=== PATIENT | female | born 1960 | race African-American/Black ===

== ENCOUNTER 2018-04-19 10:59 | Emergency (ER) | payer OTHER ==
--- OUTSIDE RECORDS SUMMARY | 2018-04-19 11:16 | XMS REPORT ---
:1960 Author Organization eClinicalWorks Care Team Providers Name Role Phone Rogerio Rodriguez Provider Role Unavailable Allergies, Adverse Reactions, Alerts Substance Reaction Event Type N.K.D.A. Info Not Available Non Drug Allergy Problems Problem Type Condition Code Onset Dates Condition Status Assessment Body mass index (BMI) of 30.0 to 39.9 E66.9 Active Assessment Hyperlipidemia E78.5 Active Assessment Benign essential HTN I10 Active Problem Rheumatoid arthritis M06.9 Active Problem Benign essential HTN I10 Active Problem Hyperlipidemia E78.5 Active Assessment Diabetes type 2, controlled E11.9 Active Assessment Rheumatoid arthritis M06.9 Active Problem Diabetes type 2, controlled E11.9 Active Problem Body mass index (BMI) of 30.0 to 39.9 E66.9 Active Medications Medication Code Code Instructions Start End Status Dosage System Date Date Metformin HCl [facility] 09170745884 500 MG Orally Active 1 tablet Twice a day with meals Metformin HCl [facility] 32258994887 500 MG Active TAKE 1 TABLET EVERY MORNING Prednisone NDC 0 Oral Once Active 1 tab (5 every other day mg) Amlodipine [facility] 62394567844 10 MG Orally Active 1 tablet Besylate Once a day Cimzia [facility] 48092308830 2 X 200 MG Active not Subcutaneous defined Lipitor [facility] 38368707575 40 MG Active TAKE 1 TABLET BY MOUTH EVERY DAY Norvasc [facility] 64298509876 10 MG Active TAKE 1 TABLET EVERY DAY Lipitor [facility] 39716969022 40 MG Orally Active 1 tablet Once a day Spironolactone [facility] 42481372019 25 MG Orally Active 1 tablet Once a day with food Methotrexate [facility] [address]-32 2.5 MG/ML IM Active IM Folic Acid [facility] 56404273285 1 MG Active TAKE 1 TABLET BY MOUTH EVERY DAY Folic Acid [facility] 45847974250 1 MG Orally Active 1 tablet Once a day Vimovo [facility] 14115270435 375-20 MG Active 1 tablet Orally Twice a before day meals Results No Known Results Summary Purpose eClinicalWorks Submission
--- OUTSIDE RECORDS SUMMARY | 2018-04-19 11:17 | XMS REPORT ---
:1960 Author Organization e[employer]Works Care Team Providers Name Role Phone Rogerio Rodriguez Provider Role Unavailable Allergies No Known Allergies Problems Problem Type Condition Code Onset Dates Condition Status Problem Rheumatoid arthritis M06.9 Active Problem Benign essential HTN I10 Active Problem Hyperlipidemia E78.5 Active Problem Diabetes type 2, controlled E11.9 Active Problem Body mass index (BMI) of 30.0 to 39.9 E66.9 Active Medications No Known Medications Results No Known Results Summary Purpose eClinicalWorks Submission
--- OUTSIDE RECORDS SUMMARY | 2018-04-19 11:17 | XMS REPORT ---
:1960 Author Organization [employer]Works Care Team Providers Name Role Phone Rogerio Rodriguez Provider Role Unavailable Allergies, Adverse Reactions, Alerts Substance Reaction Event Type N.K.D.A. Info Not Available Non Drug Allergy Problems Problem Type Condition Code Onset Dates Condition Status Assessment Well adult on routine health check Z00.00 Active Assessment Screening mammogram, encounter for Z12.31 Active Problem Body mass index (BMI) of 30.0 to E66.9 Active 39.9 Problem Hyperlipidemia E78.5 Active Problem Anemia in chronic illness D63.8 Active Problem Diabetes type 2, controlled E11.9 Active Problem Rheumatoid arthritis M06.9 Active Problem Benign essential HTN I10 Active Medications Medication Code Code Instructions Start End Status Dosage System Date Date Amlodipine [facility] 75812413995 10 MG Orally Active 1 tablet Besylate Once a day Methotrexate [facility] [address]-96 2.5 MG/ML IM Active IM Amlodipine [facility] 32669772691 10 MG Orally Active 1 tablet Besylate Once a day Lipitor [facility] 48246604419 40 MG Orally Active 1 tablet Once a day Vimovo [facility] 33204089781 375-20 MG Active 1 tablet Orally Twice a before day meals Cimzia [facility] 96311065936 2 X 200 MG Active not Subcutaneous defined Promethazine HCl [facility] 35309735791 12.5 MG Orally Active 1 tablet every 6 hrs as needed PredniSONE [facility] 69754479500 5 MG Orally Active 1 tablet Once a day Spironolactone [facility] 49843861843 25 MG Orally Active 1 tablet Once a day with food Metformin HCl [facility] 41585194058 500 MG Orally Active 1 tablet Once a day with meals Folic Acid [facility] 36051352316 1 MG Orally Active 1 tablet Once a day Results No Known Results Summary Purpose eClinicalWorks Submission
--- OUTSIDE RECORDS SUMMARY | 2018-04-19 11:17 | XMS REPORT ---
:1960 Author Organization eClinicalWorks Care Team Providers Name Role Phone Rogerio Rodriguez Provider Role Unavailable Allergies, Adverse Reactions, Alerts Substance Reaction Event Type N.K.D.A. Info Not Available Non Drug Allergy Problems Problem Type Condition Code Onset Dates Condition Status Problem Rheumatoid arthritis M06.9 Active Problem Benign essential HTN I10 Active Problem Hyperlipidemia E78.5 Active Assessment Other noninfective acute otitis H60.592 Active externa of left ear Problem Diabetes type 2, controlled E11.9 Active Problem Body mass index (BMI) of 30.0 to E66.9 Active 39.9 Medications Medication Code Code Instructions Start End Status Dosage System Date Date Spironolactone [facility] 44454245042 25 MG Orally Active 1 tablet Once a day with food Amlodipine [facility] 55598889989 10 MG Orally Active 1 tablet Besylate Once a day Folic Acid [facility] 67353247296 1 MG Active TAKE 1 TABLET BY MOUTH EVERY DAY Neomycin-Polymyxi [facility] 42219241151 3.5-02264-4 July Active 4 drops n-HC Otic Twice a 2017 affected ear Cimzia [facility] 90651261098 2 X 200 MG Active not Subcutaneous defined Vimovo [facility] 90981570858 375-20 MG Active 1 tablet Orally Twice a before day meals Methotrexate [facility] [address]-36 2.5 MG/ML IM Active IM Norvasc [facility] 16207225714 10 MG Active TAKE 1 TABLET EVERY DAY Lipitor [place] 73805965438 40 MG Active TAKE 1 TABLET BY MOUTH EVERY DAY Metformin HCl [facility] 96476598792 500 MG Active TAKE 1 TABLET EVERY MORNING Metformin HCl [facility] 68561922449 500 MG Orally Active 1 tablet Twice a day with meals Prednisone NDC 0 Oral Once Active 1 tab (5 every other day mg) Results No Known Results Summary Purpose eClinicalWorks Submission
--- OUTSIDE RECORDS SUMMARY | 2018-04-19 11:17 | XMS REPORT ---
:1960 Author Organization eClinicalWorks Care Team Providers Name Role Phone Rogerio Rodriguez Provider Role Unavailable Allergies No Known Allergies Problems Problem Type Condition Code Onset Dates Condition Status Assessment Benign essential HTN I10 Active Assessment Rheumatoid arthritis M06.9 Active Assessment Hyperlipidemia E78.5 Active Assessment Body mass index (BMI) of 30.0 to 39.9 E66.9 Active Problem Rheumatoid arthritis M06.9 Active Problem Benign essential HTN I10 Active Problem Hyperlipidemia E78.5 Active Assessment Diabetes type 2, controlled E11.9 Active Problem Diabetes type 2, controlled E11.9 Active Problem Body mass index (BMI) of 30.0 to 39.9 E66.9 Active Medications Medication Code Code Instructions Start End Status Dosage System Date Date Cimzia [facility] 81445555927 2 X 200 MG Active not Subcutaneous defined Neomycin-Polymyxi [facility] 02672931538 3.5-64081-0 July Active 4 drops n-HC Otic Twice a 27, into 2017 affected ear Metformin HCl [facility] 32043486276 500 MG Orally Active 1 tablet Twice a day with meals Metformin HCl [facility] 02953993816 500 MG Active TAKE 1 TABLET EVERY MORNING Amlodipine [facility] 47018989610 10 MG Orally Active 1 tablet Besylate Once a day Lipitor [facility] 61563347076 40 MG Active TAKE 1 TABLET BY MOUTH EVERY DAY Norvasc [facility] 50656906393 10 MG Active TAKE 1 TABLET EVERY DAY Prednisone NDC 0 Oral Once Active 1 tab (5 every other day mg) Vimovo [facility] 98462531578 375-20 MG Active 1 tablet Orally Twice a before day meals Lipitor [facility] 26174599198 40 MG Orally Active 1 tablet Once a day Folic Acid [facility] 29829691379 1 MG Active TAKE 1 TABLET BY MOUTH EVERY DAY Spironolactone [facility] 43467209156 25 MG Orally Active 1 tablet Once a day with food Folic Acid [facility] 63561730190 1 MG Orally Active 1 tablet Once a day Methotrexate [facility] [address]-67 2.5 MG/ML IM Active IM Results No Known Results Summary Purpose eClinicalWorks Submission
--- OUTSIDE RECORDS SUMMARY | 2018-04-19 11:17 | XMS REPORT ---
:1960 Author Organization eClinicalWorks Care Team Providers Name Role Phone RodriguezRogerio Provider Role Unavailable Allergies, Adverse Reactions, Alerts Substance Reaction Event Type N.K.D.A. Info Not Available Non Drug Allergy Problems Problem Type Condition Code Onset Dates Condition Status Assessment Hyperlipidemia E78.5 Active Assessment Diabetes type 2, controlled E11.9 Active Assessment Rheumatoid arthritis M06.9 Active Assessment Body mass index (BMI) of 30.0 to 39.9 E66.9 Active Assessment Anemia in chronic illness D63.8 Active Assessment Benign essential HTN I10 Active Problem Body mass index (BMI) of 30.0 to 39.9 E66.9 Active Problem Hyperlipidemia E78.5 Active Problem Anemia in chronic illness D63.8 Active Problem Diabetes type 2, controlled E11.9 Active Problem Rheumatoid arthritis M06.9 Active Problem Benign essential HTN I10 Active Medications Medication Code Code Instructions Start End Status Dosage System Date Date Amlodipine [facility] 41955650083 10 MG Orally Active 1 tablet Besylate Once a day Spironolactone [facility] 78363514206 25 MG Orally Active 1 tablet Once a day with food Amlodipine [facility] 67015469768 10 MG Orally Active 1 tablet Besylate Once a day Promethazine HCl [facility] 47361688272 12.5 MG Orally Active 1 tablet every 6 hrs as needed Methotrexate [facility] [address]-06 2.5 MG/ML IM Active IM Vimovo [facility] 60130225352 375-20 MG Active 1 tablet Orally Twice a before day meals Metformin HCl ND 71440197527 500 MG Orally Active 1 tablet Once a day with meals Lipitor ND 91771727052 40 MG Orally Active 1 tablet Once a day PredniSONE ND 35165950574 5 MG Orally Active 1 tablet Once a day Folic Acid ND 52604421354 1 MG Orally Active 1 tablet Once a day Cimzia [facility] 00042456921 2 X 200 MG Active not Subcutaneous defined Results No Known Results Summary Purpose eClinicalWorks Submission
--- OUTSIDE RECORDS SUMMARY | 2018-04-19 11:17 | XMS REPORT ---
:1960 Author Organization eClinicalWorks Care Team Providers Name Role Phone Michael Rogerio Provider Role Unavailable Allergies No Known Allergies Problems Problem Type Condition Code Onset Dates Condition Status Assessment Need for influenza vaccination Z23 Active Problem Body mass index (BMI) of 30.0 to 39.9 E66.9 Active Problem Hyperlipidemia E78.5 Active Problem Anemia in chronic illness D63.8 Active Problem Diabetes type 2, controlled E11.9 Active Problem Rheumatoid arthritis M06.9 Active Problem Benign essential HTN I10 Active Medications Medication Code Code Instructions Start End Status Dosage System Date Date Folic Acid [facility] 89663470325 1 MG Orally Active 1 tablet Once a day Amlodipine [facility] 79427536552 10 MG Orally Active 1 tablet Besylate Once a day Lipitor [facility] 24465032119 40 MG Orally Active 1 tablet Once a day Amlodipine [facility] 89699616305 10 MG Orally Active 1 tablet Besylate Once a day Methotrexate [facility] [address]-01 2.5 MG/ML IM Active IM Vimovo [facility] 07684926503 375-20 MG Active 1 tablet Orally Twice a before day meals PredniSONE [facility] 19197549858 5 MG Orally Active 1 tablet Once a day Spironolactone [facility] 94297142707 25 MG Orally Active 1 tablet Once a day with food Promethazine HCl [facility] 02842988126 12.5 MG Orally Active 1 tablet every 6 hrs as needed Metformin HCl [facility] 61696340612 500 MG Orally Active 1 tablet Once a day with meals Cimzia [facility] 64318125533 2 X 200 MG Active not Subcutaneous defined Results No Known Results Immunizations Vaccine Administration Date Afluria Mar 22, 2018 Summary Purpose eClinicalWorks Submission
[2018-04-19] MEDS ORDERED: NA CHLORIDE 0.9% 500 ML ONE (12:46)
[2018-04-19] MEDS ORDERED: HYDROCODONE/APAP 10/325 TAB ONE (13:03)
--- NOTE | 2018-04-19 13:04 | EKG ---
Test Date: 2018-04-19 Test Time: 12:12:17 [employer] Worker: KORI MEASUREMENT RESULTS: Intervals: Rate: 61 IN: 146 QRSD: 70 QT: 390 QTc: 392 [place]: P: IN: 146 QRS: 74 T: 58 INTERPRETIVE STATEMENTS: Normal sinus rhythm Normal ECG Compared to ECG 11/01/2016 10:33:15 Sinus bradycardia no longer present ST (T wave) deviation no longer present Early repolarization no longer present Electronically Signed On 04-19-18 13:03:45 [employer]NAGER [employer]ING by Khadar Lopez
[2018-04-19 13:17] LABS: Absolute Lymphocytes (CBC) 1.7 K/uL (0.7-4.9); Absolute Monocytes 0.8 K/uL (0.1-1.3); Absolute Neutrophil 2.5 K/uL (1.8-8.0); Basophils % 1.1 % (0-1.3); Eosinophils % 3.2 % (0-4.4); Hematocrit 36.4 % (36.0-45.0); Lymphocytes % 33.3 % (15.3-44.8); MPV 10.5 fL (7.6-11.3); Monocytes % 15.1 % (3.3-12.3)
[2018-04-19 13:31] LABS: ALT/SGPT 29 U/L (12-78); AST/SGOT 16 U/L (15-37); Albumin 3.2 g/dL (3.4-5.0); Alkaline Phosphatase 78 U/L (45-117); BUN Blood Urea Nitrogen 12 mg/dL (7-18); Bicarbonate 28 mmol/L (21-32); Bilirubin Direct < 0.1 mg/dL (0-0.2); Bilirubin Total 0.2 mg/dL (0.2-1.0); Glucose Level 87 mg/dL (74-106); Magnesium 2.1 mg/dL (1.8-2.4); NT PRO-BNP 85 pg/mL (<125); Protein, Total 8.6 g/dL (6.4-8.2); Sodium Level 143 mmol/L (136-145); Troponin (Emerg Dept Use Only) < 0.02 ng/mL (0.0-0.045)
[2018-04-19 13:39] LABS: Blood Morphology Comment NOT SEEN (NOT SEEN); Platelet Estimate ADEQ
--- NOTE | 2018-04-19 13:40 | RAD REPORT ---
EXAM DESCRIPTION: RAD - Chest Single View - 04/19/2018 1:21 pm CLINICAL HISTORY: Left-sided chest pain COMPARISON: October 2016 TECHNIQUE: AP portable chest image was obtained 1302 hours . FINDINGS: Lungs are clear. Small granuloma upper left lung field, stable. Heart and vasculature are normal. No measurable pleural effusion and no pneumothorax. No acute bony abnormality seen. No acute aortic findings suspected. IMPRESSION: No acute cardiopulmonary process. No significant interval change.
--- NOTE | 2018-04-19 14:06 | EDPHYS ---
Physician Documentation [facility] Name: Shanda Marie Age: 57 yrs Sex: Female : 1960 Arrival Date: 04/19/2018 Time: 11:01 Bed 15 Private MD: Salome Rodriguezh ED Physician Juan Steinberg HPI: 04/19 11:42 This 57 yrs old Black Female presents to ER via Ambulatory with complaints of Hand kav Swelling, Leg Swelling, Hip Pain, Chest Pain. 12:04 The patient or guardian reports pain, swelling, erythema. The complaints affect the kav right hand diffusely. Context: The problem was sustained at home. Onset: The symptoms/episode began/occurred acutely, just prior to arrival. Modifying factors: The symptoms are alleviated by Methotrexate and Prednisone daily for DX: Rheumatoid Arthritis. Associated signs and symptoms: Pertinent positives: chest pain, of the left breast. Severity of symptoms: At their worst the symptoms were severe, just prior to arrival, a " 7" out of "10". The patient has experienced similar episodes in the past, a few times, but today's symptoms are worse, more painful. The patient has not recently seen a physician. Historical: - Allergies: 11:11 No Known Drug Allergies; hb - Home Meds: 11:11 amlodipine 10 mg tab 1 tab once daily [Active]; atorvastatin 40 mg Oral tab 1 tab once hb daily [Active]; prednisone 5 mg Oral tab once daily [Active]; folic acid 1 mg Oral tab 1 tab once daily [Active]; metformin 500 mg Oral Tb24 1 tab once daily [Active]; Vimovo 500-20 mg Oral TbID 1 tab [Active]; methotrexate sodium 2.5 mg Oral tab 6 tab Once weekly-Monday [Active]; spironolactone 25 mg Oral tab 1 tab once daily [Active]; - PMHx: 11:11 Diabetes - NIDDM; High Cholesterol; Hypertension; Rheumatoid Arthritis; hb - PSHx: 11:11 None; hb - Immunization history:: Adult Immunizations up to date. - Social history:: Smoking status: Patient/guardian denies using tobacco. - Ebola Screening: : No symptoms or risks identified at this time. - Family history:: not pertinent. - Hospitalizations: : No recent hospitalization is reported. ROS: 12:07 Constitutional: Negative for fever, chills, and weight loss, Eyes: Negative for injury, kav pain, redness, and discharge, ENT: Negative for injury, pain, and discharge, Neck: Negative for injury, pain, and swelling, Respiratory: Negative for shortness of breath, cough, wheezing, and pleuritic chest pain, Abdomen/GI: Negative for abdominal pain, nausea, vomiting, diarrhea, and constipation, Back: Negative for injury and pain, : Negative for injury, bleeding, discharge, and swelling, Skin: Negative for injury, rash, and discoloration, Neuro: Negative for headache, weakness, numbness, tingling, and seizure, Psych: Negative for depression, anxiety, suicide ideation, homicidal ideation, and hallucinations, Allergy/Immunology: Negative for hives, rash, and allergies, Endocrine: Negative for neck swelling, polydipsia, polyuria, polyphagia, and marked weight changes, Hematologic/Lymphatic: Negative for swollen nodes, abnormal bleeding, and unusual bruising. 12:07 Cardiovascular: Positive for chest pain, with movement, of the left breast, Negative for palpitations. 12:07 MS/extremity: Positive for erythema, pain, swelling, tenderness, of the left arm and left hand. 12:10 MS/extremity: Positive for erythema, pain, swelling, tenderness, of the left arm. kav Exam: 12:07 Constitutional: This is a well developed, well nourished patient who is awake, alert, kav and in no acute distress. Head/Face: Normocephalic, atraumatic. Eyes: Pupils equal round and reactive to light, extra-ocular motions intact. Lids and lashes normal. Conjunctiva and sclera are non-icteric and not injected. Cornea within normal limits. Periorbital areas with no swelling, redness, or edema. ENT: Nares patent. No nasal discharge, no septal abnormalities noted. Tympanic membranes are normal and external auditory canals are clear. Oropharynx with no redness, swelling, or masses, exudates, or evidence of obstruction, uvula midline. Mucous membranes moist. Neck: Trachea midline, no thyromegaly or masses palpated, and no cervical lymphadenopathy. Supple, full range of motion without nuchal rigidity, or vertebral point tenderness. No Meningismus. Chest/axilla: Normal chest wall appearance and motion. Nontender with no deformity. No lesions are appreciated. Respiratory: Lungs have equal breath sounds bilaterally, clear to auscultation and percussion. No rales, rhonchi or wheezes noted. No increased work of breathing, no retractions or nasal flaring. Abdomen/GI: Soft, non-tender, with normal bowel sounds. No distension or tympany. No guarding or rebound. No evidence of tenderness throughout. Back: No spinal tenderness. No costovertebral tenderness. Full range of motion. Skin: Warm, dry with normal turgor. Normal color with no rashes, no lesions, and no evidence of cellulitis. Neuro: Awake and alert, GCS 15, oriented to person, place, time, and situation. Cranial nerves II-XII grossly intact. Motor strength 5/5 in all extremities. Sensory grossly intact. Cerebellar exam normal. Normal gait. Psych: Awake, alert, with orientation to person, place and time. Behavior, mood, and affect are within normal limits. 12:10 Musculoskeletal/extremity: Extremities: noted in the left arm and left hand: erythema, kav pain, swelling, tenderness, ROM: limited active range of motion, in the left arm and left hand, Circulation is intact in all extremities. Pulses: are normal with no appreciated deficits, Perfusion: the patient is normally perfused throughout, pink, warm, noted to have brisk capillary refill, Perfusion: the extremity is normally perfused throughout, pink, warm, with brisk capillary refill, the left arm Sensation intact. Compartment Syndrome exam of affected extremity: is normal. no numbness, no tingling, no sensation deficit, no palor, no weak pulses, Joints: the left wrist displays limited range of motion, pain at rest, painful range of motion, swelling, tenderness, Tendon exam: specific tendon testing normal through active and passive range of motion Vital Signs: 11:08 BP 143 / 74; Pulse 88; Resp 16; Temp 98.2; Pulse Ox 100% on R/A; Pain 6/10; hb 13:14 BP 124 / 72; Pulse 62; Resp 2; Pulse Ox 100% on R/A; aj1 14:09 BP 119 / 70; Pulse 54; Resp 15; Pulse Ox 99% on R/A; aj1 MDM: 11:42 Medical screening is not applicable. kav 12:10 Differential diagnosis: Rheumatoid Arthritis Flare. Data reviewed: vital signs, nurses ka notes. 14:03 Counseling: I had a detailed discussion with the patient and/or guardian regarding: the [facility] historical points, exam findings, and any diagnostic results supporting the discharge/admit diagnosis, lab results, the need for outpatient follow up, a accounting generalist. 04/19 12:03 Order name: Basic Metabolic Panel [facility] 04/19 12:03 Order name: CBC with Diff [facility] 04/19 12:03 Order name: LFT's 04/19 12:03 Order name: Magnesium [facility] 04/19 12:03 Order name: NT PRO-BNP; Complete Time: 14:02 [facility] 04/19 14:02 Interpretation: Within normal limits. [facility] 04/19 12:03 Order name: Troponin (emerg Dept Use Only); Complete Time: 14:02 [facility] 04/19 14:02 Interpretation: Within normal limits. 04/19 12:03 Order name: XRAY Chest (1 view); Complete Time: 14:02 [facility] 04/19 14:02 Interpretation: No acute disease. [facility] 04/19 12:04 Order name: Basic Metabolic Panel; Complete Time: 14:01 EDHI 04/19 14:01 Interpretation: Normal except: CL 110; GFR 74. [facility] 04/19 12:04 Order name: CBC with Automated Diff; Complete Time: 14:01 EDHI 04/19 14:01 Interpretation: Normal except: HGB 11.8; MN% 15.1. 04/19 12:04 Order name: Liver (Hepatic) Function; Complete Time: 14:01 EDMS 04/19 14:02 Interpretation: Normal except: TP 8.6; ALB 3.2; GLOB 5.4; A/G 0.6. 04/19 12:04 Order name: Magnesium; Complete Time: 14:02 EDMS 04/19 14:02 Interpretation: Within normal limits. 04/19 13:39 Order name: Manual Differential; Complete Time: 14:01 EDHI 04/19 14:01 Interpretation: Normal except: MONO 13. 04/19 12:03 Order name: EKG; Complete Time: 12:04 04/19 12:03 Order name: Cardiac monitoring; Complete Time: 12:36 04/19 12:03 Order name: EKG - Nurse/Tech; Complete Time: 12:33 04/19 12:03 Order name: IV Saline Lock; Complete Time: 12:35 kav 04/19 12:03 Order name: Labs collected and sent; Complete Time: 12:35 kav 04/19 12:03 Order name: O2 Per Protocol; Complete Time: 12:49 kav 04/19 12:03 Order name: O2 Sat Monitoring; Complete Time: 12:49 kav 04/19 12:45 Order name: Labs - recollect needed; Complete Time: 12:49 bd Administered Medications: 13:00 CANCELLED (Patient Refused): NS 0.9% 500 ml IV at bolus once kav 13:04 Drug: HYDROcodone-acetaminophen 10 mg-325 mg 1 tabs Route: PO; aj1 14:24 Follow up: Response: No adverse reaction; Pain is decreased aj1 Disposition: 14:58 Co-signature as Attending Physician, Juan Steinberg MD I agree with the assessment and kdr plan of care. Disposition: 04/19/18 14:05 Discharged to Home. Impression: Acute Exacerbation of Rheumatoid Arthritis, Chest pain, unspecified. - Condition is Stable. - Discharge Instructions: Nonspecific Chest Pain, Rheumatoid Arthritis. - Prescriptions for Prednisone 20 mg Oral Tablet - take 2 tablet by ORAL route once daily for 5 days; 10 tablet. - Medication Reconciliation Form, Thank You Letter, Antibiotic Education, Prescription Opioid Use, Work release form form. - Follow up: Rogerio Rodriguez DO; When: 2 - 3 days; Reason: Recheck today's complaints, Continuance of care, Re-evaluation by your physician. - Problem is an acute exacerbation. - Symptoms have improved. Signatures: Dispatcher [employer] EDHI Daily Raman Angela, RN RN aj1 Juan Steinberg MD MD kdr Vern, Katherine, [employer] Frida Segovia, RN RN Corrections: (The following items were deleted from the chart) 13:00 12:04 NS 0.9% 500 ml IV at bolus once ordered. kav kav 14:34 14:05 04/19/2018 14:05 Discharged to Home. Impression: Acute Exacerbation of Rheumatoid aj1 Arthritis; Chest pain, unspecified. Condition is Stable. Forms are Medication Reconciliation Form, Thank You Letter, Antibiotic Education, Prescription Opioid Use. Follow up: Rogerio Rodriguez; When: 2 - 3 days; Reason: Recheck today's complaints, Continuance of care, Re-evaluation by your physician. Problem is an acute exacerbation. Symptoms have improved. octavio
--- NOTE | 2018-04-19 14:06 | ER ---
Nurse's Notes [facility] Name: Shanda Marie Age: 57 yrs Sex: Female : 1960 Arrival Date: 04/19/2018 Time: 11:01 Bed 15 Private MD: Rogerio Rodriguez Diagnosis: Acute Exacerbation of Rheumatoid Arthritis;Chest pain, unspecified Presentation: 04/19 11:06 Presenting complaint: Left upper chest pain, left hand and left knee pain, and left hip hb pain x 2 day. Hx of RA. Denies injury/cough/fever. Transition of care: patient was not received from another setting of care. Onset of symptoms was April 18, 2018. Risk Assessment: Do you want to hurt yourself or someone else? Patient reports no desire to harm self or others. Care prior to arrival: None. 11:06 Method Of Arrival: Ambulatory hb 11:06 Acuity: PALMA 3 hb 14:09 Initial Sepsis Screen: Does the patient meet any 2 criteria? No. Patient's initial aj1 sepsis screen is negative. Does the patient have a suspected source of infection? No. Patient's initial sepsis screen is negative. Historical: - Allergies: 11:11 No Known Drug Allergies; hb - Home Meds: 11:11 amlodipine 10 mg tab 1 tab once daily [Active]; atorvastatin 40 mg Oral tab 1 tab once hb daily [Active]; prednisone 5 mg Oral tab once daily [Active]; folic acid 1 mg Oral tab 1 tab once daily [Active]; metformin 500 mg Oral Tb24 1 tab once daily [Active]; Vimovo 500-20 mg Oral TbID 1 tab [Active]; methotrexate sodium 2.5 mg Oral tab 6 tab Once weekly-Monday [Active]; spironolactone 25 mg Oral tab 1 tab once daily [Active]; - PMHx: 11:11 Diabetes - NIDDM; High Cholesterol; Hypertension; Rheumatoid Arthritis; hb - PSHx: 11:11 None; hb - Immunization history:: Adult Immunizations up to date. - Social history:: Smoking status: Patient/guardian denies using tobacco. - Ebola Screening: : No symptoms or risks identified at this time. - Family history:: not pertinent. - Hospitalizations: : No recent hospitalization is reported. Screenin:55 Abuse screen: Denies threats or abuse. Denies injuries from another. Nutritional aj1 screening: No deficits noted. Tuberculosis screening: No symptoms or risk factors identified. 14:10 Fall Risk None identified. aj1 Assessment: 11:55 General: Appears in no apparent distress. uncomfortable, Behavior is calm, cooperative, aj1 appropriate for age. Pain: Complains of pain in anterior aspect of left upper chest, left hip, left hand, left arm and left leg Pain does not radiate. Pain currently is 6 out of 10 on a pain scale. Pain began 2-3 days ago. Neuro: Level of Consciousness is awake, alert, obeys commands, Oriented to person, place, time, situation, Moves all extremities. Full function Gait is Patient reports that she always walks with a limp due to her arthritis. Speech is normal, Facial symmetry appears normal. Cardiovascular: Reports chest pain, Patient's skin is warm and dry. Respiratory: Airway is patent Respiratory effort is even, unlabored, Respiratory pattern is regular, symmetrical. GI: No signs and/or symptoms were reported involving the gastrointestinal system. : No signs and/or symptoms were reported regarding the genitourinary system. EENT: No signs and/or symptoms were reported regarding the EENT system. Derm: No signs and/or symptoms reported regarding the dermatologic system. Skin is pink, warm \T\ dry. normal. Musculoskeletal: Circulation, motion, and sensation intact. Range of motion: intact in all extremities. 13:13 Reassessment: Patient appears in no apparent distress at this time. No changes from aj1 previously documented assessment. Patient and/or family updated on plan of care and expected duration. Pain level reassessed. Patient is alert, oriented x 3, equal unlabored respirations, skin warm/dry/pink. 14:09 Reassessment: Patient appears in no apparent distress at this time. No changes from aj1 previously documented assessment. Patient and/or family updated on plan of care and expected duration. Pain level reassessed. Patient is alert, oriented x 3, equal unlabored respirations, skin warm/dry/pink. Vital Signs: 11:08 BP 143 / 74; Pulse 88; Resp 16; Temp 98.2; Pulse Ox 100% on R/A; Pain 6/10; hb 13:14 BP 124 / 72; Pulse 62; Resp 2; Pulse Ox 100% on R/A; aj1 14:09 BP 119 / 70; Pulse 54; Resp 15; Pulse Ox 99% on R/A; aj1 ED Course: 11:01 Patient arrived in ED. rg4 11:02 Roegrio Rodriguez DO is Private Physician. rg4 11:08 Triage completed. hb 11:08 Arm band placed on. hb 11:42 Angeles Key FNP is PHCP. kav 11:42 Juan Steinberg MD is Attending Physician. kav 11:50 Lila Jones RN is Primary Nurse. aj1 11:55 Patient has correct armband on for positive identification. aj1 11:55 No provider procedures requiring assistance completed. Patient maintains SpO2 aj1 saturation greater than 95% on room air. 12:00 hall monitor on. Pulse ox on. NIBP on. aj1 12:34 EKG done, by environmental health technician. reviewed by Angeles PACHECO. dt2 12:34 Initial lab(s) drawn, by ut, sent to lab. Inserted saline lock: 20 gauge in left mh5 antecubital area, using aseptic technique. Blood collected. 12:35 Magnesium Sent. mh5 12:35 Liver (Hepatic) Function Sent. mh5 12:35 CBC with Automated Diff Sent. mh5 12:35 Basic Metabolic Panel Sent. mh5 13:22 XRAY Chest (1 view) In Process Unspecified. EDMS 14:03 Rogerio Rodriguez DO is Referral Physician. kav 14:20 IV discontinued, intact, bleeding controlled, No redness/swelling at site. Pressure aj1 dressing applied. Administered Medications: 13:00 CANCELLED (Patient Refused): NS 0.9% 500 ml IV at bolus once kav 13:04 Drug: HYDROcodone-acetaminophen 10 mg-325 mg 1 tabs Route: PO; aj1 14:24 Follow up: Response: No adverse reaction; Pain is decreased aj1 Outcome: 14:05 Discharge ordered by . kav 14:23 Discharged to home ambulatory. aj1 14:23 Condition: good 14:23 Discharge instructions given to patient, Instructed on discharge instructions, follow up and referral plans. medication usage, Demonstrated understanding of instructions, follow-up care, medications, Prescriptions given X 1. 14:34 Patient left the ED. aj1 Signatures: Dispatcher [employer] EDPA Lila Jones RN RN aj1 Vern, Katherine, FNP FNP Frida Segovia, RN RN hb Mitchel, Jaky rg4 Jeanie Mendes 5 Holli Ignacio 2
[2018-04-19 14:42] VITALS: TEMP 98.2
[2018-04-19 14:44] VITALS: BP 119/70; O2SAT 99
== END 2018-04-19 14:34 | disposition home or self-care (01) ==
LOC: ER 10:59
DX: M06.9 Rheumatoid arthritis, unspecified (principal); I10 Essential (primary) hypertension; E11.9 Type 2 diabetes mellitus without complications; E78.00 Pure hypercholesterolemia, unspecified
CPT/HCPCS: 36415; 71045; 80048; 80076; 83735; 83880; 84484; 85025; 93005; 99285

== ENCOUNTER 2018-09-04 00:42 | Emergency (ER) | payer OTHER ==
--- OUTSIDE RECORDS SUMMARY | 2018-09-04 00:46 | XMS REPORT ---
:1960 Author Organization [employer] Care Team Providers Name Role Phone Brody Claros Provider Role Unavailable Allergies, Adverse Reactions, Alerts Substance Reaction Event Type N.K.D.A. Info Not Available Non Drug Allergy Problems Problem Type Condition Code Onset Dates Condition Status Assessment Encounter for gynecological Z01.419 Active examination without abnormal finding Problem Benign essential HTN I10 Active Assessment Postmenopausal Z78.0 Active Problem Encounter for gynecological Z01.419 Active examination without abnormal finding Problem Anemia in chronic illness D63.8 Active Problem Postmenopausal Z78.0 Active Problem Hyperlipidemia E78.5 Active Problem Rheumatoid arthritis M06.9 Active Problem Body mass index (BMI) of 30.0 to E66.9 Active 39.9 Problem Diabetes type 2, controlled E11.9 Active Medications Medication Code Code Instructions Start End Status Dosage System Date Date PredniSONE [facility] 82995373261 5 MG Orally Active 1 tablet Once a day Promethazine HCl [facility] 56156648676 12.5 MG Orally Active 1 tablet every 6 hrs as needed Methotrexate [facility] [address]-31 2.5 MG/ML IM Active IM Folic Acid [facility] 96673304578 1 MG Orally Active 1 tablet Once a day Amlodipine [facility] 00945176699 10 MG Orally Active 1 tablet Besylate Once a day Lipitor [facility] 78979359310 40 MG Orally Active 1 tablet Once a day Vimovo [facility] 90557161601 375-20 MG Active 1 tablet Orally Twice a before day meals Spironolactone [facility] 50575286462 25 MG Orally Active 1 tablet Once a day with food Cimzia [facility] 72807661564 2 X 200 MG Active not Subcutaneous defined Metformin HCl [facility] 62455373598 500 MG Orally Active 1 tablet Once a day with meals Amlodipine [facility] 18260990862 10 MG Orally Active 1 tablet Besylate Once a day Results Name Result Date Reference Range Unit Abnormality Flag URINALYSIS AUTO W/O SCOPE (71328) ----NIT neg [id number] ----URO 0.2 [id number] ----PROTEIN TRACE [id number] ----pH 5.5 [id number] ----BLO TRACE [id number] ----GLUCOSE neg [id number] ----LASHAWN 1+ [id number] ----BILIRUBIN 1+ [id number] ----KETONES TRACE [id number] ----SPECIFIC GRAVITY 1.030 [id number] Summary Purpose eClinicalWorks Submission
--- OUTSIDE RECORDS SUMMARY | 2018-09-04 00:46 | XMS REPORT ---
:1960 Author Organization [employer] Care Team Providers Name Role Phone Rogerio Rodriguez Provider Role Unavailable Allergies, Adverse Reactions, Alerts Substance Reaction Event Type N.K.D.A. Info Not Available Non Drug Allergy Problems Problem Type Condition Code Onset Dates Condition Status Assessment Rheumatoid arthritis M06.9 Active Assessment Left upper extremity swelling M79.89 Active Problem Body mass index (BMI) of 30.0 to E66.9 Active 39.9 Problem Hyperlipidemia E78.5 Active Problem Anemia in chronic illness D63.8 Active Problem Diabetes type 2, controlled E11.9 Active Problem Rheumatoid arthritis M06.9 Active Problem Benign essential HTN I10 Active Medications Medication Code Code Instructions Start End Status Dosage System Date Date Methotrexate [facility] [address]-43 2.5 MG/ML IM Active IM Amlodipine [facility] 62672552823 10 MG Orally Active 1 tablet Besylate Once a day Cimzia [facility] 99747987456 2 X 200 MG Active not Subcutaneous defined PredniSONE [facility] 44194581392 5 MG Orally Active 1 tablet Once a day Lipitor [facility] 45129313074 40 MG Orally Active 1 tablet Once a day Amlodipine [facility] 15796222852 10 MG Orally Active 1 tablet Besylate Once a day Promethazine HCl [facility] 08033057186 12.5 MG Orally Active 1 tablet every 6 hrs as needed Folic Acid [facility] 97295325655 1 MG Orally Active 1 tablet Once a day Spironolactone [facility] 12195365148 25 MG Orally Active 1 tablet Once a day with food Vimovo [facility] 27145349655 375-20 MG Active 1 tablet Orally Twice a before day meals Metformin HCl [facility] 15944727395 500 MG Orally Active 1 tablet Once a day with meals Results No Known Results Summary Purpose eClinicalWorks Submission
--- OUTSIDE RECORDS SUMMARY | 2018-09-04 00:46 | XMS REPORT ---
[...] End Status Dosage System Date Date Amlodipine [facility] 64795271068 10 MG Orally Active 1 tablet Besylate Once a day Spironolactone [facility] 82868271722 25 MG Orally Active 1 tablet Once a day with food Amlodipine [facility] 80301904890 10 MG Orally Active 1 tablet Besylate Once a day Promethazine HCl [facility] 80072058644 12.5 MG Orally Active 1 tablet every 6 hrs as needed Methotrexate [facility] [address]-03 2.5 MG/ML IM Active IM Vimovo [facility] 67065655474 375-20 MG Active 1 tablet Orally Twice a before day meals Metformin HCl ND 50668326566 500 MG Orally Active 1 tablet Once a day with meals Lipitor ND 41316008255 40 MG Orally Active 1 tablet Once a day PredniSONE ND 00805688672 5 MG Orally Active 1 tablet Once a day Folic Acid ND 83222921824 1 MG Orally Active 1 tablet Once a day Cimzia [facility] 88219893464 2 X 200 MG Active not Subcutaneous defined Results No Known Results Summary Purpose eClinicalWorks Submission
--- OUTSIDE RECORDS SUMMARY | 2018-09-04 00:46 | XMS REPORT ---
:1960 Author Organization eClinicalWorks Care Team Providers Name Role Phone Rogerio Rodriguez Provider Role Unavailable Allergies, Adverse Reactions, Alerts Substance Reaction Event Type N.K.D.A. Info Not Available Non Drug Allergy Problems Problem Type Condition Code Onset Dates Condition Status Assessment Diabetes type 2, controlled E11.9 Active Problem Benign essential HTN I10 Active Problem Encounter for gynecological Z01.419 Active examination without abnormal finding Problem Anemia in chronic illness D63.8 Active Problem Postmenopausal Z78.0 Active Problem Hyperlipidemia E78.5 Active Problem Rheumatoid arthritis M06.9 Active Problem Body mass index (BMI) of 30.0 to E66.9 Active 39.9 Problem Diabetes type 2, controlled E11.9 Active Assessment Anemia in chronic illness D63.8 Active Assessment Benign essential HTN I10 Active Assessment Hyperlipidemia E78.5 Active Assessment Body mass index (BMI) of 30.0 to E66.9 Active 39.9 Assessment Rheumatoid arthritis M06.9 Active Medications Medication Code Code Instructions Start End Status Dosage System Date Date Vimovo [facility] 83900841915 375-20 MG Active 1 tablet Orally Twice a before day meals Cimzia [facility] 30106750393 2 X 200 MG Active not Subcutaneous defined Amlodipine [facility] 83344763609 10 MG Orally Active 1 tablet Besylate Once a day Metformin HCl [facility] 97976254808 1000 MG Orally Active 1 tablet BID with meals Folic Acid [facility] 37741083586 1 MG Orally Active 1 tablet Once a day Promethazine HCl [facility] 22192206327 12.5 MG Orally Active 1 tablet every 6 hrs as needed Methotrexate [facility] [address]-71 2.5 MG/ML IM Active IM Spironolactone [facility] 26262906166 25 MG Orally Active 1 tablet Once a day with food Lipitor [facility] 60653623048 40 MG Orally Active 1 tablet Once a day Spironolactone [facility] 49072152278 25 MG Orally Active 1 tablet Once a day with food Amlodipine [facility] 44863334676 10 MG Orally Active 1 tablet Besylate Once a day PredniSONE [facility] 06190334327 5 MG Orally Active 1 tablet Once a day Results No Known Results Summary Purpose eClinicalWorks Submission
--- OUTSIDE RECORDS SUMMARY | 2018-09-04 00:46 | XMS REPORT ---
[...] Status Dosage System Date Date Folic Acid [facility] 94683704637 1 MG Orally Active 1 tablet Once a day Amlodipine [facility] 21493283573 10 MG Orally Active 1 tablet Besylate Once a day Lipitor [facility] 54519954177 40 MG Orally Active 1 tablet Once a day Amlodipine [facility] 18448381889 10 MG Orally Active 1 tablet Besylate Once a day Methotrexate [facility] [address]-54 2.5 MG/ML IM Active IM Vimovo [facility] 83579994366 375-20 MG Active 1 tablet Orally Twice a before day meals PredniSONE [facility] 42838654354 5 MG Orally Active 1 tablet Once a day Spironolactone [facility] 66991494300 25 MG Orally Active 1 tablet Once a day with food Promethazine HCl [facility] 56064475584 12.5 MG Orally Active 1 tablet every 6 hrs as needed Metformin HCl [facility] 60258367782 500 MG Orally Active 1 tablet Once a day with meals Cimzia [facility] 51453275539 2 X 200 MG Active not Subcutaneous defined Results No Known Results Immunizations Vaccine Administration Date Afluria Mar 22, 2018 Summary Purpose eClinicalWorks Submission
--- OUTSIDE RECORDS SUMMARY | 2018-09-04 00:46 | XMS REPORT ---
:1960 Author Organization eClinicalWorks Care Team Providers Name Role Phone Brody Claros Provider Role Unavailable Allergies, Adverse Reactions, Alerts Substance Reaction Event Type N.K.D.A. Info Not Available Non Drug Allergy Problems Problem Type Condition Code Onset Dates Condition Status Problem Benign essential HTN I10 Active Problem Hyperlipidemia E78.5 Active Problem Rheumatoid arthritis M06.9 Active Assessment Postmenopausal bleeding N95.0 Active Assessment Episode of heavy vaginal bleeding N93.9 Active Problem Episode of heavy vaginal bleeding N93.9 Active Problem Postmenopausal Z78.0 Active Problem Postmenopausal bleeding N95.0 Active Problem Body mass index (BMI) of 30.0 to E66.9 Active 39.9 Problem Diabetes type 2, controlled E11.9 Active Problem Encounter for gynecological Z01.419 Active examination without abnormal finding Problem Anemia in chronic illness D63.8 Active Medications Medication Code Code Instructions Start End Status Dosage System Date Date Amlodipine [facility] 31483305828 10 MG Orally Active 1 tablet Besylate Once a day Amlodipine [facility] 66198104590 10 MG Orally Active 1 tablet Besylate Once a day Cimzia [facility] 50988134126 2 X 200 MG Active not Subcutaneous defined Folic Acid [facility] 38528410391 1 MG Orally Active 1 tablet Once a day Methotrexate [facility] [address]-88 2.5 MG/ML IM Active IM Promethazine HCl [facility] 09002378628 12.5 MG Orally Active 1 tablet every 6 hrs as needed PredniSONE ND 48757512543 5 MG Orally Active 1 tablet Once a day Lipitor ND 89002600651 40 MG Orally Active 1 tablet Once a day Atorvastatin [facility] 17766877676 40 MG Active TAKE 1 Calcium TABLET BY MOUTH EVERY DAY Metformin HCl [facility] 16651021951 1000 MG Orally Active 1 tablet BID with meals Vimovo [facility] 18221378590 375-20 MG Active 1 tablet Orally Twice a before day meals Spironolactone [facility] 67934650326 25 MG Orally Active 1 tablet Once a day with food Spironolactone [facility] 58509624764 25 MG Orally Active 1 tablet Once a day with food Results Name Result Date Reference Range Unit Abnormality Flag URINALYSIS AUTO W/O SCOPE (83883) ----NIT neg [id number] ----URO 1.0 [id number] ----PROTEIN trace [id number] ----pH 7.0 [id number] ----BLO neg [id number] ----GLUCOSE neg [id number] ----LASHAWN trace [id number] ----BILIRUBIN neg [id number] ----KETONES neg [id number] ----SPECIFIC GRAVITY 1.020 [id number] Summary Purpose eClinicalWorks Submission
--- OUTSIDE RECORDS SUMMARY | 2018-09-04 00:46 | XMS REPORT ---
[...] End Status Dosage System Date Date Cimzia [facility] 00394005178 2 X 200 MG Active not Subcutaneous defined Neomycin-Polymyxi [facility] 82502866013 3.5-58077-1 July Active 4 drops n-HC Otic Twice a 27, into 2017 affected ear Metformin HCl [facility] 32738214606 500 MG Orally Active 1 tablet Twice a day with meals Metformin HCl [facility] 27606859075 500 MG Active TAKE 1 TABLET EVERY MORNING Amlodipine [facility] 92198293803 10 MG Orally Active 1 tablet Besylate Once a day Lipitor [facility] 37795973781 40 MG Active TAKE 1 TABLET BY MOUTH EVERY DAY Norvasc [facility] 67907100938 10 MG Active TAKE 1 TABLET EVERY DAY Prednisone NDC 0 Oral Once Active 1 tab (5 every other day mg) Vimovo [facility] 45693466493 375-20 MG Active 1 tablet Orally Twice a before day meals Lipitor [facility] 17610461834 40 MG Orally Active 1 tablet Once a day Folic Acid [facility] 46493403297 1 MG Active TAKE 1 TABLET BY MOUTH EVERY DAY Spironolactone [facility] 01113754159 25 MG Orally Active 1 tablet Once a day with food Folic Acid [facility] 08780853785 1 MG Orally Active 1 tablet Once a day Methotrexate [facility] [address]-45 2.5 MG/ML IM Active IM Results No Known Results Summary Purpose eClinicalWorks Submission
--- OUTSIDE RECORDS SUMMARY | 2018-09-04 00:46 | XMS REPORT ---
[...] End Status Dosage System Date Date Amlodipine [facility] 69204745239 10 MG Orally Active 1 tablet Besylate Once a day Methotrexate [facility] [address]-17 2.5 MG/ML IM Active IM Amlodipine [facility] 20044647203 10 MG Orally Active 1 tablet Besylate Once a day Lipitor [facility] 58176752616 40 MG Orally Active 1 tablet Once a day Vimovo [facility] 09809231754 375-20 MG Active 1 tablet Orally Twice a before day meals Cimzia [facility] 61224659657 2 X 200 MG Active not Subcutaneous defined Promethazine HCl [facility] 10474031733 12.5 MG Orally Active 1 tablet every 6 hrs as needed PredniSONE [facility] 26835848322 5 MG Orally Active 1 tablet Once a day Spironolactone [facility] 88580100154 25 MG Orally Active 1 tablet Once a day with food Metformin HCl [facility] 07810780141 500 MG Orally Active 1 tablet Once a day with meals Folic Acid [facility] 59144608510 1 MG Orally Active 1 tablet Once a day Results No Known Results Summary Purpose eClinicalWorks Submission
--- OUTSIDE RECORDS SUMMARY | 2018-09-04 00:46 | XMS REPORT ---
:1960 Author Organization eClinicalWorks Care Team Providers Name Role Phone Ruben Andres Provider Role Unavailable Allergies, Adverse Reactions, Alerts Substance Reaction Event Type N.K.D.A. Info Not Available Non Drug Allergy Problems Problem Type Condition Code Onset Dates Condition Status Problem Benign essential HTN I10 Active Problem Hyperlipidemia E78.5 Active Problem Rheumatoid arthritis M06.9 Active Assessment De Quervain's disease M65.4 Active (tenosynovitis) Assessment Pain in joint of left wrist M25.532 Active Problem Episode of heavy vaginal bleeding [...] End Status Dosage System Date Date Amlodipine [facility] 77783534993 10 MG Orally Active 1 tablet Besylate Once a day Spironolactone [facility] 21465216402 25 MG Orally Active 1 tablet Once a day with food PredniSONE ND 11690316380 5 MG Orally Active 1 tablet Once a day Atorvastatin ND 45661830372 40 MG Active TAKE 1 Calcium TABLET BY MOUTH EVERY DAY Cimzia [facility] 05649093692 2 X 200 MG Active not Subcutaneous defined Promethazine HCl [facility] 42758801952 12.5 MG Orally Active 1 tablet every 6 hrs as needed Amlodipine ND 87243342994 10 MG Orally Active 1 tablet Besylate Once a day Spironolactone [facility] 84145221636 25 MG Orally Active 1 tablet Once a day with food Lipitor ND 82335128704 40 MG Orally Active 1 tablet Once a day Metformin HCl ND 47469345455 1000 MG Orally Active 1 tablet BID with meals Vimovo [facility] 71850791828 375-20 MG Active 1 tablet Orally Twice a before day meals Folic Acid ND 44768902897 1 MG Orally Active 1 tablet Once a day Methotrexate [facility] [address]-85 2.5 MG/ML IM Active IM Results No Known Results Summary Purpose eClinicalWorks Submission
--- OUTSIDE RECORDS SUMMARY | 2018-09-04 00:47 | XMS REPORT ---
:1960 Author Organization eClinicalWorks Care Team Providers Name Role Phone Rogerio Rodriguez Provider Role Unavailable Allergies, Adverse Reactions, Alerts Substance Reaction Event Type N.K.D.A. Info Not Available Non Drug Allergy Problems Problem Type Condition Code Onset Dates Condition Status Problem Rheumatoid arthritis M06.9 Active Problem Diabetes type 2, controlled E11.9 Active Problem Hyperlipidemia E78.5 Active Problem Postmenopausal bleeding N95.0 Active Problem Episode of heavy vaginal bleeding N93.9 Active Problem Abnormal uterine bleeding N93.9 Active Problem Anemia in chronic illness D63.8 Active Problem Body mass index (BMI) of 30.0 to E66.9 Active 39.9 Problem Postmenopausal Z78.0 Active Problem Encounter for gynecological Z01.419 Active examination without abnormal finding Assessment Body mass index (BMI) of 30.0 to E66.9 Active 39.9 Assessment Anemia in chronic illness D63.8 Active Assessment Rheumatoid arthritis M06.9 Active Assessment Diabetes type 2, controlled E11.9 Active Assessment Benign essential HTN I10 Active Assessment Hyperlipidemia E78.5 Active Problem Benign essential HTN I10 Active Medications Medication Code Code Instructions Start End Status Dosage System Date Date Spironolactone [facility] 58437095909 25 MG Orally Active 1 tablet Once a day with food Norvasc [facility] 39009079425 10 MG Active TAKE 1 TABLET EVERY DAY Spironolactone [facility] 00420113413 25 MG Orally Active 1 tablet Once a day with food Folic Acid [facility] 05358082148 1 MG Orally Active 1 tablet Once a day Metformin HCl [facility] 97758989654 1000 MG Orally Active 1 tablet BID with meals Lipitor [facility] 18084256726 40 MG Orally Active 1 tablet Once a day Atorvastatin [facility] 43937892095 40 MG Active TAKE 1 Calcium TABLET BY MOUTH EVERY DAY Vimovo [facility] 75402400111 375-20 MG Active 1 tablet Orally Twice a before day meals Methotrexate [facility] [address]-28 2.5 MG/ML IM Active IM Cimzia [facility] 55321375030 2 X 200 MG Active not Subcutaneous defined Amlodipine [facility] 99153179947 10 MG Orally Active 1 tablet Besylate Once a day Lipitor [facility] 27934897335 40 MG Orally Active 1 tablet Once a day PredniSONE [facility] 24299651805 5 MG Orally Active 1 tablet Once a day Tinidazole [facility] 73029685332 500 MG Orally Active 4 tablets Once a day with food Results No Known Results Summary Purpose eClinicalWorks Submission
[2018-09-04] MEDS ORDERED: KETOROLAC 30 MG/ML INJ ONE (01:49)
[2018-09-04] MEDS ORDERED: HYDROCODONE/APAP 5/325 MG TAB ONE (01:49)
[2018-09-04] MEDS ORDERED: ONDANSETRON 4 MG (ODT) TAB ONE (01:55)
--- NOTE | 2018-09-04 02:37 | ER ---
Nurse's Notes [facility] Name: Shanda Marie Age: 57 yrs Sex: Female : 1960 Arrival Date: 09/04/2018 Time: 00:48 Bed 7 Private MD: Rogerio Rodriguez Diagnosis: Contusion of right lower leg Presentation: 09/04 01:09 Presenting complaint: Patient states: Reports her right leg started hurting around 5 PM ea yesterday evening, reports it progressively got worse. Put theraworks cream on leg without relief. Transition of care: patient was not received from another setting of care. Onset of symptoms was September 04, 2018. Risk Assessment: Do you want to hurt yourself or someone else? Patient reports no desire to harm self or others. Initial Sepsis Screen: Does the patient meet any 2 criteria? No. Patient's initial sepsis screen is negative. Does the patient have a suspected source of infection? No. Patient's initial sepsis screen is negative. Care prior to arrival: None. 01:09 Method Of Arrival: Wheelchair ea 01:09 Acuity: PALMA 3 ea Triage Assessment: 01:12 General: Appears uncomfortable, Behavior is calm, cooperative, appropriate for age. ea Pain: Complains of pain in right leg Pain radiates to right lower back Pain began 1 day ago. Historical: - Allergies: : No Known Allergies; ea - Home Meds: : amlodipine 10 mg tab 1 tab once daily [Active]; folic acid 1 mg Oral tab 1 tab once ea daily [Active]; methotrexate sodium 2.5 mg Oral tab 6 tab Once weekly-Monday [Active]; atorvastatin 40 mg Oral tab 1 tab once daily [Active]; metformin 500 mg Oral Tb24 1 tab once daily [Active]; spironolactone 25 mg Oral tab 1 tab once daily [Active]; prednisone 5 mg Oral tab once daily [Active]; - PMHx: : Rheumatoid Arthritis; Hypertension; High Cholesterol; Diabetes - NIDDM; ea - PSHx: : None; ea - Immunization history:: Adult Immunizations up to date. - Social history:: Smoking status: Patient/guardian denies using tobacco. - Ebola Screening: : No symptoms or risks identified at this time. Screenin:11 Abuse screen: Denies threats or abuse. Nutritional screening: No deficits noted. ea Tuberculosis screening: No symptoms or risk factors identified. Fall Risk Gait- Impaired (20 pts.). Assessment: 01:13 General: Appears uncomfortable, Behavior is appropriate for age. Neuro: Level of ea Consciousness is awake, alert, obeys commands, Oriented to person, place, time, situation. Cardiovascular: Patient's skin is warm and dry. Respiratory: Airway is patent Respiratory effort is even, unlabored, Respiratory pattern is regular, symmetrical. Derm: Skin is dry, Skin is normal, Skin temperature is warm. Musculoskeletal: Reports pain in right leg. 02:19 Reassessment: Patient and/or family updated on plan of care and expected duration. Pain ea level reassessed. Pt resting with eyes closed, respirations even and unlabored. Chest expansions even and symmetrical. 02:48 Reassessment: Patient and/or family updated on plan of care and expected duration. Pain ea level reassessed. Patient is alert, oriented x 3, equal unlabored respirations, skin warm/dry/pink. Discharge instruction given to patient, verbalized the understanding of instruction. No s/s of pain or discomfort noted a this time. Pt left ED via wheelchair per son. Pt tolerating well. Patient states feeling better. Patient states symptoms have improved. Vital Signs: 01:11 BP 135 / 81; Pulse 79; Resp 18; Temp 98.6; Pulse Ox 98% on R/A; Weight 96.62 kg; Height ea 5 ft. 6 in. (167.64 cm); Pain 10/10; 02:20 BP 136 / 78; Pulse 61; Resp 18; Pulse Ox 99% on R/A; ea 01:11 Body Mass Index 34.38 (96.62 kg, 167.64 cm) ea ED Course: 00:48 Patient arrived in ED. es 00:48 Rogerio Rodriguez DO is Private Physician. es 01:08 Ericka Prieto, ABELINO is Primary Nurse. ea 01:10 Triage completed. ea 01:10 Patient has correct armband on for positive identification. Bed in low position. Call ea light in reach. Side rails up X2. 01:10 Arm band placed on right wrist. Patient placed in an exam room, on a stretcher, on ea pulse oximetry. 01:13 Hemant Leahy MD is Attending Physician. tw4 01:37 X-ray completed. Portable x-ray completed in exam room. Patient tolerated procedure kw well. 01:41 Knee Right 2 View XRAY In Process Unspecified. EDMS 02:36 Rogerio Rodriguez DO is Referral Physician. tw4 02:49 No provider procedures requiring assistance completed. Patient did not have IV access ea during this emergency room visit. Administered Medications: 01:45 Drug: TORadol 60 mg Route: IM; Site: left gluteus; ea 02:30 Follow up: Response: No adverse reaction; Pain is decreased ea 01:45 Drug: [place] 5 mg-325 mg 1 tabs Route: PO; ea 02:30 Follow up: Response: No adverse reaction; Pain is decreased ea Outcome: 02:37 Discharge ordered by . tw4 02:49 Discharged to home ambulatory, with family. ea 02:49 Condition: improved 02:49 Discharge instructions given to patient, Instructed on discharge instructions, follow up and referral plans. medication usage, Demonstrated understanding of instructions, follow-up care, medications, Prescriptions given X 1. 02:59 Patient left the ED. ea Signatures: Dispatcher [employer] EDMO Rebecca Rogers Kimberlee kw Antunez, Elena, RN RN Hemant Morse MD MD tw4
--- NOTE | 2018-09-04 02:38 | EDPHYS ---
Physician Documentation [facility] Name: Shanda Marie Age: 57 yrs Sex: Female : 1960 Arrival Date: 09/04/2018 Time: 00:48 Bed 7 Private MD: Salome Rodriguezh ED Physician Hemant Leahy HPI: 09/04 02:17 This 57 yrs old Black Female presents to ER via Wheelchair with complaints of Leg cramp.tw4 02:17 The patient presents with pain, that is acute. The complaints affect the right knee. tw4 Context: The problem was sustained at home. 02:17 Onset: The symptoms/episode began/occurred yesterday. Modifying factors: The symptoms tw4 are alleviated by nothing. the symptoms are aggravated by nothing. Associated signs and symptoms: The patient has no apparent associated signs or symptoms. Severity of symptoms: At their worst the symptoms were moderate, in the emergency department the symptoms are unchanged. The patient has not experienced similar symptoms in the past. Historical: - Allergies: 01:17 No Known Allergies; ea - Home Meds: 01:17 amlodipine 10 mg tab 1 tab once daily [Active]; folic acid 1 mg Oral tab 1 tab once ea daily [Active]; methotrexate sodium 2.5 mg Oral tab 6 tab Once weekly-Monday [Active]; atorvastatin 40 mg Oral tab 1 tab once daily [Active]; metformin 500 mg Oral Tb24 1 tab once daily [Active]; spironolactone 25 mg Oral tab 1 tab once daily [Active]; prednisone 5 mg Oral tab once daily [Active]; - PMHx: 01:17 Rheumatoid Arthritis; Hypertension; High Cholesterol; Diabetes - NIDDM; ea - PSHx: 01:17 None; ea - Immunization history:: Adult Immunizations up to date. - Social history:: Smoking status: Patient/guardian denies using tobacco. - Ebola Screening: : No symptoms or risks identified at this time. ROS: 02:17 Constitutional: Negative for fever, chills, and weight loss, Eyes: Negative for injury, tw4 pain, redness, and discharge, Cardiovascular: Negative for chest pain, palpitations, and edema, Respiratory: Negative for shortness of breath, cough, wheezing, and pleuritic chest pain, Abdomen/GI: Negative for abdominal pain, nausea, vomiting, diarrhea, and constipation, Skin: Negative for injury, rash, and discoloration, Neuro: Negative for headache, weakness, numbness, tingling, and seizure. 02:17 MS/extremity: Positive for pain. Exam: 02:17 Constitutional: This is a well developed, well nourished patient who is awake, alert, tw4 and in no acute distress. Head/Face: Normocephalic, atraumatic. Chest/axilla: Normal chest wall appearance and motion. Nontender with no deformity. No lesions are appreciated. Cardiovascular: Regular rate and rhythm with a normal S1 and S2. No gallops, murmurs, or rubs. Normal PMI, no JVD. No pulse deficits. Respiratory: Lungs have equal breath sounds bilaterally, clear to auscultation and percussion. No rales, rhonchi or wheezes noted. No increased work of breathing, no retractions or nasal flaring. Abdomen/GI: Soft, non-tender, with normal bowel sounds. No distension or tympany. No guarding or rebound. No evidence of tenderness throughout. 02:17 Musculoskeletal/extremity: Extremities: noted in the right knee: pain, swelling, tenderness, There is no evidence of abrasion, bite, contusion, decreased ROM, deformity, ecchymosis, puncture, rash. Vital Signs: 01:11 BP 135 / 81; Pulse 79; Resp 18; Temp 98.6; Pulse Ox 98% on R/A; Weight 96.62 kg; Height ea 5 ft. 6 in. (167.64 cm); Pain 10/10; 02:20 BP 136 / 78; Pulse 61; Resp 18; Pulse Ox 99% on R/A; ea 01:11 Body Mass Index 34.38 (96.62 kg, 167.64 cm) ea MDM: 01:13 Patient medically screened. tw4 02:17 Differential diagnosis: open fracture, closed fracture. Data reviewed: vital signs, tw4 nurses notes. Data interpreted: Pulse oximetry: Interpretation: normal. Counseling: I had a detailed discussion with the patient and/or guardian regarding: the historical points, exam findings, and any diagnostic results supporting the discharge/admit diagnosis, radiology results. Medication response: Toradol markedly relieved the patient's pain. Response to treatment: the patient's symptoms have markedly improved after treatment, and as a result, I will discharge patient. Special discussion: I discussed with the patient/guardian in detail that at this point there is no indication for admission to the hospital. It is understood, however, that if the symptoms persist or worsen the patient needs to return immediately for re-evaluation. 09/04 01:24 Order name: Knee Right 2 View XRAY tw4 Administered Medications: 01:45 Drug: TORadol 60 mg Route: IM; Site: left gluteus; ea 02:30 Follow up: Response: No adverse reaction; Pain is decreased ea 01:45 Drug: Stowe 5 mg-325 mg 1 tabs Route: PO; ea 02:30 Follow up: Response: No adverse reaction; Pain is decreased ea Disposition: 09/04/18 02:37 Discharged to Home. Impression: Contusion of right lower leg. - Condition is Stable. - Discharge Instructions: Arthritis, Knee Effusion. - Prescriptions for Tramadol 50 mg Oral Tablet - take 1 tablet by ORAL route every 8 hours as needed; 12 tablet. - Work release form, Medication Reconciliation Form, Thank You Letter, Antibiotic Education, Prescription Opioid Use form. - Follow up: Rogerio Rodriguez DO; When: Upon discharge from the Emergency Department; Reason: If symptoms return, Recheck today's complaints, Continuance of care. - Problem is new. - Symptoms have improved. Signatures: Dispatcher [employer] Ericka Barnett, RN RN Hemant Morse MD MD tw4 Corrections: (The following items were deleted from the chart) 02:59 02:37 09/04/2018 02:37 Discharged to Home. Impression: Contusion of right lower leg. ea Condition is Stable. Forms are Medication Reconciliation Form, Thank You Letter, Antibiotic Education, Prescription Opioid Use. Follow up: Rogerio Rodriguez; When: Upon discharge from the Emergency Department; Reason: If symptoms return, Recheck today's complaints, Continuance of care. Problem is new. Symptoms have improved. tw4
[2018-09-04 03:34] VITALS: TEMP 98.6
[2018-09-04 03:35] VITALS: BP 136/78; O2SAT 99
--- NOTE | 2018-09-04 08:14 | RAD REPORT ---
EXAM DESCRIPTION: RAD - Knee Right 2 View - 09/04/2018 1:40 am CLINICAL HISTORY: PAIN COMPARISON: No comparisons FINDINGS: A small suprapatellar joint effusion is present. Mild arthritic changes are noted. No frac ture seen.
== END 2018-09-04 02:59 | disposition home or self-care (01) ==
LOC: ER 00:42
DX: S80.11XA Contusion of right lower leg, initial encounter (principal); M06.9 Rheumatoid arthritis, unspecified; I10 Essential (primary) hypertension; E78.00 Pure hypercholesterolemia, unspecified; E11.9 Type 2 diabetes mellitus without complications; Z79.84 Long term (current) use of oral hypoglycemic drugs
CPT/HCPCS: 96372; 99284

== ENCOUNTER 2019-12-22 09:45 | Observation (INO) | payer BC, OTHER ==
--- OUTSIDE RECORDS SUMMARY | 2019-12-22 09:47 | XMS REPORT | Continuity of Care Document ---
:1960 Author Organization [facility] t Address [address] [place] [address] Care Team Providers Name Role Phone Unavailable Unavailable Unavailable Problems This patient has no known problems. Allergies, Adverse Reactions, Alerts This patient has no known allergies or adverse reactions. Medications Ordered Filled Start Stop Current Ordering Indication Dosage Frequency Signature Comments Components Source Medication Medication Date Date Medication? Clinician (SIG) Name Name PredniSONE PredniSONE Yes Rogerio [address] [facility] Folic Acid Folic Acid Yes Rogerio [address] [facility] Amlodipine Amlodipine Yes Rogerio [address] [facility] Besylate Besylate Rodriguez [facility] Metformin Metformin Yes Rogerio [address] [facility] HCl HCl Rodriguez with meals [facility] Spironolact Spironolact Yes Rogerio [address] [facility] one one Rodriguez with food [facility] Orencia Orencia Yes Rogerio [address] [facility] ClickJect ClickJect Rodriguez [facility] Vitamin D3 Vitamin D3 Yes Rogerio [address] [facility] Caltrate Caltrate Yes Rogerio not [facility] 600+D 600+D Rodriguez defined [facility] Vimovo Vimovo Yes Rogerio [facility] Atorvastati Atorvastati Yes Rogerio TAKE [address] [facility] n Calcium n Calcium Rodriguez TABLET BY [facility] EVERY DAY [facility] Methotrexat Methotrexat Yes Rogerio INJECT 0.[address] [facility] [facility] Sodium e Sodium Rodriguez MILLILITER [facility] - (PF) (PF) ONCE [facility] WEEKLY l [facility] Lipitor Lipitor Yes Rogerio [address] [facility] Methotrexat Methotrexat Yes Rogerio IM [facility] Amlodipine Amlodipine Yes Rogerio TAKE [address] [facility] Besylate Besylate Rodriguez TABLET BY L [facility] - M[facility]TH [facility] EVERY DAY [facility] Metformin Metformin Yes Rogerio TAKE [address] HCl HCl Rodriguez TABLET BY [facility] TWICE A l DAY WITH Outpat[facility]ALS ent Clinics Spironolact Spironolact Yes Rogerio TAKE [address] [facility] [address] one one Rodriguez TABLET BY [facility] EVERY DAY l [facility] Immunizations Ordered Filled Immunization Date Status Comments Sourc e Immunization Name Name Jackeline Viveros 2018-03-[address] [facility] Procedures This patient has no known procedures. Encounters Start End Encounter Admission Attending Care Care Encounter Source Date/Time Date/Time Type Type Clinicians Facility Department ID 2019-12-19 2019-12-19 Outpatient [facility] [id number] 2019-11-14 2019-11-14 Outpatient [facility] [id number] [facility] 2019-11-13 2019-11-13 Outpatient [facility] [id number] [facility] 2019-09-18 2019-09-18 Outpatient Zina Hunter [id number] [facility] 09:45:00 09:45:00 [employer] [facility] 2019-09-12 2019-09-12 Outpatient Zina Izaguirret [id number] [facility] 13:22:00 13:22:00 t [employer] [facility] Medicine l Medicine Outpati ent Clinics 2019-07-02 2019-07-02 [facility] [id number] 10:27:00 10:27:00 t [facility] l Medicine Outpati ent Clinics 2019-06-18 2019-06-18 [facility] [id number] 15:15:00 15:15:00 t [employer] [facility] Medicine l Medicine Outpati ent Clinics 2019-06-14 2019-06-14 [facility] [id number] 11:25:00 11:25:00 t [employer] [facility] Medicine l Medicine Outpati ent Clinics 2019-05-15 2019-05-15 [facility] [id number] [address] 08:15:00 08:15:00 t [employer] [facility] Medicine l Medicine Outpati ent Clinics 2019-05-11 2019-05-11 [facility] [id number] [address] 08:04:00 08:04:00 t [employer] [facility] Medicine l Medicine Outpati ent Clinics 2019-04-04 2019-04-04 [facility] [id number] 15:00:00 15:00:00 t [facility] l Medicine Outpati ent Clinics 2019-03-18 2019-03-18 [facility] [id number] 16:30:00 16:30:00 t [employer] [facility] Medicine l Medicine Outpati ent Clinics 2018-11-27 2018-11-27 [facility] [id number] [address] 16:45:00 16:45:00 t [employer] [facility] Medicine l Medicine Outpati ent Clinics 2018-10-24 2018-10-24 [facility] [id number] 15:09:00 15:09:00 [facility] Clinic l Outpati ent Clinics 2018-08-27 2018-08-27 [facility] [id number] 14:30:00 14:30:[address] [place] [address] [place] [address] [place] - Drive [facility] Medicine l Medicine Outpati ent Clinics 2018-08-10 2018-08-10 [facility] [id number] 10:45:00 10:45:00 [facility] l Outpati ent Clinics 2018-08-06 2018-08-06 [facility] [id number] 14:30:00 14:30:00 [facility] ent Clinics 2018-07-25 2018-07-25 [facility] [id number] 11:30:00 11:30:00 [facility] 2018-05-28 2018-05-28 [facility] [id number] 14:15:00 14:15:00 [place] [employer] [place] [employer] Luke s - Drive [facility] Medicine l Medicine Outpati ent Clinics 2018-05-24 2018-05-24 [facility] [id number] 13:30:00 13:30:00 [facility] - Care Clinic [facility] l Outpati ent Clinics 2018-04-20 2018-04-20 [facility] [id number] 11:30:00 11:30:00 [place] [employer] Luke s - Drive [facility] Medicine l Medicine Outpati ent Clinics 2018-03-28 2018-03-28 [facility] [id number] 14:45:00 14:45:[address] [place] [address] [place] - Drive [facility] Medicine l Medicine Outpati ent Clinics 2018-03-22 2018-03-22 [facility] [id number] 15:45:00 15:45:00 [place] [employer] [place] [email or web address] s - Drive [facility] Medicine l Medicine Outpati ent Clinics 2018-03-14 2018-03-14 [facility] [id number] 11:00:00 11:00:00 [place] [employer] Luke s - Drive [facility] Medicine Outpati ent Clinics 2017-11-10 2017-11-10 [facility] [id number] 11:56:00 11:56:00 t [employer] s - Drive [facility] Medicine Outpati ent Clinics 2017-09-11 2017-09-11 [facility] [id number] 09:00:00 09:00:00 t [employer] - Drive [facility] Medicine Outpati ent Clinics 2017-08-09 2017-08-09 [facility] [id number] 10:15:00 10:15:00 t [employer] - Drive [facility] Medicine Outpati ent Clinics 2017-06-12 2017-06-12 [facility] [id number] 11:00:00 11:00:00 t [employer] - Drive [facility] Medicine Outpati ent Clinics Results This patient has no known results.
--- OUTSIDE RECORDS SUMMARY | 2019-12-22 09:47 | XMS REPORT ---
:1960 Author Organization [facility] Address [address], [address] [place] [address] Care Team Providers Name Role Phone Rodriguez Unavailable [phone] PROBLEMS Type Condition ICD9-CM [id number] Onset Condition SNOMED Code Notes Code Code Dates Status Problem Benign essential I10 Active 84928034 HTN Problem Body mass index E66.9 Active 587301904 (BMI) of 30.0 to 39.9 Problem Diabetes type 2, E11.9 Active 938900752 controlled Problem Anemia in chronic D63.8 Active 724266512 illness Problem Postmenopausal Z78.0 Active 65675440 Problem Vitamin D E55.9 Active 82171608 deficiency Problem Hyperlipidemia E78.5 Active 47356070 Problem Influenza B J10.1 Active 44467847 Problem Rheumatoid M06.9 Active 04170966 arthritis Problem Encounter for Z01.419 Active 284617042 gynecological examination without abnormal finding Problem Episode of heavy N93.9 Active 029505571 vaginal bleeding Problem Postmenopausal N95.0 Active 24214621 bleeding Problem Abnormal uterine N93.9 Active 85728022851723 bleeding ALLERGIES No Known Allergies ENCOUNTERS from 1960 to 2019-11-14 Encounter Location Date Provider Diagnosis [facility] [address] Oct, 2019 [place] [address] IMMUNIZATIONS Vaccine Route Administration Date Status Betamethasone Sodium Phosphate Unknown August 06, 2018 A dministered Afluria IM Intramuscular Mar 22, 2018 Administered LIDOCAINE HCL 10MG/ML Unknown August 06, 2018 Administer ed Kenalog (Triamcinolone) IM Intramuscular Nov 14, 2019 Adminis tered SOCIAL HISTORY Tobacco Use: Social History Observation Description Date Details (start date - stop date) Never Smoker Sex Assigned At : Social History Observation Description Sex Assigned At Unknown Alcohol Screen Question Answer Notes Did you have a drink containing alcohol in the past year? No Points 0 Interpretation Negative Tobacco Use/Smoking Question Answer Notes Are you a never smoker REASON FOR REFERRAL No Information VITAL SIGNS No information MEDICATIONS Medication SIG (Take, Route, Start Date End Date Status Frequency, Duration) Vitamin D3 1.25 MG (62019 1 tablet Orally for 30 Not-Taking UT) day(s) Amlodipine Besylate 10 MG 1 tablet Orally Once a Active day for 30 Caltrate 600+D Not-Taking Methotrexate Sodium (PF) INJECT 0.8 MILLILITER Active 50 MG/2ML ONCE WEEKLY SUBCUTANEOUS Injection for 30 Duexis 800-26.6 MG 1 tablet Orally Twice a Active day Amlodipine Besylate 10 MG TAKE 1 TABLET BY MOUTH Active EVERY DAY for 90 Spironolactone 25 MG TAKE 1 TABLET BY MOUTH Active EVERY DAY WITH FOOD for 30 Vimovo 500-20 MG 1 tablet before meals Ac tive Orally Twice a day PRN pain for 90 days Orencia ClickJect 125 1 ml Subcutaneous A ctive MG/ML PredniSONE 5 MG 1 tablet Orally Once a Ac tive day for 30 day(s) Medrol 4 MG as directed Orally use Nov, Nov, Activ e as directed for 6 days Folic Acid 1 MG 1 tablet Orally Once a Ac tive day Metformin HCl 1000 MG 1 tablet with meals Active Orally BID for 30 days Metformin HCl 1000 MG TAKE 1 TABLET BY MOUTH Active TWICE A DAY WITH MEALS for 90 Lipitor 40 MG 1 tablet Orally Once a Acti ve day for 30 days Atorvastatin Calcium 40 MG TAKE 1 TABLET BY MOUTH Active EVERY DAY for 90 Methotrexate 2.5 MG/ML IM IM Activ e Spironolactone 25 MG 1 tablet with food A ctive Orally Once a day for 30 PROCEDURES No Information RESULTS No Results REASON FOR VISIT needs appt MEDICAL (GENERAL) HISTORY Type Description Date Medical History Diabetes type 2, controlled Medical History Rheumatoid arthritis Medical History Hyperlipidemia Medical History Benign essential HTN Medical History Body mass index (BMI) of 30.0 to 39.9 Medical History Anemia in chronic illness Surgical History Surgical History Thyroidectomy Surgical History Tubal Ligation Goals Section No Information Health Concerns No Information MEDICAL EQUIPMENT No Information MENTAL STATUS No Information FUNCTIONAL STATUS No Information ASSESSMENTS No Information PLAN OF TREATMENT Medication Medication Name Sig Start Date Stop Date Vimovo 500-20 MG 1 tablet before meals Orally Twice a day PRN pain for 90 days Orencia Click[employer]ect 125 MG/ML 1 ml Subcutaneous Methotrexate 2.5 MG/ML IM IM Folic Acid 1 MG 1 tablet Orally Once a day Amlodipine Besylate 10 MG 1 tablet Orally Once a day for 30 Lipitor 40 MG 1 tablet Orally Once a day for 30 days Medrol 4 MG as directed Orally use as Nov, Nov, directed for 6 days Spironolactone 25 MG 1 tablet with food Orally Once a day for 30 Metformin HCl 1000 MG 1 tablet with meals Orally BID for 30 days Next Appt Details Provider Name:Rogerio Rodriguez, 2019-12-19 0 9:40:00 AM, [address], [address], [place], [address], Insurance Providers Payer Name Payer Payer Insured Name Patient Coverage Covera End Address Phone Relationship to Start Date Dev e Insured [employer] [phone] Michelle Marie self 2019 and Blue [id number] [facility] [id number]
--- OUTSIDE RECORDS SUMMARY | 2019-12-22 09:47 | XMS REPORT ---
:1960 Author Organization [facility] Address [address] [place] [address] Care Team Providers Name Role Phone Rodriguez Unavailable [phone] PROBLEMS Type Condition ICD9-CM [id number] Onset Condition SNOMED Code Notes Code Code Dates Status Problem Benign essential I10 Active 45059092 HTN Problem Body mass index E66.9 Active 218996656 (BMI) of 30.0 to 39.9 Problem Diabetes type 2, E11.9 Active 629489540 controlled Problem Anemia in chronic D63.8 Active 775325031 illness Problem Postmenopausal Z78.0 Active 29025752 Problem Vitamin D E55.9 Active 31584061 deficiency Problem Hyperlipidemia E78.5 Active 46396146 Problem Influenza B J10.1 Active 33477887 Problem Rheumatoid M06.9 Active 39904301 arthritis Problem Encounter for Z01.419 Active 329277648 gynecological examination without abnormal finding Problem Episode of heavy N93.9 Active 738657098 vaginal bleeding Problem Postmenopausal N95.0 Active 16475178 bleeding Problem Abnormal uterine N93.9 Active [id number] bleeding ALLERGIES No Known Allergies ENCOUNTERS from 1960 to 2019-12-19 Encounter Location Date Provider Diagnosis [place] [address] Dec, Rogerio Rodriguez Diabetes type 2, [address] [place], controlled E11.9 ; [place] [address] foot pain M79. 672 ; Rheumatoid arth ritis M06.9 ; Plantar fasciitis of le ft foot M72.2 ; Hyperli pidemia E78.5 ; Benign essential HTN I 10 ; Anemia in chron ic illness D63.8 ; Body mass index (BMI ) of 30.0 to 39.9 E6 6.9 ; Vitamin D defic iency E55.9 ; Elevate d LFTs R79.89 and Elev ated total protein R 77.8 IMMUNIZATIONS Vaccine Route Administration Date Status Afluria single dose Unknown Nov 26, 2019 Administered Betamethasone Sodium Phosphate Unknown August 06, 2018 [...] REASON FOR REFERRAL No Information VITAL SIGNS Height 66 in Dec, Weight 203.0 lbs Dec, Temperature 97.1 degrees Fahrenheit Dec, BMI 32.76 kg/m2 Dec, Oximetry 100 % Dec, Respiratory Rate 17 /min Dec, Blood pressure systolic 124 mm Hg Dec, Blood pressure diastolic 62 mm Hg Dec, MEDICATIONS Medication SIG (Take, Route, Start Date End Date Status Frequency, Duration) Metformin HCl 1000 MG 1 tablet with meals Orally Active BID for 30 days Lipitor 40 MG 1 tablet Orally Once a day Active for 30 days Methotrexate Sodium 2.5 MG 4 tablets in the AM and 4 Active tablets in the PM Orally Once a week PredniSONE 5 MG 1 tablet Orally Once a day Not-Taking for 30 day(s) Amlodipine Besylate 10 MG TAKE 1 TABLET BY MOUTH Active EVERY DAY for 90 Vitamin D3 1.25 MG (20936 1 tablet Orally for 30 Not-Taking UT) day(s) Methotrexate 2.5 MG/ML IM IM Activ e Orencia ClickJect 125 MG/ML 1 ml Subcutaneous Active Folic Acid 1 MG 1 tablet Orally Once a day Active Caltrate 600+D Not-Taking Spironolactone 25 MG 1 tablet with food Orally Active Once a day for 30 Vimovo 500-20 MG 1 tablet before meals Ac tive Orally Twice a day PRN pain for 90 days Duexis 800-26.6 MG 1 tablet Orally Twice a Active day Spironolactone 25 MG TAKE 1 TABLET BY MOUTH Active EVERY DAY WITH FOOD for 30 Amlodipine Besylate 10 MG 1 tablet Orally Once a day Active for 30 Metformin HCl 1000 MG TAKE 1 TABLET BY MOUTH Not-Taking TWICE A DAY WITH MEALS for 90 Atorvastatin Calcium 40 MG TAKE 1 TABLET BY MOUTH Active EVERY DAY for 90 Methotrexate Sodium (PF) 50 INJECT 0.8 MILLILITER ONCE Not-Taking MG/2ML WEEKLY SUBCUTANEOUS Injection for 30 PROCEDURES No Information RESULTS No Results REASON FOR VISIT 3 [facility] lab f/u [facility] MEDICAL (GENERAL) HISTORY Type Description Date Medical [...] No Information FUNCTIONAL STATUS No Information ASSESSMENTS Encounter Date Diagnosis Notes Dec, Diabetes type 2, controlled (ICD-10 - E1 1.9) Dec, Elevated total protein (ICD-10 - R77.8) Dec, Rheumatoid arthritis (ICD-10 - M06.9) Dec, Left foot pain (ICD-10 - M79.672) Dec, Body mass index (BMI) of 30.0 to 39.9 (I CD-10 - E66.9) Dec, Elevated LFTs (ICD-10 - R79.89) Dec, Vitamin D deficiency (ICD-10 - E55.9) Dec, Hyperlipidemia (ICD-10 - E78.5) Dec, Plantar fasciitis of left foot (ICD-10 - M72.2) Dec, Anemia in chronic illness (ICD-10 - D63. 8) Dec, Benign essential HTN (ICD-10 - I10) PLAN OF TREATMENT Medication Medication Name Sig Start Date Stop Date Methotrexate 2.5 MG/ML IM IM Folic Acid 1 MG 1 tablet Orally Once a day Vimovo 500-20 MG 1 tablet before meals Orally Twice a day PRN pain for 90 days Orencia ClickJect 125 MG/ML 1 ml Subcutaneous Amlodipine Besylate 10 MG 1 tablet Orally Once a day for 30 Spironolactone 25 MG 1 tablet with food Orally Once a day for 30 Metformin HCl 1000 MG 1 tablet with meals Orally BID for 30 days Lipitor 40 MG 1 tablet Orally Once a day for 30 days Treatment Notes Assessment Notes Clinical Notes Diabetes type 2, controlled INCREASED to 1000 mg BID. Side effect discussed, Diabetes Education Diabetes is a disorder that disrupts the way your body uses glucose (sugar). It is a chronic medication condition that requires regular monitoring and treatment throughout your life. Treatment includes: lifestyle modification, self-care measures, and medication. Fortunately, these treatments can keep the blood sugar levels close to normal and minimize the risk of developing complications. The primary blood test to measure the progress of diabetes is the Hemoglobin A1c. Normal levels is less than 7.0 but less than 6.5 is considered excellent control. Fasting blood sugars should be in the range of 80-120 while random blood sugars should range below 200 especially after meals. Carbohydrate (sugar) intake for diabetics should be below 45 grams per meal and 15 grams per snack. Diabetic preventive care is vital to prevent complications, so it is important to have yearly diabetic eye and foot exams with specialists. If your diabetes is not controlled, then contact your doctor to further address.Medication may need to be adjusted and/or added. Left foot pain Discussed differential diagnosis with patient. Education given. No image indicated at this time. No injuries or trauma. Likely concern for plantar fasciitis. Improved overall Rheumatoid arthritis Managed by Rheum. Education given. Refill given. Side effect panel discussed for NSAIDs. Plantar fasciitis of left foot . Education material given. Discussed differential diagnosis. Discussed supportive measures for symptomatic relief. Avoid any exacerbating activity. Activity modification discussed. Hyperlipidemia Stable. Education given. , Hyperlipidemia Education: Hyperlipidemia refers to increased levels of lipids(fats) in the blood, including cholesterol and triglycerides. This can significantly increase your risk of developing coronary artery disease and peripheral artery disease. This can cause chest pain, heart attack, stroke, and fatigue. Treatment is recommended to decrease your risk. Treatment includes: lifestyle modification, low salt/low fat diet, exercise, tobacco cessation, low alcohol intake and sometimes medication. Blood tests (TC,TG, HDL, LDL) are utilized to determine treatment regimens. TC(Total cholesterol) should be below 200. TG(Total Triglycerides) should be below 150. HDL(Good cholesterol) should be above 40. LDL(Bad Cholesterol) should be below 130(if you have one risk factor) or less than 100( if you have more than one risk factor or have DM/CAD/PVD). Compliance with medication and treatment is vital. If you have questions, talk to your doctor. Benign essential HTN COntrolled. Education given. , DASH Diet discussed. Instructed to measure BP at home and bring in log to f/u appt. Instructions and logs given. Education given. Anemia in chronic illness Education given. Resume iron spplements with Vit C once a day. Side effect discuseed. Body mass index (BMI) of 30.0 to Counseling given. Spent mor e than 39.9 15 min with patient. Diet and exercise plan discussed. Vitamin D deficiency Discussed on causes of Vit D Def. Increase sunlight + Hydration + Exercise + Food High in Vit D and OTC supplements. Elevated LFTs Asymptomatic. Will monitor. Education given. Elevated total protein Discussed differential diagnosis with patient. Education given. Increase hydration. Concern for underlying etiology of rheumatoid. Will monitor closely. Treatment Notes Test Name Order Date Lipid Panel With LDL/HDL Ratio 2019-12-19 Microalbumin/Creat Ratio, Random Ur 2019-12-19 Hemoglobin A1c 2019-12-19 Comp. Metabolic Panel (14) (CMP) 2019-12-19 CBC With Differential/Platelet 2019-12-19 Next Appt Details 3 Months WELLNESS + Labs 1 week before Nasim cesar: Provider Name:Rogerio Rodriguez, 2020-03-23 0 9:30:00 AM, [address], [place], [address], Insurance Providers Payer Name Payer Payer Insured Name Patient Coverage Covera ge End Address Phone Relationship to Start Date Dev e Insured [employer] [phone] Michelle Marie self 2019 and Blue [id number] [facility] [id number]
--- OUTSIDE RECORDS SUMMARY | 2019-12-22 09:47 | XMS REPORT ---
:1960 Author Organization [facility] Address [address] [place] [address] Care Team Providers Name Role Phone Rodriguez Unavailable [phone] PROBLEMS Type Condition ICD9-CM [id number] Onset Condition SNOMED Code Notes Code Code Dates Status Problem Benign essential I10 Active 95460565 HTN Problem Body mass index E66.9 Active 343017868 (BMI) of 30.0 to 39.9 Problem Diabetes type 2, E11.9 Active 039636846 controlled Problem Anemia in chronic D63.8 Active 886052674 illness Problem Postmenopausal Z78.0 Active 20260609 Problem Vitamin D E55.9 Active 35481847 deficiency Problem Hyperlipidemia E78.5 Active 10766475 Problem Influenza B J10.1 Active 17469812 Problem Rheumatoid M06.9 Active 76701489 arthritis Problem Encounter for Z01.419 Active 505446131 gynecological examination without abnormal finding Problem Episode of heavy N93.9 Active 377124438 vaginal bleeding Problem Postmenopausal N95.0 Active 04794339 bleeding Problem Abnormal uterine N93.9 Active 00000227312256 bleeding ALLERGIES No Known Allergies ENCOUNTERS from 1960 to 2019-11-14 Encounter Location Date Provider Diagnosis [place] [address] Nov, Rogerio Rodriguez Left foot pain M79.[address] [place], ; Diabetes type 2, [place] [address] controlled E11 .9 ; Rheumatoid arth ritis M06.9 ; Plantar [...] 77.8 IMMUNIZATIONS Vaccine Route Administration Date Status Betamethasone [...] No Information VITAL SIGNS Height 66 in Nov, Weight 206.3 lbs Nov, Temperature 97.7 degrees Fahrenheit Nov, BMI 33.29 kg/m2 Nov, Oximetry 100 % Nov, Respiratory Rate 18 /min Nov, Blood pressure systolic 138 mm Hg Nov, Blood pressure diastolic 78 mm Hg Nov, MEDICATIONS Medication SIG (Take, Route, Start Date End Date Status Frequency, Duration) Vitamin D3 1.25 MG (00523 1 tablet Orally for 30 Not-Taking UT) [...] Information RESULTS No Results REASON FOR VISIT back and left foot. In office. MEDICAL (GENERAL) HISTORY Type Description Date Medical [...] No Information ASSESSMENTS Encounter Date Diagnosis Notes Nov, Left foot pain (ICD-10 - M79.672) Nov, Elevated total protein (ICD-10 - R77.8) Nov, Rheumatoid arthritis (ICD-10 - M06.9) Nov, Diabetes type 2, controlled (ICD-10 - E1 1.9) Nov, Body mass index (BMI) of 30.0 to 39.9 (I CD-10 - E66.9) Nov, Elevated LFTs (ICD-10 - R79.89) Nov, Vitamin D deficiency (ICD-10 - E55.9) Nov, Hyperlipidemia (ICD-10 - E78.5) Nov, Plantar fasciitis of left foot (ICD-10 - M72.2) Nov, Anemia in chronic illness (ICD-10 - D63. 8) Nov, Benign essential HTN (ICD-10 - I10) PLAN [...] with meals Orally BID for 30 days Treatment Notes Assessment Notes Clinical Notes Left foot pain Discussed differential diagnosis with patient. Education given. No image indicated at this time. No injuries or trauma. Likely concern for plantar fasciitis. Kenalog IM given in office for therapeutic reason. Start Medrol Dosepak tomorrow. Side effect panel discussed extensively. If unchanged or worsen will refer to podiatry. Patient vocalized understanding. Diabetes type 2, controlled INCREASED to 1000 [...] may need to be adjusted and/or added. Rheumatoid arthritis Managed by Rheum. Education given. [...] underlying etiology of rheumatoid. Will monitor closely. Next Appt Details as scheduled Reason: Provider Name:[facility] Michael, 2019-12-19 0 9:40:00 AM, [facility] [address], [place], [address], Insurance Providers Payer Name Payer Payer Insured Name Patient Coverage Covera ge End Address Phone Relationship to Start Date Dev e Insured [employer] [phone] Michelle Marie self 2019 and [id number] [facility] [phone]
[2019-12-22 10:28] LABS: Absolute Lymphocytes (CBC) 1.3 K/uL (0.7-4.9); Basophils % 0.9 % (0-1.3); Hematocrit 34.7 % (36.0-45.0); Lymphocytes % 24.6 % (15.3-44.8); MPV 9.9 fL (7.6-11.3); RBC Red Blood Cell Count 3.88 M/uL (3.86-4.86)
--- NOTE | 2019-12-22 10:35 | ER ---
Nurse's Notes [facility] Name: Shanda Marie Age: 59 yrs Sex: Female : 1960 Arrival Date: 12/22/2019 Time: 09:47 Bed 4 Private MD: Diagnosis: Chest pain, unspecified;Type 2 diabetes mellitus;Essential (primary) hypertension Presentation: 12/21 09:52 Chief complaint: Patient states: started having midsternal chest pain about 30 minutes iw ago, constant pressure, denies cardiac hx, +nausea X 2 days, no vomiting , no cough or fever. Coronavirus screen: At this time, the client does not indicate any symptoms associated with coronavirus-19. Ebola Screen: Patient negative for fever greater than or equal to 101.5 degrees Fahrenheit, and additional compatible Ebola Virus Disease symptoms Patient denies exposure to infectious person. Patient denies travel to an Ebola-affected area in the 21 days before illness onset. No symptoms or risks identified at this time. Initial Sepsis Screen: Does the patient meet any 2 criteria? No. Patient's initial sepsis screen is negative. Does the patient have a suspected source of infection? No. Patient's initial sepsis screen is negative. Risk Assessment: Do you want to hurt yourself or someone else? Patient reports no desire to harm self or others. Onset of symptoms was December 22, 2019. 09:52 Method Of Arrival: Ambulatory iw 09:52 Acuity: PALMA 3 iw Historical: - Allergies: 09:54 No Known Allergies; iw - Home Meds: 09:56 methotrexate sodium 2.5 mg Oral tab 6 tab Once weekly-Monday [Active]; metformin 1,000 iw mg oral tab 2 times per day [Active]; atorvastatin 40 mg Oral tab 1 tab once daily [Active]; folic acid 1 mg Oral tab 1 tab once daily [Active]; amlodipine 10 mg tab 1 tab once daily [Active]; spironolactone 25 mg Oral tab 1 tab once daily [Active]; - PMHx: 09:54 Diabetes - NIDDM; High Cholesterol; Hypertension; Rheumatoid Arthritis; iw - PSHx: 09:54 None; iw - Immunization history:: Adult Immunizations up to date. - Social history:: Smoking status: Patient denies any tobacco usage or history of. - Family history:: not pertinent. Screenin:06 Abuse screen: Denies threats or abuse. Nutritional screening: No deficits noted. em Tuberculosis screening: No symptoms or risk factors identified. Fall Risk None identified. Assessment: 10:12 General: Appears in no apparent distress. uncomfortable, Behavior is calm, anxious. em Pain: Complains of pain in chest Pain radiates to back Pain currently is 5 out of 10 on a pain scale. Pain began this morning after waking up Aggravated by repositioning. Neuro: Level of Consciousness is awake, alert, obeys commands, Oriented to person, place, time, situation, Appropriate for age. Cardiovascular: Reports chest pain, nausea, shortness of breath, Capillary refill < 3 seconds Patient's skin is warm and dry. Rhythm is sinus rhythm. Respiratory: Airway is patent Respiratory effort is even, unlabored, Respiratory pattern is regular, symmetrical, Denies cough. GI: Reports nausea, Patient currently denies vomiting. Derm: Skin is intact, is healthy with good turgor, Skin is pink, warm \T\ dry. Musculoskeletal: Capillary refill < 3 seconds, Range of motion: intact in all extremities. 11:11 Reassessment: wheeled to CT via stretcher. em 11:40 Reassessment: Patient appears in no apparent distress at this time. Patient and/or em family updated on plan of care and expected duration. Pain level reassessed. Patient is alert, oriented x 3, equal unlabored respirations, skin warm/dry/pink. 13:20 Reassessment: Patient appears in no apparent distress at this time. Patient and/or em family updated on plan of care and expected duration. Pain level reassessed. Patient is alert, oriented x 3, equal unlabored respirations, skin warm/dry/pink. 14:38 Reassessment: Patient appears in no apparent distress at this time. Patient and/or em family updated on plan of care and expected duration. Pain level reassessed. Patient is alert, oriented x 3, equal unlabored respirations, skin warm/dry/pink. Vital Signs: 09:52 BP 135 / 74; Pulse 65; Resp 16; Temp 97.4(TE); Pulse Ox 100% on R/A; Weight 92.99 kg; iw Height 5 ft. 6 in. (167.64 cm); Pain 5/10; 11:16 BP 123 / 71; Pulse 55; Resp 20; Pulse Ox 99% on R/A; em 11:55 BP 125 / 61; Pulse 55; Resp 18; Pulse Ox 100% on R/A; em 12:45 BP 123 / 71; Pulse 51; Resp 18; Pulse Ox 99% on R/A; em 09:52 Body Mass Index 33.09 (92.99 kg, 167.64 cm) iw ED Course: 09:47 Patient arrived in ED. ds1 09:52 Kervin Cortez MD is Attending Physician. jacky 09:54 Triage completed. iw 09:55 Arm band placed on. iw 10:06 Angel Soto, RN is Primary Nurse. em 10:06 Patient has correct armband on for positive identification. Placed in gown. Bed in low em position. Call light in reach. Side rails up X2. Adult w/ patient. mill washer on. Pulse ox on. NIBP on. 10:06 Patient maintains SpO2 saturation greater than 95% on room air. em 10:08 EKG done, by ED staff, reviewed by Kervin Cortez MD. dh3 10:20 Initial lab(s) drawn, by ca, sent to lab. Inserted saline lock: 22 gauge in right em antecubital area, using aseptic technique. Blood collected. 10:32 Irma Valdes MD is Hospitalizing Provider. jacky 10:37 XRAY Chest (1 view) In Process Unspecified. EDMS 11:23 CT Chest For PE Angio In Process Unspecified. EDMS 14:17 No provider procedures requiring assistance completed. Patient admitted, IV remains in em place. Administered Medications: 10:35 Drug: Aspirin Chewable Tablet 324 mg Route: PO; em 11:16 Follow up: Response: No adverse reaction em 10:40 Drug: Pepcid 20 mg Route: IVP; Site: right antecubital; em 13:27 Follow up: Response: No adverse reaction em 10:41 Drug: Lovenox 1 mg/kg {Note: administered 90 mg per MD.} Route: Sub-Q; Site: right em lower abdomen; 13:27 Follow up: Response: No adverse reaction em 11:38 Drug: Zofran (Ondansetron) 4 mg Route: IVP; Site: right antecubital; em 13:27 Follow up: Response: No adverse reaction em 11:43 Drug: morphine 2 mg Route: IVP; Site: right antecubital; em 13:27 Follow up: Response: No adverse reaction; Marked relief of symptoms em Outcome: 10:35 Decision to Hospitalize by Provider. jacky 14:17 Admitted to Tele accompanied by nurse, via wheelchair, room 207, with chart, Report em called to Hiral pittman RN 14:17 Condition: stable 14:17 Instructed on the need for admit, Demonstrated understanding of instructions. 15:01 Patient left the ED. em Addendum: 12/26/2019 12:29 Addendum: COVID-19 Result: Negative result given to RN to notify pt. Contacted by: Cely Colon. Notified pt of negative COVID 19 swab results. Pt advised that even with a negative test result they should remain in isolation until symptom free for 3 days without medication. Pt also advised to return to the ED for worsening symptoms. Signatures: Dispatcher [employer] Rosita Oswald RN RN kl Anderson, Corey, MD MD cha Munoz, Edgar, RN RN em Sanford, Demi ds1 Tati Garcia RN RN iw Herrera, Deanna 3 Corrections: (The following items were deleted from the chart) 12/21 10:12 09:52 BP 135 / 74; Pulse 65bpm; Resp 16bpm; Pulse Ox 100% RA; 92.99 kg; Height 5 ft. 6 iw in.; BMI: 33.0; Pain 5/10; iw
--- NOTE | 2019-12-22 10:35 | EDPHYS ---
Physician Documentation [facility] Name: Shanda Marie Age: 59 yrs Sex: Female : 1960 Arrival Date: 12/22/2019 Time: 09:47 Bed 4 Private MD: TIARA Physician Kervin Cortez HPI: 12/21 10:25 This 59 yrs old Black Female presents to ER via Ambulatory with complaints of Chest jacky Pain, Nausea. 10:25 The patient or guardian reports chest pain that is located primarily in the anterior jacky chest wall, bilaterally. Onset: 2 day(s) ago. The pain does not radiate. Associated signs and symptoms: The patient has no apparent associated signs or symptoms. The chest pain is described as a pressure. Duration: The patient or guardian reports a single episode, that is still ongoing. Modifying factors: The symptoms are alleviated by application of supplemental oxygen, remaining still, the symptoms are aggravated by movement, palpation of area. Severity of pain: At its worst the pain was moderate in the emergency department the pain has improved mildly. The patient has not experienced similar symptoms in the past. Historical: - Allergies: 09:54 No Known Allergies; iw - Home Meds: 09:56 methotrexate sodium 2.5 mg Oral tab 6 tab Once weekly-Monday [Active]; metformin 1,000 iw mg oral tab 2 times per day [Active]; atorvastatin 40 mg Oral tab 1 tab once daily [Active]; folic acid 1 mg Oral tab 1 tab once daily [Active]; amlodipine 10 mg tab 1 tab once daily [Active]; spironolactone 25 mg Oral tab 1 tab once daily [Active]; - PMHx: 09:54 Diabetes - NIDDM; High Cholesterol; Hypertension; Rheumatoid Arthritis; iw - PSHx: 09:54 None; iw - Immunization history:: Adult Immunizations up to date. - Social history:: Smoking status: Patient denies any tobacco usage or history of. - Family history:: not pertinent. ROS: 10:25 Constitutional: Negative for fever, chills, and weight loss, Eyes: Negative for injury, jacky pain, redness, and discharge, ENT: Negative for injury, pain, and discharge, Neck: Negative for injury, pain, and swelling, Respiratory: Negative for shortness of breath, cough, wheezing, and pleuritic chest pain, Abdomen/GI: Negative for abdominal pain, nausea, vomiting, diarrhea, and constipation, Back: Negative for injury and pain, : Negative for injury, bleeding, discharge, and swelling, MS/Extremity: Negative for injury and deformity, Skin: Negative for injury, rash, and discoloration, Neuro: Negative for headache, weakness, numbness, tingling, and seizure, Psych: Negative for depression, anxiety, suicide ideation, homicidal ideation, and hallucinations, Allergy/Immunology: Negative for hives, rash, and allergies, Endocrine: Negative for neck swelling, polydipsia, polyuria, polyphagia, and marked weight changes, Hematologic/Lymphatic: Negative for swollen nodes, abnormal bleeding, and unusual bruising. 10:25 Cardiovascular: Positive for chest pain, of the chest. Exam: 10:25 Constitutional: This is a well developed, well nourished patient who is awake, alert, jacky and in no acute distress. Head/Face: Normocephalic, atraumatic. Eyes: Pupils equal round and reactive to light, extra-ocular motions intact. Lids and lashes normal. Conjunctiva and sclera are non-icteric and not injected. Cornea within normal limits. Periorbital areas with no swelling, redness, or edema. ENT: Nares patent. No nasal discharge, no septal abnormalities noted. Tympanic membranes are normal and external auditory canals are clear. Oropharynx with no redness, swelling, or masses, exudates, or evidence of obstruction, uvula midline. Mucous membranes moist. Neck: Trachea midline, no thyromegaly or masses palpated, and no cervical lymphadenopathy. Supple, full range of motion without nuchal rigidity, or vertebral point tenderness. No Meningismus. Cardiovascular: Regular rate and rhythm with a normal S1 and S2. No gallops, murmurs, or rubs. Normal PMI, no JVD. No pulse deficits. Respiratory: Lungs have equal breath sounds bilaterally, clear to auscultation and percussion. No rales, rhonchi or wheezes noted. No increased work of breathing, no retractions or nasal flaring. Abdomen/GI: Soft, non-tender, with normal bowel sounds. No distension or tympany. No guarding or rebound. No evidence of tenderness throughout. Back: No spinal tenderness. No costovertebral tenderness. Full range of motion. Female : Normal external genitalia. Skin: Warm, dry with normal turgor. Normal color with no rashes, no lesions, and no evidence of cellulitis. MS/ Extremity: Pulses equal, no cyanosis. Neurovascular intact. Full, normal range of motion. Neuro: Awake and alert, GCS 15, oriented to person, place, time, and situation. Cranial nerves II-XII grossly intact. Motor strength 5/5 in all extremities. Sensory grossly intact. Cerebellar exam normal. Normal gait. Psych: Awake, alert, with orientation to person, place and time. Behavior, mood, and affect are within normal limits. 10:25 Musculoskeletal/extremity: DVT Exam: No signs of deep vein thrombosis. no pain, no swelling, no tenderness, negative Homans' sign noted on exam, no appreciated bluish discoloration, no erythema, no increased warmth. 10:50 ECG was reviewed by the Attending Physician. jacky Vital Signs: 09:52 BP 135 / 74; Pulse 65; Resp 16; Temp 97.4(TE); Pulse Ox 100% on R/A; Weight 92.99 kg; iw Height 5 ft. 6 in. (167.64 cm); Pain 5/10; 11:16 BP 123 / 71; Pulse 55; Resp 20; Pulse Ox 99% on R/A; em 11:55 BP 125 / 61; Pulse 55; Resp 18; Pulse Ox 100% on R/A; em 12:45 BP 123 / 71; Pulse 51; Resp 18; Pulse Ox 99% on R/A; em 09:52 Body Mass Index 33.09 (92.99 kg, 167.64 cm) iw MDM: 09:57 Patient medically screened. jacky 10:28 Differential diagnosis: abnormal EKG, acute myocardial infarction, acute pericarditis, jacky anxiety, chest wall pain, cholecystitis, Cholelithiasis esophagitis, pancreatitis, peptic ulcer disease, pulmonary embolus, stable angina, unstable angina. HEART Score: History: Slightly Suspicious (0), ECG: Normal (0), Age: > 45 and < 65 years (1), Risk Factors: > or = 3 Risk factors for atherosclerotic disease (2), [Hypercholesterolemia] [Hypertension] [DM] [+ Family HX] Troponin: < or = 1 x Normal Limit (0). The patient was given aspirin in the Emergency Department. The patient's deep vein thrombosis risk score was calculated as follows: Total Score: 0. This patient was found to be at low risk for a deep vein thrombosis by using the Well's assessment criteria. The patient's pulmonary embolism risk score was calculated as follows: Total Score: 0-2 points. This patient was found to be at low risk for a pulmonary embolism by using the Well's assessment criteria. GIGI Risk Score: 1 - Three or more CAD risk factors, TOTAL SCORE = 1. Data reviewed: vital signs, nurses notes, lab test result(s), EKG, radiologic studies, plain films. Data interpreted: deburrer machine: rate is 65 beats/min, rhythm is regular, Pulse oximetry: on room air. Test interpretation: by ED physician or midlevel provider: ECG, plain radiologic studies. Counseling: I had a detailed discussion with the patient and/or guardian regarding: the historical points, exam findings, and any diagnostic results supporting the discharge/admit diagnosis, lab results, radiology results, the need for further work-up and treatment in the hospital. 12/21 10:11 Order name: Basic Metabolic Panel 12/21 10:11 Order name: CBC with Diff 12/21 10:11 Order name: LFT's 12/21 10:11 Order name: Magnesium 12/21 10:11 Order name: NT PRO-BNP 12/21 10:11 Order name: PT-INR 12/21 10:11 Order name: Troponin (emerg Dept Use Only) 12/21 10:31 Order name: Lipase [facility] 12/21 10:31 Order name: D-Dimer [facility] 12/21 12:42 Order name: Basic Metabolic Panel [facility] 12/21 12:42 Order name: Basic Metabolic Panel [facility] 12/21 12:42 Order name: CBC with Automated Diff [facility] 12/21 12:42 Order name: CBC with Automated Diff [facility] 12/21 10:11 Order name: XRAY Chest (1 view) 12/21 10:11 Order name: EKG; Complete Time: 10:12 12/21 10:46 Order name: CT Chest For PE Angio [facility] 12/21 12:41 Order name: CONS Physician Consult [facility] 12/21 12:41 Order name: Echo with Doppler [facility] 12/21 12:41 Order name: Echo with Doppler [facility] 12/21 12:42 Order name: Lipid Profile [facility] 12/21 12:42 Order name: Lipid Profile [facility] 12/21 12:42 Order name: Troponin I [facility] 12/21 12:42 Order name: Troponin I [facility] 12/21 12:42 Order name: Troponin I [facility] 12/21 10:11 Order name: Cardiac monitoring; Complete Time: 10:11 12/21 10:11 Order name: EKG - Nurse/Tech; Complete Time: 10: 12/21 10:11 Order name: IV Saline Lock; Complete Time: : iw 12/21 10:11 Order name: Labs collected and sent; Complete Time: : iw 12/21 10:11 Order name: O2 Per Protocol; Complete Time: : 12/21 10:11 Order name: O2 Sat Monitoring; Complete Time: : 12/21 12:41 Order name: EKG Electrocardiogram [facility] 12/21 12:41 Order name: EKG Electrocardiogram [facility] EC:50 Rate is 59 beats/min. Rhythm is regular. QRS Surveyor is Normal. VA interval is normal. QRS jacky interval is normal. QT interval is normal. No Q waves. T waves are Normal. No ST changes noted. Clinical impression: NSR w/ Non-specific ST/T Changes and No evidence of ischemia. Interpreted by me. Reviewed by me. Administered Medications: 10:35 Drug: Aspirin Chewable Tablet 324 mg Route: PO; em 11:16 Follow up: Response: No adverse reaction em 10:40 Drug: Pepcid 20 mg Route: IVP; Site: right antecubital; em 13:27 Follow up: Response: No adverse reaction em 10:41 Drug: Lovenox 1 mg/kg {Note: administered 90 mg per MD.} Route: Sub-Q; Site: right em lower abdomen; 13:27 Follow up: Response: No adverse reaction em 11:38 Drug: Zofran (Ondansetron) 4 mg Route: IVP; Site: right antecubital; em 13:27 Follow up: Response: No adverse reaction em 11:43 Drug: morphine 2 mg Route: IVP; Site: right antecubital; em 13:27 Follow up: Response: No adverse reaction; Marked relief of symptoms em Disposition: 12/22/19 10:35 Hospitalization ordered by Irma Valdes for Observation. Preliminary diagnosis are Chest pain, unspecified, Type 2 diabetes mellitus, Essential (primary) hypertension. - Bed requested for Telemetry/MedSurg (observation). - Status is Observation. em - Condition is Stable. - Problem is new. - Symptoms have improved. Signatures: Dispatcher [employer] EDIN Adrienne Maier RN RN dw Anderson, Corey, MD MD cha Munoz, Edgar, RN ABELINO em Tati Garcia RN RN Corrections: (The following items were deleted from the chart) 10:32 10:26 D-DIMER+COAG.LAB.BRZ ordered. [facility] 13:09 10:35 Hospitalization Ordered by Irma Valdes MD for Observation. Preliminary dw diagnosis is Chest pain, unspecified; Type 2 diabetes mellitus; Essential (primary) hypertension. Bed requested for Telemetry/MedSurg (observation). Status is Observation. Condition is Stable. Problem is new. Symptoms have improved. [facility] 15:01 13:09 12/22/2019 10:35 Hospitalization Ordered by Irma Valdes MD for Observation. em Preliminary diagnosis is Chest pain, unspecified; Type 2 diabetes mellitus; Essential (primary) hypertension. Bed requested for Telemetry/MedSurg (observation). Status is Observation. Condition is Stable. Problem is new. Symptoms have improved. dw
[2019-12-22 10:44] LABS: Protime INR 1.03
[2019-12-22] MEDS ORDERED: ASPIRIN 81 MG CHEWABLE TABLET ONE (10:46)
[2019-12-22 11:03] LABS: ALT/SGPT 27 U/L (12-78); AST/SGOT 19 U/L (15-37); Albumin 3.1 g/dL (3.4-5.0); Alkaline Phosphatase 80 U/L (45-117); BUN Blood Urea Nitrogen 12 mg/dL (7-18); Bicarbonate 27 mmol/L (21-32); Bilirubin Direct < 0.1 mg/dL (0-0.2); Bilirubin Total 0.3 mg/dL (0.2-1.0); Glucose Level 90 mg/dL (74-106); NT PRO-BNP 109 pg/mL (<125); Protein, Total 10.8 g/dL (6.4-8.2); Troponin (Emerg Dept Use Only) < 0.02 ng/mL (0.0-0.045)
[2019-12-22 11:10] LABS: Potassium 4.1 mmol/L (3.5-5.1); Sodium Level 139 mmol/L (136-145)
[2019-12-22] MEDS ORDERED: MORPHINE 2 MG/ML SYR ONE (11:21)
[2019-12-22] MEDS ORDERED: ONDANSETRON 4 MG/2 ML VIAL ONE (11:21)
[2019-12-22] MEDS ORDERED: FAMOTIDINE 20 MG/2 ML VIAL IV ONE (11:22)
[2019-12-22] MEDS ORDERED: ENOXAPARIN 100 MG/ML SYR SQ ONE (11:22)
--- NOTE | 2019-12-22 11:32 | RAD REPORT ---
EXAM DESCRIPTION: CT - Chest For Pe Angio - 12/22/2019 11:22 am CLINICAL HISTORY: Chest pain. Chest pain;Dyspnea;PE COMPARISON: Chest For Pe Angio dated 04/05/2016 TECHNIQUE: CT angiogram of the pulmonary arteries was performed with MIP. All CT scans are performed using dose optimization technique as appropriate and may include automated exposure control or mA/KV adjustment according to patient size. FINDINGS: No evidence of pulmonary thromboembolism. No acute aortic finding demonstrated. The lungs are clear. No significant pericardial or pleural fluid. A few mildly prominent lymph nodes in the AP window appe ar stable. No concerning bony finding. IMPRESSION: No evidence of pulmonary thromboembolism. No acute lung findings.
--- NOTE | 2019-12-22 12:22 | RAD REPORT ---
EXAM DESCRIPTION: RAD - Chest Single View - 12/22/2019 10:37 am CLINICAL HISTORY: CHEST PAIN Chest pain. COMPARISON: Chest Single View dated 04/19/2018; Chest Single View dated 11/01/2016; Chest Single View d ated 04/05/2016; CHEST SINGLE VIEW dated 10/07/2014 FINDINGS: Portable technique limits examination quality. The lungs are grossly clear. The heart is normal in size. No displaced fractures. IMPRESSION: No acute intrathoracic process suspected.
[2019-12-22] MEDS ORDERED: MORPHINE 4 MG/ML SYR IV PRN (12:38)
[2019-12-22] MEDS ORDERED: ALPRAZOLAM 0.25 MG TABLET PO PRN (12:38)
[2019-12-22] MEDS ORDERED: ACETAMINOPHEN 500 MG TAB PO PRN (12:38)
[2019-12-22 15:27] VITALS: BMI 33.0
[2019-12-22] MEDS: METOPROLOL TAR 50 MG TAB PO SCH (20:31)
[2019-12-23 00:28] VITALS: O2SAT 100
--- NOTE | 2019-12-23 06:29 | P.HP ---
Certification for Inpatient Patient admitted to: Observation With expected LOS: <2 Midnights Patient will require the following post-hospital care: None Practitioner: I am a practitioner with admitting privileges, knowledge of patient current condition, hospital course, and medical plan of care. Services: Services provided to patient in accordance with Admission requirements found in Title 42 Section 412.3 of the Code of Federal Regulations Patient History Date of Service: 12/22/19 Reason for admission: Chest pain rule out acute coronary syndrome History of Present Illness: patient is a 59-year-old female who came to the hospital with chest discomfort. Pain was in the sternal region and when she had the chest pain she was sitting up in bed and she fell backwards. She got really weak and she felt the pain went through her chest to her back. He said the symptoms subsided shortly afterwards. She did not really feel short of breath. She felt a little diaphoretic. She had generalized weakness. There was no radiation of her pain. She denies any tobacco use but she has a history of rheumatoid arthritis as well as hypertension or diabetes. She also denies any family history. The chest pain was severe to where she did feel better and came into the emergency room for evaluation. In the ER her EKG and troponins have been negative. She will be admitted to the hospital for chest pain in to be ruled out for acute coronary syndrome. she does have numerous risk factors so will also get an echocardiogram and stress test in a.m.. Allergies No Known Drug Allergies Allergy (Verified 10/07/14 15:54) Unknown No Known Allergi Allergy (Uncoded 10/24/15 02:09) Unknown No Known Allergies Allergy (Uncoded 04/05/16 22:15) Unknown Home Medications: Amlodipine [Norvasc] 10 mg PO DAILY 12/28/15 Atorvastatin Calcium [Lipitor] 40 mg PO DAILY 12/28/15 Folic Acid 1 mg PO DAILY 12/22/19 Ibuprofen/Famotidine [Duexis 800-26.6 mg Tablet] 1 tab PO DAILY 12/22/19 Metformin HCl 1,000 mg PO BID 12/22/19 Methotrexate [Methotrexate*] 4 tab PO BID 12/22/19 Spironolactone [Aldactone*] 25 mg PO DAILY 12/22/19 - Past Medical/Surgical History Has patient received pneumonia vaccine in the past: No Diabetic: No -: DM -: HLD -: HPN -: Rheumotoid Arthitis Past Surgical History: Patient denies surgical history - Family History Mother Medical History: Hypertension Father Medical History: Hypertension, Diabetes, Kidney disease Notes: - Social History Smoking Status: Never smoker Alcohol use: No CD- Drugs: No Caffeine use: Yes Place of Residence: Home Review of Systems 10-point ROS is otherwise unremarkable Physical Examination - Vital Signs Temperature: 97.4 F Blood Pressure: 118/58 Pulse: 60 Respirations: 18 Pulse Ox (%): 100 - Physical Exam General: Alert, In no apparent distress, Oriented x3 HEENT: Atraumatic, PERRLA, Mucous membr. moist/pink, EOMI, Sclerae nonicteric Neck: Supple, 2+ carotid pulse no bruit, No LAD, Without JVD or thyroid abno rmality Respiratory: Clear to auscultation bilaterally, Normal air movement Cardiovascular: Regular rate/rhythm, Normal S1 S2, No murmurs Gastrointestinal: Normal bowel sounds, Soft and benign, Non-distended, No tenderness Musculoskeletal: No clubbing, No swelling, No tenderness Integumentary: No rashes Neurological: Normal gait, Normal speech, Normal strength at 5/5 x4 extr, Normal tone, Sensation intact, Cranial nerves 3-12 intact, Normal affect Lymphatics: No axilla or inguinal lymphadenopathy - Studies Laboratory Data (last 24 hrs) 12/22/19 10:20: Lipase 102 12/22/19 10:20: PT 12.2, INR 1.03 12/22/19 10:20: WBC 5.4, Hgb 11.4 L, Hct 34.7 L, Plt Count 220 12/22/19 10:20: Sodium 139, Potassium 4.1, BUN 12, Creatinine 1.06, Glucose 90, Magnesium 2.0, Total Bilirubin 0.3, AST 19, ALT 27, Alkaline Phosphatase 80 Assessment & Plan - Problems (Diagnosis) (1) Chest pain, rule out acute myocardial infarction Current Visit: Yes Status: Acute (2) History of rheumatoid arthritis Current Visit: Yes Status: Acute (3) HTN (hypertension) Current Visit: Yes Status: Acute Qualifiers: Hypertension type: essential hypertension Qualified Code(s): I10 - Essential (primary) hypertension (4) DM2 (diabetes mellitus, type 2) Current Visit: Yes Status: Acute - Plan 1. Serial troponins and EKG 2. Cardiology consultation 3. Echocardiogram and inpatient stress test as patient has numerous risk factors 4. Anti-platelet therapy, anti coagulation, beta-anthony, statin, and O2 as needed 5. IV morphine for pain 6. Nitro p.r.n. Discharge Plan: Home Plan to discharge in: 24 Hours - Advance Directives Does patient have a Living Will: No Does patient have a Durable POA for Healthcare: No - Code Status/Comfort Care Code Status Assessed: Yes Code Status: Full Code Critical Care: No Time Spent Managing PTS Care (In Minutes): 40
[2019-12-23 06:38] LABS: Absolute Lymphocytes (CBC) 1.3 K/uL (0.7-4.9); Basophils % 0.2 % (0-1.3); Hematocrit 31.1 % (36.0-45.0); Lymphocytes % 21.6 % (15.3-44.8); MPV 10.4 fL (7.6-11.3); RBC Red Blood Cell Count 3.46 M/uL (3.86-4.86)
[2019-12-23 06:51] LABS: Potassium 4.4 mmol/L (3.5-5.1)
[2019-12-23 06:55] LABS: HDL Cholesterol 43 mg/dL (40-60); LDL Cholesterol, Calculated 84 (<130); Troponin I < 0.02 ng/mL (0.0-0.045)
--- NOTE | 2019-12-23 07:25 | EKG ---
Test Date: 2019-12-22 Test Time: 10:07:30 Lasting Machine Operator Hand Method: DAMIR MEASUREMENT RESULTS: Intervals: Rate: 59 OH: 168 QRSD: 76 QT: 400 QTc: 396 [place]: P: 69 OH: 168 QRS: 27 T: 41 INTERPRETIVE STATEMENTS: Sinus bradycardia ST elevation, probably due to early repolarization Borderline ECG Compared to ECG 04/19/2018 12:12:17 ST (T wave) deviation now present Early repolarization now present Sinus rhythm no longer present Electronically Signed On 12-23-19 07:23:29 X RAY TECHNOLOGIST by Khadar Lopez
[2019-12-23] MEDS ORDERED: PNEUMOCOCCAL VACCINE 0.5 ML IMVAC ONE (08:00)
[2019-12-23] MEDS ORDERED: METFORMIN HCL 500 MG TAB PO SCH (08:00)
[2019-12-23] MEDS ORDERED: REGADENOSON 0.4 MG/5 ML SYR IV ONE (08:37)
[2019-12-23] MEDS ORDERED: ASPIRIN EC 81 MG TAB PO SCH (09:00)
[2019-12-23] MEDS ORDERED: AMLODIPINE 10 MG TAB PO SCH (09:00)
[2019-12-23] MEDS ORDERED: ENOXAPARIN 40 MG/0.4 ML SQ SCH (09:00)
[2019-12-23] MEDS ORDERED: FOLIC ACID 1 MG TABLET PO SCH (09:00)
[2019-12-23] MEDS: METOPROLOL TAR 50 MG TAB PO SCH (09:00)
[2019-12-23] MEDS ORDERED: ATORVASTATIN 40 MG TAB PO SCH (09:00)
[2019-12-23] MEDS ORDERED: SPIRONOLACTONE 25 MG TABLET PO SCH (09:00)
[2019-12-23] MEDS ORDERED: METHOTREXATE 2.5 MG TAB PO SCH ×2 (09:00→17:00)
--- NOTE | 2019-12-23 12:55 | P.DS ---
Admission Date: 12/22/19 Discharge Date: 12/23/19 Primary Care Provider: Dr. Rodriguez Disposition: ROUTINE DISCHARGE Discharge Condition: GOOD Reason for Admission: Chest pain rule out acute coronary syndrome Consultations: Cardiology-Dr. Patterson Procedures: CT Scan: FINDINGS: No evidence of pulmonary thromboembolism. No acute aortic finding demonstrated. The lungs are clear. No significant pericardial or pleural fluid. A few mildly prominent lymph nodes in the AP window appear stable. No concerning bony finding. IMPRESSION: No evidence of pulmonary thromboembolism. No acute lung findings. Cardiac Stress Test: No stress induced ischemia Medical problem list: Chest pain atypical Hypertension Diabetes mellitus type 2 History of rheumatoid arthritis Suspect underlying GERD Hyperlipidemia Obesity, BMI 33.1 Brief History of Present Illness: 59-year-old female presented to the emergency room with chest pain. She reports pain radiated to the back. Patient with history of rheumatoid arthritis, diabetes, hypertension and hyperlipidemia. She came to the ER for further evaluation. Hospital Course: Patient presented with chest pain. Patient with history of diabetes, hypertension, hyperlipidemia and rheumatoid arthritis. Patient was admitted for further evaluation. Cardiac enzymes unremarkable. Cardiac stress test performed, showed no stress induced ischemia. Chest pain likely atypical. At discharge patient may continue with aspirin 81 mg daily. Recommend follow up with cardiology as an outpatient if chest pain persists. Patient may have underlying GERD. At discharge she may continue with Protonix 40 mg daily. Patient would also benefit with GI evaluation as an outpatient. Patient with hypertension. At discharge she may continue with her current medication-Norvasc 10 mg daily and Aldactone 25 mg daily.. Recommend to maintain blood pressure less than 130/80. Further adjustment can be done by her PCP. Patient with diabetes mellitus type 2. This appears stable. At discharge she may continue with her current medication metformin 1000 mg 1 pill twice daily. Further adjustment in medication can be done by her PCP. Patient with history of rheumatoid arthritis. At discharge she may continue with her current medication folic acid daily and methotrexate as directed. Patient with hyperlipidemia. At discharge she may continue with her current medication Lipitor 40 mg daily. LDL within normal range. Vital Signs/Physical Exam: Temp Pulse Resp BP Pulse Ox 97.1 F 49 L 18 126/60 100 12/23/19 12:00 12/23/19 12:00 12/23/19 12:00 12/23/19 12:00 12/23/19 12:00 General: Alert, In no apparent distress, Oriented x3, Cooperative HEENT: Atraumatic Neck: Supple Respiratory: Clear to auscultation bilaterally, Normal air movement Cardiovascular: Normal pulses, Regular rate/rhythm Gastrointestinal: Normal bowel sounds, Soft and benign, Non-distended, No tenderness, No masses, No rebound, No guarding Musculoskeletal: No erythema, No tenderness, No warmth Integumentary: No tenderness/swelling, No erythema, No warmth, No cyanosis Neurological: Normal speech, Normal strength at 5/5 x4 extr, Normal tone, Normal affect Laboratory Data at Discharge: WBC 5.8 K/uL (4.3-10.9) 12/23/19 06:20 Hgb 10.2 g/dL (12.0-15.0) L 12/23/19 06:20 Hct 31.1 % (36.0-45.0) L 12/23/19 06:20 Plt Count 198 K/uL (152-406) 12/23/19 06:20 PT 12.2 SECONDS (9.5-12.5) 12/22/19 10:20 INR 1.03 12/22/19 10:20 Sodium 139 mmol/L (136-145) 12/23/19 06:20 Potassium 4.4 mmol/L (3.5-5.1) 12/23/19 06:20 BUN 17 mg/dL (7-18) 12/23/19 06:20 Creatinine 1.04 mg/dL (0.55-1.3) 12/23/19 06:20 Glucose 94 mg/dL (74-106) 12/23/19 06:20 Magnesium 2.0 mg/dL (1.8-2.4) 12/22/19 10:20 Total Bilirubin 0.3 mg/dL (0.2-1.0) 12/22/19 10:20 AST 19 U/L (15-37) 12/22/19 10:20 ALT 27 U/L (12-78) 12/22/19 10:20 Alkaline Phosphatase 80 U/L (45-117) 12/22/19 10:20 Troponin I < 0.02 ng/mL (0.0-0.045) 12/23/19 06:20 Triglycerides 59 mg/dL (<150) 12/23/19 06:20 Cholesterol 139 mg/dL (<200) 12/23/19 06:20 HDL Cholesterol 43 mg/dL (40-60) 12/23/19 06:20 Cholesterol/HDL Ratio 3.23 12/23/19 06:20 Lipase 102 U/L (73-393) 12/22/19 10:20 Home Medications: Amlodipine [Norvasc*] 10 mg PO DAILY 12/28/15 Atorvastatin Calcium [Lipitor] 40 mg PO DAILY 12/28/15 Folic Acid 1 mg PO DAILY 12/22/19 Ibuprofen/Famotidine [Duexis 800-26.6 mg Tablet] 1 tab PO DAILY 12/22/19 Metformin HCl 1,000 mg PO BID 12/22/19 Methotrexate [Methotrexate*] 4 tab PO EVERY 7TH DAY 12/22/19 Spironolactone [Aldactone*] 25 mg PO DAILY 12/22/19 Aspirin [Aspirin EC 81 MG] 81 mg PO DAILY #30 tablet. 12/23/19 Pantoprazole [Protonix Tab] 40 mg PO DAILY #30 tab 12/23/19 New Medications: Aspirin [Aspirin EC 81 MG] 81 mg PO DAILY #30 tablet. Pantoprazole [Protonix Tab] 40 mg PO DAILY #30 tab Patient Discharge Instructions: 1. Recommend follow up with PCP in 1 week to follow up this hospitalization. 2. Patient presented with chest pain. Patient with history of diabetes, hypertension, hyperlipidemia and rheumatoid arthritis. Patient was admitted for further evaluation. Cardiac enzymes unremarkable. Cardiac stress test performed, showed no stress induced ischemia. Chest pain likely atypical. At discharge patient may continue with aspirin 81 mg daily. Recommend follow up with cardiology as an outpatient if chest pain persists. Patient may have underlying GERD. At discharge she may continue with Protonix 40 mg daily. Patient would also benefit with GI evaluation as an outpatient. 3. Patient with hypertension. At discharge she may continue with her current medication-Norvasc 10 mg daily and Aldactone 25 mg daily.. Recommend to maintain blood pressure less than 130/80. Further adjustment can be done by her PCP. 4. Patient with diabetes mellitus type 2. This appears stable. At discharge she may continue with her current medication metformin 1000 mg 1 pill twice daily. Further adjustment in medication can be done by her PCP. 5. Patient with history of rheumatoid arthritis. At discharge she may continue with her current medication folic acid daily and methotrexate as directed. 6. Patient with hyperlipidemia. At discharge she may continue with her current medication Lipitor 40 mg daily. LDL within normal range. Diet: ADA Activity: Fall precautions Followup: Rogerio Rodriguez DO [Primary Care Provider] - Time spent managing pt's care (in minutes): 55
--- NOTE | 2019-12-23 14:21 | RAD REPORT ---
EXAM DESCRIPTION: NM - Rest Stress Cardiac Imaging - 12/23/2019 1:50 pm CLINICAL HISTORY: Chest pain COMPARISON: September 2014 TECHNIQUE: The patient was administered approximately 10 mCi of Tc 99m Sestamibi prior to resting SP ECT imaging of the heart. The patient was then administered approximately 30 mCi of Tc 99m Sestamibi following exercise or pharmacologic stress. Multiplanar SPECT images were reviewed. FINDINGS: The end diastolic volume is 90 ml, the end systolic volume is 27 ml, and the ejection frac tion is 70 %. These normal range values show slightly improved ejection fraction and reduced end-rivera tolic volume compared to 2015. No stress-induced ischemic changes confirmed on this study. Focal fixed mild to moderate intensity de fect mid in apex portion of the anterior wall does not change between rest and stress imaging and is not clearly changed from 2015. Diminished activity in the midportion of the inferior wall does not ch caryl between rest and stress imaging. This is slightly more pronounced than 2015. IMPRESSION: No stress-induced ischemic changes are present. Ventricular volume is normal and improve d from 2015. The ejection fraction has increased from 63% to the current 70% value. Anterior wall fixed defect unchanged from 2015. Inferior wall fixed defect slightly more pronounced t zapata 2014. These areas could be scarring, soft tissue attenuation artifacts or a combination.
--- NOTE | 2019-12-23 14:32 | ECHO ---
HEIGHT: 5 ft 6 in WEIGHT: 205 lb 0 oz DATE OF STUDY: 12/23/[address]: Irma Valdes MD 2-DIMENSIONAL: YES M.MODE: YES DOPPLER: YES COLOR FLOW: YES TDS: NO PORTABLE: NO DEFINITY: NO BUBBLE STUDY: NO DIAGNOSIS: CHEST PAIN RULE OUT ACS CARDIAC HISTORY: CATHERIZATION: NO SURGERY: NO PROSTHETIC VALVE: NO PACEMAKER: NO MEASUREMENTS (cm) DIASTOLIC (NORMALS) SYSTOLIC (NORMALS) IVSd 0.9 (0.6-1.2) LA Diam 2.8 (1.9-4.0) LVEF 77% LVIDd 3.5 (3.5-5.7) LVIDs 2.0 (2.0-3.5) %FS 44% LVPWd 1.0 (0.6-1.2) Ao Diam 2.3 (2.0-3.7) 2 DIMENSIONAL ASSESSMENT: RIGHT ATRIUM: NORMAL LEFT ATRIUM: NORMAL RIGHT VENTRICLE: NORMAL LEFT VENTRICLE: NORMAL TRICUSPID VALVE: NORMAL MITRAL VALVE: NORMAL PULMONIC VALVE: NORMAL AORTIC VALVE: NORMAL PERICARDIAL EFFUSION: NONE AORTIC ROOT: NORMAL LEFT VENTRICULAR WALL MOTION: NORMAL DOPPLER/COLOR FLOW: NORMAL COMMENTS: NORMAL LEFT VENTRICULAR EJECTION FRACTION 55-60%. NORMAL WALL MOTION. MILD DIASTOLIC DYSFUNCTION. TECHNOLOGIST: Yary WRIGHT
[2019-12-23 16:34] VITALS: BP 126/59; TEMP 97.6
--- NOTE | 2019-12-24 08:39 | TREADPHA ---
DX: CHEST PAIN Date of Study: 12/23/2019 Ht: 5' 6 " Wt: 205 lb 0 oz Consulting Physician: KEMI MEDICATIONS: ASPIRIN, LIPITOR, NORVASC, LOPRESSOR, TYLENOL, METFORMIN, FOLIC ACID HISTORY: NON-INSULIN DEPENDENT DIABETES MELLITUS, HIGH CHOLESTEROL, HYPERTENSION, RA PHYSICIAL EXAMINATION: RESTING B.P.: RESTING H.R.: RESTING EKG: WITHIN NORMAL LIMITS PROTOCOL: PHARMACOLOGIC EXERCISE TIME: 3:30 B.P. AT PEAK STRESS: IMPRESSION: NO ISCHEMIC CHANGES PER ELECTROCARDIOGRAM.
[2019-12-26 22:47] LABS: Albumin, (SPE) 3.2 g/dL (3.8-4.8); Alpha-1-Globulins 0.3 g/dL (0.2-0.3); Alpha-2-Globulins 0.8 g/dL (0.5-0.9); Gamma Globulins 0.5 g/dL (0.8-1.7); INTERPRETATION REPORT
== END 2019-12-23 16:54 | disposition home or self-care (01) ==
LOC: ER 09:45 → ERHOLD 13:09 → 2ND 14:28
PROVIDERS: ADMIT Hospitalist; ATTEND Family Medicine
DX: R07.89 Other chest pain (principal); I10 Essential (primary) hypertension; E11.9 Type 2 diabetes mellitus without complications; M06.9 Rheumatoid arthritis, unspecified; Z20.828 Contact with and (suspected) exposure to other viral communicable diseases; E78.5 Hyperlipidemia, unspecified; E66.9 Obesity, unspecified; Z68.33 Body mass index [BMI] 33.0-33.9, adult; Z79.84 Long term (current) use of oral hypoglycemic drugs
CPT/HCPCS: 36415; 71045; 71275; 78452; 80048; 80061; 80076; 82947; 83690; 83735; 83880; 84165; 84484; 85025; 85379; 85610; 90471; 90732; 93005; 93017; 93306; 96372; 96374; 96375; 99285; A9500; G0378; J1650; J2270; J2405; J2785; J8610; Q9967; U0002

== ENCOUNTER 2021-03-03 07:20 | Day surgery (SDC) | payer BC ==
[2021-03-03 08:53] LABS: Absolute Lymphocytes (CBC) 1.4 K/uL (0.7-4.9); Hematocrit 29.2 % (36.0-45.0); Lymphocytes % 24.5 % (15.3-44.8); MPV 9.2 fL (7.6-11.3); RBC Red Blood Cell Count 3.31 M/uL (3.86-4.86)
[2021-03-03] MEDS ORDERED: MIDAZOLAM HCL 2 MG/2 ML INJ ONE ×2 (09:23→10:21)
[2021-03-03] MEDS ORDERED: FENTANYL CITR 100 MCG/2 ML ONE (09:23)
[2021-03-03] MEDS ORDERED: NA CHLORIDE 0.9% 1,000 ML ONE (09:24)
[2021-03-03 09:41] LABS: Blood Morphology Comment NOTED (NOT SEEN); Platelet Estimate ADEQ
[2021-03-03 09:42] LABS: Rouleau NOTED
--- NOTE | 2021-03-03 10:51 | RAD REPORT ---
EXAM DESCRIPTION: CT - Bone Biopsy Deep - 03/03/2021 10:34 am CLINICAL HISTORY: MONOCLONAL GAMMAPATHY COMPARISON: No comparisons FINDINGS: Preoperative diagnosis: MGUS Post operative diagnosis: Same Conscious Sedation: 6 mg Versed, 200 mcg Fentanyl Patient was continuously monitored by nursing staff. All CT scans are performed using dose optimization technique as appropriate and may include automated exposure control or mA/KV adjustment according to patient size. Contrast used: NONE Estimated blood loss: less than 5 mL Specimens: 1 core sample, 10 cc aspirate The patient was placed prone on the table and the buttocks area was prepped and draped in the usual s terile fashion. 1% lidocaine was infiltrated into the subcutaneous tissues for local anesthesia. Unde r computed tomographic guidance, a 8 gauge introducer was advanced into the left iliac bone. 10 cc of marrow was aspirated. A core sample was obtained. The patient tolerated the procedure without immediate complication and transferred to the recovery ro om in stable condition. IMPRESSION: Technically successful CT-guided bone marrow aspiration and core biopsy involving the le ft iliac bone with conscious sedation.
[2021-03-03 12:27] LABS: Cytogenetics, Bone Marrow SENT
[2021-03-03 12:32] VITALS: BMI 32.3
[2021-03-03 12:34] VITALS: BP 117/47; TEMP 97.9; O2SAT 100
== END 2021-03-03 13:20 | disposition home or self-care (01) ==
LOC: DS 07:20
PROVIDERS: ATTEND Internal Medicine Medical Oncology
DX: D47.2 Monoclonal gammopathy (principal); D69.2 Other nonthrombocytopenic purpura; E11.9 Type 2 diabetes mellitus without complications
CPT/HCPCS: 36415; 88313; 88305; 88311; 20225; J2250 ×2; J3010; J7030

== ENCOUNTER 2021-04-26 10:56 | Emergency (ER) | payer BC ==
--- OUTSIDE RECORDS SUMMARY | 2021-04-26 10:59 | XMS REPORT | Clinical Summary ---
:1960 Author Organization [facility] MD [facility] Address [address] [place] [id number] Care Team Providers Name Role Phone NedyordySumaya Unavailable Clay Murphy MD Primary Care Provider Allergies Not on File Medications Not on file Active Problems Not on file Encounters Date Type Specialty Care Team Description 04/22/2021 NPR Patient Access Services 04/13/2021 Lab Requisition Moshe Harley MD Witson, Anne S., MD 04/12/2021 Ancillary Procedure Radiology Clay Murphy MD [facility] 04/12/2021 Ancillary Procedure Radiology Clay Murphy MD [facility] 04/12/2021 Ancillary Procedure Radiology Clay Murphy MD [facility] 04/12/2021 Ancillary Procedure Radiology Clay Murphy MD [facility] 04/12/2021 Ancillary Procedure Radiology Clay Murphy MD [facility] 04/12/2021 Ancillary Procedure Radiology Clay Murphy MD [facility] 04/12/2021 Ancillary Procedure Radiology Clay Murphy MD [facility] 04/12/2021 Ancillary Procedure Radiology Clay Murphy MD [facility] 04/12/2021 Ancillary Procedure Radiology Clay Murphy MD 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 Last Filed Vital Signs Not on file Plan of Treatment Date Type Specialty Care Team Description 04/27/2021 Office Visit Lymphoma and Myeloma Clay Murphy MD [address] [place], [place] [address] (Wo rk) Health Maintenance Due Date Last Done Comments COVID-19 Vaccination (3 - Booster for 10/10/2020 05/10/2020 , 04/12/2020 Moderna series) Procedures Procedure Name Priority Date/Time Associated Diagnosis Comme nts OSI BONE SURVEY Routine 02/22/2021 11:22 PM Cancer Resul ts for this WATER TREATMENT OPERATOR procedure are i n the results section. after 04/26/2020 Results OSI Bone Survey (02/22/2021 11:22 PM WATER TREATMENT OPERATOR) Specimen Narrative Systemgenerated, Documentation - 022 11:22 PM WATER TREATMENT OPERATOR Study acquired at another institution. For comparison only. No MD [place] originated interpretation requested or a vailable. after 04/26/2020 Insurance Payer Benefit Plan / Subscriber ID Effective Dates Phone Addre ss Type Group [employer] POS [id number] 2019-Present [id number] [place] [address] Care Teams Team Guide Relationship Specialty Start Date End Date Sumaya Cheng PCP - External Referring Hematology and 03/19/[address] Oncology [place], [place] [id number] Clay Murphy MD PCP - General Lymphoma and Myeloma 04/08/21 [address] [place] [address]
--- OUTSIDE RECORDS SUMMARY | 2021-04-26 11:00 | XMS REPORT | Continuity of Care Document ---
:1960 Author Organization [facility] t Address [address] [place] [address] Care Team Providers Name Role Phone [phone] Primary Care Physician Unavailable Malvin Rodriguez Attending Clinician Unavailable SYSTEM, NOT IN Attending Clinician Unavailable Rekha Harley MD Attending Clinician Antonieta ANDRADE SJayda Attending Clinician Renita MURPHY Attending Clinician Unavailable Renita Murphy MD Attending Clinician Payers Payer Name Policy Type Policy Number Effective Date Expiration Date S ource [place] P[place] POS [id number] 2019 00:00:00 Problems This patient has no known problems. Allergies, Adverse Reactions, Alerts This patient has no known allergies or adverse reactions. Social History Social Habit Start Date Stop Date Quantity Comments Source Exposure to Not sure MD Cortez SARS-CoV-2 (event) Sex Assigned At [birth year] MD Cortez 00:00:00 00:00:00 Medications Ordered Filled Start Stop Current Ordering Indication Dosage Frequency Signature Comments Components Source Medication Medication Date Date Medication? Clinician (SIG) Name Name PredniSONE PredniSONE Yes Rogerio [address] [facility] Folic Acid Folic Acid Yes Rogerio [address] [facility] Amlodipine Amlodipine Yes Rogerio [address] [facility] Besylate Besylate Rodriguez [facility] Metformin Metformin Yes Rogerio [address] [facility] HCl HCl Rodriguez with meals [facility] Spironolact Spironolact Yes Rogerio [address] [facility] one one Rodriguez with food [facility] Orencia Orencia Yes Rogerio [address] [facility] ClickJect ClickJect Rodriguez [facility] Vitamin D3 Vitamin D3 Yes Rogerio [address] [facility] Caltrate Caltrate Yes Rogerio not [facility] 600+D 600+D Rodriguez defined [facility] Vimovo Vimovo Yes Rogerio [facility] before [facility]ics Atorvastati Atorvastati Yes Rogerio TAKE [address] [facility] n Calcium n Calcium Rodriguez TABLET BY [facility] EVERY DAY l [facility]ics Methotrexat Methotrexat Yes Rogerio INJECT 0.[address] [facility] e Sodium e Sodium Rodriguez MILLILITER [facility] - (PF) (PF) ONCE Memoria WEEKLY l SUBCUTANEO [facility] ent Clinics Lipitor Lipitor Yes Rogerio [address] [facility] Methotrexat Methotrexat Yes Rogreio IM [facility] Amlodipine Amlodipine Yes Rogerio TAKE [address] [facility] Besylate Besylate Rodriguez TABLET BY L [facility] - MOUTH Memoria EVERY DAY l [facility] Metformin Metformin Yes Rogerio TAKE [address] HCl HCl Rodriguez TABLET BY [facility] TWICE A l DAY WITH [facility] Clinics Spironolact Spironolact Yes Rogerio TAKE [address] [facility] one one Rodriguez TABLET BY [facility] EVERY DAY l WITH FOOD [facility] ent Clinics Immunizations Ordered Filled Immunization Date Status Comments [facility] e Immunization Name Name Jackeline Viveros 2018-03-[address] [facility] Procedures Procedure Date / Time Performed Performing Clinician Juliana zambrano OSI BONE SURVEY 2021-02-23 05:22:00 Clay Murphy MD Plan of Care Planned Activity Planned Date Details Comments Source Future Scheduled Test 2020-10-10 00:00:00 COVID-19 Vaccination (3 MD Diego - Booster for Moderna series) [code = COVID-19 Vaccination (3 - Booster for Moderna series)] Encounters Start End Encounter Admission Attending Care Care Encounter Source Date/Time Date/Time Type Type Clinicians Facility Department ID 2021-04-06 Outpatient Rodriguez, [facility] 2021-03-22 Outpatient SYSTEM, KOFI KIRBY [id number] 09:19:07 PROVIDER Canelo irving 2021-03-10 Outpatient Rodriguez, [facility] 14[facility]19[facility] Rogerio [id number] [facility] 2021-03-10 Outpatient Rodriguez, [facility] 13:36:12 Rogerio [id number] [facility] 2021-03-10 Outpatient Rodriguez, [facility] 12:14:08 Rogerio [id number] [facility] 2021-03-10 Outpatient Rodriguez, [facility] 11:50:42 Rogerio [id number] [facility] 2021-03-10 Outpatient Rodriguez, [facility] 11:09:11 Rogerio [id number] [facility] 2021-03-10 Outpatient Rodriguez, [facility] 11:03:53 Rogerio [id number] [facility] 2021-04-22 2021-04-22 Outpatient EL KOFI KIRBY [id number] 11:44:37 11:46:47 Canelo irving 2021-04-13 2021-04-13 [facility] [id number] 2021-04-12 2021-04-12 Outpatient EL CLAY MURPHY MDA, MDA [id number] 23:04:07 23:04:07 Canelo irving 2021-04-12 2021-04-12 Outpatient CLAY DUNBAR MDA MDA [id number] MD 23:04:06 23:04:06 Canelo o n 2021-04-12 2021-04-12 Outpatient CLAY DUNBAR MDA MDA [id number] MD 23:04:05 23:04:05 Canelo o n 2021-04-12 2021-04-12 Outpatient CLAY DUNBAR MDA MDA [id number] MD 23:04:04 23:04:04 Canelo o n 2021-04-12 2021-04-12 Outpatient CLAY DUNBAR MDA MDA [id number] MD 23:04:03 23:04:03 Canelo o n 2021-04-12 2021-04-12 Outpatient CLAY DUNBAR MDA MDA [id number] MD 23:04:02 23:04:02 Canelo o n 2021-04-12 2021-04-12 Outpatient CLAY DUNBAR MDA MDA [id number] MD 23:04:01 23:04:01 Canelo o n 2021-04-12 2021-04-12 Outpatient CLAY DUNBAR MDA MDA [id number] MD 23:04:00 23:04:00 Canelo o n 2021-04-12 2021-04-12 Outpatient CLAY DUNBAR MDA MDA [id number] MD 23:04:00 23:04:00 Canelo o n 2021-04-09 2021-04-09 ambulatory [facility] [id number] 2021-01-18 2021-01-18 ambulatory [facility] [id number] [facility] 2021-01-13 2021-01-13 ambulatory [facility] [id number] [facility] 2020-09-22 2020-09-22 Outpatient [facility] [id number] [facility] 2020-06-22 2020-06-22 Outpatient [facility] [id number] [facility] 2020-03-23 2020-03-23 [facility] [id number] [facility] 2020-01-27 2020-01-27 [facility] [id number] [facility] 2019-12-30 2019-12-30 Outpatient [facility] [id number] [facility] 2019-12-19 2019-12-19 [facility] [id number] [facility] 2019-11-14 2019-11-14 Out[facility] [id number] [facility] 2019-11-13 2019-11-13 [facility] [id number] [facility] 2019-09-18 2019-09-18 [facility] [id number] 09:45:00 09:45:00 t [employer] [facility] Medicine l Medicine Outpati ent Clinics 2019-09-12 2019-09-12 [facility] [id number] 13:22:00 13:22:00 t [employer] [facility] Medicine l Medicine Outpati ent Clinics 2019-07-02 2019-07-02 [facility] [id number] 10:27:00 10:27:[address] [facility] [facility] Medicine l Medicine Outpati ent Clinics 2019-06-18 2019-06-18 [facility] [id number] 15:15:00 15:15:00 t [facility] [facility] Medicine l Medicine Outpati ent Clinics 2019-06-14 2019-06-14 [facility] [id number] 11:25:00 11:25:00 t [facility] Medicine Medicine Outpati ent Clinics 2019-05-15 2019-05-15 [facility] [id number] 08:15:00 08:15:00 t [employer] [facility] Medicine Outpati ent Clinics 2019-05-11 2019-05-11 [facility] [id number] [facility] 08:04:00 08:04:00 [facility] Medicine l Medicine Outpati ent Clinics 2019-04-04 2019-04-04 [facility] [id number] [facility] 15:00:00 15:00:00 [facility] [employer] [facility] Medicine Outpati ent Clinics 2019-03-18 2019-03-18 [facility] [id number] 16:30:00 16:30:00 t [employer] [facility] Medicine Outpati ent Clinics 2018-11-27 2018-11-27 [facility] [id number] 16:45:00 16:45:00 t [employer] [facility] Medicine Outpati ent Clinics 2018-10-24 2018-10-24 [facility] [id number] [facility] 15:09:00 15:09:00 [facility] Outpati ent Clinics 2018-08-27 2018-08-27 [facility] [id number] [facility] 14:30:00 14:30:00 t [employer] [facility] Medicine Medicine Outpati ent Clinics 2018-08-10 2018-08-10 [facility] [id number] 10:45:00 10:45:00 [facility] Outpati ent Clinics 2018-08-06 2018-08-06 [facility] [id number] 14:30:00 14:30:00 t [facility] Clinic of [facility] ent Clinics 2018-07-25 2018-07-25 [facility] [id number] 11:30:00 11:30:00 t [facility] Outpati ent Clinics 2018-05-28 2018-05-28 [facility] [id number] [facility] 14:15:00 14:15:00 t [place] [employer] [facility] Medicine Outpati ent Clinics 2018-05-24 2018-05-24 [facility] [id number] 13:30:00 13:30:00 t [facility] Clinics 2018-04-20 2018-04-20 [facility] [id number] 11:30:00 11:30:00 t [employer] [facility] Medicine Outpati ent Clinics 2018-03-28 2018-03-28 [facility] [id number] 14:45:00 14:45:00 t [place] [employer] [facility] Medicine Outpati ent Clinics 2018-03-22 2018-03-22 [facility] [id number] 15:45:00 15:45:00 t [employer] [facility] Medicine Outpati ent Clinics 2018-03-14 2018-03-14 [facility] [id number] 11:00:00 11:00:00 t [place] [employer] [facility] Medicine l Medicine Outpati ent Clinics 2017-11-10 2017-11-10 [facility] [id number] 11:56:00 11:56:00 t [place] [employer] [facility] Medicine Outpati ent Clinics 2017-09-11 2017-09-11 [facility] [id number] 09:00:00 09:00:00 t [employer] [facility] Medicine Outpati ent Clinics 2017-08-09 2017-08-09 [facility] [id number] 10:15:00 10:15:00 t [place] [employer] - Drive [facility] ent [facility] 2017-06-12 2017-06-12 Outpatient Zina Hunter [id number] 11:00:00 11:00:[address] [facility] Results This patient has no known results.
[2021-04-26] MEDS ORDERED: LORazepam 2 MG/ML VIAL ONE (12:34)
[2021-04-26] MEDS ORDERED: KETOROLAC 30 MG/ML INJ ONE (12:34)
[2021-04-26 12:36] LABS: Absolute Lymphocytes (CBC) 1.6 K/uL (0.7-4.9); Hematocrit 29.3 % (36.0-45.0); Lymphocytes % 29.6 % (15.3-44.8); MPV 9.2 fL (7.6-11.3); RBC Red Blood Cell Count 3.27 M/uL (3.86-4.86)
--- NOTE | 2021-04-26 12:45 | RAD REPORT ---
EXAM DESCRIPTION: RAD - Chest Single View - 04/26/2021 12:38 pm CLINICAL HISTORY: CHEST PAIN Chest pain. COMPARISON: Chest Single View dated 12/22/2019; Chest Single View dated 04/19/2018; Chest Single View d ated 11/01/2016; Chest Single View dated 04/05/2016 FINDINGS: Portable technique limits examination quality. Mild bilateral interstitial lung opacities could indicate viral infection or mild interstitial pulmon marcos edema. The heart is upper limit of normal in size. No displaced fractures.
[2021-04-26 13:00] LABS: ALT/SGPT 30 U/L (12-78); AST/SGOT 21 U/L (15-37); Albumin 2.8 g/dL (3.4-5.0); Alkaline Phosphatase 79 U/L (45-117); BUN Blood Urea Nitrogen 11 mg/dL (7-18); Bicarbonate 26 mmol/L (21-32); Bilirubin Total 0.2 mg/dL (0.2-1.0); Glucose Level 87 mg/dL (74-106); Magnesium 1.8 mg/dL (1.8-2.4); NT PRO-BNP 104 pg/mL (<125); Potassium 4.3 mmol/L (3.5-5.1); Protein, Total 11.6 g/dL (6.4-8.2); Sodium Level 137 mmol/L (136-145)
[2021-04-26 13:09] LABS: Bilirubin Direct < 0.1 mg/dL (0-0.2); Troponin High Sensitivity < 3.00 pg/mL (<58.9)
--- NOTE | 2021-04-26 13:55 | EDPHYS ---
Physician Documentation [facility] Name: Shanda Marie Age: 60 yrs Sex: Female : 1960 Arrival Date: 04/26/2021 Time: 11:00 Bed 20 Private MD: ED Physician Juan Steinberg HPI: 04/26 12:16 This 60 yrs old Black Female presents to ER via Ambulatory with complaints of Right pm1 breast pain. 12:16 The patient or guardian reports chest pain that is located primarily in the right pm1 breast. 12:16 Onset: 2 day(s) ago. The pain does not radiate. Associated signs and symptoms: pm1 Pertinent negatives: abdominal pain, cough, diaphoresis, dizziness, headache, nausea, shortness of breath, vomiting. The chest pain is described as sharp. Duration: The patient or guardian reports a single episode, that is still ongoing. Modifying factors: the symptoms are aggravated by emotionally stressful situations, Has appointment with MD Cortez tomorrow for further evaluation and treatment of possible cancer. Patient has been feeling stressed and with chest pain since referral to MD Cortez. Severity of pain: in the emergency department the pain is unchanged. The patient has not experienced similar symptoms in the past. The patient has not recently seen a physician, has an appointment scheduled, tomorrow. Historical: - Allergies: 11:50 No Known Allergies; ap3 - PMHx: 11:50 Diabetes - NIDDM; High Cholesterol; Hypertension; Rheumatoid Arthritis; ap3 - Immunization history:: Client reports receiving the 2nd dose of the Covid vaccine, and booster Pneumococcal vaccine is not up to date, Flu vaccine is up to date. - Social history:: Smoking status: Patient denies any tobacco usage or history of. ROS: 12:16 Constitutional: Negative for fever, chills, and weight loss. pm1 12:16 Respiratory: Negative for shortness of breath, cough, wheezing, and pleuritic chest pain, Abdomen/GI: Negative for abdominal pain, nausea, vomiting, diarrhea, and constipation, Back: Negative for injury and pain, MS/Extremity: Negative for injury and deformity, Skin: Negative for injury, rash, and discoloration, Neuro: Negative for headache, weakness, numbness, tingling, and seizure. 12:16 Cardiovascular: Positive for chest pain, of the right breast, Negative for edema, palpitations. 12:16 All other systems are negative. Exam: 12:16 Constitutional: This is a well developed, well nourished patient who is awake, alert, pm1 and in no acute distress. Head/Face: Normocephalic, atraumatic. 12:16 Back: No spinal tenderness. No costovertebral tenderness. Full range of motion. Skin: Warm, dry with normal turgor. Normal color with no rashes, no lesions, and no evidence of cellulitis. MS/ Extremity: Pulses equal, no cyanosis. Neurovascular intact. Full, normal range of motion. 12:16 Chest/axilla: Inspection: no acute changes, Palpation: tenderness, of the right breast, that totally reproduces the patient's complaints, Breasts: abscess, not appreciated, cellulitis, is not appreciated, mass(es), Absent, rash, is not appreciated, swelling, is not appreciated, tenderness, of the right breast, Cassie RN Caul Fat Puller. 12:16 Cardiovascular: Exam negative for acute changes, Rate: normal, Rhythm: regular, Pulses: no pulse deficits are appreciated, Heart sounds: normal, normal S1and S2, Edema: is not appreciated. 12:16 Respiratory: Exam negative for acute changes, respiratory distress, shortness of breath, Breath sounds: are clear throughout. 12:16 Abdomen/GI: Exam negative for acute changes, Inspection: abdomen appears normal, Palpation: abdomen is soft and non-tender, in all quadrants. 12:16 Neuro: Exam negative for acute changes, Orientation: is normal, Mentation: is normal, Motor: is normal, moves all fours. Vital Signs: 11:47 BP 125 / 71; Pulse 54; Resp 19; Temp 98.2; Pulse Ox 99% ; Weight 94.8 kg; Height 5 ft. ap3 6 in. (167.64 cm); Pain 6/10; 12:51 BP 121 / 63; Pulse 62; Resp 16; Pulse Ox 98% on R/A; ic1 13:55 BP 125 / 69; Pulse 60; Resp 18; Pulse Ox 99% on R/A; ic1 11:47 Body Mass Index 33.73 (94.80 kg, 167.64 cm) ap3 MDM: 12:05 Patient medically screened. pm1 13:54 Data reviewed: vital signs. Data interpreted: Pulse oximetry: on room air is 98 %. pm1 Interpretation: normal. Counseling: I had a detailed discussion with the patient and/or guardian regarding: the historical points, exam findings, and any diagnostic results supporting the discharge/admit diagnosis, lab results, radiology results, the need for outpatient follow up, to return to the emergency department if symptoms worsen or persist or if there are any questions or concerns that arise at home. 04/26 12:16 Order name: Basic Metabolic Panel; Complete Time: 13:10 pm04/26 12:16 Order name: CBC with Diff; Complete Time: 12:45 pm04/26 12:16 Order name: LFT's; Complete Time: 13:10 pm04/26 12:16 Order name: Magnesium; Complete Time: 13:10 pm04/26 12:16 Order name: NT PRO-BNP; Complete Time: 13:10 pm04/26 12:16 Order name: Troponin HS; Complete Time: 13:10 pm04/26 12:16 Order name: XRAY Chest (1 view); Complete Time: 12:45 pm1 04/26 12:16 Order name: EKG; Complete Time: 12:17 pm1 04/26 12:16 Order name: Cardiac monitoring; Complete Time: 12:26 pm04/26 12:16 Order name: EKG - Nurse/Tech; Complete Time: 13:14 pm04/26 12:16 Order name: IV Saline Lock; Complete Time: 12:26 pm04/26 12:16 Order name: Labs collected and sent; Complete Time: 12:26 pm04/26 12:16 Order name: O2 Per Protocol; Complete Time: 12:42 pm04/26 12:16 Order name: O2 Sat Monitoring; Complete Time: 12:42 pm1 Administered Medications: 12:38 Not Given (Physician Discretion): Ketorolac 30 mg IM once pm1 12:41 Drug: Ativan (LORazepam) 0.5 mg Route: IVP; Site: right antecubital; ic1 12:41 Drug: Ketorolac 30 mg Route: IVP; Site: right antecubital; ic1 Disposition: 14:55 Co-signature as Attending Physician, Juan Steinberg MD I agree with the assessment and kdr plan of care. Disposition Summary: 04/26/21 13:54 Discharge Ordered Location: Home pm1 Problem: new pm1 Symptoms: have improved pm1 Condition: Stable pm1 Diagnosis - Chest pain, unspecified pm1 - Acute stress reaction pm1 Followup: pm1 - With: Emergency Department - When: As needed - Reason: Worsening of condition Followup: pm1 - With: Private Physician - When: 2 - 3 days - Reason: Recheck today's complaints, Continuance of care, Re-evaluation by your physician Discharge Instructions: - Discharge Summary Sheet pm1 - Nonspecific Chest Pain, Adult pm1 - Stress, Adult pm1 Forms: - Medication Reconciliation Form pm1 - Thank You Letter pm1 - Antibiotic Education pm1 - Prescription Opioid Use pm1 Prescriptions: - Ativan 0.5 mg Oral Tablet - take 1 tablet by ORAL route every 12 hours As needed; 6 tablet; Refills: 0, pm1 Product Selection Permitted Signatures: Dispatcher [employer] EDMS Juan Steinberg MD MD kdr Marinas, Patrick, NP HONEY EXTRACTOR pm1 Renuka Moon RN RN ap3 Cassie Arevalo RN RN ic1
--- NOTE | 2021-04-26 13:55 | ER ---
Nurse's Notes [facility] Name: Shanda Marie Age: 60 yrs Sex: Female : 1960 Arrival Date: 04/26/2021 Time: 11:00 Bed 20 Private MD: Diagnosis: Chest pain, unspecified;Acute stress reaction Presentation: 04/26 11:47 Chief complaint: Patient states: she has been recently diagnosed with Lymphoma, and has ap3 her first appointment at [facility] tomorrow 04/27/2021. Patient reports she started experiencing right breast pain on Monday04/24/2021 and when she notified her provider this morning of the new onset breast pain, they informed her to come be evaluated. Coronavirus screen: At this time, the client does not indicate any symptoms associated with coronavirus-19. Ebola Screen: No symptoms or risks identified at this time. Initial Sepsis Screen: Does the patient meet any 2 criteria? No. Patient's initial sepsis screen is negative. Does the patient have a suspected source of infection? No. Patient's initial sepsis screen is negative. Risk Assessment: Do you want to hurt yourself or someone else? Patient reports no desire to harm self or others. Onset of symptoms was April 24, 2021. 11:47 Method Of Arrival: Ambulatory ap3 11:47 Acuity: PALMA 3 ap3 Triage Assessment: 11:51 General: Appears in no apparent distress. Behavior is calm. Pain: Complains of pain in ap3 right breast Pain currently is 6 out of 10 on a pain scale. at worst was 10 out of 10 on a pain scale. Quality of pain is described as aching, Pain began suddenly, 2-3 days ago. Neuro: Level of Consciousness is awake, alert, obeys commands, Oriented to person, place, time, situation, Appropriate for age Gait is steady, Speech is normal. Respiratory: Airway is patent Respiratory effort is even, unlabored, Respiratory pattern is regular, symmetrical. Historical: - Allergies: 11:50 No Known Allergies; ap3 - PMHx: 11:50 Diabetes - NIDDM; High Cholesterol; Hypertension; Rheumatoid Arthritis; ap3 - Immunization history:: Client reports receiving the 2nd dose of the Covid vaccine, and booster Pneumococcal vaccine is not up to date, Flu vaccine is up to date. - Social history:: Smoking status: Patient denies any tobacco usage or history of. Screenin:52 Abuse screen: Denies threats or abuse. Nutritional screening: No deficits noted. ap3 Tuberculosis screening: No symptoms or risk factors identified. Fall Risk None identified. No fall in past 12 months (0 pts). Assessment: 12:23 General: Appears uncomfortable, Behavior is cooperative, anxious. Pain: Complains of ic1 pain in right breast. Neuro: Level of Consciousness is awake, alert, obeys commands, Oriented to person, place, time, situation. Cardiovascular: Reports sternal pain that radiates to and from her R breast. Respiratory: Denies shortness of breath. GI: No deficits noted. : No deficits noted. EENT: No deficits noted. Derm: No deficits noted. Musculoskeletal: No deficits noted. 12:51 Reassessment: Patient appears in no apparent distress at this time. No changes from ic1 previously documented assessment. Patient and/or family updated on plan of care and expected duration. Pain level reassessed. Patient is alert, oriented x 3, equal unlabored respirations, skin warm/dry/pink. Vital Signs: 11:47 BP 125 / 71; Pulse 54; Resp 19; Temp 98.2; Pulse Ox 99% ; Weight 94.8 kg; Height 5 ft. ap3 6 in. (167.64 cm); Pain 6/10; 12:51 BP 121 / 63; Pulse 62; Resp 16; Pulse Ox 98% on R/A; ic1 13:55 BP 125 / 69; Pulse 60; Resp 18; Pulse Ox 99% on R/A; ic1 11:47 Body Mass Index 33.73 (94.80 kg, 167.64 cm) ap3 ED Course: 11:00 Patient arrived in ED. kz 11:50 Triage completed. ap3 11:52 Arm band placed on right wrist. ap3 11:54 Cassie Arevalo RN is Primary Nurse. ic1 11:55 Isaiah Angel NP is PHCP. pm1 11:55 Juan Steinberg MD is Attending Physician. pm1 12:23 Patient has correct armband on for positive identification. Bed in low position. Call ic1 light in reach. Side rails up X2. 12:23 No provider procedures requiring assistance completed. Inserted saline lock: 20 gauge ic1 in right antecubital area, using aseptic technique. Blood collected. 12:38 XRAY Chest (1 view) In Process Unspecified. EDMS 13:14 EKG done, by ED staff, reviewed by Isaiah Angel NP. mb7 14:11 IV discontinued, intact, bleeding controlled, No redness/swelling at site. Pressure ic1 dressing applied. Administered Medications: 12:38 Not Given (Physician Discretion): Ketorolac 30 mg IM once pm1 12:41 Drug: Ativan (LORazepam) 0.5 mg Route: IVP; Site: right antecubital; ic1 12:41 Drug: Ketorolac 30 mg Route: IVP; Site: right antecubital; ic1 Outcome: 13:54 Discharge ordered by MD. pm1 13:55 Discharged to home ambulatory. ic1 13:55 Condition: stable 13:55 Discharge instructions given to patient, Instructed on discharge instructions, follow up and referral plans. Demonstrated understanding of instructions, follow-up care. 14:11 Patient left the ED. ic1 Signatures: Dispatcher [employer] [facility] Isaiah Angel, [employer] pm1 Renuka Moon, RN RN [email or web address] Evelin Chauhan mb7 Cassie Arevalo RN RN ic1 Jennifer Wiley
[2021-04-26 14:17] VITALS: TEMP 98.2
[2021-04-26 14:19] VITALS: BP 125/69; O2SAT 99
--- NOTE | 2021-04-28 07:29 | EKG ---
Test Date: 2021-04-26 Test Time: 12:09:39 Casing Machine Operator: ANISA MEASUREMENT RESULTS: Intervals: Rate: 58 SD: 180 QRSD: 82 QT: 414 QTc: 406 Amity: P: 83 SD: 180 QRS: 46 T: 55 INTERPRETIVE STATEMENTS: Sinus bradycardia Otherwise normal ECG Compared to ECG 12/22/2019 10:07:30 ST (T wave) deviation no longer present Early repolarization no longer present Electronically Signed On 04-28-21 07:23:04 CDT by Khadar Lopez
== END 2021-04-26 14:11 | disposition home or self-care (01) ==
LOC: ER 10:56
DX: F43.0 Acute stress reaction (principal); I10 Essential (primary) hypertension; E11.9 Type 2 diabetes mellitus without complications
CPT/HCPCS: 36415; 71045; 80048; 80076; 83735; 83880; 84484; 85025; 93005; 96374; 96375; 99284

== ENCOUNTER → 2023-04-26 | Emergency (ER) | payer BC, OTHER ==
[~2023-04-26] MED LIST: MORPHINE 4 MG/ML SYR ONE; NA CHLORIDE 0.9% 1,000 ML ONE; ONDANSETRON 4 MG/2 ML VIAL ONE
--- OUTSIDE RECORDS SUMMARY | 2023-04-26 09:40 | XMS REPORT | Clinical Summary ---
Author Name Unknown Organization [facility] MD [facility] Address [address] [place] [address] Care Team Providers Care Clothes Ironer Name Role Phone Sumaya Cheng Unavailable [phone] Cecil Nowak MD Primary Care Provider [phone] Clay Murphy MD Primary Care Provider [phone] Yesenia Anna MD Unavailable Bruce Kim MD Unavailable [phone] Dimitrios Quiñonez MD Unavailable Allergies Active Allergy Reactions Criticality Noted Date Comments Senna Rash Low 11/06/2021 Medications Medication Sig Dispensed Refills Start Date End Date Status lenalidomide (REVLIMID) capsule 10 mg Take 1 capsule (10 mg) by mouth daily. 0 Active aspirin 81 mg EC tabletIndicatio ns:Multiple myeloma Take 1 tablet (81 mg) by mouth daily. 90 tablet 3 3 Active DULoxetine (Cymbalta) 60 mg capsuleIndicati ons:Paraneoplas tic neuropathy Take 1 capsule (60 mg) by mouth daily. 30 capsule 2 3 Active gabapentin (NEURONTIN) 100 mg capsule Take 1 capsule (100 mg) by mouth at bedtime. 0 Active valACYclovir (VALTREX) 500 mg tablet Take 1 tablet (500 mg) by mouth daily. 0 Active naloxone (Narcan) 4 mg/actuation nasal sprayIndication s:Pain due to neoplastic disease Use 1 dose into one nostril as needed for opioid overdose. Do not prime or test the inhaler prior to adminstration. Give another dose into the other nostril after 2 to 3 minutes if the patient does not respond or responds and then relapses into respiratory depression. 2 each 0 3 Active atorvastatin (LIPITOR) 40 mg tablet Take 1 tablet (40 mg) by mouth at bedtime. 0 Active tiZANidine (ZANAFLEX) 2 mg tablet Take 1 tablet (2 mg) by mouth every 6 (six) hours as needed. 0 3 Active HYDROmorphone (DILAUDID) 2 mg tablet Take 1 tablet (2 mg) by mouth every 6 (six) hours as needed for mild pain or moderate pain. 0 Active cholecalciferol , vitamin D3, 1,250 mcg (50,000 unit) capsuleIndicati ons:Vitamin D deficiency, not otherwise specified Take 1 capsule (50,000 Units) by mouth every 7 days. Plz have patient get subsequent refills w PCP 12 capsule 0 4 Active atorvastatin (LIPITOR) 40 mg tablet Take 1 tablet (40 mg) by mouth daily. 0 2 05/14/19 23 Discontinued(Reo rder) valACYclovir (Valtrex) 500 mg tabletIndicatio ns:Multiple myeloma Take 1 tablet (500 mg) by mouth daily. 90 tablet 3 2 05/14/19 23 Discontinued(Reo rder) sulfamethoxazol e-trimethoprim (BACTRIM DS) 800 mg-160 mg per tabletIndicatio ns:Multiple myeloma,Status post stem cell transplant,Hypo kalemia Take 1 tablet by mouth 3 (three) times a week Monday, Monday and Monday. 30 tablet 3 2 05/14/19 23 Discontinued(Latricia meza completed) cholecalciferol , vitamin D3, 1,250 mcg (50,000 unit) capsuleIndicati ons:Vitamin D deficiency, not otherwise specified Take 1 capsule (50,000 Units) by mouth once a week. 12 capsule 0 3 05/14/19 23 Discontinued(Reo rder) DULoxetine (Cymbalta) 60 mg capsuleIndicati ons:Paraneoplas tic neuropathy Take 1 capsule (60 mg) by mouth daily. 90 capsule 0 3 05/25/19 23 Discontinued(Reo rder) amitrip-2% Lido-5% in Vanicream (AMB-CMPD)Indic ations:Multiple myeloma,Periphe ral neuropathy Apply topically to affected area(s) 3 (three) times a day. 60 g 0 3 03/21/19 24 Discontinued traMADol (ULTRAM) 50 mg tabletIndicatio ns:Multiple myeloma TAKE 1 TABLET (50 MG) BY MOUTH EVERY 6 (SIX) HOURS NEEDED FOR MODERATE PAIN 30 tablet 0 3 05/25/19 23 Discontinued(Reo rder) cholecalciferol , vitamin D3, 1,250 mcg (50,000 unit) capsuleIndicati ons:Vitamin D deficiency, not otherwise specified Take 1 capsule (50,000 Units) by mouth once a week. 12 capsule 0 3 08/06/19 23 Discontinued atorvastatin (LIPITOR) 40 mg tabletIndicatio ns:Hemopoietic stem cell transplant,Mult iple myeloma Take 1 tablet (40 mg) by mouth daily for 90 days. 90 tablet 6 3 06/14/19 23 Discontinued(Reo rder) valACYclovir (Valtrex) 500 mg tabletIndicatio ns:Multiple myeloma Take 1 tablet (500 mg) by mouth daily. 90 tablet 3 3 08/09/19 23 Discontinued traMADol (ULTRAM) 50 mg tabletIndicatio ns:Multiple myeloma Take 1 tablet (50 mg) by mouth every 6 (six) hours as needed for moderate pain. 30 tablet 0 3 10/11/19 23 Discontinued(Sto p Taking at Discharge) DULoxetine (Cymbalta) 60 mg capsuleIndicati ons:Paraneoplas tic neuropathy Take 1 capsule (60 mg) by mouth daily. 90 capsule 0 3 07/20/19 23 Discontinued(Reo rder) zinc sulfate (Zinc-220) 220 mg capsuleIndicati ons:Taste problem Take 1 capsule (220 mg) by mouth twice daily. 28 capsule 0 3 02/15/19 24 Discontinued(Sto p Taking at Discharge) ondansetron (Zofran) 8 mg tabletIndicatio ns:Multiple myeloma Take 1 tablet (8 mg) by mouth every 8 (eight) hours as needed for nausea. 45 tablet 2 3 06/14/19 23 Discontinued(Oth er/Not Applicable) atorvastatin (LIPITOR) 40 mg tabletIndicatio ns:Multiple myeloma,Hemopoi etic stem cell transplant Take 1 tablet (40 mg) by mouth daily for 90 days. 30 tablet 2 3 09/12/19 23 ondansetron (Zofran) 8 mg tabletIndicatio ns:Multiple myeloma,Nausea and vomiting Take 1 tablet (8 mg) by mouth every 8 (eight) hours as needed for nausea. 45 tablet 0 3 03/21/19 24 Discontinued lysine 500 mg tab Take 2 tablets (1,000 mg) by mouth daily. 0 02/15/19 24 Discontinued(Sto p Taking at Discharge) cetirizine (ZyrTEC) 10 mg tabletIndicatio ns:atopic dermatitis Take 1 tablet (10 mg) by mouth at bedtime. 0 03/21/19 24 Discontinued famotidine (PEPCID) 40 mg tablet Take 1 tablet (40 mg) by mouth daily. 0 03/21/19 24 Discontinued ammonium lactate (LAC-HYDRIN) 12% lotionIndicatio ns:Acquired keratosis pilaris Apply topically to affected area(s) daily. 400 g 11 3 03/21/19 24 Discontinued gabapentin (NEURONTIN) 100 mg capsule TAKE 1 CAPSULE BY MOUTH 3 TIMES DAILY NEEDED. 0 3 08/09/19 23 Discontinued DULoxetine (Cymbalta) 30 mg capsuleIndicati ons:Paraneoplas tic neuropathy Take 1 capsule (30 mg) by mouth daily. 30 capsule 0 3 08/09/19 23 Discontinued cholecalciferol , vitamin D3, 1,250 mcg (50,000 unit) capsuleIndicati ons:Vitamin D deficiency, not otherwise specified TAKE 1 CAPSULE BY MOUTH ONCE A WEEK 12 capsule 0 3 11/09/19 23 Discontinued DULoxetine (Cymbalta) 60 mg capsuleIndicati ons:Paraneoplas tic neuropathy Take 1 capsule (60 mg) by mouth daily. 30 capsule 0 3 09/06/19 23 Discontinued(Reo rder) fidaxomicin (DIFICID) 200 mg tabletIndicatio ns:Clostridioid es difficile infection Take 1 tablet (200 mg) by mouth every 12 (twelve) hours for 6 days. Through 10/16/22. 12 tablet 0 3 10/11/19 23 Discontinued(Reo rder) HYDROmorphone (DILAUDID) 2 mg tabletIndicatio ns:Pain due to neoplastic disease Take 1 tablet (2 mg) by mouth every 4 (four) hours as needed for moderate pain or severe pain. 60 tablet 0 3 01/04/20 23 Discontinued(Reo rder) fidaxomicin (DIFICID) 200 mg tabletIndicatio ns:Clostridioid es difficile infection Take 1 tablet (200 mg) by mouth every 12 (twelve) hours for 7 days. Through 10/16/22. 13 tablet 0 3 10/19/19 23 cholecalciferol , vitamin D3, 1,250 mcg (50,000 unit) capsuleIndicati ons:Vitamin D deficiency, not otherwise specified TAKE 1 CAPSULE BY MOUTH ONE TIME PER WEEK 12 capsule 0 3 03/17/19 24 Discontinued methocarbamol (Robaxin-750) 750 mg tabletIndicatio ns:Hemopoietic stem cell transplant,Mult iple myeloma,Spasm of back muscles Take 1 tablet (750 mg) by mouth every 12 (twelve) hours as needed for muscle spasms for up to 14 days. 28 tablet 0 3 11/28/19 23 HYDROmorphone (DILAUDID) 2 mg tabletIndicatio ns:Pain due to neoplastic disease Take 1 tablet (2 mg) by mouth every 6 (six) hours as needed for moderate pain or severe pain. 60 tablet 0 3 02/15/19 24 Discontinued(Sto p Taking at Discharge) benzonatate (TESSALON) 100 mg capsule Take 1 capsule (100 mg) by mouth every 8 (eight) hours as needed for cough. 0 03/21/19 24 Discontinued polyethylene glycol-electrol ytes (NULYTELY) 420 g solutionIndicat ions:Colonoscop y planned Mix as directed and drink as directed. 4000 mL 0 3 02/15/19 24 Discontinued(Sto p Taking at Discharge) Active Problems Problem Noted Date Diagnosed Date Screening for malignant neoplasm of colon 2022 Overview: Added automatically from request for surgery [id number] Clostridioides difficile infection 10/07/2022 Anemia in neoplastic disease 10/05/2022 Pain due to neoplastic disease 10/04/2022 Peripheral neuropathy 10/04/2022 Hypokalemia 06/06/2022 Nausea with vomiting 12/06/2021 Severe protein-calorie malnutrition 11/18/2021 Encounter for antineoplastic chemotherapy 2021 Status post stem cell transplant 11/04/2021 Pain in left leg 09/24/2021 Electrolyte imbalance 09/24/2021 Hypertension 09/24/2021 Hyperlipidemia 09/24/2021 Rheumatoid arthritis 09/24/2021 Diabetes mellitus 09/24/2021 Type 2 diabetes mellitus 09/24/2021 Multiple myeloma 05/09/2021 Encounters Date Type Department Care Team Description 04/20/2023 9:00 AM EMBOSSER OPERATOR Telemedicine [facility] - [facility] [address] [place] [address] Ivory Todd APRN Multiple myeloma (Primary Dx) 04/20/2023 Orders Only [facility] [address] [place] [address], 6th [place] [address] Ivory Todd APRN Multiple myeloma (Primary Dx) 04/18/2023 8:57 AM EMBOSSER OPERATOR - 04/18/2023 11:59 PM EMBOSSER OPERATOR Hospital Encounter [facility] [address] [place] [address], [place] [address] Ivory Todd APRN Multiple myeloma Discharge Disposition: Home 03/21/2023 8:45 AM EMBOSSER OPERATOR Follow-Up [facility] [address] [place] [address], 6th [place] [address] Clay Murphy MD Multiple myeloma (Primary Dx) 03/21/2023 Travel 03/17/2023 3:30 PM EMBOSSER OPERATOR - 03/17/2023 11:59 PM EMBOSSER OPERATOR Hospital Encounter [facility] - Main Building [address] [place] [address], 2nd [place] [address] Ivory Todd APRN Tomakin, Christina A, RN Multiple myeloma (Primary Dx) Discharge Disposition: Home 03/17/2023 12:15 PM EMBOSSER OPERATOR Ancillary Procedure [facility] [address] [place] [address] Ivory Todd APRN Multiple myeloma 03/17/2023 10:27 AM EMBOSSER OPERATOR - 03/17/2023 3:29 PM EMBOSSER OPERATOR Hospital Encounter [facility] [address] [place] [address], [place] [address] Ivory Todd APRN Multiple myeloma Discharge Disposition: Home 03/17/2023 10:26 AM EMBOSSER OPERATOR Hospital Encounter [facility] [address] [place] [address], [place] [address] Ivory Todd APRN Multiple myeloma; Hemopoietic stem cell transplant Discharge Disposition: Home 03/17/2023 Travel 03/15/2023 Orders Only [facility] [address] [place] [address], 8th [place] [address] Merlyn Whitfield PA Hemopoietic stem cell transplant (Primary Dx) 03/14/2023 Refill [facility] [address] [place] [address], 8th [place] [address] Merlyn Whitfield PA Vitamin D deficiency, not otherwise specified 02/28/2023 8:30 AM EMBOSSER OPERATOR Telemedicine [facility] [address] [place] [address] east of the Aquarium entrance, [address] [place] [address] Yesenia Anna MD Tennison, Jegy, MD Peripheral neuropathy (Primary Dx); Chronic neck pain 02/16/2023 10:30 AM EMBOSSER OPERATOR Telemedicine [facility] [address] [place] [address], 6th [place] [address] Ivory Todd APRN Multiple myeloma (Primary Dx) 02/15/2023 9:15 AM EMBOSSER OPERATOR Anesthesia Event [facility] - [facility]oscopy 0 [facility], Floor 7 [place] [address] Chato Banks MD 02/15/2023 9:10 AM EMBOSSER OPERATOR - 02/15/2023 10:10 AM EMBOSSER OPERATOR Surgery [facility] - Endoscopy 0 [facility], Floor 7 [place] [address] Domingo Valdes MD DIAGNOSTIC FLEXIBLE COLONOSCOPY PROXIMAL TO SPLENIC FLEXURE 02/15/2023 7:45 AM EMBOSSER OPERATOR - 02/15/2023 11:00 AM EMBOSSER OPERATOR Hospital Encounter [facility] - Endoscopy 0 [facility], Floor 7 [place] [address] Domingo Valdes MD Discharge Disposition: Home 02/15/2023 Telephone [facility] [address] [place] [address], 6th [place] [address] Nuris Whitten, RN 02/15/2023 Telephone [facility] [address] [place] [address], 6th [place] [address] Kalee Morejon RN 02/15/2023 Travel 02/14/2023 11:59 PM EMBOSSER OPERATOR Anesthesia Event [facility] [address] [place] [address], 6th Floor [address] [place] [phone] Ladan Bellamy, ABELINO 02/14/2023 4:30 PM EMBOSSER OPERATOR POEM Appointments [facility] [address] [place] [address], 6th [place] [address] Clay Murphy MD 02/14/2023 9:23 AM EMBOSSER OPERATOR - 02/14/2023 11:59 PM EMBOSSER OPERATOR Hospital Encounter [facility] [address] [place] [address], [place] [address] Ivory Todd APRN Multiple myeloma Discharge Disposition: Home 02/02/2023 Refill [facility] [address] [facility], 8th [place] [address] Merlyn Whitfield PA Vitamin D deficiency, not otherwise specified 02/01/2023 Refill [facility]enterology, Hepatology & Nutrition [address] [facility] Main [facility], 7th [place] [address] Teri Lott MA Colonoscopy planned (Primary Dx) 01/13/2023 8:45 AM EMBOSSER OPERATOR Follow[facility]Up [facility] [address] [facility] Main [facility], 6th [place] [address] Clay Murphy MD Multiple myeloma (Primary Dx) 01/13/2023 Refill [facility] [address] [facility] Main dg, 6th [place] [address] Shiloh Oliveira 01/13/2023 Travel 01/12/2023 9:48 AM EMBOSSER OPERATOR - 01/12/2023 11:59 PM EMBOSSER OPERATOR Hospital Encounter [facility] [address] [facility] Main [facility], [place] [address] Ivory Todd APRN Multiple myeloma Discharge Disposition: Home 01/12/2023 9:46 AM EMBOSSER OPERATOR - 01/12/2023 9:47 AM EMBOSSER OPERATOR Hospital Encounter [facility] Main [facility], [place] [address] Ivory Todd APRN Multiple myeloma Discharge Disposition: Home 12/15/2022 9:30 AM CDT Telemedicine [facility] [address] [facility] Main [facility], 6th [place] [address] Ivory Todd APRN Multiple myeloma (Primary Dx) 12/14/2022 Telephone [facility] [address], 6th [place] [address] Stuart Hood, RN 12/14/2022 Refill [facility] [address] [place], [place] [id number] Elizabeth Ambrocio, FOOTBALL PAD REPAIRER 12/13/2022 10:45 AM CDT Infusion [facility] [address] [facility], Floor 6 [place] [address] Clay Murphy MD Gellang, Abigail P, RN Multiple myeloma (Primary Dx) 12/13/2022 Travel 11/30/2022 Refill [facility] [address] [place] [address] Elizabeth Ambrocio, FOOTBALL PAD REPAIRER 11/17/2022 8:30 AM CDT Telemedicine [facility] [address] [place] [address], 6th Floor [address] [place] [phone] Ivory Todd, FOOTBALL PAD REPAIRER Multiple myeloma (Primary Dx) 11/16/2022 Telephone [facility] [address] [place] [address], 6th [place] [address] Will Elena MA 11/11/2022 1:30 PM CDT Follow-Up [facility] [address] [place] [address], 8th Floor [address] [place] [phone] Cecil Nowak MD Spasm of back muscles (Primary Dx); Hemopoietic stem cell transplant; Multiple myeloma 11/11/2022 11:12 AM CDT - 11/11/2022 11:59 PM CDT Hospital Encounter [facility] [address] [place] [address], [place] [address] Merlyn Whitfield PA Hemopoietic stem cell transplant; Multiple myeloma Discharge Disposition: Home 11/11/2022 11:12 AM CDT - 11/11/2022 11:59 PM CDT Hospital Encounter [facility] [address] [place] [address], [facility] [place] [address] Merlyn Whitfield PA Hemopoietic stem cell transplant; Multiple myeloma Discharge Disposition: Home 11/11/2022 Travel 11/02/2022 Refill [facility] [address] [place] [address], 8th [place] [address] Merlyn Whitfield PA Vitamin D deficiency, not otherwise specified 10/28/2022 8:30 AM CDT Consult [facility] - [facility]enterology, Hepatology & Nutrition [address] [facility] Main [facility], 7th [place] [address] Dimitrios Quiñonez MD Multiple myeloma 10/28/2022 Prep for Surgery [facility] - Gastroenterology, Hepatology & Nutrition [facility], 7th [place] [address] Promise Pina, PA-C Screening for malignant neoplasm of colon (Primary Dx) 10/28/2022 Travel 10/21/2022 1:45 PM CDT Follow-Up [facility] [address] [place] [address], 6th [place] [address] Clay Murphy MD Multiple myeloma (Primary Dx) 10/21/2022 11:23 AM CDT - 10/21/2022 11:59 PM CDT Hospital Encounter [facility] [address] [place] [address], [place] [address] Ivory Todd APRN Multiple myeloma Discharge Disposition: Home 10/21/2022 11:22 AM CDT Hospital Encounter [facility] [address] [place] [address], [place] [address] Gaurang Perkins APRN Multiple myeloma Discharge Disposition: Home 10/21/2022 Travel 10/11/2022 Orders Only [facility] [address] [place] [address], 6th [place] [address] Ivory Todd APRN Multiple myeloma (Primary Dx) 10/10/2022 Orders Only [facility] [address] [place] [address], 6th [place] [address] Gaurang Perkins APRN Multiple myeloma (Primary Dx) 10/04/2022 Travel 10/03/2022 1:46 PM CDT - 10/10/2022 5:07 PM CDT Hospital Encounter MAIN [address] [place] [address] Leobardo Andres MD Becnel, Melody Renee, MD Zhou, Yan, MD Multiple myeloma (Primary Dx); Neck pain; Status post stem cell transplant; Peripheral neuropathy; Anemia in neoplastic disease; Clostridioides difficile infection; Pain due to neoplastic disease Discharge Disposition: Home 10/03/2022 Orders Only Neuroradiology [address] [place] [address] May Meeks MD 10/03/2022 Travel 10/03/2022 Telephone [facility] [address] [place] [address], 6th [place] [address] Yudelka Dennis RN 09/30/2022 Orders Only [facility] [address] [place] [address], 6th [place] [address] Ivory Todd APRN Multiple myeloma (Primary Dx) 09/30/2022 Telephone [facility] [address] [place] [address], 6th [place] [address] Stacy Mcclain RN 09/08/2022 9:30 AM CDT Telemedicine [facility] [address] [place] [address], 6th [place] [address] Ivory Todd APRN Multiple myeloma (Primary Dx) 09/08/2022 Refill [facility] [address] [place] [address] Elizabeth Ambrocio APRN Multiple myeloma; Hemopoietic stem cell transplant 09/06/2022 10:55 AM CDT - 09/06/2022 11:59 PM CDT Hospital Encounter [facility] - Main [address], 10th [place] [address] Ivory Todd APRN Crain, Lashonda, RN Multiple myeloma (Primary Dx) Discharge Disposition: Home 09/06/2022 10:19 AM CDT - 09/06/2022 10:54 AM CDT Hospital Encounter [facility] Main [facility], [place] [address] Ivory Todd APRN Multiple myeloma Discharge Disposition: Home 09/06/2022 Travel 08/29/2022 Telephone [facility] Main dg, 6th [place] [address] Silvia Ortiz RN 08/11/2022 1:30 PM CDT Telemedicine [facility] Main dg, 6th [place] [address] Ivory Todd APRN Multiple myeloma (Primary Dx) 08/10/2022 Telephone [facility] [address] [place] [address] Main [facility], 6th [place] [address] Nora Ocasio RN 08/09/2022 8:34 AM CDT - 08/09/2022 11:59 PM CDT Hospital Encounter [facility] [address] [place] [address] Main [facility], [place] [address] Ivory Todd APRN Multiple myeloma Discharge Disposition: Home 08/03/2022 Refill [facility] [address] [place] [address] Main dg, 8th [place] [address] Merlyn Whitfield PA Vitamin D deficiency, not otherwise specified 07/18/2022 8:30 AM CDT Telemedicine [facility] Medicine [facility] Rehabilitation [address] [place] [address] Main [facility] east of the [address] entrance, [address] [place] [address] Yesenia Anna MD Peripheral neuropathy (Primary Dx); Multiple myeloma; Status post stem cell transplant 07/15/2022 9:00 AM CDT Follow-Up [facility] Main dg, 6th [place] [address] Clay Murphy MD Cuellar, Elizabeth L, APRN Multiple myeloma (Primary Dx) 07/15/2022 Travel 07/13/2022 11:30 AM CDT Follow-Up [facility] [address] [place] [address], 8th [place] [address] Cecil Nowak MD Hemopoietic stem cell transplant; Multiple myeloma 07/13/2022 9:26 AM CDT - 07/13/2022 11:59 PM CDT Hospital Encounter [facility] [address] [place] [address], [place] [address] Merlyn Whitfield PA Hemopoietic stem cell transplant; Multiple myeloma Discharge Disposition: Home 07/13/2022 9:20 AM CDT - 07/13/2022 9:25 AM CDT Hospital Encounter [facility] [address] [place] [address] Merlyn Whitfield PA Hemopoietic stem cell transplant; Multiple myeloma Discharge Disposition: Home 07/13/2022 Travel 07/12/2022 9:30 AM CDT Consult [facility] - Dermatology [address] [place] [address], 9th [place] [address] Bruce Kim MD Acquired keratosis pilaris (Primary Dx); Multiple myeloma 07/12/2022 Travel 07/05/2022 7:43 AM CDT - 07/05/2022 11:59 PM CDT Hospital Encounter [facility] [address] [place] [address], [facility] [place] [address] Ivory Todd APRN Multiple myeloma Discharge Disposition: Home 07/05/2022 7:43 AM CDT - 07/05/2022 11:59 PM CDT Hospital Encounter [facility] [address] [place] [address], [place] [address] Ivory Todd APRN Multiple myeloma Discharge Disposition: Home 06/13/2022 10:00 AM CDT Office Visit [facility] [address] [place] [address] Kiley Greenwood PA Mullen, Ellen C, APRN Multiple myeloma (Primary Dx); Hemopoietic stem cell transplant; Nausea and vomiting; Anemia due to antineoplastic chemotherapy; Other nonspecific skin eruption 06/13/2022 7:45 AM CDT - 06/13/2022 11:59 PM CDT Hospital Encounter [facility] [address] [place] [address], [place] [address] Kiley Greenwood PA Multiple myeloma Discharge Disposition: Home 06/13/2022 Travel 06/07/2022 10:00 AM CDT - 06/07/2022 11:59 PM CDT Hospital Encounter [facility] - Main Building [address] [place] [address], 2nd [place] [address] Ivory Todd APRN Quinones, Maria, RN Multiple myeloma (Primary Dx); Hypokalemia Discharge Disposition: Home 06/07/2022 Travel 06/06/2022 3:00 PM CDT [facility] [address] [place] [address], 6th [place] [address] Tanika Pearson PA Zachariah, Annie, PA Multiple myeloma (Primary Dx); Hypokalemia 06/03/2022 5:14 PM CDT - 06/03/2022 11:59 PM CDT Hospital [facility] [address] [place] [address], [place] [address] Clay Murphy MD Multiple myeloma Discharge Disposition: Home 05/16/2022 10:30 AM CDT Telemedicine [facility] [address] [place] [address] east of the [facility] entrance, Room [address] [place] [address] Yesenia Anna MD Peripheral neuropathy (Primary Dx) 05/16/2022 Orders Only [facility] [address] [place] [address], 6th [place] [address] Ivory Todd APRN Multiple myeloma (Primary Dx) 05/13/2022 11:30 AM CDT Follow-Up [facility] [address] [place] [address], 8th [place] [address] Cecil Nowak MD Hemopoietic stem cell transplant; Multiple myeloma 05/13/2022 9:14 AM CDT - 05/13/2022 11:59 PM CDT [facility] [address] [place] [address], [place] [address] Merlyn Whitfield PA Hemopoietic stem cell transplant; Multiple myeloma Discharge Disposition: Home 05/13/2022 Refill [facility] [address] [place] [address], 8th [place] [address] Tanika Coleman, ABELINO Vitamin D deficiency, not otherwise specified 05/13/2022 Travel 05/12/2022 8:30 AM CDT Tele[facility]icine [facility] [address] [place] [address], 6th [place] [address] Ivory Todd APRN Multiple myeloma (Primary Dx) 05/10/2022 8:00 AM CDT - 05/10/2022 11:59 PM CDT [facility] [address] [place] [address], [place] [address] Ivory Todd, RUPERTO Multiple myeloma Discharge Disposition: Home after 04/26/2022 Immunizations Name Administration Dates Next Due DTaP / IPV 11/11/2022,07/13/2022,05/13/2022 Hepatitis A 11/11/2022,05/13/2022 Hepatitis B 11/11/2022,07/13/2022,05/13/2022 Hib (PRP-OMP) 11/11/2022,07/13/2022,05/13/2022 Influenza Quadrivalent High Dose 11/11/2022 Influenza, Quadrivalent 11/26/2019 Pneumococcal Conjugate 15-valent 11/11/2022,06/15,05/13/2022 Zoster Recombinant 07/13/2022,05/13/2022 Surgical History Surgery Date Site/Laterality Comments NE COLONOSCOPY FLX DX W/COLLJ SPEC WHEN PFRMD 02/15/2023 N/A Procedure: DIAGNOSTIC FLEXIBLE COLONOSCOPY PROXIMAL TO SPLENIC FLEXURE; Surgeon: Domingo Valdes MD; Location: [facility]; Service: GASTROENTEROLOGY Medical History Medical History Date Comments Hypertension 2017 Hyperlipidemia 2017 Irregular heart beat 1960 Menopause 1992 Rheumatoid arthritis 2017 Arthritis 2017 Diabetes mellitus 2017 Family History Medical History Relation Name Comments Prostate cancer Father Able josh Breast cancer Maternal Aunt 1 Harriet trinhxon Throat cancer Maternal Aunt 2 Nata Relation Name Status Comments Father Able mayelaford Maternal Aunt 1 Tiffaniet valladares Maternal Aunt 2 Nata Social History Tobacco Use Types Packs/Day Years Used Date Smoking Tobacco: Never Smokeless Tobacco: Never Alcohol Use Standard Drinks/Week Comments Never 0 (1 standard drink = 0.6 oz pur e alcohol) Sex and Gender Information Value Date Recorded Sex Assigned at Not on file Gender Identity Not on file Sexual Orientation Not on file Job Start Date Occupation Industry Not on file Not on file Not on file Obstetrics History Last Filed Vital Signs Vital Sign Reading Time Taken Comments Blood Pressure 135/66 03/21/2023 9:32 AM EMBOSSER OPERATOR Pulse 58 03/21/2023 9:32 AM EMBOSSER OPERATOR Temperature 36.7 C (98.1 F) 03/21/2023 9:32 AM CS T Respiratory Rate 18 03/21/2023 9:32 AM EMBOSSER OPERATOR Oxygen Saturation 99% 03/21/2023 9:32 AM EMBOSSER OPERATOR Inhaled Oxygen Concentration - - Weight 78.4 kg (172 lb 13.5 oz) 03/21/2023 9:31 AM EMBOSSER OPERATOR Height 165 cm (5' 4.96") 10/06/2022 8:43 PM CDT Body Mass Index 28.8 10/06/2022 8:43 PM CDT Plan of Treatment Upcoming Encounters Date Type Department Care Team Description 05/16/2023 11:00 AM CDT [facility]ointment [facility] [address] [place] [address] Bl, [place] [address] Ivory Todd APRN [address] [place], [place] [phone] 05/18/2023 9:00 AM CDT Telemedicine [facility] - [facility]oma Myeloma [address] [place], [place] [phone] Ivory Todd APRN [address] [place], [place] [phone] 06/09/2023 9:30 AM CDT Appointment [facility] [address] [place] [address], [facility] [place] [address] Ivory Todd Nadine, FOOTBALL PAD REPAIRER [address] [place] [address] 06/09/2023 9:45 AM CDT Appointment [facility] [address] [place] [address], [facility] [place] [address] Todd Ivory L, FOOTBALL PAD REPAIRER [address] [place] [address] 06/13/2023 8:15 AM CDT [facility] [address] [place] [address], 6th [place] [address] Clay Murphy MD [address] [place] [address] 08/23/2023 11:00 AM CDT [facility] [address] [place] [address], 8th [place] [address] Cecil Nowak MD [address] [place] [phone] Health Maintenance Due Date Last Done Comments COVID-19 Vaccine (3 - Moderna risk series) 06/07/2020 05/10/2020, 04/12/2020 Procedures Procedure Name Priority Date/Time Associated Diagnosis Comments FREE KAPPA/FREE LAMBDA RATIO Routine 04/18/2023 9:30 AM EMBOSSER OPERATOR Multiple myeloma .CBC Routine 04/18/2023 9:30 AM EMBOSSER OPERATOR Multiple myeloma LACTATE DEHYDROGENASE Routine 04/18/2023 9:30 AM EMBOSSER OPERATOR Multiple myeloma BETA 2 MICROGLOBULIN Routine 04/18/2023 9:30 AM EMBOSSER OPERATOR Multiple myeloma FREE LAMBDA LIGHT CHAIN Routine 04/18/19 9:30 AM EMBOSSER OPERATOR Multiple myeloma FREE KAPPA LIGHT CHAIN Routine 9:30 AM EMBOSSER OPERATOR Multiple myeloma IMMUNOGLOBULIN M Routine 04/18/2023 9:30 AM EMBOSSER OPERATOR Multiple myeloma IMMUNOGLOBULIN G Routine 04/18/2023 9:30 AM EMBOSSER OPERATOR Multiple myeloma IMMUNOGLOBULIN A Routine 04/18/2023 9:30 AM EMBOSSER OPERATOR Multiple myeloma URIC ACID Routine 04/18/2023 9:30 AM EMBOSSER OPERATOR Multiple myeloma PHOSPHORUS LEVEL Routine 04/18/2023 9:30 AM EMBOSSER OPERATOR Multiple myeloma MAGNESIUM LEVEL Routine 04/18/2023 9:30 AM EMBOSSER OPERATOR Multiple myeloma COMPREHENSIVE METABOLIC PANEL Routine 04/18/2023 9:30 AM EMBOSSER OPERATOR Multiple myeloma COMPLETE BLOOD COUNT W/ DIFFERENTIAL Routine 04/18/2023 9:30 AM EMBOSSER OPERATOR Multiple myeloma MRI WHOLE BODY - BONE MARROW Routine 03/17/2023 2:41 PM EMBOSSER OPERATOR Multiple myeloma URINE TOTAL PROTEIN 24 HOUR Routine 03/17/2023 10:43 AM EMBOSSER OPERATOR Multiple myeloma IMMUNOFIXATION ELECTROPHORESIS URINE Routine 03/17/2023 10:43 AM EMBOSSER OPERATOR Multiple myeloma PROTEIN ELECTROPHORESIS URINE Routine 03/17/2023 10:43 AM EMBOSSER OPERATOR Multiple myeloma PROTEIN ELECTROPHORESIS URINE WITH REJI Routine 03/17/2023 10:43 AM EMBOSSER OPERATOR Multiple myeloma FREE KAPPA/FREE LAMBDA RATIO Routine 03/17/2023 10:42 AM EMBOSSER OPERATOR Multiple myeloma IMMUNOFIXATION ELECTROPHORESIS Routine 03/17/2023 10:42 AM EMBOSSER OPERATOR Multiple myeloma PROTEIN ELECTROPHORESIS Routine 03/17/19 24 10:42 AM EMBOSSER OPERATOR Multiple myeloma .CBC Routine 03/17/2023 10:42 AM EMBOSSER OPERATOR Multiple myeloma VITAMIN D 25 HYDROXY LEVEL Routine 03/17/2023 10:42 AM EMBOSSER OPERATOR Hemopoietic stem cell transplant LACTATE DEHYDROGENASE Routine 03/17/2023 10:42 AM EMBOSSER OPERATOR Multiple myeloma BETA 2 MICROGLOBULIN Routine 03/17/2023 10:42 AM EMBOSSER OPERATOR Multiple myeloma SERUM PROTEIN ELECTROPHORESIS WITH REJI Routine 03/17/2023 10:42 AM EMBOSSER OPERATOR Multiple myeloma FREE LAMBDA LIGHT CHAIN Routine 03/17/19 10:42 AM EMBOSSER OPERATOR Multiple myeloma FREE KAPPA LIGHT CHAIN Routine 10:42 AM EMBOSSER OPERATOR Multiple myeloma IMMUNOGLOBULIN M Routine 03/17/2023 10:4 2 AM EMBOSSER OPERATOR Multiple myeloma IMMUNOGLOBULIN G Routine 03/17/2023 10:4 2 AM EMBOSSER OPERATOR Multiple myeloma IMMUNOGLOBULIN A Routine 03/17/2023 10:4 2 AM EMBOSSER OPERATOR Multiple myeloma URIC ACID Routine 03/17/2023 10:42 AM EMBOSSER OPERATOR Multiple myeloma PHOSPHORUS LEVEL Routine 03/17/2023 10:4 2 AM EMBOSSER OPERATOR Multiple myeloma MAGNESIUM LEVEL Routine 03/17/2023 10:42 AM EMBOSSER OPERATOR Multiple myeloma COMPREHENSIVE METABOLIC PANEL Routine 03/17/2023 10:42 AM EMBOSSER OPERATOR Multiple myeloma COMPLETE BLOOD COUNT W/ DIFFERENTIAL Routine 03/17/2023 10:42 AM EMBOSSER OPERATOR Multiple myeloma DIAGNOSTIC FLEXIBLE COLONOSCOPY PROXIMAL TO SPLENIC FLEXURE 02/15/2023 9:06 AM EMBOSSER OPERATOR Screening for malignant neoplasm of colon FREE KAPPA/FREE LAMBDA RATIO Routine 02/14/2023 9:43 AM EMBOSSER OPERATOR Multiple myeloma IMMUNOFIXATION ELECTROPHORESIS Routine 02/14/2023 9:43 AM EMBOSSER OPERATOR Multiple myeloma PROTEIN ELECTROPHORESIS Routine 02/14/19 9:43 AM EMBOSSER OPERATOR Multiple myeloma .CBC Routine 02/14/2023 9:43 AM EMBOSSER OPERATOR Multiple myeloma LACTATE DEHYDROGENASE Routine 02/14/2023 9:43 AM EMBOSSER OPERATOR Multiple myeloma BETA 2 MICROGLOBULIN Routine 02/14/2023 9:43 AM EMBOSSER OPERATOR Multiple myeloma SERUM PROTEIN ELECTROPHORESIS WITH REJI Routine 02/14/2023 9:43 AM EMBOSSER OPERATOR Multiple myeloma FREE LAMBDA LIGHT CHAIN Routine 02/14/19 24 9:43 AM EMBOSSER OPERATOR Multiple myeloma FREE KAPPA LIGHT CHAIN Routine 9:43 AM EMBOSSER OPERATOR Multiple myeloma IMMUNOGLOBULIN M Routine 02/14/2023 9:43 AM EMBOSSER OPERATOR Multiple myeloma IMMUNOGLOBULIN G Routine 02/14/2023 9:43 AM EMBOSSER OPERATOR Multiple myeloma IMMUNOGLOBULIN A Routine 02/14/2023 9:43 AM EMBOSSER OPERATOR Multiple myeloma URIC ACID Routine 02/14/2023 9:43 AM EMBOSSER OPERATOR Multiple myeloma PHOSPHORUS LEVEL Routine 02/14/2023 9:43 AM EMBOSSER OPERATOR Multiple myeloma MAGNESIUM LEVEL Routine 02/14/2023 9:43 AM EMBOSSER OPERATOR Multiple myeloma COMPREHENSIVE METABOLIC PANEL Routine 02/14/2023 9:43 AM EMBOSSER OPERATOR Multiple myeloma COMPLETE BLOOD COUNT W/ DIFFERENTIAL Routine 02/14/2023 9:43 AM EMBOSSER OPERATOR Multiple myeloma DIFFERENTIAL Routine 01/12/2023 10:05 AM EMBOSSER OPERATOR Multiple myeloma FREE KAPPA/FREE LAMBDA RATIO Routine 01/12/2023 10:05 AM EMBOSSER OPERATOR Multiple myeloma IMMUNOFIXATION ELECTROPHORESIS Routine 01/12/2023 10:05 AM EMBOSSER OPERATOR Multiple myeloma PROTEIN ELECTROPHORESIS Routine 01/13/20 10:05 AM EMBOSSER OPERATOR Multiple myeloma .CBC Routine 01/12/2023 10:05 AM EMBOSSER OPERATOR Multiple myeloma URINE TOTAL PROTEIN 24 HOUR Routine 01/12/2023 10:05 AM EMBOSSER OPERATOR Multiple myeloma LACTATE DEHYDROGENASE Routine 01/12/2023 10:05 AM EMBOSSER OPERATOR Multiple myeloma BETA 2 MICROGLOBULIN Routine 01/12/2023 10:05 AM EMBOSSER OPERATOR Multiple myeloma SERUM PROTEIN ELECTROPHORESIS WITH REJI Routine 01/12/2023 10:05 AM EMBOSSER OPERATOR Multiple myeloma FREE LAMBDA LIGHT CHAIN Routine 01/13/20 10:05 AM EMBOSSER OPERATOR Multiple myeloma FREE KAPPA LIGHT CHAIN Routine 10:05 AM EMBOSSER OPERATOR Multiple myeloma IMMUNOGLOBULIN M Routine 01/12/2023 10:0 5 AM EMBOSSER OPERATOR Multiple myeloma IMMUNOGLOBULIN G Routine 01/12/2023 10:0 5 AM EMBOSSER OPERATOR Multiple myeloma IMMUNOGLOBULIN A Routine 01/12/2023 10:0 5 AM EMBOSSER OPERATOR Multiple myeloma URIC ACID Routine 01/12/2023 10:05 AM EMBOSSER OPERATOR Multiple myeloma PHOSPHORUS LEVEL Routine 01/12/2023 10:0 5 AM EMBOSSER OPERATOR Multiple myeloma MAGNESIUM LEVEL Routine 01/12/2023 10:05 AM EMBOSSER OPERATOR Multiple myeloma COMPREHENSIVE METABOLIC PANEL Routine 01/12/2023 10:05 AM EMBOSSER OPERATOR Multiple myeloma COMPLETE BLOOD COUNT W/ DIFFERENTIAL Routine 01/12/2023 10:05 AM EMBOSSER OPERATOR Multiple myeloma FREE KAPPA/FREE LAMBDA RATIO Routine 12/13/2022 9:53 AM CDT Multiple myeloma IMMUNOFIXATION ELECTROPHORESIS Routine 12/13/2022 9:53 AM CDT Multiple myeloma PROTEIN ELECTROPHORESIS Routine 12/14/19 9:53 AM CDT Multiple myeloma .CBC Routine 12/13/2022 9:53 AM CDT Multiple myeloma VITAMIN D 25 HYDROXY LEVEL Routine 12/13/2022 9:53 AM CDT Multiple myeloma LACTATE DEHYDROGENASE Routine 12/13/2022 9:53 AM CDT Multiple myeloma BETA 2 MICROGLOBULIN Routine 12/13/2022 9:53 AM CDT Multiple myeloma SERUM PROTEIN ELECTROPHORESIS WITH REJI Routine 12/13/2022 9:53 AM CDT Multiple myeloma FREE LAMBDA LIGHT CHAIN Routine 12/14/19 9:53 AM CDT Multiple myeloma FREE KAPPA LIGHT CHAIN Routine 9:53 AM CDT Multiple myeloma IMMUNOGLOBULIN M Routine 12/13/2022 9:53 AM CDT Multiple myeloma IMMUNOGLOBULIN G Routine 12/13/2022 9:53 AM CDT Multiple myeloma IMMUNOGLOBULIN A Routine 12/13/2022 9:53 AM CDT Multiple myeloma URIC ACID Routine 12/13/2022 9:53 AM CDT Multiple myeloma PHOSPHORUS LEVEL Routine 12/13/2022 9:53 AM CDT Multiple myeloma MAGNESIUM LEVEL Routine 12/13/2022 9:53 AM CDT Multiple myeloma COMPREHENSIVE METABOLIC PANEL Routine 12/13/2022 9:53 AM CDT Multiple myeloma COMPLETE BLOOD COUNT W/ DIFFERENTIAL Routine 12/13/2022 9:53 AM CDT Multiple myeloma TMP INTERPRETATION ANTIBODY SCREEN NEGATIVE Routine 11/11/2022 11:32 AM CDT CLOT EXPIRATION DATE Routine 11/11/2022 11:[address] REYNA MENDOZA PATH REVIEW Routine 11/11/2022 11:[address] REYNA RODRIGUEZ PATH REVIEW Routine 11/11/2022 11:32 AM CDT FREE KAPPA/FREE LAMBDA RATIO Routine 11/11/2022 11:32 AM CDT ANTIBODY SCREEN Routine 11/11/2022 11:32 AM CDT Hemopoietic stem cell transplant Multiple myeloma ABORH Routine 11/11/2022 11:32 AM CDT Hemopoietic stem cell transplant Multiple myeloma FRACTIONATED BILIRUBIN Routine 11:32 AM CDT Hemopoietic stem cell transplant Multiple myeloma TOTAL PROTEIN Routine 11/11/2022 11:32 AM CDT Hemopoietic stem cell transplant Multiple myeloma ASPARTATE AMINOTRANSFERASE Routine 11/11/2022 11:32 AM CDT Hemopoietic stem cell transplant Multiple myeloma ALANINE AMINOTRANSFERASE Routine 023 11:32 AM CDT Hemopoietic stem cell transplant Multiple myeloma ALKALINE PHOSPHATASE Routine 11/11/2022 11:32 AM CDT Hemopoietic stem cell transplant Multiple myeloma ALBUMIN LEVEL Routine 11/11/2022 11:32 AM CDT Hemopoietic stem cell transplant Multiple myeloma CALCIUM LEVEL Routine 11/11/2022 11:32 AM CDT Hemopoietic stem cell transplant Multiple myeloma .GLOMERULAR FILTRATION RATE Routine 11/11/2022 11:32 AM CDT Hemopoietic stem cell transplant Multiple myeloma SERUM CREATININE Routine 11/11/2022 11:3 2 AM CDT Hemopoietic stem cell transplant Multiple myeloma ELECTROLYTE PANEL Routine 11/11/2022 11: 32 AM CDT Hemopoietic stem cell transplant Multiple myeloma BLOOD UREA NITROGEN Routine 11/11/2022 1 1:32 AM CDT Hemopoietic stem cell transplant Multiple myeloma GLUCOSE LEVEL Routine 11/11/2022 11:32 AM CDT Hemopoietic stem cell transplant Multiple myeloma DIFFERENTIAL Routine 11/11/2022 11:32 AM CDT Hemopoietic stem cell transplant Multiple myeloma .CBC Routine 11/11/2022 11:32 AM CDT Hemopoietic stem cell transplant Multiple myeloma SERUM PROTEIN ELECTROPHORESIS WITH REJI Routine 11/11/2022 11:32 AM CDT Hemopoietic stem cell transplant Multiple myeloma PROTEIN ELECTROPHORESIS Routine 11/12/19 11:32 AM CDT Hemopoietic stem cell transplant Multiple myeloma FREE LAMBDA LIGHT CHAIN Routine 11/12/19 11:32 AM CDT Hemopoietic stem cell transplant Multiple myeloma FREE KAPPA LIGHT CHAIN Routine 11:32 AM CDT Hemopoietic stem cell transplant Multiple myeloma IMMUNOGLOBULIN M Routine 11/11/2022 11:3 2 AM CDT Hemopoietic stem cell transplant Multiple myeloma IMMUNOGLOBULIN G Routine 11/11/2022 11:3 2 AM CDT Hemopoietic stem cell transplant Multiple myeloma IMMUNOGLOBULIN A Routine 11/11/2022 11:3 2 AM CDT Hemopoietic stem cell transplant Multiple myeloma BETA 2 MICROGLOBULIN Routine 11/11/2022 11:32 AM CDT Hemopoietic stem cell transplant Multiple myeloma MAGNESIUM LEVEL Routine 11/11/2022 11:32 AM CDT Hemopoietic stem cell transplant Multiple myeloma LACTATE DEHYDROGENASE Routine 11/11/2022 11:32 AM CDT Hemopoietic stem cell transplant Multiple myeloma URIC ACID Routine 11/11/2022 11:32 AM CDT Hemopoietic stem cell transplant Multiple myeloma PHOSPHORUS LEVEL Routine 11/11/2022 11:3 2 AM CDT Hemopoietic stem cell transplant Multiple myeloma COMPREHENSIVE METABOLIC PANEL Routine 11/11/2022 11:32 AM CDT Hemopoietic stem cell transplant Multiple myeloma TYPE AND SCREEN Routine 11/11/2022 11:32 AM CDT Hemopoietic stem cell transplant Multiple myeloma COMPLETE BLOOD COUNT W/ DIFFERENTIAL Routine 11/11/2022 11:32 AM CDT Hemopoietic stem cell transplant Multiple myeloma .DR. ROYAL UIFE PATH REVIEW Routine 11/11/2022 9:[address] ROYAL U PROT ELEC PATH REVIEW Routine 11/11/2022 9:00 AM CDT .TOTAL VOLUME Routine 11/11/2022 9:00 AM CDT URINE TOTAL PROTEIN 24 HOUR Routine 11/11/2022 9:00 AM CDT PROTEIN ELECTROPHORESIS URINE Routine 11/11/2022 9:00 AM CDT Hemopoietic stem cell transplant Multiple myeloma PROTEIN ELECTROPHORESIS URINE WITH REJI Routine 11/11/2022 9:00 AM CDT Hemopoietic stem cell transplant Multiple myeloma DR. BUSH REJI PATH REVIEW Routine 023 11:39 AM CDT PROT ELEC PATH REVIEW Routine 10/21/2022 11:39 AM CDT TMP INTERPRETATION ANTIBODY SCREEN NEGATIVE Routine 10/21/2022 11:39 AM CDT CLOT EXPIRATION DATE Routine 10/21/2022 11:39 AM CDT FREE KAPPA/FREE LAMBDA RATIO Routine 10/21/2022 11:39 AM CDT ANTIBODY SCREEN Routine 10/21/2022 11:39 AM CDT Multiple myeloma ABORH Routine 10/21/2022 11:39 AM CDT Multiple myeloma .GLOMERULAR FILTRATION RATE Routine 10/21/2022 11:39 AM CDT Multiple myeloma SERUM CREATININE Routine 10/21/2022 11:3 9 AM CDT Multiple myeloma DIFFERENTIAL Routine 10/21/2022 11:39 AM CDT Multiple myeloma .CBC Routine 10/21/2022 11:39 AM CDT Multiple myeloma BETA 2 MICROGLOBULIN Routine 10/21/2022 11:39 AM CDT Multiple myeloma SERUM PROTEIN ELECTROPHORESIS WITH REJI Routine 10/21/2022 11:39 AM CDT Multiple myeloma PROTEIN ELECTROPHORESIS Routine 10/22/19 11:39 AM CDT Multiple myeloma FREE LAMBDA LIGHT CHAIN Routine 10/22/19 11:39 AM CDT Multiple myeloma FREE KAPPA LIGHT CHAIN Routine 11:39 AM CDT Multiple myeloma IMMUNOGLOBULIN M Routine 10/21/2022 11:3 9 AM CDT Multiple myeloma IMMUNOGLOBULIN G Routine 10/21/2022 11:3 9 AM CDT Multiple myeloma IMMUNOGLOBULIN A Routine 10/21/2022 11:3 9 AM CDT Multiple myeloma TYPE AND SCREEN Routine 10/21/2022 11:39 AM CDT Multiple myeloma APTT Routine 10/21/2022 11:39 AM CDT Multiple myeloma PROTHROMBIN TIME Routine 10/21/2022 11:3 9 AM CDT Multiple myeloma ELECTROLYTE PANEL Routine 10/21/2022 11: 39 AM CDT Multiple myeloma ASPARTATE AMINOTRANSFERASE Routine 10/21/2022 11:39 AM CDT Multiple myeloma MAGNESIUM LEVEL Routine 10/21/2022 11:39 AM CDT Multiple myeloma ALANINE AMINOTRANSFERASE Routine 023 11:39 AM CDT Multiple myeloma LACTATE DEHYDROGENASE Routine 10/21/2022 11:39 AM CDT Multiple myeloma ALKALINE PHOSPHATASE Routine 10/21/2022 11:39 AM CDT Multiple myeloma FRACTIONATED BILIRUBIN Routine 11:39 AM CDT Multiple myeloma URIC ACID Routine 10/21/2022 11:39 AM CDT Multiple myeloma CREATININE Routine 10/21/2022 11:39 AM CDT Multiple myeloma BLOOD UREA NITROGEN Routine 10/21/2022 1 1:39 AM CDT Multiple myeloma GLUCOSE, RANDOM Routine 10/21/2022 11:39 AM CDT Multiple myeloma PHOSPHORUS LEVEL Routine 10/21/2022 11:3 9 AM CDT Multiple myeloma CALCIUM LEVEL Routine 10/21/2022 11:39 AM CDT Multiple myeloma ALBUMIN LEVEL Routine 10/21/2022 11:39 AM CDT Multiple myeloma TOTAL PROTEIN Routine 10/21/2022 11:39 AM CDT Multiple myeloma COMPLETE BLOOD COUNT W/ DIFFERENTIAL Routine 10/21/2022 11:39 AM CDT Multiple myeloma .DR. ROYAL UIFE PATH REVIEW Routine 10/21/2022 10:[address] ROYAL U PROT ELEC PATH REVIEW Routine 10/21/2022 10:00 AM CDT .TOTAL VOLUME Routine 10/21/2022 10:00 AM CDT URINE TOTAL PROTEIN 24 HOUR Routine 10/21/2022 10:00 AM CDT PROTEIN ELECTROPHORESIS URINE WITH REJI Routine 10/21/2022 10:00 AM CDT Multiple myeloma PROTEIN ELECTROPHORESIS URINE Routine 10/21/2022 10:00 AM CDT Multiple myeloma ANION GAP AM 10/10/2022 7:16 AM CDT .GLOMERULAR FILTRATION RATE AM 10/10/2022 7:16 AM CDT SERUM CREATININE AM 10/10/2022 7:16 AM CDT DIFFERENTIAL AM 10/10/2022 7:16 AM CDT .CBC AM 10/10/2022 7:16 AM CDT ALKALINE PHOSPHATASE AM 10/10/2022 7:16 AM CDT ASPARTATE AMINOTRANSFERASE AM 10/10/2022 7:16 AM CDT ALANINE AMINOTRANSFERASE AM 023 7:16 AM CDT MAGNESIUM LEVEL AM 10/10/2022 7:16 AM CDT CALCIUM LEVEL AM 10/10/2022 7:16 AM CDT ALBUMIN LEVEL AM 10/10/2022 7:16 AM CDT FRACTIONATED BILIRUBIN AM 7:16 AM CDT PHOSPHORUS LEVEL AM 10/10/2022 7:16 AM CDT URIC ACID AM 10/10/2022 7:16 AM CDT LACTATE DEHYDROGENASE AM 10/10/2022 7:16 AM CDT GLUCOSE, RANDOM AM 10/10/2022 7:16 AM CDT CREATININE AM 10/10/2022 7:16 AM CDT BLOOD UREA NITROGEN AM 10/10/2022 7 :16 AM CDT CARBON DIOXIDE LEVEL AM 10/10/2022 7:16 AM CDT CHLORIDE LEVEL AM 10/10/2022 7:16 AM CDT POTASSIUM LEVEL AM 10/10/2022 7:16 AM CDT SODIUM LEVEL AM 10/10/2022 7:16 AM CDT COMPLETE BLOOD COUNT W/ DIFFERENTIAL AM 10/10/2022 7:16 AM CDT ANION GAP AM 10/09/2022 7:56 AM CDT .GLOMERULAR FILTRATION RATE AM 10/09/2022 7:56 AM CDT SERUM CREATININE AM 10/09/2022 7:56 AM CDT DIFFERENTIAL AM 10/09/2022 7:56 AM CDT .CBC AM 10/09/2022 7:56 AM CDT ALKALINE PHOSPHATASE AM 10/09/2022 7:56 AM CDT ASPARTATE AMINOTRANSFERASE AM 10/09/2022 7:56 AM CDT ALANINE AMINOTRANSFERASE AM 023 7:56 AM CDT MAGNESIUM LEVEL AM 10/09/2022 7:56 AM CDT CALCIUM LEVEL AM 10/09/2022 7:56 AM CDT ALBUMIN LEVEL AM 10/09/2022 7:56 AM CDT FRACTIONATED BILIRUBIN AM 7:56 AM CDT PHOSPHORUS LEVEL AM 10/09/2022 7:56 AM CDT URIC ACID AM 10/09/2022 7:56 AM CDT LACTATE DEHYDROGENASE AM 10/09/2022 7:56 AM CDT GLUCOSE, RANDOM AM 10/09/2022 7:56 AM CDT CREATININE AM 10/09/2022 7:56 AM CDT BLOOD UREA NITROGEN AM 10/09/2022 7 :56 AM CDT CARBON DIOXIDE LEVEL AM 10/09/2022 7:56 AM CDT CHLORIDE LEVEL AM 10/09/2022 7:56 AM CDT POTASSIUM LEVEL AM 10/09/2022 7:56 AM CDT SODIUM LEVEL AM 10/09/2022 7:56 AM CDT COMPLETE BLOOD COUNT W/ DIFFERENTIAL AM 10/09/2022 7:56 AM CDT SPINE CERVICAL FLEX/EXT WITH AP AND LATERAL VIEW Routine 10/08/2022 11:01 AM CDT ANION GAP AM 10/08/2022 6:54 AM CDT .GLOMERULAR FILTRATION RATE AM 10/08/2022 6:54 AM CDT SERUM CREATININE AM 10/08/2022 6:54 AM CDT DIFFERENTIAL AM 10/08/2022 6:54 AM CDT .CBC AM 10/08/2022 6:54 AM CDT CYCLIC CITRULLINE ANTIBODY IGG Routine 10/08/2022 6:54 AM CDT RHEUMATOID FACTOR QUANTITATIVE Routine 10/08/2022 6:54 AM CDT ALKALINE PHOSPHATASE AM 10/08/2022 6:54 AM CDT ASPARTATE AMINOTRANSFERASE AM 10/08/2022 6:54 AM CDT ALANINE AMINOTRANSFERASE AM 023 6:54 AM CDT MAGNESIUM LEVEL AM 10/08/2022 6:54 AM CDT CALCIUM LEVEL AM 10/08/2022 6:54 AM CDT ALBUMIN LEVEL AM 10/08/2022 6:54 AM CDT FRACTIONATED BILIRUBIN AM 6:54 AM CDT PHOSPHORUS LEVEL AM 10/08/2022 6:54 AM CDT URIC ACID AM 10/08/2022 6:54 AM CDT LACTATE DEHYDROGENASE AM 10/08/2022 6:54 AM CDT GLUCOSE, RANDOM AM 10/08/2022 6:54 AM CDT CREATININE AM 10/08/2022 6:54 AM CDT BLOOD UREA NITROGEN AM 10/08/2022 6 :54 AM CDT CARBON DIOXIDE LEVEL AM 10/08/2022 6:54 AM CDT CHLORIDE LEVEL AM 10/08/2022 6:54 AM CDT POTASSIUM LEVEL AM 10/08/2022 6:54 AM CDT SODIUM LEVEL AM 10/08/2022 6:54 AM CDT COMPLETE BLOOD COUNT W/ DIFFERENTIAL AM 10/08/2022 6:54 AM CDT TMP INTERPRETATION ANTIBODY SCREEN NEGATIVE Routine 10/07/2022 2:30 PM CDT CLOT EXPIRATION DATE Routine 10/07/2022 2:30 PM CDT C REACTIVE PROTEIN Routine 10/07/2022 2: 30 PM CDT SEDIMENTATION RATE NON-AUTOMATED Routine 10/07/2022 2:30 PM CDT ANTIBODY SCREEN Routine 10/07/2022 2:30 PM CDT ABORH Routine 10/07/2022 2:30 PM CDT TYPE AND SCREEN Routine 10/07/2022 2:30 PM CDT ANION GAP AM 10/07/2022 5:20 AM CDT .GLOMERULAR FILTRATION RATE AM 10/07/2022 5:20 AM CDT SERUM CREATININE AM 10/07/2022 5:20 AM CDT DIFFERENTIAL AM 10/07/2022 5:20 AM CDT .CBC AM 10/07/2022 5:20 AM CDT ALKALINE PHOSPHATASE AM 10/07/2022 5:20 AM CDT ASPARTATE AMINOTRANSFERASE AM 10/07/2022 5:20 AM CDT ALANINE AMINOTRANSFERASE AM 023 5:20 AM CDT MAGNESIUM LEVEL AM 10/07/2022 5:20 AM CDT CALCIUM LEVEL AM 10/07/2022 5:20 AM CDT ALBUMIN LEVEL AM 10/07/2022 5:20 AM CDT FRACTIONATED BILIRUBIN AM 5:20 AM CDT PHOSPHORUS LEVEL AM 10/07/2022 5:20 AM CDT URIC ACID AM 10/07/2022 5:20 AM CDT LACTATE DEHYDROGENASE AM 10/07/2022 5:20 AM CDT GLUCOSE, RANDOM AM 10/07/2022 5:20 AM CDT CREATININE AM 10/07/2022 5:20 AM CDT BLOOD UREA NITROGEN AM 10/07/2022 5 :20 AM CDT CARBON DIOXIDE LEVEL AM 10/07/2022 5:20 AM CDT CHLORIDE LEVEL AM 10/07/2022 5:20 AM CDT POTASSIUM LEVEL AM 10/07/2022 5:20 AM CDT SODIUM LEVEL AM 10/07/2022 5:20 AM CDT COMPLETE BLOOD COUNT W/ DIFFERENTIAL AM 10/07/2022 5:20 AM CDT GASTROINTESTINAL MULTIPLEX PCR PANEL Routine 10/06/2022 3:13 PM CDT C. DIFFICILE DNA DETECTION Routine 10/06/2022 3:13 PM CDT VAP LUMBAR PUNCTURE DIAGNOSTIC Routine 10/06/2022 2:26 PM CDT CYTOLOGY NON-CLOTHING TRADES WORKERS INTERPRETATION Routine 10/06/2022 2:11 PM CDT Multiple myeloma HP FC MYELOMA FOLLOW UP INTERPRETATION AND REPORT Routine 10/06/2022 2:11 PM CDT HP FC FLOW CYTOMETRY BLOOD COLLECTION Routine 10/06/2022 2:11 PM CDT HP FC MYELOMA COLLECTION, NONBLOOD Routine 10/06/2022 2:11 PM CDT MENINGITIS-ENCEPHALITIS PANEL STAT 10/06/2022 2:11 PM CDT MENINGITIS-ENCEPHALITIS MULTIPLEX PCR PANEL STAT 10/06/2022 2:11 PM CDT ADENOVIRUS QUANT PCR, CSF Routine 10/06/2022 2:11 PM CDT CRYPTOCOCCAL ANTIGEN, CSF Routine 10/06/2022 2:11 PM CDT FUNGAL CULTURE W/ SMEAR Routine 10/07/19 2:11 PM CDT CSF CULTURE W/ GRAM STAIN Routine 10/06/2022 2:11 PM CDT GLUCOSE CEREBROSPINAL FLUID Routine 10/06/2022 2:11 PM CDT PROTEIN CEREBROSPINAL FLUID Routine 10/06/2022 2:11 PM CDT CELL COUNT W/ DIFF CEREBROSPINAL FLUID Routine 10/06/2022 2:11 PM CDT BLOOD CULTURE Routine 10/06/2022 12:10 PM CDT URINALYSIS WITH MICROSCOPIC IF INDICATED Routine 10/06/2022 11:48 AM CDT URINE CULTURE Routine 10/06/2022 11:48 AM CDT XR CHEST 1 VW STAT 10/06/2022 11:16 AM CDT ANION GAP AM 10/06/2022 3:42 AM CDT .GLOMERULAR FILTRATION RATE AM 10/06/2022 3:42 AM CDT SERUM CREATININE AM 10/06/2022 3:42 AM CDT DIFFERENTIAL AM 10/06/2022 3:42 AM CDT .CBC AM 10/06/2022 3:42 AM CDT ALKALINE PHOSPHATASE AM 10/06/2022 3:42 AM CDT ASPARTATE AMINOTRANSFERASE AM 10/06/2022 3:42 AM CDT ALANINE AMINOTRANSFERASE AM 023 3:42 AM CDT MAGNESIUM LEVEL AM 10/06/2022 3:42 AM CDT CALCIUM LEVEL AM 10/06/2022 3:42 AM CDT ALBUMIN LEVEL AM 10/06/2022 3:42 AM CDT FRACTIONATED BILIRUBIN AM 3:42 AM CDT PHOSPHORUS LEVEL AM 10/06/2022 3:42 AM CDT URIC ACID AM 10/06/2022 3:42 AM CDT LACTATE DEHYDROGENASE AM 10/06/2022 3:42 AM CDT GLUCOSE, RANDOM AM 10/06/2022 3:42 AM CDT CREATININE AM 10/06/2022 3:42 AM CDT BLOOD UREA NITROGEN AM 10/06/2022 3 :42 AM CDT CARBON DIOXIDE LEVEL AM 10/06/2022 3:42 AM CDT CHLORIDE LEVEL AM 10/06/2022 3:42 AM CDT POTASSIUM LEVEL AM 10/06/2022 3:42 AM CDT SODIUM LEVEL AM 10/06/2022 3:42 AM CDT COMPLETE BLOOD COUNT W/ DIFFERENTIAL AM 10/06/2022 3:42 AM CDT MRI BRAIN W WO CONTRAST STAT 10/07/19 12:34 AM CDT ANION GAP AM 10/05/2022 3:52 AM CDT .GLOMERULAR FILTRATION RATE AM 10/05/2022 3:52 AM CDT SERUM CREATININE AM 10/05/2022 3:52 AM CDT DIFFERENTIAL AM 10/05/2022 3:52 AM CDT .CBC AM 10/05/2022 3:52 AM CDT ALKALINE PHOSPHATASE AM 10/05/2022 3:52 AM CDT ASPARTATE AMINOTRANSFERASE AM 10/05/2022 3:52 AM CDT ALANINE AMINOTRANSFERASE AM 023 3:52 AM CDT MAGNESIUM LEVEL AM 10/05/2022 3:52 AM CDT CALCIUM LEVEL AM 10/05/2022 3:52 AM CDT ALBUMIN LEVEL AM 10/05/2022 3:52 AM CDT FRACTIONATED BILIRUBIN AM 3:52 AM CDT PHOSPHORUS LEVEL AM 10/05/2022 3:52 AM CDT URIC ACID AM 10/05/2022 3:52 AM CDT LACTATE DEHYDROGENASE AM 10/05/2022 3:52 AM CDT GLUCOSE, RANDOM AM 10/05/2022 3:52 AM CDT CREATININE AM 10/05/2022 3:52 AM CDT BLOOD UREA NITROGEN AM 10/05/2022 3 :52 AM CDT CARBON DIOXIDE LEVEL AM 10/05/2022 3:52 AM CDT CHLORIDE LEVEL AM 10/05/2022 3:52 AM CDT POTASSIUM LEVEL AM 10/05/2022 3:52 AM CDT SODIUM LEVEL AM 10/05/2022 3:52 AM CDT COMPLETE BLOOD COUNT W/ DIFFERENTIAL AM 10/05/2022 3:52 AM CDT TMP INTERPRETATION ANTIBODY SCREEN NEGATIVE Routine 10/04/2022 9:49 AM CDT CLOT EXPIRATION DATE Routine 10/04/2022 9:49 AM CDT ANION GAP Routine 10/04/2022 9:49 AM CDT ANTIBODY SCREEN Routine 10/04/2022 9:49 AM CDT ABORH Routine 10/04/2022 9:49 AM CDT .GLOMERULAR FILTRATION RATE Routine 10/04/2022 9:49 AM CDT SERUM CREATININE Routine 10/04/2022 9:49 AM CDT DIFFERENTIAL Routine 10/04/2022 9:49 AM CDT .CBC STAT 10/04/2022 9:49 AM CDT TYPE AND SCREEN Routine 10/04/2022 9:49 AM CDT ALKALINE PHOSPHATASE Routine 10/04/2022 9:49 AM CDT ASPARTATE AMINOTRANSFERASE Routine 10/04/2022 9:49 AM CDT ALANINE AMINOTRANSFERASE Routine 9:49 AM CDT MAGNESIUM LEVEL Routine 10/04/2022 9:49 AM CDT CALCIUM LEVEL Routine 10/04/2022 9:49 AM CDT ALBUMIN LEVEL Routine 10/04/2022 9:49 AM CDT FRACTIONATED BILIRUBIN Routine 9:49 AM CDT PHOSPHORUS LEVEL Routine 10/04/2022 9:49 AM CDT URIC ACID Routine 10/04/2022 9:49 AM CDT LACTATE DEHYDROGENASE Routine 10/04/2022 9:49 AM CDT GLUCOSE, RANDOM Routine 10/04/2022 9:49 AM CDT CREATININE Routine 10/04/2022 9:49 AM CDT BLOOD UREA NITROGEN Routine 10/04/2022 9 :49 AM CDT CARBON DIOXIDE LEVEL Routine 10/04/2022 9:49 AM CDT CHLORIDE LEVEL Routine 10/04/2022 9:49 AM CDT POTASSIUM LEVEL Routine 10/04/2022 9:49 AM CDT SODIUM LEVEL Routine 10/04/2022 9:49 AM CDT COMPLETE BLOOD COUNT W/ DIFFERENTIAL Routine 10/04/2022 9:49 AM CDT MRI CERVICAL THORACIC LUMBAR SPINE W WO CONTRAST STAT 10/03/2022 9:04 PM CDT FRACTIONATED BILIRUBIN Routine 2:08 PM CDT TOTAL PROTEIN Routine 10/03/2022 2:08 PM CDT ASPARTATE AMINOTRANSFERASE Routine 10/03/2022 2:08 PM CDT ALANINE AMINOTRANSFERASE Routine 023 2:08 PM CDT ALKALINE PHOSPHATASE Routine 10/03/2022 2:08 PM CDT ALBUMIN LEVEL Routine 10/03/2022 2:08 PM CDT CALCIUM LEVEL Routine 10/03/2022 2:08 PM CDT .GLOMERULAR FILTRATION RATE Routine 10/03/2022 2:08 PM CDT SERUM CREATININE Routine 10/03/2022 2:08 PM CDT ELECTROLYTE PANEL Routine 10/03/2022 2:0 8 PM CDT BLOOD UREA NITROGEN Routine 10/03/2022 2 :08 PM CDT GLUCOSE LEVEL Routine 10/03/2022 2:08 PM CDT DIFFERENTIAL STAT 10/03/2022 2:08 PM CDT .CBC STAT 10/03/2022 2:08 PM CDT APTT Routine 10/03/2022 2:08 PM CDT PROTHROMBIN TIME Routine 10/03/2022 2:08 PM CDT PHOSPHORUS LEVEL Routine 10/03/2022 2:08 PM CDT MAGNESIUM LEVEL Routine 10/03/2022 2:08 PM CDT COMPREHENSIVE METABOLIC PANEL Routine 10/03/2022 2:08 PM CDT COMPLETE BLOOD COUNT W/ DIFFERENTIAL Routine 10/03/2022 2:[address] ROYAL REJI PATH REVIEW Routine 09/06/2022 10:[address] ROYAL PROT ELEC PATH REVIEW Routine 09/06/2022 10:49 AM CDT FREE KAPPA/FREE LAMBDA RATIO Routine 09/06/2022 10:49 AM CDT FRACTIONATED BILIRUBIN Routine 10:49 AM CDT Multiple myeloma TOTAL PROTEIN Routine 09/06/2022 10:49 AM CDT Multiple myeloma ASPARTATE AMINOTRANSFERASE Routine 09/06/2022 10:49 AM CDT Multiple myeloma ALANINE AMINOTRANSFERASE Routine 023 10:49 AM CDT Multiple myeloma ALKALINE PHOSPHATASE Routine 09/06/2022 10:49 AM CDT Multiple myeloma ALBUMIN LEVEL Routine 09/06/2022 10:49 AM CDT Multiple myeloma CALCIUM LEVEL Routine 09/06/2022 10:49 AM CDT Multiple myeloma .GLOMERULAR FILTRATION RATE Routine 09/06/2022 10:49 AM CDT Multiple myeloma SERUM CREATININE Routine 09/06/2022 10:4 9 AM CDT Multiple myeloma ELECTROLYTE PANEL Routine 09/06/2022 10: 49 AM CDT Multiple myeloma BLOOD UREA NITROGEN Routine 09/06/2022 1 0:49 AM CDT Multiple myeloma GLUCOSE LEVEL Routine 09/06/2022 10:49 AM CDT Multiple myeloma DIFFERENTIAL Routine 09/06/2022 10:49 AM CDT Multiple myeloma .CBC Routine 09/06/2022 10:49 AM CDT Multiple myeloma LACTATE DEHYDROGENASE Routine 09/06/2022 10:49 AM CDT Multiple myeloma BETA 2 MICROGLOBULIN Routine 09/06/2022 10:49 AM CDT Multiple myeloma SERUM PROTEIN ELECTROPHORESIS WITH REJI Routine 09/06/2022 10:49 AM CDT Multiple myeloma PROTEIN ELECTROPHORESIS Routine 09/07/19 10:49 AM CDT Multiple myeloma FREE LAMBDA LIGHT CHAIN Routine 09/07/19 10:49 AM CDT Multiple myeloma FREE KAPPA LIGHT CHAIN Routine 10:49 AM CDT Multiple myeloma IMMUNOGLOBULIN M Routine 09/06/2022 10:4 9 AM CDT Multiple myeloma IMMUNOGLOBULIN G Routine 09/06/2022 10:4 9 AM CDT Multiple myeloma IMMUNOGLOBULIN A Routine 09/06/2022 10:4 9 AM CDT Multiple myeloma URIC ACID Routine 09/06/2022 10:49 AM CDT Multiple myeloma PHOSPHORUS LEVEL Routine 09/06/2022 10:4 9 AM CDT Multiple myeloma MAGNESIUM LEVEL Routine 09/06/2022 10:49 AM CDT Multiple myeloma COMPREHENSIVE METABOLIC PANEL Routine 09/06/2022 10:49 AM CDT Multiple myeloma COMPLETE BLOOD COUNT W/ DIFFERENTIAL Routine 09/06/2022 10:[address] BUSH REJI PATH REVIEW Routine 023 9:09 AM CDT PROT ELEC PATH REVIEW Routine 08/09/2022 9:09 AM CDT FREE KAPPA/FREE LAMBDA RATIO Routine 08/09/2022 9:09 AM CDT FRACTIONATED BILIRUBIN Routine 9:09 AM CDT Multiple myeloma TOTAL PROTEIN Routine 08/09/2022 9:09 AM CDT Multiple myeloma ASPARTATE AMINOTRANSFERASE Routine 08/09/2022 9:09 AM CDT Multiple myeloma ALANINE AMINOTRANSFERASE Routine 023 9:09 AM CDT Multiple myeloma ALKALINE PHOSPHATASE Routine 08/09/2022 9:09 AM CDT Multiple myeloma ALBUMIN LEVEL Routine 08/09/2022 9:09 AM CDT Multiple myeloma CALCIUM LEVEL Routine 08/09/2022 9:09 AM CDT Multiple myeloma .GLOMERULAR FILTRATION RATE Routine 08/09/2022 9:09 AM CDT Multiple myeloma SERUM CREATININE Routine 08/09/2022 9:09 AM CDT Multiple myeloma ELECTROLYTE PANEL Routine 08/09/2022 9:0 9 AM CDT Multiple myeloma BLOOD UREA NITROGEN Routine 08/09/2022 9 :09 AM CDT Multiple myeloma GLUCOSE LEVEL Routine 08/09/2022 9:09 AM CDT Multiple myeloma DIFFERENTIAL Routine 08/09/2022 9:09 AM CDT Multiple myeloma .CBC Routine 08/09/2022 9:09 AM CDT Multiple myeloma VITAMIN D 25 HYDROXY LEVEL Routine 08/09/2022 9:09 AM CDT Multiple myeloma LACTATE DEHYDROGENASE Routine 08/09/2022 9:09 AM CDT Multiple myeloma BETA 2 MICROGLOBULIN Routine 08/09/2022 9:09 AM CDT Multiple myeloma SERUM PROTEIN ELECTROPHORESIS WITH REJI Routine 08/09/2022 9:09 AM CDT Multiple myeloma PROTEIN ELECTROPHORESIS Routine 08/10/19 9:09 AM CDT Multiple myeloma FREE LAMBDA LIGHT CHAIN Routine 08/10/19 9:09 AM CDT Multiple myeloma FREE KAPPA LIGHT CHAIN Routine 9:09 AM CDT Multiple myeloma IMMUNOGLOBULIN M Routine 08/09/2022 9:09 AM CDT Multiple myeloma IMMUNOGLOBULIN G Routine 08/09/2022 9:09 AM CDT Multiple myeloma IMMUNOGLOBULIN A Routine 08/09/2022 9:09 AM CDT Multiple myeloma URIC ACID Routine 08/09/2022 9:09 AM CDT Multiple myeloma PHOSPHORUS LEVEL Routine 08/09/2022 9:09 AM CDT Multiple myeloma MAGNESIUM LEVEL Routine 08/09/2022 9:09 AM CDT Multiple myeloma COMPREHENSIVE METABOLIC PANEL Routine 08/09/2022 9:09 AM CDT Multiple myeloma COMPLETE BLOOD COUNT W/ DIFFERENTIAL Routine 08/09/2022 9:09 AM CDT Multiple myeloma CLOT EXPIRATION DATE Routine 07/13/2022 9:38 AM CDT TMP INTERPRETATION ANTIBODY SCREEN NEGATIVE Routine 07/13/2022 9:[address] PEDRO MENDOZA PATHE REVIEW Routine 07/14/19 9:[address] BENZ PROT ELECTROPHORESIS PATH REVIEW Routine 07/13/2022 9:38 AM CDT FREE KAPPA/FREE LAMBDA RATIO Routine 07/13/2022 9:38 AM CDT ANTIBODY SCREEN Routine 07/13/2022 9:38 AM CDT Hemopoietic stem cell transplant Multiple myeloma ABORH Routine 07/13/2022 9:38 AM CDT Hemopoietic stem cell transplant Multiple myeloma FRACTIONATED BILIRUBIN Routine 9:38 AM CDT Hemopoietic stem cell transplant Multiple myeloma TOTAL PROTEIN Routine 07/13/2022 9:38 AM CDT Hemopoietic stem cell transplant Multiple myeloma ASPARTATE AMINOTRANSFERASE Routine 07/13/2022 9:38 AM CDT Hemopoietic stem cell transplant Multiple myeloma ALANINE AMINOTRANSFERASE Routine 023 9:38 AM CDT Hemopoietic stem cell transplant Multiple myeloma ALKALINE PHOSPHATASE Routine 07/13/2022 9:38 AM CDT Hemopoietic stem cell transplant Multiple myeloma ALBUMIN LEVEL Routine 07/13/2022 9:38 AM CDT Hemopoietic stem cell transplant Multiple myeloma CALCIUM LEVEL Routine 07/13/2022 9:38 AM CDT Hemopoietic stem cell transplant Multiple myeloma .GLOMERULAR FILTRATION RATE Routine 07/13/2022 9:38 AM CDT Hemopoietic stem cell transplant Multiple myeloma SERUM CREATININE Routine 07/13/2022 9:38 AM CDT Hemopoietic stem cell transplant Multiple myeloma ELECTROLYTE PANEL Routine 07/13/2022 9:3 8 AM CDT Hemopoietic stem cell transplant Multiple myeloma BLOOD UREA NITROGEN Routine 07/13/2022 9 :38 AM CDT Hemopoietic stem cell transplant Multiple myeloma GLUCOSE LEVEL Routine 07/13/2022 9:38 AM CDT Hemopoietic stem cell transplant Multiple myeloma DIFFERENTIAL Routine 07/13/2022 9:38 AM CDT Hemopoietic stem cell transplant Multiple myeloma .CBC Routine 07/13/2022 9:38 AM CDT Hemopoietic stem cell transplant Multiple myeloma SERUM PROTEIN ELECTROPHORESIS WITH REJI Routine 07/13/2022 9:38 AM CDT Hemopoietic stem cell transplant Multiple myeloma PROTEIN ELECTROPHORESIS Routine 07/14/19 9:38 AM CDT Hemopoietic stem cell transplant Multiple myeloma FREE LAMBDA LIGHT CHAIN Routine 07/14/19 9:38 AM CDT Hemopoietic stem cell transplant Multiple myeloma FREE KAPPA LIGHT CHAIN Routine 9:38 AM CDT Hemopoietic stem cell transplant Multiple myeloma IMMUNOGLOBULIN M Routine 07/13/2022 9:38 AM CDT Hemopoietic stem cell transplant Multiple myeloma IMMUNOGLOBULIN G Routine 07/13/2022 9:38 AM CDT Hemopoietic stem cell transplant Multiple myeloma IMMUNOGLOBULIN A Routine 07/13/2022 9:38 AM CDT Hemopoietic stem cell transplant Multiple myeloma BETA 2 MICROGLOBULIN Routine 07/13/2022 9:38 AM CDT Hemopoietic stem cell transplant Multiple myeloma MAGNESIUM LEVEL Routine 07/13/2022 9:38 AM CDT Hemopoietic stem cell transplant Multiple myeloma LACTATE DEHYDROGENASE Routine 07/13/2022 9:38 AM CDT Hemopoietic stem cell transplant Multiple myeloma URIC ACID Routine 07/13/2022 9:38 AM CDT Hemopoietic stem cell transplant Multiple myeloma PHOSPHORUS LEVEL Routine 07/13/2022 9:38 AM CDT Hemopoietic stem cell transplant Multiple myeloma COMPREHENSIVE METABOLIC PANEL Routine 07/13/2022 9:38 AM CDT Hemopoietic stem cell transplant Multiple myeloma TYPE AND SCREEN Routine 07/13/2022 9:38 AM CDT Hemopoietic stem cell transplant Multiple myeloma COMPLETE BLOOD COUNT W/ DIFFERENTIAL Routine 07/13/2022 9:38 AM CDT Hemopoietic stem cell transplant Multiple myeloma .DR. ORELLANA UIFE PATH REVIEW Routine 07/13/2022 5:[address] ORELLANA U PROT ELEC PATH REVIEW Routine 07/13/2022 5:00 AM CDT .TOTAL VOLUME Routine 07/13/2022 5:00 AM CDT URINE TOTAL PROTEIN 24 HOUR Routine 07/13/2022 5:00 AM CDT PROTEIN ELECTROPHORESIS URINE Routine 07/13/2022 5:00 AM CDT Hemopoietic stem cell transplant Multiple myeloma PROTEIN ELECTROPHORESIS URINE WITH REJI Routine 07/13/2022 5:00 AM CDT Hemopoietic stem cell transplant Multiple myeloma .DR. REYNA MELLOE PATH REVIEW Routine 07/05/2022 8:[address] ORELLANA PROT ELEC PATH REVIEW Routine 07/05/2022 8:20 AM CDT FREE KAPPA/FREE LAMBDA RATIO Routine 07/05/2022 8:20 AM CDT FRACTIONATED BILIRUBIN Routine 8:20 AM CDT Multiple myeloma TOTAL PROTEIN Routine 07/05/2022 8:20 AM CDT Multiple myeloma ASPARTATE AMINOTRANSFERASE Routine 07/05/2022 8:20 AM CDT Multiple myeloma ALANINE AMINOTRANSFERASE Routine 023 8:20 AM CDT Multiple myeloma ALKALINE PHOSPHATASE Routine 07/05/2022 8:20 AM CDT Multiple myeloma ALBUMIN LEVEL Routine 07/05/2022 8:20 AM CDT Multiple myeloma CALCIUM LEVEL Routine 07/05/2022 8:20 AM CDT Multiple myeloma .GLOMERULAR FILTRATION RATE Routine 07/05/2022 8:20 AM CDT Multiple myeloma SERUM CREATININE Routine 07/05/2022 8:20 AM CDT Multiple myeloma ELECTROLYTE PANEL Routine 07/05/2022 8:2 0 AM CDT Multiple myeloma BLOOD UREA NITROGEN Routine 07/05/2022 8 :20 AM CDT Multiple myeloma GLUCOSE LEVEL Routine 07/05/2022 8:20 AM CDT Multiple myeloma DIFFERENTIAL Routine 07/05/2022 8:20 AM CDT Multiple myeloma .CBC Routine 07/05/2022 8:20 AM CDT Multiple myeloma LACTATE DEHYDROGENASE Routine 07/05/2022 8:20 AM CDT Multiple myeloma BETA 2 MICROGLOBULIN Routine 07/05/2022 8:20 AM CDT Multiple myeloma SERUM PROTEIN ELECTROPHORESIS WITH REJI Routine 07/05/2022 8:20 AM CDT Multiple myeloma PROTEIN ELECTROPHORESIS Routine 07/06/19 8:20 AM CDT Multiple myeloma FREE LAMBDA LIGHT CHAIN Routine 07/06/19 8:20 AM CDT Multiple myeloma FREE KAPPA LIGHT CHAIN Routine 8:20 AM CDT Multiple myeloma IMMUNOGLOBULIN M Routine 07/05/2022 8:20 AM CDT Multiple myeloma IMMUNOGLOBULIN G Routine 07/05/2022 8:20 AM CDT Multiple myeloma IMMUNOGLOBULIN A Routine 07/05/2022 8:20 AM CDT Multiple myeloma URIC ACID Routine 07/05/2022 8:20 AM CDT Multiple myeloma PHOSPHORUS LEVEL Routine 07/05/2022 8:20 AM CDT Multiple myeloma MAGNESIUM LEVEL Routine 07/05/2022 8:20 AM CDT Multiple myeloma COMPREHENSIVE METABOLIC PANEL Routine 07/05/2022 8:20 AM CDT Multiple myeloma COMPLETE BLOOD COUNT W/ DIFFERENTIAL Routine 07/05/2022 8:20 AM CDT Multiple myeloma .DR. ROYAL UIFE PATH REVIEW Routine 07/05/2022 7:[address] ROYAL U PROT ELEC PATH REVIEW Routine 07/05/2022 7:30 AM CDT .TOTAL VOLUME Routine 07/05/2022 7:30 AM CDT URINE TOTAL PROTEIN 24 HOUR Routine 07/05/2022 7:30 AM CDT PROTEIN ELECTROPHORESIS URINE WITH REJI Routine 07/05/2022 7:30 AM CDT Multiple myeloma PROTEIN ELECTROPHORESIS URINE Routine 07/05/2022 7:30 AM CDT Multiple myeloma FRACTIONATED BILIRUBIN Routine 8:34 AM CDT Multiple myeloma TOTAL PROTEIN Routine 06/13/2022 8:34 AM CDT Multiple myeloma ASPARTATE AMINOTRANSFERASE Routine 06/13/2022 8:34 AM CDT Multiple myeloma ALANINE AMINOTRANSFERASE Routine 023 8:34 AM CDT Multiple myeloma ALKALINE PHOSPHATASE Routine 06/13/2022 8:34 AM CDT Multiple myeloma ALBUMIN LEVEL Routine 06/13/2022 8:34 AM CDT Multiple myeloma CALCIUM LEVEL Routine 06/13/2022 8:34 AM CDT Multiple myeloma .GLOMERULAR FILTRATION RATE Routine 06/13/2022 8:34 AM CDT Multiple myeloma SERUM CREATININE Routine 06/13/2022 8:34 AM CDT Multiple myeloma ELECTROLYTE PANEL Routine 06/13/2022 8:3 4 AM CDT Multiple myeloma BLOOD UREA NITROGEN Routine 06/13/2022 8 :34 AM CDT Multiple myeloma GLUCOSE LEVEL Routine 06/13/2022 8:34 AM CDT Multiple myeloma DIFFERENTIAL Routine 06/13/2022 8:34 AM CDT Multiple myeloma .CBC Routine 06/13/2022 8:34 AM CDT Multiple myeloma COMPREHENSIVE METABOLIC PANEL Routine 06/13/2022 8:34 AM CDT Multiple myeloma COMPLETE BLOOD COUNT W/ DIFFERENTIAL Routine 06/13/2022 8:34 AM CDT [address]. BENZ REJI PATHE REVIEW Routine 06/04/19 5:[address] BENZ PROT ELECTROPHORESIS PATH REVIEW Routine 06/03/2022 5:30 PM CDT FREE KAPPA/FREE LAMBDA RATIO Routine 06/03/2022 5:30 PM CDT FRACTIONATED BILIRUBIN Routine 5:30 PM CDT Multiple myeloma TOTAL PROTEIN Routine 06/03/2022 5:30 PM CDT Multiple myeloma ASPARTATE AMINOTRANSFERASE Routine 06/03/2022 5:30 PM CDT Multiple myeloma ALANINE AMINOTRANSFERASE Routine 023 5:30 PM CDT Multiple myeloma ALKALINE PHOSPHATASE Routine 06/03/2022 5:30 PM CDT Multiple myeloma ALBUMIN LEVEL Routine 06/03/2022 5:30 PM CDT Multiple myeloma CALCIUM LEVEL Routine 06/03/2022 5:30 PM CDT Multiple myeloma .GLOMERULAR FILTRATION RATE Routine 06/03/2022 5:30 PM CDT Multiple myeloma SERUM CREATININE Routine 06/03/2022 5:30 PM CDT Multiple myeloma ELECTROLYTE PANEL Routine 06/03/2022 5:3 0 PM CDT Multiple myeloma BLOOD UREA NITROGEN Routine 06/03/2022 5 :30 PM CDT Multiple myeloma GLUCOSE LEVEL Routine 06/03/2022 5:30 PM CDT Multiple myeloma DIFFERENTIAL Routine 06/03/2022 5:30 PM CDT Multiple myeloma .CBC Routine 06/03/2022 5:30 PM CDT Multiple myeloma LACTATE DEHYDROGENASE Routine 06/03/2022 5:30 PM CDT Multiple myeloma BETA 2 MICROGLOBULIN Routine 06/03/2022 5:30 PM CDT Multiple myeloma SERUM PROTEIN ELECTROPHORESIS WITH REJI Routine 06/03/2022 5:30 PM CDT Multiple myeloma PROTEIN ELECTROPHORESIS Routine 06/04/19 5:30 PM CDT Multiple myeloma FREE LAMBDA LIGHT CHAIN Routine 06/04/19 5:30 PM CDT Multiple myeloma FREE KAPPA LIGHT CHAIN Routine 5:30 PM CDT Multiple myeloma IMMUNOGLOBULIN M Routine 06/03/2022 5:30 PM CDT Multiple myeloma IMMUNOGLOBULIN G Routine 06/03/2022 5:30 PM CDT Multiple myeloma IMMUNOGLOBULIN A Routine 06/03/2022 5:30 PM CDT Multiple myeloma URIC ACID Routine 06/03/2022 5:30 PM CDT Multiple myeloma PHOSPHORUS LEVEL Routine 06/03/2022 5:30 PM CDT Multiple myeloma MAGNESIUM LEVEL Routine 06/03/2022 5:30 PM CDT Multiple myeloma COMPREHENSIVE METABOLIC PANEL Routine 06/03/2022 5:30 PM CDT Multiple myeloma COMPLETE BLOOD COUNT W/ DIFFERENTIAL Routine 06/03/2022 5:30 PM CDT Multiple myeloma CLOT EXPIRATION DATE Routine 05/13/2022 9:26 AM CDT ABORH MANUAL Routine 05/13/2022 9:26 AM CDT TMP INTERPRETATION ANTIBODY SCREEN NEGATIVE Routine 05/13/2022 9:26 AM CDT FRACTIONATED BILIRUBIN Routine 9:26 AM CDT Hemopoietic stem cell transplant Multiple myeloma TOTAL PROTEIN Routine 05/13/2022 9:26 AM CDT Hemopoietic stem cell transplant Multiple myeloma ASPARTATE AMINOTRANSFERASE Routine 05/13/2022 9:26 AM CDT Hemopoietic stem cell transplant Multiple myeloma ALANINE AMINOTRANSFERASE Routine 023 9:26 AM CDT Hemopoietic stem cell transplant Multiple myeloma ALKALINE PHOSPHATASE Routine 05/13/2022 9:26 AM CDT Hemopoietic stem cell transplant Multiple myeloma ALBUMIN LEVEL Routine 05/13/2022 9:26 AM CDT Hemopoietic stem cell transplant Multiple myeloma CALCIUM LEVEL Routine 05/13/2022 9:26 AM CDT Hemopoietic stem cell transplant Multiple myeloma .GLOMERULAR FILTRATION RATE Routine 05/13/2022 9:26 AM CDT Hemopoietic stem cell transplant Multiple myeloma SERUM CREATININE Routine 05/13/2022 9:26 AM CDT Hemopoietic stem cell transplant Multiple myeloma ELECTROLYTE PANEL Routine 05/13/2022 9:2 6 AM CDT Hemopoietic stem cell transplant Multiple myeloma BLOOD UREA NITROGEN Routine 05/13/2022 9 :26 AM CDT Hemopoietic stem cell transplant Multiple myeloma GLUCOSE LEVEL Routine 05/13/2022 9:26 AM CDT Hemopoietic stem cell transplant Multiple myeloma DIFFERENTIAL Routine 05/13/2022 9:26 AM CDT Hemopoietic stem cell transplant Multiple myeloma .CBC Routine 05/13/2022 9:26 AM CDT Hemopoietic stem cell transplant Multiple myeloma ANTIBODY SCREEN Routine 05/13/2022 9:26 AM CDT Hemopoietic stem cell transplant Multiple myeloma MAGNESIUM LEVEL Routine 05/13/2022 9:26 AM CDT Hemopoietic stem cell transplant Multiple myeloma LACTATE DEHYDROGENASE Routine 05/13/2022 9:26 AM CDT Hemopoietic stem cell transplant Multiple myeloma URIC ACID Routine 05/13/2022 9:26 AM CDT Hemopoietic stem cell transplant Multiple myeloma PHOSPHORUS LEVEL Routine 05/13/2022 9:26 AM CDT Hemopoietic stem cell transplant Multiple myeloma COMPREHENSIVE METABOLIC PANEL Routine 05/13/2022 9:26 AM CDT Hemopoietic stem cell transplant Multiple myeloma TYPE AND SCREEN Routine 05/13/2022 9:26 AM CDT Hemopoietic stem cell transplant Multiple myeloma COMPLETE BLOOD COUNT W/ DIFFERENTIAL Routine 05/13/2022 9:26 AM CDT Hemopoietic stem cell transplant Multiple myeloma .DR. REYNA MENDOZA PATH REVIEW Routine 05/10/2022 8:[address] REYNA RODRIGUEZ PATH REVIEW Routine 05/10/2022 8:43 AM CDT FREE KAPPA/FREE LAMBDA RATIO Routine 05/10/2022 8:43 AM CDT FRACTIONATED BILIRUBIN Routine 8:43 AM CDT Multiple myeloma TOTAL PROTEIN Routine 05/10/2022 8:43 AM CDT Multiple myeloma ASPARTATE AMINOTRANSFERASE Routine 05/10/2022 8:43 AM CDT Multiple myeloma ALANINE AMINOTRANSFERASE Routine 023 8:43 AM CDT Multiple myeloma ALKALINE PHOSPHATASE Routine 05/10/2022 8:43 AM CDT Multiple myeloma ALBUMIN LEVEL Routine 05/10/2022 8:43 AM CDT Multiple myeloma CALCIUM LEVEL Routine 05/10/2022 8:43 AM CDT Multiple myeloma .GLOMERULAR FILTRATION RATE Routine 05/10/2022 8:43 AM CDT Multiple myeloma SERUM CREATININE Routine 05/10/2022 8:43 AM CDT Multiple myeloma ELECTROLYTE PANEL Routine 05/10/2022 8:4 3 AM CDT Multiple myeloma BLOOD UREA NITROGEN Routine 05/10/2022 8 :43 AM CDT Multiple myeloma GLUCOSE LEVEL Routine 05/10/2022 8:43 AM CDT Multiple myeloma DIFFERENTIAL Routine 05/10/2022 8:43 AM CDT Multiple myeloma .CBC Routine 05/10/2022 8:43 AM CDT Multiple myeloma LACTATE DEHYDROGENASE Routine 05/10/2022 8:43 AM CDT Multiple myeloma BETA 2 MICROGLOBULIN Routine 05/10/2022 8:43 AM CDT Multiple myeloma SERUM PROTEIN ELECTROPHORESIS WITH REJI Routine 05/10/2022 8:43 AM CDT Multiple myeloma PROTEIN ELECTROPHORESIS Routine 05/11/19 8:43 AM CDT Multiple myeloma FREE LAMBDA LIGHT CHAIN Routine 05/11/19 8:43 AM CDT Multiple myeloma FREE KAPPA LIGHT CHAIN Routine 8:43 AM CDT Multiple myeloma IMMUNOGLOBULIN M Routine 05/10/2022 8:43 AM CDT Multiple myeloma IMMUNOGLOBULIN G Routine 05/10/2022 8:43 AM CDT Multiple myeloma IMMUNOGLOBULIN A Routine 05/10/2022 8:43 AM CDT Multiple myeloma URIC ACID Routine 05/10/2022 8:43 AM CDT Multiple myeloma PHOSPHORUS LEVEL Routine 05/10/2022 8:43 AM CDT Multiple myeloma MAGNESIUM LEVEL Routine 05/10/2022 8:43 AM CDT Multiple myeloma COMPREHENSIVE METABOLIC PANEL Routine 05/10/2022 8:43 AM CDT Multiple myeloma COMPLETE BLOOD COUNT W/ DIFFERENTIAL Routine 05/10/2022 8:43 AM CDT Multiple myeloma after 04/26/2022 Results * (ABNORMAL) .CBC (04/18/2023 9:30 AM [facility]) Only the most recent of23 resultswithin the time period is included. Pathologist [facility] White Blood Cell 3.7(L) 4.1 - 10.5 K/uL 04/18/2023 9:46 AM [facility] Red Blood Cell 4.21 3.99 - 5.46 M/uL 04/18/2023 9:46 AM [facility] Hemoglobin 12.6 12.2 - 15.3 g/dL 04/18/2023 9:46 AM [facility] Hematocrit 39.5 36.4 - 46.8 % 04/18/2023 9:46 AM [facility] Mean Cell Volume 94 82 - 99 fL 04/18/2023 9:46 AM [facility] Mean Cell Hemoglobin 29.9 26.6 - 33.2 pg 04/18/2023 9:46 AM [facility] Mean Cell Hemoglobin Concentration 31.9 31.1 - 35.2 g/dL 04/18/2023 9:46 AM [facility] RDW-SD 51.8(H) 37.5 - 49.7 fL 04/18/2023 9:46 AM [facility] Red Cell Diameter Width 15.0 11.6 - 15.5 % 04/18/2023 9:46 AM [facility] Platelet 191 160 - 397 K/uL 04/18/2023 9:46 AM [facility] Mean Platelet Volume 11.4 9.1 - 12.6 fL 04/18/2023 9:46 AM [facility] INRBC 0.0 0.0 - 0.1 /100 WBC 04/18/2023 9:46 AM [facility] Comment: The INRBC (instrument NRBC) value reflects the enumeration of nucleated red blood cells contained in a 200uL sample of whole blood analyzed by the instrument. This value may differ from the NRBC value reported in a manual differential, which is based on a 100 cell differential. Neutrophil % 25.7(L) 43.2 - 72.7 % 04/18/2023 9:46 AM [facility] Lymphocyte % 55.3(H) 16.8 - 46.2 % 04/18/2023 9:46 AM [facility] Monocyte % 14.1(H) 5.1 - 12.5 % 04/18/2023 9:46 AM [facility] Eosinophil % 3.3 0.4 - 6.3 % 04/18/2023 9:46 AM [facility] Basophil % 1.6(H) 0.2 - 1.4 % 04/18/2023 9:46 AM [facility] IGRE % 0.0(L) 0.1 - 1.5 % 04/18/2023 9:46 AM [facility] Comment:The IGRE% includes M etamyelocytes, Myelocytes and Promyelocytes. Neutrophil Abs 0.95(L) 1.95 - 7.25 K/uL 04/18/2023 9:46 AM [facility] Lymphocyte Abs 2.04 1.01 - 3.24 K/uL 04/18/2023 9:46 AM [facility] Monocyte Abs 0.52 0.24 - 0.85 K/uL 04/18/2023 9:46 AM [facility] Eosinophil Abs 0.12 0.02 - 0.50 K/uL 04/18/2023 9:46 AM [facility] Basophil Abs 0.06 0.02 - 0.09 K/uL 04/18/2023 9:46 AM [facility] IG Abs 0.00(L) 0.01 - 0.12 K/uL 04/18/2023 9:46 AM [facility] Blood Peripheral blood specimen / Unknown Venipuncture / Unknown 04/18/2023 9:30 AM [facility] 04/18/2023 9:37 AM [facility] Ivory Todd APRN LAB BLOOD ORDER LAURA [facility] Unless otherwise noted, all lab tests performed by: Division of Pathology and Laboratory Medicine [address] [place] [id number] * Free [place]/Free Lambda Ratio (04/18/2023 9:30 AM EMBOSSER OPERATOR) Only the most recent of13 resultswithin the time period is included. [facility] Free [place]/ Free Lambda Ratio 1.45 0.26 - 1.65 04/18/2023 2:56 PM EMBOSSER OPERATOR [facility] Blood Peripheral blood specimen / Unknown Venipuncture / Unknown 04/18/2023 9:30 AM EMBOSSER OPERATOR 04/18/2023 9:37 AM EMBOSSER OPERATOR Ivory Todd APRN LAB BLOOD ORDER LAURA [facility] Unless otherwise noted, all lab tests performed by: Division of Pathology and Laboratory Medicine [address] [place] [address] [id number] * (ABNORMAL) Comprehensive Metabolic Panel (04/18/2023 9:30 AM EMBOSSER OPERATOR) Only the most recent of5 resultswithin the time period is included. [facility] Bilirubin Total 0.6 0.0 - 1.2 mg/dL 04/18/2023 10:32 AM [facility] Comment:Indocyanine Green (I CG) may cause falsely elevated bilirubin results. Total and direct bilirubin must not be measured from samples containing indocyanine green. False elevation of total bilirubin can be seen in patients with IgG concentrations above 28 g/L. Bilirubin Direct 0.2 0.0 - 0.3 mg/dL 04/18/2023 10:32 AM [facility] Comment:Indocyanine Green (I CG) may cause falsely elevated bilirubin results. Total and direct bilirubin must not be measured from samples containing indocyanine green. Bilirubin Indirect 0.4 0.0 - 0.9 mg/dL 04/18/2023 10:32 AM [facility] eGFR 67 >=60 mL/min/1. 73 sq. m 04/18/2023 10:32 AM [facility] Comment: The eGFRcr is calculated with the 2020 CKD-EPI creatinine equation using creatinine, patient's age, and sex for adults 18 years of age and older. Other factors, especially muscle mass, may affect accuracy and need to be considered. According to the Kidney Disease: Improving Global Outcomes (KDIGO) CKD Work Group 2012 Clinical Practice Guideline, chronic kidney disease (CKD) is defined as the abnormalities of kidney structure or function, present for more than 3 months, with implications for health. CKD should be classified by cause, GFR category, and albuminuria category. KDIGO guidelines provide the following GFR categories. Stage / Description / GFR mL/min/1.73 m2: G1* / Normal or high / >= 90 G2* / Mildly decreased / 60-89 G3a / Mildly to moderately decreased / 45-59 G3b / Moderately to severely decreased / 30-44 G4 / Severely decreased / 15-29 G5 / Kidney failure / <15 *In the absence of evidence of kidney damage, neither G1 nor G2 fulfill criteria for CKD. Tot Protein 7.9 6.4 - 8.3 gm/dL 04/18/2023 10:32 AM [facility] Calcium Level Total 10.1 8.2 - 10.2 mg/dL 04/18/2023 10:32 AM [facility] Alkaline Phosphatase 86 35 - 104 U/L 04/18/2023 10:32 AM [facility] Albumin Level 4.2 3.5 - 5.2 gm/dL 04/18/2023 10:32 AM [facility] AST 25 <=32 U/L 04/18/2023 10:32 AM [facility] ALT 26 <=33 U/L 04/18/2023 10:32 AM [facility] Sodium Level 142 136 - 145 mmol/L 04/18/2023 10:32 AM [facility] Potassium Level 3.8 3.4 - 4.5 mmol/L 04/18/2023 10:32 AM [facility] Chloride 107 98 - 107 mmol/L 04/18/2023 10:32 AM [facility] CO2 28 22 - 29 mmol/L 04/18/2023 10:32 AM [facility] Anion Gap 7 4 - 14 mmol/L 04/18/2023 10:32 AM [facility] Creatinine 0.95 0.51 - 0.95 mg/dL 04/18/2023 10:32 AM EMBOSSER OPERATOR [facility] BUN 5(L) 6 - 23 mg/dL 04/18/2023 10:32 AM [facility] Glucose Level 86 70 - 99 mg/dL 04/18/2023 10:32 AM [facility] Comment: Effective 09/09/15, the glucose reference intervals have been updated based on [place] [employer] guidelines (Standards of Medical Care in Diabetes 2016. Diabetes Care 2016; 39: S13-S22). Fasting blood glucose: Normal: 70-99 mg/dL Impaired fasting glucose (increased risk for diabetes or pre-diabetes): 100-125 mg/dL Diabetes mellitus: >/=126 mg/dL Random blood glucose: Normal: 70-199 mg/dL Note: Random glucose >100 mg/dL is associated with increased risk for diabetes. Blood Peripheral blood specimen / Unknown Venipuncture / Unknown 04/18/2023 9:30 AM EMBOSSER OPERATOR 04/18/2023 9:37 AM EMBOSSER OPERATOR Ivory Todd APRN LAB BLOOD ORDER LAURA [facility] Unless otherwise noted, all lab tests performed by: Division of Pathology and Laboratory Medicine [address] [place] [address] [id number] * Free Lambda Light Chain (04/18/2023 9:30 AM EMBOSSER OPERATOR) Only the most recent of13 resultswithin the time period is included. Free Lambda Light chain 25.59 5.71 - 26.30 mg/L 04/18/2023 2:56 PM EMBOSSER OPERATOR [facility] Blood Peripheral blood specimen / Unknown Venipuncture / Unknown 04/18/2023 9:30 AM EMBOSSER OPERATOR 04/18/2023 9:37 AM EMBOSSER OPERATOR Ivory Todd APRN LAB BLOOD ORDER LAURA [facility] Unless otherwise noted, all lab tests performed by: Division of Pathology and Laboratory Medicine [address] [place] [address] [id number] * (ABNORMAL) Free [place] Light Chain (04/18/2023 9:30 AM EMBOSSER OPERATOR) Only the most recent of13 resultswithin the time period is included. Free [place] Light 37.02(H) 3.30 - 19.40 mg/L 04/18/2023 2:56 PM EMBOSSER OPERATOR [facility] Blood Peripheral blood specimen / Unknown Venipuncture / Unknown 04/18/2023 9:30 AM EMBOSSER OPERATOR 04/18/2023 9:37 AM EMBOSSER OPERATOR Ivory Todd APRN LAB BLOOD ORDER LAURA Performing Organization Address City/[facility] Co de Phone Number [facility] Unless otherwise noted, all lab tests performed by: Division of Pathology and Laboratory Medicine [address] [place] [address] * Uric Acid (04/18/2023 9:30 AM EMBOSSER OPERATOR) Only the most recent of21 resultswithin the time period is included. Uric Acid 4.1 2.4 - 5.7 mg/dL 04/18/2023 10:32 AM EMBOSSER OPERATOR [facility] Blood Peripheral blood specimen / Unknown Venipuncture / Unknown 04/18/2023 9:30 AM EMBOSSER OPERATOR 04/18/2023 9:37 AM EMBOSSER OPERATOR Ivory Todd APRN LAB BLOOD ORDER LAURA Performing Organization Address City/[facility]/ZIP Co de Phone Number [facility] Unless otherwise noted, all lab tests performed by: Division of Pathology and Laboratory Medicine [address] [place] [address] [id number] * Phosphorus Level (04/18/2023 9:30 AM EMBOSSER OPERATOR) Only the most recent of22 resultswithin the time period is included. Phosphorus Level 3.3 2.5 - 4.5 mg/dL 04/18/2023 10:32 AM EMBOSSER OPERATOR [facility] Blood Peripheral blood specimen / Unknown Venipuncture / Unknown 04/18/2023 9:30 AM EMBOSSER OPERATOR 04/18/2023 9:37 AM EMBOSSER OPERATOR Ivory Todd APRN LAB BLOOD ORDER LAURA [facility] Unless otherwise noted, all lab tests performed by: Division of Pathology and Laboratory Medicine [address] [place] [address] [id number] * Magnesium Level (04/18/2023 9:30 AM EMBOSSER OPERATOR) Only the most recent of22 resultswithin the time period is included. Magnesium Level 1.8 1.6 - 2.6 mg/dL 04/18/2023 10:32 AM EMBOSSER OPERATOR [facility] Blood Peripheral blood specimen / Unknown Venipuncture / Unknown 04/18/2023 9:30 AM EMBOSSER OPERATOR 04/18/2023 9:37 AM EMBOSSER OPERATOR Ivory Todd APRN LAB BLOOD ORDER LAURA Performing Organization Address [facility] Co de Phone Number [facility] Unless otherwise noted, all lab tests performed by: Division of Pathology and Laboratory Medicine [address] [place] [address] [id number] * LDH (04/18/2023 9:30 AM EMBOSSER OPERATOR) Only the most recent of21 resultswithin the time period is included. LDH 190 135 - 214 U/L 04/18/2023 10:32 AM EMBOSSER OPERATOR [facility] Blood Peripheral blood specimen / Unknown Venipuncture / Unknown 04/18/2023 9:30 AM EMBOSSER OPERATOR 04/18/2023 9:37 AM EMBOSSER OPERATOR Narrative [facility] - 04/18/2023 10:32 AM EMBOSSER OPERATOR Results greater than 1651 U/L may not be reliable due to matrix effect with extended dilution as it exceeds the voice intercept technician's recommended limit. Caution should be exercised when interpreting such values and done in conjunction with clinical context. Ivory Todd APRN LAB BLOOD ORDER LAURA Performing Organization Address City/[facility] Co de Phone Number [facility] Unless otherwise noted, all lab tests performed by: Division of Pathology and Laboratory Medicine [address] [place] [address] [id number] * IgA (04/18/2023 9:30 AM EMBOSSER OPERATOR) Only the most recent of13 resultswithin the time period is included. IgA 266.0 85.0 - 499.0 mg/dL 04/18/2023 2:56 PM EMBOSSER OPERATOR [facility] Blood Peripheral blood specimen / Unknown Venipuncture / Unknown 04/18/2023 9:30 AM EMBOSSER OPERATOR 04/18/2023 9:37 AM EMBOSSER OPERATOR Ivory Todd APRN LAB BLOOD ORDER LAURA [facility] Unless otherwise noted, all lab tests performed by: Division of Pathology and Laboratory Medicine [address] [place] [address] [id number] * IgM (04/18/2023 9:30 AM EMBOSSER OPERATOR) Only the most recent of13 resultswithin the time period is included. Pathologist [facility] IgM 110.0 35.0 - 242.0 mg/dL 04/18/2023 2:56 PM EMBOSSER OPERATOR [facility] Blood Peripheral blood specimen / Unknown Venipuncture / Unknown 04/18/2023 9:30 AM EMBOSSER OPERATOR 04/18/2023 9:37 AM EMBOSSER OPERATOR Ivory Todd APRN LAB BLOOD ORDER LAURA Performing Organization Address City/[facility]/ZIP Co de Phone Number [facility] Unless otherwise noted, all lab tests performed by: Division of Pathology and Laboratory Medicine [address] [place] [address] [phone] * IgG (04/18/2023 9:30 AM EMBOSSER OPERATOR) Only the most recent of13 resultswithin the time period is included. Pathologist [facility] IgG 1,318.0 610.0 - 1,616.0 mg/dL 04/18/2023 2:56 PM EMBOSSER OPERATOR [facility] Blood Peripheral blood specimen / Unknown Venipuncture / Unknown 04/18/2023 9:30 AM EMBOSSER OPERATOR 04/18/2023 9:37 AM EMBOSSER OPERATOR Ivory Todd APRN LAB BLOOD ORDER LAURA Performing Organization Address [facility] Co de Phone Number [facility] Unless otherwise noted, all lab tests performed by: Division of Pathology and Laboratory Medicine [address] [place] [address] [id number] * (ABNORMAL) Beta 2 Microglobulin (04/18/2023 9:30 AM EMBOSSER OPERATOR) Only the most recent of13 resultswithin the time period is included. Beta 2 Microglobulin 2.50(H) 0.80 - 2.30 mg/L 04/18/2023 2:56 PM EMBOSSER OPERATOR [facility] Blood Peripheral blood specimen / Unknown Venipuncture / Unknown 04/18/2023 9:30 AM EMBOSSER OPERATOR 04/18/2023 9:37 AM EMBOSSER OPERATOR Narrative [facility] - 04/18/2023 2:56 PM EMBOSSER OPERATOR This test is measured by turbidimetric methodology on The [employer] Optilite analyzer. Results obtained in different methods are not interchangeable. Ivory Todd APRN LAB BLOOD ORDER LAURA Performing Organization Address [facility] Co de Phone Number [facility] Unless otherwise noted, all lab tests performed by: Division of Pathology and Laboratory Medicine [address] [place] [address] [id number] * MRI WB Bone Marrow (03/17/2023 2:41 PM EMBOSSER OPERATOR) Anatomical Region Laterality Modality Whole Body Magnetic Resonan ce 03/20/2023 8:52 AM EMBOSSER OPERATOR Impressions 03/20/2023 9:24 AM EMBOSSER OPERATOR No evidence of active myeloma. ACTIONABLE ITEMS/RECOMMENDATIONS*: None. Narrative 03/20/2023 9:24 AM EMBOSSER OPERATOR FULL RESULT: Examination: MRI WHOLE BODY - BONE MARROW, 03/17/2023 2:41 PM. Clinical History: Multiple myeloma Indication: Assessment of disease status. Comparison: MRI of the spine dated 10/03/2022 Technique: Whole-body magnetic resonance imaging was performed from skull vertex to the knees without intravenous contrast. Findings: Pattern of bone disease: Focal lesion(s) Number of active focal lesions: 0. Treated lesions are once again noted at T9, T11 and within the posterior left iliac bone. Examples of active focal bone lesions: None. Soft tissue masses associated with bone lesions: Absent Vertebral fractures: No acute fracture Other fractures: No acute fracture Extramedullary disease: Absent Other pertinent positive and negative findings: Procedure Note Rigoberto Borrero MD - 03/20/2023 FULL RESULT: Examination: MRI WHOLE BODY - BONE MARROW, 03/17/2023 2:41 PM. Clinical History: Multiple myeloma Indication: Assessment of disease status. Comparison: MRI of the spine dated 10/03/2022 Technique: Whole-body magnetic resonance imaging was performed from skullvertex to the knees without intravenous contrast. Findings: Pattern of bone disease: Focal lesion(s) Number of active focal lesions: 0. Treated lesions are once again noted atT9, T11 and within the posterior left iliac bone. Examples of active focal bone lesions: None. Soft tissue masses associated with bone lesions: Absent Vertebral fractures: No acute fracture Other fractures: No acute fracture Extramedullary disease: Absent Other pertinent positive and negative findings: IMPRESSION: No evidence of active myeloma. ACTIONABLE ITEMS/RECOMMENDATIONS*: None. Ivory Todd APRN [facility] ORDERAB LES * REJI Urine (03/17/2023 10:43 AM EMBOSSER OPERATOR) Urine Immunofixation No BJP Seen 03/28/2023 8:10 PM [facility] UIFE Path Interp The follow-up urine protein immunofixation electrophoretic patterns obtained with the use of antisera against IgG, IgA, IgM, bound kappa and bound lambda light chains, free kappa and free lambda light chains do not show definitive evidence of a Bence-Lee proteinuria. 03/28/2023 8:10 PM [facility] Pathologist Signature . 03/28/2023 8:10 PM [facility] Urine 24 Hr Voided urine specimen / Unknown Non-blood Collection / Unknown 03/17/2023 10:43 AM EMBOSSER OPERATOR 03/17/2023 1:18 PM EMBOSSER OPERATOR Ivory Todd APRN URINE ORDERABLE S [facility] Unless otherwise noted, all lab tests performed by: Division of Pathology and Laboratory Medicine [address] [place] [address] [id number] * Protein Electrophoresis Urine (03/17/2023 10:43 AM EMBOSSER OPERATOR) Urine Albumin % 27.7 % 03/28/2023 8:10 PM EMBOSSER OPERATOR [facility] U Globulin % 72.3 % 03/28/2023 8:10 PM EMBOSSER OPERATOR [facility] U ProE Path Interp The follow-up urine protein electrophoretic pattern does not show definitive evidence of a Bence-Lee protein peak. 03/28/2023 8:10 PM EMBOSSER OPERATOR [facility] Pathologist Signature . 03/28/2023 8:10 PM EMBOSSER OPERATOR [facility] Urine 24 Hr Voided urine specimen / Unknown Non-blood Collection / Unknown 03/17/2023 10:43 AM EMBOSSER OPERATOR 03/17/2023 1:18 PM EMBOSSER OPERATOR Ivory Todd APRN URINE ORDERABLE S Performing Organization Address [facility] Co de Phone Number [facility] Unless otherwise noted, all lab tests performed by: Division of Pathology and Laboratory Medicine [address] [place] [address] [id number] * 24hr Urine Total Protein (03/17/2023 10:43 AM EMBOSSER OPERATOR) Only the most recent of6 resultswithin the time period is included. Urine Total Protein <4 mg/dL 03/17/2023 2:51 PM EMBOSSER OPERATOR [facility] Comment:Caution is advised w hen interpreting values greater than 555 mg/dL. Results requiring extended dilution beyond the voice intercept technician's recommended limit may not dilute linearly due to potential matrix effect. Correlation with clinical context is recommended. Urine Total Pro per Total volume 03/17/2023 2:51 PM [facility] Comment:Unable to perform 24 hr calculation due to one or more parameters outside of reportable ranges. Total Volume 2,200 mL/24hr 03/17/2023 2:51 PM [facility] Hours Collected 24 hr 2:51 PM [facility] Start Date 03/16/2023 03/17/2023 2:51 PM [facility] Start Time 8:00 AM 03/17/2023 2:51 PM [facility] End Date 03/17/2023 03/17/2023 2:51 PM [facility] End Time 8:00 AM 03/17/2023 2:51 PM [facility] How many jugs collected? 1 03/17/2023 2:51 PM [facility] Urine 24 Hr Voided urine specimen / Unknown Non-blood Collection / Unknown 03/17/2023 10:43 AM [facility] 03/17/2023 1:18 PM [facility] Ivory Sandovalkristal HICKEY URINE ORDERABLE S [facility] Unless otherwise noted, all lab tests performed by: Division of Pathology and Laboratory Medicine [address] [place] [address] [id number] * REJI (03/17/2023 10:42 AM [facility]) Only the most recent of4 resultswithin the time period is included. Serum Immunofixation See Comment 03/28/2023 7:43 PM [facility] REJI Path Interp The follow-up serum protein immunofixation electrophoretic patterns obtained with the use of antisera against IgG, IgA, IgM, bound kappa and bound lambda light chains can not completely rule out the presence of a residual IgG kappa M-protein. Correlation with the clinical findings, consequently, is recommended. 03/28/2023 7:43 PM [facility] Pathologist Signature . 03/28/2023 7:43 PM [facility] Blood Peripheral blood specimen / Unknown Venipuncture / Unknown 03/17/2023 10:42 AM EMBOSSER OPERATOR 03/17/2023 10:46 AM EMBOSSER OPERATOR Ivory Todd APRN LAB BLOOD ORDER LAURA [facility] Unless otherwise noted, all lab tests performed by: Division of Pathology and Laboratory Medicine [address] [place] [address] [id number] * Serum Protein Electrophoresis (03/17/2023 10:42 AM EMBOSSER OPERATOR) Only the most recent of4 resultswithin the time period is included. Albumin 4.5 3.6 - 5.4 gm/dL 03/28/2023 7:43 PM EMBOSSER OPERATOR [facility] Alpha 1 Globulin 0.4 0.2 - 0.4 gm/dL 03/28/2023 7:43 PM EMBOSSER OPERATOR [facility] Alpha 2 Globulin 0.9 0.5 - 1.0 gm/dL 03/28/2023 7:43 PM EMBOSSER OPERATOR [facility] Beta Globulin 1.0 0.5 - 1.1 gm/dL 03/28/2023 7:43 PM EMBOSSER OPERATOR [facility] Gamma Globulin 1.5 0.7 - 1.6 gm/dL 03/28/2023 7:43 PM EMBOSSER OPERATOR [facility] SPE Path Interp The follow-up serum protein electrophoretic pattern does not show definitive evidence of an M-protein peak. 03/28/2023 7:43 PM EMBOSSER OPERATOR [facility] Pathologist Signature . 03/28/2023 7:43 PM EMBOSSER OPERATOR [facility] Total Protein 8.3 6.4 - 8.3 gm/dL 03/28/2023 7:43 PM [facility] Blood Peripheral blood specimen / Unknown Venipuncture / Unknown 03/17/2023 10:42 AM EMBOSSER OPERATOR 03/17/2023 10:46 AM EMBOSSER OPERATOR Ivory Todd APRN LAB BLOOD ORDER LAURA [facility] Unless otherwise noted, all lab tests performed by: Division of Pathology and Laboratory Medicine [address] [place] [address] [id number] * Vitamin D 25OH (03/17/2023 10:42 AM [facility]) Only the most recent of3 resultswithin the time period is included. [facility] Vitamin D 25 OH 53 30 - 100 ng/mL 03/17/2023 11:49 AM [facility] Blood Peripheral blood specimen / Unknown Venipuncture / Unknown 03/17/2023 10:42 AM EMBOSSER OPERATOR 03/17/2023 10:45 AM EMBOSSER OPERATOR Narrative [facility] [facility] - 03/17/2023 11:49 AM [facility] Reference Range: Deficiency: <=20 ng/mL Insufficiency: 21-29 ng/mL Sufficiency: 30-100 ng/mL Potential toxicity: >100 ng/mL JED Warner LAB BLOOD ORDERABLES Performing Organization Address [facility] de Phone Number [facility] Unless otherwise noted, all lab tests performed by: Division of Pathology and Laboratory Medicine [address] [place] [phone] * (ABNORMAL) Differential (01/12/2023 10:05 AM EMBOSSER OPERATOR) Only the most recent of19 resultswithin the time period is included. [facility] Total Cells 115 01/12/2023 11:23 AM [facility] Manual Neutrophil % 29.0(L) 43.2 - 72.7 % 01/12/2023 11:23 AM [facility] Comment:The Neutrophil count includes Bands. Manual Lymphocyte % 59.0(H) 16.8 - 46.2 % 01/12/2023 11:23 AM [facility] Manual Monocyte % 10.0 5.1 - 12.5 % 01/12/2023 11:23 AM [facility] Manual Eosinophil % 2.0 0.4 - 6.3 % 01/12/2023 11:23 AM [facility] Metamyelocyte % 11:23 AM [facility] Comment:The Metamyelocyte co unt includes Myelocytes. Manual Neutrophil Abs 1.13(L) 1.95 - 7.25 K/uL 01/12/2023 11:23 AM EMBOSSER OPERATOR [facility] Manual Lymphocyte Abs 2.30 1.01 - 3.24 K/uL 01/12/2023 11:23 AM EMBOSSER OPERATOR [facility] Manual Monocyte Abs 0.39 0.24 - 0.85 K/uL 01/12/2023 11:23 AM [facility] Manual Eosinophil Abs 0.08 0.02 - 0.50 K/uL 01/12/2023 11:23 AM EMBOSSER OPERATOR [facility] RBC Morphology PRESENT 01/12/2023 11:23 AM EMBOSSER OPERATOR [facility] Anisocytosis Present(A) (none) 01/12/2023 11:23 AM [facility] Poikilocytosis Present(A) (none) 01/12/2023 11:23 AM [facility] Polychromasia Present(A) (none) 01/12/2023 11:23 AM [facility] Macrocyte Present(A) (none) 01/12/2023 11:23 AM [facility] Slide Comment SEE NOTE 01/12/2023 11:23 AM [facility] Comment:PLT: Platelet morpho logy normal Blood Venipuncture / Unknown 01/12/2023 10:05 AM EMBOSSER OPERATOR 01/12/2023 10:07 AM EMBOSSER OPERATOR Ivory Todd APRN LAB BLOOD ORDER LAURA [facility] Unless otherwise noted, all lab tests performed by: Division of Pathology and Laboratory Medicine [address] [place] [address] [id number] * .Serum Creatinine (11/11/2022 11:32 AM CDT) Only the most recent of18 resultswithin the time period is included. Creatinine 0.82 0.51 - 0.95 mg/dL [facility] Blood 11/11/2022 11:3 2 AM CDT 11/11/2022 11:40 AM CDT JED Warner LAB BLOOD ORDERABLES Performing Organization Address [facility] de Phone Number [facility] Unless otherwise noted, all lab tests performed by: Division of Pathology and Laboratory Medicine [address] [place] [address] [id number] * Protein Electrophoresis Path Review (11/11/2022 11:32 AM CDT) Only the most recent of3 resultswithin the time period is included. [facility] Path Interp The follow-up serum protein electrophoretic pattern does not show definitive evidence of an M-protein peak. [facility] Comment: MD Homer OLIVEIRA [id number] Dictated by: MD Homer [id number] Dictated Date/Time: 11.22.2022 17:43 PM CDT Transcribed Date/Time: 11.22.2022 17:43 PM CDT Electronically Signed By: MD Homer [email or web address] on 11.22.2022 17:43 PM Blood 11/11/2022 11:3 2 AM CDT 11/11/2022 2:34 PM CDT JED Warner LAB BLOOD ORDERABLES Performing Organization Address [facility] de Phone Number [facility] Unless otherwise noted, all lab tests performed by: Division of Pathology and Laboratory Medicine [address] [place] [address] [phone] * REJI Path Review (11/11/2022 11:32 AM CDT) Only the most recent of3 resultswithin the time period is included. [facility] REJI Path Int The follow-up serum protein immunofixation electrophoretic patterns obtained with the use of antisera against IgG, IgA, IgM, bound kappa and bound lambda light chains can not completely rule out the presence of a residual IgG kappa M-protein. Correlation with the clinical findings, consequently, is recommended. [facility] Comment: MD Homer OLIVEIRA [id number] Dictated by: MD Homer [id number] Dictated Date/Time: 11.22.2022 17:43 PM CDT Transcribed Date/Time: 11.22.2022 17:43 PM CDT Electronically Signed By: MD Homer OLIVEIRA on 11.22.2022 17:43 PM Blood 11/11/2022 11:3 2 AM CDT 11/11/2022 2:34 PM CDT JED Warner LAB BLOOD ORDERABLES Performing Organization Address City/[facility] Co de Phone Number [facility] Unless otherwise noted, all lab tests performed by: Division of Pathology and Laboratory Medicine [address] [place] [address] * Clot Expiration Date (11/11/2022 11:32 AM CDT) Only the most recent of6 resultswithin the time period is included. T & S Expiration 11/14/2022 [facility] Blood 11/11/2022 11:3 2 AM CDT 11/11/2022 1:41 PM CDT JED Warner BLOOD BANK TEST ORDE RABLES Performing Organization Address City/[facility]/ZIP Co de Phone Number [facility] Unless otherwise noted, all lab tests performed by: Division of Pathology and Laboratory Medicine [address] [place] [id number] * Glomerular Filtration Rate (11/11/2022 11:32 AM CDT) Only the most recent of18 resultswithin the time period is included. eGFR 80 >=60 mL/min/1.7 3 sq. m [facility] Comment: The eGFRcr is calculated with the 2020 CKD-EPI creatinine equation using creatinine, patient's age, and sex for adults 18 years of age and older. Other factors, especially muscle mass, may affect accuracy and need to be considered. According to the Kidney Disease: Improving Global Outcomes (KDIGO) CKD Work Group 2012 Clinical Practice Guideline, chronic kidney disease (CKD) is defined as the abnormalities of kidney structure or function, present for more than 3 months, with implications for health. CKD should be classified by cause, GFR category, and albuminuria category. KDIGO guidelines provide the following GFR categories Stage Description GFR mL/min/1.73 m2 G1* Normal or high >= 90 G2* Mildly decreased 60-89 G3a Mildly to moderately decreased 45-59 G3b Moderately to severely decreased 30-44 G4 Severely decreased 15-29 G5 Kidney failure <15 *In the absence of evidence of kidney damage, neither G1 nor G2 fulfill criteria for CKD. Blood 11/11/2022 11:3 2 AM CDT 11/11/2022 11:40 AM CDT JED Warner LAB BLOOD ORDERABLES [facility] Unless otherwise noted, all lab tests performed by: Division of Pathology and Laboratory Medicine [address] [place] [id number] * Fractionated Bilirubin (11/11/2022 11:32 AM CDT) Only the most recent of18 resultswithin the time period is included. Bili Total 0.3 <=1.2 mg/dL [facility] Comment: Indocyanine Green (ICG) may cause falsely elevated bilirubin results. Total and direct bilirubin must not be measured from samples containing indocyanine green. False elevation of total bilirubin can be seen in patients with IgG concentrations above 28 g/L. Bili Direct <0.2 <=0.3 mg/dL [facility] Comment:Indocyanine Green (I CG) may cause falsely elevated bilirubin results. Total and direct bilirubin must not be measured from samples containing indocyanine green. Bili Indirect See Note 0.0 - 0.9 mg/dL [facility] Comment:Unable to calculate Indirect Bilirubin result due to some parameters are outside reportable range Blood 11/11/2022 11:3 2 AM CDT 11/11/2022 11:40 AM CDT JED Warner LAB BLOOD ORDERABLES Performing Organization Address [facility] Co de Phone Number [facility] Unless otherwise noted, all lab tests performed by: Division of Pathology and Laboratory Medicine [address] [place] [id number] * TMP Interpretation Antibody Screen Negative (11/11/2022 11:32 AM CDT) Only the most recent of6 resultswithin the time period is included. Pathologist [facility] TMP Auto Neg ABSC Interp At the present time, patient plasma shows no evidence of RBC alloantibodi es. [facility] Comment: MD Homer SHERIDAN [id number] Dictated by: MD Homer SHERIDAN Dictated Date/Time: 11.11.2022 17:07 PM CDT Transcribed Date/Time: 11.11.2022 17:07 PM CDT Electronically Signed By: MD Homer SHERIDAN on 11.11.2022 17:07 PM Blood 11/11/2022 11:3 2 AM CDT 11/11/2022 1:41 PM CDT JED Warner BLOOD BANK TEST ORDE PRAFUL Performing Organization Address City/[facility] Co de Phone Number [facility] Unless otherwise noted, all lab tests performed by: Division of Pathology and Laboratory Medicine [address] [place] [address] [id number] * ABORh (11/11/2022 11:32 AM CDT) Only the most recent of5 resultswithin the time period is included. ABOR. B POS [facility] Blood 11/11/2022 11:3 2 AM CDT 11/11/2022 1:41 PM CDT JED Warner BLOOD BANK TEST RAY TOROMANE Performing Organization Address City/[facility] Co de Phone Number [facility] Unless otherwise noted, all lab tests performed by: Division of Pathology and Laboratory Medicine [address] [place] [id number] * Antibody Screen (11/11/2022 11:32 AM CDT) Only the most recent of6 resultswithin the time period is included. Pathologist [facility] ABSC. Negative ABSC [facility] Blood 11/11/2022 11:3 2 AM CDT 11/11/2022 1:41 PM CDT JED [facility] BLOOD BANK TEST RAY BASILIO Performing Organization Address [facility] Co de Phone Number [facility] Unless otherwise noted, all lab tests performed by: Division of Pathology and Laboratory Medicine [address] [place] [address] [phone] * Immunofixation electrophoresis (11/11/2022 11:32 AM CDT) Only the most recent of8 resultswithin the time period is included. [facility] REJI See Comment [facility] Blood 11/11/2022 11:3 2 AM CDT 11/11/2022 12:09 PM CDT JED Warner LAB BLOOD ORDERABLES Performing Organization Address City/[facility] Co de Phone Number [facility] Unless otherwise noted, all lab tests performed by: Division of Pathology and Laboratory Medicine [address] [place] [address] [id number] * BUN (11/11/2022 11:32 AM CDT) Only the most recent of18 resultswithin the time period is included. [facility] BUN 14 6 - 23 mg/dL [facility] Blood 11/11/2022 11:3 2 AM CDT 11/11/2022 11:40 AM CDT JED Warner LAB BLOOD ORDERABLES Performing Organization Address City/[facility] Co de Phone Number [facility] Unless otherwise noted, all lab tests performed by: Division of Pathology and Laboratory Medicine [address] [place] [address] [id number] * (ABNORMAL) ALT (11/11/2022 11:32 AM CDT) Only the most recent of18 resultswithin the time period is included. ALT 55(H) <=33 U/L [place] [facility] Blood 11/11/2022 11:3 2 AM CDT 11/11/2022 11:40 AM CDT JED Warner LAB BLOOD ORDERABLES Performing Organization Address [facility] de Phone Number [facility] Unless otherwise noted, all lab tests performed by: Division of Pathology and Laboratory Medicine [address] [place] [address] [id number] * (ABNORMAL) Aspartate Aminotransferase (11/11/2022 11:32 AM CDT) Only the most recent of18 resultswithin the time period is included. AST 33(H) <=32 U/L [place] [facility] Blood 11/11/2022 11:3 2 AM CDT 11/11/2022 11:40 AM CDT JED Warner LAB BLOOD ORDERABLES Performing Organization Address [facility] Co de Phone Number [facility] Unless otherwise noted, all lab tests performed by: Division of Pathology and Laboratory Medicine [address] [place] [address] [id number] * Protein Electrophoresis (SPEP) (11/11/2022 11:32 AM CDT) Only the most recent of8 resultswithin the time period is included. TOT PROTEIN 7.7 6.4 - 8.3 gm/dL [facility] Albumin 4.2 3.6 - 5.4 gm/dL [facility] Alpha 1 Globulin 0.3 0.2 - 0.4 gm/dL [facility] Alpha 2 Globulin 0.8 0.5 - 1.0 gm/dL [facility] Beta Globulin 0.8 0.5 - 1.1 gm/dL [facility] Gamma Globulin 1.6 0.7 - 1.6 gm/dL [facility] Paraprotein1 0.0 0.0 - 0.0 gm/dL [facility] Blood 11/11/2022 11:3 2 AM CDT 11/11/2022 12:09 PM CDT JED Warner LAB BLOOD ORDERABLES Performing Organization Address City/[facility] de Phone Number [facility] Unless otherwise noted, all lab tests performed by: Division of Pathology and Laboratory Medicine [address] [place] [address] [id number] * Total Protein (11/11/2022 11:32 AM CDT) Only the most recent of11 resultswithin the time period is included. Pathologist [facility] Total Protein 7.7 6.4 - 8.3 g/dL [facility] Blood 11/11/2022 11:3 2 AM CDT 11/11/2022 11:40 AM CDT JED Warner LAB BLOOD ORDERABLES Performing Organization Address City/[facility] Co de Phone Number [facility] Unless otherwise noted, all lab tests performed by: Division of Pathology and Laboratory Medicine [address] [place] [address] [id number] * Alkaline Phosphatase (11/11/2022 11:32 AM CDT) Only the most recent of18 resultswithin the time period is included. Alk Phos 86 35 - 104 U/L [facility] Blood 11/11/2022 11:3 2 AM CDT 11/11/2022 11:40 AM CDT JED Warner LAB BLOOD ORDERABLES Performing Organization Address City/State/[facility] Co de Phone Number [facility] Unless otherwise noted, all lab tests performed by: Division of Pathology and Laboratory Medicine [address] [place] [address] [phone] * Glucose Level (11/11/2022 11:32 AM CDT) Only the most recent of10 resultswithin the time period is included. Glucose Level 73 70 - 99 mg/dL [facility] Comment: Effective 09/09/15, the glucose reference intervals have been updated based on [place] [employer] guidelines (Standards of Medical Care in Diabetes 2016. Diabetes Care 2016; 39: S13-S22). Fasting blood glucose: Normal: 70-99 mg/dL Impaired fasting glucose (increased risk for diabetes or pre-diabetes): 100- 125 mg/dL Diabetes mellitus: >/=126 mg/dL Random blood glucose: Normal: 70-199 mg/dL Note: Random glucose >100 mg/dL is associated with increased risk for diabetes Blood 11/11/2022 11:3 2 AM CDT 11/11/2022 11:40 AM CDT JED Warner LAB BLOOD ORDERABLES Performing Organization Address [facility] Co de Phone Number [facility] Unless otherwise noted, all lab tests performed by: Division of Pathology and Laboratory Medicine [address] [place] [address] [id number] * Calcium Level (11/11/2022 11:32 AM CDT) Only the most recent of18 resultswithin the time period is included. Calcium Lvl 9.6 8.4 - 10.2 mg/dL [facility] Blood 11/11/2022 11:3 2 AM CDT 11/11/2022 11:40 AM CDT JED Warner LAB BLOOD ORDERABLES [facility] Unless otherwise noted, all lab tests performed by: Division of Pathology and Laboratory Medicine [address] [place] [address] [id number] * Albumin Level (11/11/2022 11:32 AM CDT) Only the most recent of18 resultswithin the time period is included. Pathologist [facility] Albumin Lvl 4.3 3.5 - 5.2 gm/dL [facility] Blood 11/11/2022 11:3 2 AM CDT 11/11/2022 11:40 AM CDT JED Warner LAB BLOOD ORDERABLES Performing Organization Address City/[facility] de Phone Number [facility] Unless otherwise noted, all lab tests performed by: Division of Pathology and Laboratory Medicine [address] [place] [address] * Electrolyte Panel (11/11/2022 11:32 AM CDT) Only the most recent of11 resultswithin the time period is included. [facility] Sodium Lvl 142 136 - 145 mEq/L [facility] Potassium Lvl 3.9 3.5 - 5.1 mEq/L [facility] Chloride 106 98 - 107 mEq/L [facility] CO2 29 22 - 29 mEq/L [facility] Anion Gap 7 4 - 14 mEq/L [facility] Blood 11/11/2022 11:3 2 AM CDT 11/11/2022 11:40 AM CDT JED Warner LAB BLOOD ORDERABLES Performing Organization Address City/[facility] Co de Phone Number [facility] Unless otherwise noted, all lab tests performed by: Division of Pathology and Laboratory Medicine [address] [place] [address] [id number] * Urine REJI Path Review (11/11/2022 9:00 AM CDT) Only the most recent of3 resultswithin the time period is included. Pathologist [facility] UIFE Path Int The follow-up urine protein immunofixation electrophoretic patterns obtained with the use of antisera against IgG, IgA, IgM, bound kappa and bound lambda light chains, free kappa and free lambda light chains do not show definitive evidence of a Bence-Lee proteinuria. [facility] Comment: MD Homer JEFFERSON [id number] Dictated by: MD Homer JEFFERSON Dictated Date/Time: 11.14.2022 19:26 PM CDT Transcribed Date/Time: 11.14.2022 19:26 PM CDT Electronically Signed By: MD Homer JEFFERSON on 11.14.2022 19:26 PM Urine 24 Hr 11/11/2022 9:00 AM CDT 11/14/2022 10:47 AM CDT JED Warner URINE ORDERABLES [facility] Unless otherwise noted, all lab tests performed by: Division of Pathology and Laboratory Medicine [address] [place] [address] * Urine Prot Electrophoresis Path Review (11/11/2022 9:00 AM CDT) Only the most recent of3 resultswithin the time period is included. U ProE Path Int The follow-up urine protein electrophoretic pattern shows faint indistinct linear densities in the gamma region. If a Bence-Lee proteinuria is suspected clinically, serum free light chain and urine REJI studies are recommended. [facility] Comment: MD Homer JEFFERSON Dictated by: MD Homer JEFFERSON Dictated Date/Time: 11.14.2022 19:26 PM CDT Transcribed Date/Time: 11.14.2022 19:26 PM CDT Electronically Signed By: MD Homer JEFFERSON on 11.14.2022 19:26 PM Urine 24 Hr 11/11/2022 9:00 AM CDT 11/14/2022 10:47 AM CDT JED Warner URINE ORDERABLES Performing Organization Address City/[facility] de Phone Number [facility] Unless otherwise noted, all lab tests performed by: Division of Pathology and Laboratory Medicine [address] [place] [address] [id number] * Total Volume (11/11/2022 9:00 AM CDT) Only the most recent of4 resultswithin the time period is included. Total Volume 1,425 1,200 - 1,500 mL/24 h [facility] Hrs Collected 24 [facility] Start Date 11/10/2022 [facility] End Date 11/11/2022 [facility] U24 Comment [id number] [facility] Urine 24 Hr 11/11/2022 9:00 AM CDT 11/11/2022 1:59 PM CDT JED Warner URINE ORDERABLES Performing Organization Address [facility] Phone Number [facility] Unless otherwise noted, all lab tests performed by: Division of Pathology and Laboratory Medicine [address] [place] [address] [id number] * Protein Electrophoresis Urine (11/11/2022 9:00 AM CDT) Only the most recent of4 resultswithin the time period is included. U Albumin % 20.2 % [facility] U Globulin% 79.8 % [facility] Urine 24 Hr 11/11/2022 9:00 AM CDT 11/11/2022 2:21 PM CDT JED Warner URINE ORDERABLES Performing Organization Address City/[facility] de Phone Number [facility] Unless otherwise noted, all lab tests performed by: Division of Pathology and Laboratory Medicine [address] [place] [address] [id number] * REJI Urine (11/11/2022 9:00 AM CDT) Only the most recent of4 resultswithin the time period is included. Pathologist [facility] UIFE No [employer] Seen [place] [facility] Urine 24 Hr 11/11/2022 9:00 AM CDT 11/11/2022 2:21 PM CDT JED Warner URINE ORDERABLES [facility] Unless otherwise noted, all lab tests performed by: Division of Pathology and Laboratory Medicine [address] [place] [address] [id number] * Immunoelectrophoresis Path Review (10/21/2022 11:39 AM CDT) Only the most recent of2 resultswithin the time period is included. [facility] REJI Path Int The follow up serum protein immunofixation electrophoretic patterns obtained with the use of antisera against IgG, IgA, IgM, bound kappa and bound lambda light chain proteins are suggestive of an oligoclonal gammopathy. The presence of oligoclonal bands significantly limits the ability to definitively identify any underlying or residual M-protein using a gel-based immunofixation method. Therefore, clinical correlation and close follow-up studies are recommended. [facility] Comment: MD Homer MARTINO [id number] Dictated by: MD Homer MARTINO [id number] Dictated Date/Time: 10.24.2022 16:05 PM CDT Transcribed Date/Time: 10.24.2022 16:05 PM CDT Electronically Signed By: MD Homer MARTINO [id number] on 10.24.2022 16:05 PM Blood 10/21/2022 11:3 9 AM CDT 10/23/2022 3:29 PM CDT Ivory Todd APRN LAB BLOOD ORDER LAURA Performing Organization Address City/[facility] Co de Phone Number [facility] Unless otherwise noted, all lab tests performed by: Division of Pathology and Laboratory Medicine [address] [place] [address] [id number] * Protein Electrophoresis Path Review (10/21/2022 11:39 AM CDT) Only the most recent of2 resultswithin the time period is included. Pathologist [facility] SPE Path Interp The follow-up serum protein electrophoretic pattern does not show definite evidence of an M-protein peak. [facility] Comment: MD Homer MARTINO [id number] Dictated by: MD Homer MARTINO [id number] Dictated Date/Time: 10.24.2022 16:05 PM CDT Transcribed Date/Time: 10.24.2022 16:05 PM CDT Electronically Signed By: MD Homer MARTINO [id number] on 10.24.2022 16:05 PM Blood 10/21/2022 11:3 9 AM CDT 10/23/2022 3:29 PM CDT Ivory Todd APRN LAB BLOOD ORDER LAURA Performing Organization Address [facility] Co de Phone Number [facility] Unless otherwise noted, all lab tests performed by: Division of Pathology and Laboratory Medicine [address] [place] [address] [phone] * Glucose, Random (10/21/2022 11:39 AM CDT) Only the most recent of8 resultswithin the time period is included. [facility] Glucose Random 109 70 - 199 mg/dL [facility] Comment: Effective 09/09/15, the glucose reference intervals have been updated based on [place] [employer] guidelines (Standards of Medical Care in Diabetes 2016. Diabetes Care 2016; 39: S13-S22). Fasting blood glucose: Normal: 70-99 mg/dL Impaired fasting glucose (increased risk for diabetes or pre-diabetes): 100- 125 mg/dL Diabetes mellitus: >/=126 mg/dL Random blood glucose: Normal: 70-199 mg/dL Note: Random glucose >100 mg/dL is associated with increased risk for diabetes Blood 10/21/2022 11:3 9 AM CDT 10/21/2022 11:50 AM CDT Gaurang Perkins APRN LAB BLOOD ORDERABLE S Performing Organization Address City/[facility] Co de Phone Number [facility] Unless otherwise noted, all lab tests performed by: Division of Pathology and Laboratory Medicine [address] [place] [phone] * aPTT (10/21/2022 11:39 AM CDT) Only the most recent of2 resultswithin the time period is included. aPTT 28.5 24.1 - 35.5 second(s) [facility] Blood 10/21/2022 11:3 9 AM CDT 10/21/2022 11:46 AM CDT Narrative [facility] - 10/21/2022 12:14 PM CDT This lab cannot be scheduled at the following locations due to collection/proccessing restrictions: [facility] and [facility]. Gaurang Perkins APRN LAB BLOOD ORDERABLE S Performing Organization Address City/[facility] Co de Phone Number [facility] Unless otherwise noted, all lab tests performed by: Division of Pathology and Laboratory Medicine [address] [place] [address] [id number] * Prothrombin Time (10/21/2022 11:39 AM CDT) Only the most recent of2 resultswithin the time period is included. PT 12.8 11.9 - 14.5 second(s) [facility] INR 0.97 0.87 - 1.12 [facility] Blood 10/21/2022 11:3 9 AM CDT 10/21/2022 11:46 AM CDT Narrative [facility] - 10/21/2022 12:14 PM CDT This lab cannot be scheduled at the following locations due to collection/proccessing restrictions: [facility] and [facility]. Gaurang B Gregorio RITCHIEN LAB BLOOD ORDERABLE S [facility] Unless otherwise noted, all lab tests performed by: Division of Pathology and Laboratory Medicine [address] [place] [address] [id number] * Anion Gap (10/10/2022 7:16 AM CDT) Only the most recent of7 resultswithin the time period is included. Anion Gap 8 4 - 14 mEq/L [facility] Blood 10/10/2022 7:16 AM CDT 10/10/2022 7:52 AM CDT Caitlyn Rodríguez APRN LAB BLOOD ORDERABLE S Performing Organization Address [facility] Co de Phone Number [facility] Unless otherwise noted, all lab tests performed by: Division of Pathology and Laboratory Medicine [address] [place] [address] [id number] * Sodium Level (10/10/2022 7:16 AM CDT) Only the most recent of7 resultswithin the time period is included. Sodium Lvl 143 136 - 145 mEq/L [facility] Blood 10/10/2022 7:16 AM CDT 10/10/2022 7:52 AM CDT Caitlyn Rodríguez APRN LAB BLOOD ORDERABLE S Performing Organization Address [facility] Co de Phone Number [facility] Unless otherwise noted, all lab tests performed by: Division of Pathology and Laboratory Medicine [address] [place] [phone] * Potassium (10/10/2022 7:16 AM CDT) Only the most recent of7 resultswithin the time period is included. Potassium Lvl 4.5 3.5 - 5.1 mEq/L [facility] Blood 10/10/2022 7:16 AM CDT 10/10/2022 7:52 AM CDT Caitlyn Rodríguez APRN LAB BLOOD ORDERABLE S Performing Organization Address City/[facility]/ZIP Co de Phone Number [facility] Unless otherwise noted, all lab tests performed by: Division of Pathology and Laboratory Medicine [address] [place] [address] [phone] * (ABNORMAL) Chloride Level (10/10/2022 7:16 AM CDT) Only the most recent of7 resultswithin the time period is included. Chloride 110(H) 98 - 107 mEq/L [facility] Blood 10/10/2022 7:16 AM CDT 10/10/2022 7:52 AM CDT Caitlyn Rodríguez APRN LAB BLOOD ORDERABLE S Performing Organization Address [facility] Co de Phone Number [facility] Unless otherwise noted, all lab tests performed by: Division of Pathology and Laboratory Medicine [address] [place] [address] [phone] * Carbon Dioxide Level (10/10/2022 7:16 AM CDT) Only the most recent of7 resultswithin the time period is included. CO2 25 22 - 29 mEq/L [facility] Blood 10/10/2022 7:16 AM CDT 10/10/2022 7:52 AM CDT Caitlyn Rodríguez APRN LAB BLOOD ORDERABLE S Performing Organization Address City/[facility] Co de Phone Number [facility] Unless otherwise noted, all lab tests performed by: Division of Pathology and Laboratory Medicine [address] [place] [address] [phone] * XR Spine Cervical Flex/Ext with AP and Lateral view (10/08/2022 11:01 AM CDT) Anatomical Region Laterality Modality C-spine Digital Radiogra phy 10/08/2022 11:1 9 AM CDT Impressions 10/08/2022 11:22 AM CDT Diskogenic degenerative change. Narrative 10/08/2022 11:22 AM CDT FULL RESULT: Examination: SPINE CERVICAL FLEX/EXT WITH AP AND LATERAL VIEW, October 08, 2022 Clinical History: Multiple myeloma Indication: Patient with history of rheumatoid arthritis and neck pain Comparison: None available Technique: AP and lateral views of the cervical spine including flexion and extension views on 5 images Findings: In the neutral position there is straightening of the usual cervical lordosis. This may be positional or may indicate spasm. At every cervical level from C3-C4 to C7-T1, there is diskogenic degenerative change with loss of disk height and spurring. No fracture, subluxation, or soft tissue swelling is noted. No focal lytic or sclerotic lesions. Frontal view reveals facet arthropathy primarily on the right at C5-C6 and C6-C7. With flexion and extension there is a limited range of motion, but no gaping or subluxation is identified, and the atlantoaxial interval remains normal. Procedure Note Irina Otto MD - 10/08/2022 FULL RESULT: Examination: SPINE CERVICAL FLEX/EXT WITH AP AND LATERAL VIEW, September Clinical History: Multiple myeloma Indication: Patient with history of rheumatoid arthritis and neck pain Comparison: None available Technique: AP and lateral views of the cervical spine including flexionand extension views on 5 images Findings: In the neutral position there is straightening of the usualcervical lordosis. This may be positional or may indicate spasm. At everycervical level from C3-C4 to C7-T1, there is diskogenic degenerativechange with loss of disk height and spurring. No fracture, subluxation, orsoft tissue swelling is noted. No focal lytic or sclerotic lesions.Frontal view reveals facet arthropathy primarily on the right at C5-C6 andC6-C7. With flexion and extension there is a limited range of motion, but nogaping or subluxation is identified, and the atlantoaxial interval remainsnormal. IMPRESSION: Diskogenic degenerative change. Emanuel Holloway MD IMG DIAGNOSTIC IMAGI NG ORDERABLES * Cyclic Citrullinated Peptide Ab (10/08/2022 6:54 AM CDT) [facility] CCP Ab-Peters <15.6 <20.0 (Negative) Units [facility] Comment: Test Performed by: [facility] [address] [place] [address] Cpr Instructor: Casper Lynch M.D. Ph.D.; CLIA# [id number] Blood 10/08/2022 6:54 AM CDT 10/08/2022 9:01 AM CDT Emanuel Holloway MD LAB BLOOD ORDERABLES [facility] Unless otherwise noted, all lab tests performed by: Division of Pathology and Laboratory Medicine [address] [place] [address] [id number] * (ABNORMAL) Rheumatoid Factor Quant (10/08/2022 6:54 AM CDT) [facility] Rheumatoid Factor 15(H) <=14 IU/mL [facility] Blood 10/08/2022 6:54 AM CDT 10/08/2022 7:44 AM CDT Emanuel Holloway MD LAB BLOOD ORDERABLES Performing Organization Address [facility]/ZIP Co de Phone Number [facility] Unless otherwise noted, all lab tests performed by: Division of Pathology and Laboratory Medicine [address] [place] [address] [phone] * (ABNORMAL) Sed Rate (10/07/2022 2:30 PM CDT) [facility] Sed Rate 72(H) 0 - 30 mm/hr [facility] Blood 10/07/2022 2:30 PM CDT 10/07/2022 4:23 PM CDT Caitlyn Rodríguez APRN LAB BLOOD ORDERABLE S [facility] Unless otherwise noted, all lab tests performed by: Division of Pathology and Laboratory Medicine [address] [place] [address] [phone] * CRP (10/07/2022 2:30 PM CDT) [facility] CRP 184.12 mg/L [facility] Comment: Reference ranges for HS CRP assay are as follows: Reference ranges when used to assess cardiac risk: <1.00 mg/L Low cardiovascular risk 1.00-3.00 mg/L Average cardiovascular risk >3.00 mg/L High cardiovascular risk. Reference ranges when used to assess inflammatory responses: Less than or equal to 10.00 mg/L. Blood 10/07/2022 2:30 PM CDT 10/07/2022 2:57 PM CDT Caitlyn Rodríguez APRN LAB BLOOD ORDERABLE S [facility] Unless otherwise noted, all lab tests performed by: Division of Pathology and Laboratory Medicine [address] [place] [address] [phone] * Gastrointestinal Multiplex PCR Panel (10/06/2022 3:13 PM CDT) [facility] Campylobacter Not Detected Not Detected [facility] C difficile DNA (GI Multi Panel) Refer to separate C. difficile DNA Assay for results [facility] Plesiomonas shigelloides Not Detected Not Detected [facility] Salmonella Not Detected Not Detected [facility] Vibrio Not Detected Not Detected [facility] Vibrio cholerae Not Detected Not Detected [facility] Yersinia enterocolitica Not Detected Not Detected [facility] Enteroaggregative E. coli (EAEC) Not Detected Not Detected [facility] Enteropathogenic E. coli (EPEC) Not Detected Not Detected [facility] Enterotoxigenic E. coli (ETEC) Not Detected Not Detected [facility] Shiga-like toxin-producing E. col (STEC) Not Detected Not Detected [facility] E. coli O157 Not Applicable Not Detected [facility] Shigella/Enteroinvas jolie E. coli (EIEC) Not Detected Not Detected [facility] Cryptosporidium Not Detected Not Detected [facility] Cyclospora cayetanensis Not Detected Not Detected [facility] Entamoeba histolytica Not Detected Not Detected [facility] Giardia lamblia Not Detected Not Detected [facility] Adenovirus F 40/41 Not Detected Not Detected [facility] Astrovirus Not Detected Not Detected [facility] Norovirus GI/GII Not Detected Not Detected [facility] Rotavirus A Not Detected Not Detected [facility] Sapovirus (I, II, IV and V) Not Detected Not Detected [facility] Stool 10/06/2022 3:13 PM CDT 10/06/2022 4:50 PM CDT Nay Menschig FOOTBALL PAD REPAIRER MICROBIOLOGY - GENER AL ORDERABLES Performing Organization Address [facility] Co de Phone Number [facility] Unless otherwise noted, all lab tests performed by: Division of Pathology and Laboratory Medicine [address] [place] [address] [phone] * (ABNORMAL) C. difficile DNA Detection (10/06/2022 3:13 PM CDT) C difficile DNA Positive(A) Negative [facility] C difficle Toxin EIA Negative Negative [facility] C difficile Interpretation C. difficile EIA is performed only on stools positive for C. difficile DNA and detects the presence of C. difficile toxin proteins via a rapid immunoassay. Patients positive for C. difficile DNA with a negative EIA are less likely to have a C. difficile infection and may represent asymptomatic carriage. Recommend clinical assessment. If significant diarrhea present, C. difficile infection remains a possibility. [facility] Stool 10/06/2022 3:13 PM CDT 10/06/2022 4:50 PM CDT Nay Menschig FOOTBALL PAD REPAIRER MICROBIOLOGY - GENER AL ORDERABLES Performing Organization Address [facility] Co de Phone Number [facility] Unless otherwise noted, all lab tests performed by: Division of Pathology and Laboratory Medicine [address] [place] [address] [phone] * Lumbar Puncture without Chemotherapy Injection (10/06/2022 2:26 PM CDT) Anatomical Region Laterality Modality Spine Ultrasound Narrative 10/06/2022 2:31 PM CDT Images from the original result were not included. Title of Procedure: Lumbar Puncture Date of Procedure: 10/06/22 Proceduralist: JED Bruno Ordered By: Nay Quiros APRN Procedure Location: Inpatient Pre Procedure Diagnosis: multiple myeloma and neck pain Post Procedure Diagnosis: Unchanged Indication: Diagnostic Title of Procedure: Lumbar Puncture Consent: The procedure, risks, indications and alternatives were explained. All questions were answered and informed consent was obtained. I have reviewed the history and physical dictated by the mid-level practitioner / fellow. Sedation/Anxiolysis: Local anesthesia only (see MAR) Local Anesthesia: Lidocaine 1% without Epinephrine preservative free Procedure in Detail: A time out was performed prior to the start of the procedure and the correct patient, procedure, presence of consent, site, and side were confirmed with all members of the team. Preparation: patient was prepped and draped in usual sterile fashion Lumbar space: L3-L4 interspace Patient position:left lateral decubitus Needle gauge: 20GA Needle type:Quincke needle Needle length: 3.5 in Number of attempts: 2 Opening pressure: Closing pressure: Fluid appearance: clear Tubes of fluid: 4 Total volume: 29 ml Estimated Blood Loss: Minimal Post-procedure: adhesive bandage applied and site cleaned Complications: No Patient instructed to lie flat for 30min Sample Disposition: flow cytometry, cytology, chemistry, and microbiology molecular Patient Disposition: remain in inpatient bed Additional Comments: Procedure performed with BARBARA [employer] job # [id number] Nay Quiros APRN IMG VAP ORDERABLES * FC Myeloma Panel Collection, Nonblood (10/06/2022 2:11 PM CDT) Flow Cytometry (Received) Yes [facility] CSF 10/06/2022 2:11 PM CDT 10/06/2022 5:19 PM CDT Nay Quiros APRN MDA HP FC NONBLOOD C OLLECTIONS [facility] Unless otherwise noted, all lab tests performed by: Division of Pathology and Laboratory Medicine [address] [place] [address] [id number] * Cytology Non-Composite Boat Builder Interpretation (10/06/2022 2:11 PM CDT) Gross Description 1 Diff Quik; 1 Pap Stain Slides 9 ml. clear colorless fluid Specimen concentrated by cytocentrifugation technique 3 10:31 AM CDT [facility] Major Classification [facility]/benign 3 10:31 AM CDT [facility] Diagnosis Cerebrospinal fluid, lumbar puncture: No malignant cells identified (see comment) 3 10:31 AM CDT [facility] Comment Corresponding flow cytometry ([id number]) shows no plasma cells detected. 3 10:31 AM CDT [facility] Retained/Biomark er Testing SR: 2 S 3 10:31 AM CDT [facility] Informational Points Some tests reported here may have been developed and performance characteristics determined by [facility] Pathology and Laboratory Medicine. These tests have not been specifically cleared or approved by the U.S. Food and Drug Administration. 3 10:31 AM CDT [facility] Fluid sample (specimen) Lumbar spinal cerebrospinal fluid pathway / Unknown 10/06/2022 2:11 PM CDT 10/07/2022 8:23 AM CDT Nay Menschig FOOTBALL PAD REPAIRER LAB CYTOLOGY ORDERAB LES [facility] [id number] [place] [address], [place] * Meningitis-Encephalitis Panel (10/06/2022 2:11 PM CDT) Menin/Enceph Panel Source CSF Lumbar [facility] Comment:Assay is FDA-cleared for spinal fluid obtained via lumbar puncture. Escherichia coli K1 Not Detected Not Detected [facility] Haemophilus influenzae Not Detected Not Detected [facility] Listeria monocytogenes Not Detected Not Detected [facility] Neisseria meningitidis Not Detected Not Detected [facility] Streptococcus agalactiae Not Detected Not Detected [facility] Streptococcus pneumoniae Not Detected Not Detected [facility] Cytomegalovirus Not Detected Not Detected [facility] Enterovirus Not Detected Not Detected [facility] Herpes simplex Virus 1 Not Detected Not Detected [facility] Herpes simplex Virus 2 Not Detected Not Detected [facility] Human Herpesvirus 6 Not Detected Not Detected [facility] Human Parechovirus Not Detected Not Detected [facility] Varicella zoster Virus Not Detected Not Detected [facility] Cryptococcus neoformans/robert Refer to separate Cryptococcal Antigen Assay. [facility] CSF 10/06/2022 2:11 PM CDT 10/06/2022 4:55 PM CDT Nay Menschig FOOTBALL PAD REPAIRER MICROBIOLOGY - GENER AL ORDERABLES Performing Organization Address City/[facility]/ZIP Co de Phone Number [facility] Unless otherwise noted, all lab tests performed by: Division of Pathology and Laboratory Medicine [address] [place] [address] [phone] * FC Myeloma Follow Up Interpretation and Report (10/06/2022 2:11 PM CDT) 10/06/2022 2:11 PM CDT 10/06/2022 5:19 PM CDT Nay Menschig FOOTBALL PAD REPAIRER MDA HP FLOW CYTOMETR Y (HP FC) Performing Organization Address [facility] Co de Phone Number [facility] Unless otherwise noted, all lab tests performed by: Division of Pathology and Laboratory Medicine [address] [place] [address] [phone] * Adenovirus Quant PCR, CSF (10/06/2022 2:11 PM CDT) ADV CSF-Viracor Not Detected Not Detected copies/mL [facility] Comment: TESTING PERFORMED AT LOW VOLUME ON CSF SPECIMEN FOR ADENOVIRUS, MAY AFFECT RESULTS. Assay Range: 109 copies/mL to 1.00E+10 copies/mL The limit of quantitation (LOQ) is 109 copies/mL. Adenovirus DNA detected below the LOQ will be reported as Detected:<109 copies/mL. This test was developed and its performance characteristics determined by [facility]. It has not been cleared or approved by the U.S. Food and Drug Administration. Results should be used in conjunction with clinical findings, and should not form the sole basis for a diagnosis or treatment decision. Performed At: [facility] [address] [place] [address], [address] [place] [address] Cpr Instructor: Eddi Xie, PhD NICOLE (ABB) CLIA # [id number] FLAG Interpretation: A = Abnormal, H = High, L = Low CSF 10/06/2022 2:11 PM CDT 10/07/2022 10:18 AM CDT Nay Menschig FOOTBALL PAD REPAIRER MICROBIOLOGY - GENER AL ORDERABLES Performing Organization Address City/[facility]/ZIP Co de Phone Number [facility] Unless otherwise noted, all lab tests performed by: Division of Pathology and Laboratory Medicine [address] [place] [address] [id number] * Cryptococcal Antigen, CSF (10/06/2022 2:11 PM CDT) Cryptococcal Ag Screen Interp Negative [facility] CSF 10/06/2022 2:11 PM CDT 10/06/2022 4:55 PM CDT Nay Menschig FOOTBALL PAD REPAIRER MICROBIOLOGY - GENER AL ORDERABLES Performing Organization Address [facility]/ZIP Co de Phone Number [facility] Unless otherwise noted, all lab tests performed by: Division of Pathology and Laboratory Medicine [address] [place] [address] [phone] * Fungal Culture w/ Smear (10/06/2022 2:11 PM CDT) Final Report No fungus isolated at 4 weeks. [facility] Calcofluor Stain No Fungi seen in direct smear Test performed by fluorescent stain methodology. [facility] CSF 10/06/2022 2:11 PM CDT 10/06/2022 5:00 PM CDT Narrative [facility] - 11/03/2022 5:11 PM CDT Cultures are held for 4 weeks before finalization. Nay Menschig FOOTBALL PAD REPAIRER MICROBIOLOGY - GENER AL ORDERABLES Performing Organization Address City/[facility] Co de Phone Number [facility] Unless otherwise noted, all lab tests performed by: Division of Pathology and Laboratory Medicine [address] [place] [address] [phone] * Flow Cytometry Specimen Collection -CSF (10/06/2022 2:11 PM CDT) Flow Cytometry (Received) Yes [facility] Comment: Test performed by: [facility] Flow Cytometry Laboratory [address] [place] [id number] Julia Obrien Link [id number] [facility] CSF 10/06/2022 2:11 PM CDT 10/06/2022 5:19 PM CDT Nay Menschig FOOTBALL PAD REPAIRER MDA HP FC NONBLOOD C OLLECTIONS Performing Organization Address [facility] de Phone Number [facility] Unless otherwise noted, all lab tests performed by: Division of Pathology and Laboratory Medicine [address] [place] [address] [phone] * CSF Culture w/ Gram Stain (10/06/2022 2:11 PM CDT) Final Report No growth [facility] Gram Stain Report No WBC's seen. No organisms seen. [facility] CSF 10/06/2022 2:11 PM CDT 10/06/2022 5:00 PM CDT Nay Menschig FOOTBALL PAD REPAIRER MICROBIOLOGY - GENER AL ORDERABLES Performing Organization Address [facility] de Phone Number [facility] Unless otherwise noted, all lab tests performed by: Division of Pathology and Laboratory Medicine [address] [place] [address] * (ABNORMAL) Cell Count w/ Diff CSF (10/06/2022 2:11 PM CDT) Type CSF Tap [facility] Comment:When reviewing the c ell count and differential results, clinicians should consider the length of time between spinal fluid collection and testing and the clinical condition of the patient. Appear CSF CLEAR CLEAR [facility] Comment:When reviewing the c ell count and differential results, clinicians should consider the length of time between spinal fluid collection and testing and the clinical condition of the patient. Color CSF Colorless Colorless [facility] Comment:When reviewing the c ell count and differential results, clinicians should consider the length of time between spinal fluid collection and testing and the clinical condition of the patient. WBC CSF 1 0 - 5 /mcL [facility] Comment:When reviewing the c ell count and differential results, clinicians should consider the length of time between spinal fluid collection and testing and the clinical condition of the patient. RBC CSF 0 0 - 0 /mcL [facility] Comment:When reviewing the c ell count and differential results, clinicians should consider the length of time between spinal fluid collection and testing and the clinical condition of the patient. Tot Cells CSF 78 [facility] Comment:When reviewing the c ell count and differential results, clinicians should consider the length of time between spinal fluid collection and testing and the clinical condition of the patient. Neut CSF 0 0 - 5 % [facility] Comment:When reviewing the c ell count and differential results, clinicians should consider the length of time between spinal fluid collection and testing and the clinical condition of the patient. Lymph CSF 95 28 - 96 % [facility] Comment:When reviewing the c ell count and differential results, clinicians should consider the length of time between spinal fluid collection and testing and the clinical condition of the patient. Histiocyte CSF 5(L) 16 - 56 % [facility] Comment:When reviewing the c ell count and differential results, clinicians should consider the length of time between spinal fluid collection and testing and the clinical condition of the patient. Microorganisms CSF None Seen None Seen [facility] Comment:When reviewing the c ell count and differential results, clinicians should consider the length of time between spinal fluid collection and testing and the clinical condition of the patient. CSF 10/06/2022 2:11 PM CDT 10/06/2022 4:01 PM CDT Nay Menschig [employer] REPAIRER BODY FLUIDS AND STOO LS ORDERABLES Performing Organization Address [facility] Co de Phone Number [facility] Unless otherwise noted, all lab tests performed by: Division of Pathology and Laboratory Medicine [address] [place] [id number] * Protein CSF (10/06/2022 2:11 PM CDT) Protein CSF <28 15 - 45 mg/dL [facility] Type CSF Tap [facility] Comment:When reviewing the c ell count and differential results, clinicians should consider the length of time between spinal fluid collection and testing and the clinical condition of the patient. CSF 10/06/2022 2:11 PM CDT 10/06/2022 4:01 PM CDT Nay Menschig [employer] P[employer] REPAIRER BODY FLUIDS AND STOO LS ORDERABLES Performing Organization Address [facility] Co de Phone Number [facility] Unless otherwise noted, all lab tests performed by: Division of Pathology and Laboratory Medicine [address] [place] [id number] * Glucose CSF (10/06/2022 2:11 PM CDT) Glucose CSF 64 40 - 70 mg/dL [facility] Type CSF Tap [facility] Comment:When reviewing the c ell count and differential results, clinicians should consider the length of time between spinal fluid collection and testing and the clinical condition of the patient. CSF 10/06/2022 2:11 PM CDT 10/06/2022 4:01 PM CDT Nay Menschig [employer] REPAIRER BODY FLUIDS AND STOO LS ORDERABLES Performing Organization Address [facility] Co de Phone Number [facility] Unless otherwise noted, all lab tests performed by: Division of Pathology and Laboratory Medicine [address] [place] [id number] * Blood Culture (10/06/2022 12:10 PM CDT) Pathologist [facility] Final Report No growth [facility] Blood (Venipuncture-Le ft) 10/06/2022 12:10 PM CDT 10/06/2022 1:39 PM CDT Comment:arm Nay Menschig [employer] REPAIRER MICROBIOLOGY - GENER AL ORDERABLES Performing Organization Address City/[facility]/ZIP Co de Phone Number [facility] Unless otherwise noted, all lab tests performed by: Division of Pathology and Laboratory Medicine [address] [place] [address] [id number] * Urinalysis w/Microscopic if Indicated (10/06/2022 11:48 AM CDT) Pathologist [facility] UA Color Straw Straw-Yel low [facility] UA Appear Clear Clear [facility] UA Glucose NEG NEG mg/dL [facility] UA Bili NEG NEG [facility] UA Ketones NEG NEG mg/dL [facility] UA Spec Grav 1.010 1.003 - 1.035 [facility] UA Blood NEG NEG [facility] UA pH 6.5 5.0 - 9.0 [facility] UA Protein NEG NEG mg/dL [facility] UA Urobilinogen NEG NEG [facility] UA Nitrite NEG NEG [facility] UA Leuk Est NEG NEG [facility] UA Comment See Comment [facility] Comment:No microscopic exam performed, physiochemical findings are negative Urine 10/06/2022 11:4 8 AM CDT 10/06/2022 11:55 AM CDT Nay Menschig [employer] REPAIRER URINE ORDERABLES Performing Organization Address City/[facility] Co de Phone Number [facility] Unless otherwise noted, all lab tests performed by: Division of Pathology and Laboratory Medicine [address] [place] [address] [phone] * (ABNORMAL) Urine Culture (10/06/2022 11:48 AM CDT) Pathologist [facility] Final Report 10 - 50,000 cfu/ml Enterococcus faecalis ... <10,000 cfu/ml Normal site claudette present. (A) [facility] Organism Enterococcus faecalis(A) [facility] Urine, Clean Catch 10/06/2022 11:48 AM CDT 10/06/2022 2:07 PM CDT Narrative Organism Antibiotic Method Susceptibility Enterococcus faecalis *IRENE expressed in mcg/mL MINIMUM INHIBITORY CONCENTRATION IRENE: MINT Enterococcus faecalis Ampicillin MINIMUM IN HIBITORY CONCENTRATION <=2: Susceptible Enterococcus faecalis Vancomycin MINIMUM IN HIBITORY CONCENTRATION 1: Susceptible Enterococcus faecalis Nitrofurantoin MINIMUM IN HIBITORY CONCENTRATION <=16: Susceptible Nay Menschig [employer] REPAIRER MICROBIOLOGY - GENER AL ORDERABLES [facility] Unless otherwise noted, all lab tests performed by: Division of Pathology and Laboratory Medicine [address] [place] [address] [id number] * X-ray Chest 1 View (10/06/2022 11:16 AM CDT) Anatomical Region Laterality Modality Chest Digital Radiogra phy 10/06/2022 11:2 1 AM CDT Impressions 10/06/2022 11:22 AM CDT No evident pneumonia. ACTIONABLE ITEMS/RECOMMENDATIONS: None. Narrative 10/06/2022 11:22 AM CDT FULL RESULT: Examination: XR CHEST 1 VW on 10/06/2022 11:16 AM. Clinical History: Multiple myeloma Indication: Sepsis, COVID-19 Not Suspected Comparison: 11/15/2021 Technique: Frontal radiograph of the chest Findings: Support Apparatus: None. Lungs/Pleura/Mediastinum: No evident pneumothorax. No evidence of focal lung opacities. Heart size is normal. Other: Focal sclerosis in the right anterior 5th rib. Procedure Note Zev Ojeda MD - 10/06/2022 FULL RESULT: Examination: XR CHEST 1 VW on 10/06/2022 11:16 AM. Clinical History: Multiple myeloma Indication: Sepsis, COVID-19 Not Suspected Comparison: 11/15/2021 Technique: Frontal radiograph of the chest Findings: Support Apparatus: None. Lungs/Pleura/Mediastinum: No evident pneumothorax. No evidence of focallung opacities. Heart size is normal. Other: Focal sclerosis in the right anterior 5th rib. IMPRESSION: No evident pneumonia. ACTIONABLE ITEMS/RECOMMENDATIONS: None. Nay Menschig [employer] P[employer] REPAIRER IMG DIAGNOSTIC IMAGI NG ORDERABLES * MRI Brain with and without Contrast (10/06/2022 12:34 AM CDT) Anatomical Region Laterality Modality Head Magnetic Resonan ce 10/06/2022 1:09 AM CDT Impressions 10/06/2022 6:05 AM CDT No acute intracranial abnormality. No cerebral or leptomeningeal metastatic disease I personally reviewed these image(s) along with the resident's/fellow's interpretations, certify that if a procedure was performed I was physically present, and agree with the final report. Narrative 10/06/2022 6:05 AM CDT FULL RESULT: Examination: MRI BRAIN W WO CONTRAST on 10/06/2022 12:34 AM. CLINICAL HISTORY: Multiple myeloma INDICATION: Headache, chronic with new features COMPARISON: None. TECHNIQUE: MRI of the brain without and with IV contrast was performed. FINDINGS: Motion degradation is present No suspicious enhancing lesions in the supra or infratentorial brain. No abnormal leptomeningeal enhancement No areas of diffusion restriction. No acute ischemic changes or large vessel infarct. The major flow voids are preserved. The ventricles and extra-axial spaces are within normal limits. No mass effect or midline shift. No evidence of brain herniation. The orbits are within normal limits. Procedure Note Jeanie Lopez MD - 10/06/2022 FULL RESULT: Examination: MRI BRAIN W WO CONTRAST on 10/06/2022 12:34 AM. CLINICAL HISTORY: Multiple myeloma INDICATION: Headache, chronic with new features COMPARISON: None. TECHNIQUE: MRI of the brain without and with IV contrast was performed. FINDINGS: Motion degradation is present No suspicious enhancing lesions in the supra or infratentorial brain. Noabnormal leptomeningeal enhancement No areas of diffusion restriction. No acute ischemic changes or large vessel infarct. The major flow voidsare preserved. The ventricles and extra-axial spaces are within normal limits. No mass effect or midline shift. No evidence of brain herniation. The orbits are within normal limits. IMPRESSION: No acute intracranial abnormality. No cerebral or leptomeningeal metastatic disease I personally reviewed these image(s) along with the resident's/fellow'sinterpretations, certify that if a procedure was performed I wasphysically present, and agree with the final report. Caitlyn Rodríguez FOOTBALL P[employer] REPAIRER IMG MRI ORDERABLES * MRI Cervical, Thoracic and Lumbar Spine w and wo Contrast (10/03/2022 9:04 PM CDT) Anatomical Region Laterality Modality Spine, C-spine, T-spine, L-spine Magnetic Resonance 10/03/2022 9:10 PM CDT Impressions 10/03/2022 9:59 PM CDT 1. 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 Correlation with CSF cytology recommended. 2. Stable myelomatous lesion involving the left posterior ilium, unchanged dating back to PET/CT from 05/06/2021. 3. Lesions involving T7, T9, T11 and L4 vertebrae represent vertebral hemangioma rather than myelomatous lesions. 4. No acute fracture or malalignment. ACTIONABLE ITEMS/RECOMMENDATIONS: None. Narrative 10/03/2022 9:59 PM CDT FULL RESULT: Examination: MRI CERVICAL THORACIC LUMBAR SPINE W WO CONTRAST on 10/03/2022 9:04 PM. CLINICAL HISTORY: Multiple myeloma INDICATION: myeloma to vertebrae, comes in with neck pain/stiffness COMPARISON: MRI entire spine from 09/24/2021. TECHNIQUE: MRI of the cervical, thoracic and lumbosacral spine without and with IV contrast was performed. FINDINGS: SPINE COUNT: No transitional anatomy. POSTTREATMENT FINDINGS: None. NEOPLASTIC FINDINGS: Intradural neoplastic findings: Questionable areas of curvilinear enhancement are noted along the dorsal surface of the upper thoracic cord at T1 and T2 levels (series 18, image 9) and lower thoracic cord/conus medullaris at T11 and L1 levels (series 15, image 9). The upper thoracic findings could not be corroborated due to lack of axial postcontrast images. Extradural neoplastic findings: * Left posterior ilium: 1.9 cm minimally enhancing lesion is seen within visualized left posterior ilium (series 14, image 96). It corresponds to the lytic lesion seen on CT from 09/25/2021, favored to represent a myelomatous lesion. It is stable dating back to PET/CT from 05/06/2021. * Scattered osseous hemangiomas are again seen involving T7, T9, T11 and L4 vertebrae. These lesions have classic corduroy appearance on the prior CT. * No pathological vertebral compression fracture. No epidural disease. NON-NEOPLASTIC FINDINGS: Alignment: Maintained. Instability: No imaging evidence of instability. Degenerative: * Stable prominent disc osteophyte complexes are again seen at C3-C4 and C4-C5 levels resulting in moderate spinal canal stenosis. Shallow disc osteophyte complexes are also seen extending from C5 through T5 levels resulting in minimal to mild spinal canal narrowing with indentation of the thecal sac. * Minimal degenerative changes are seen within the lumbar spine without significant spinal canal stenosis. Other fractures: No acute non-pathological fracture. Visualized spinal cord: Unremarkable. Location of conus medullaris: L1. OTHER PERTINENT POSITIVE AND NEGATIVE FINDINGS: Note is made of few tiny right renal simple cyst.. Procedure Note Roshan Barger MD - 10/03/2022 FULL RESULT: Examination: MRI CERVICAL THORACIC LUMBAR SPINE W WO CONTRAST on 39:04 PM. CLINICAL HISTORY: Multiple myeloma INDICATION: myeloma to vertebrae, comes in with neck pain/stiffness COMPARISON: MRI entire spine from 09/24/2021. TECHNIQUE: MRI of the cervical, thoracic and lumbosacral spine without andwith IV contrast was performed. FINDINGS: SPINE COUNT: No transitional anatomy. POSTTREATMENT FINDINGS: None. NEOPLASTIC FINDINGS: Intradural neoplastic findings: Questionable areas of curvilinearenhancement are noted along the dorsal surface of the upper thoracic cordat T1 and T2 levels (series 18, image 9) and lower thoracic cord/conusmedullaris at T11 and L1 levels (series 15, image 9). The upper thoracicfindings could not be corroborated due to lack of axial postcontrastimages. Extradural neoplastic findings: * Left posterior ilium: 1.9 cm minimally enhancing lesion is seen withinvisualized left posterior ilium (series 14, image 96). It corresponds tothe lytic lesion seen on CT from 09/25/2021, favored to represent amyelomatous lesion. It is stable dating back to PET/CT from 05/06/2021. * Scattered osseous hemangiomas are again seen involving T7, T9, T11 andL4 vertebrae. These lesions have classic corduroy appearance on the priorCT. * No pathological vertebral compression fracture. No epidural disease. NON-NEOPLASTIC FINDINGS: Alignment: Maintained. Instability: No imaging evidence of instability. Degenerative: * Stable prominent disc osteophyte complexes are again seen at C3-C4 andC4-C5 levels resulting in moderate spinal canal stenosis. Shallow discosteophyte complexes are also seen extending from C5 through T5 levelsresulting in minimal to mild spinal canal narrowing with indentation ofthe thecal sac. * Minimal degenerative changes are seen within the lumbar spine withoutsignificant spinal canal stenosis. Other fractures: No acute non-pathological fracture. Visualized spinal cord: Unremarkable. Location of conus medullaris: L1. OTHER PERTINENT POSITIVE AND NEGATIVE FINDINGS: Note is made of few tinyright renal simple cyst.. IMPRESSION: 1. 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 Correlation with CSF cytology recommended. 2. Stable myelomatous lesion involving the left posterior ilium,unchanged dating back to PET/CT from 05/06/2021. 3. Lesions involving T7, T9, T11 and L4 vertebrae represent vertebralhemangioma rather than myelomatous lesions. 4. No acute fracture or malalignment. ACTIONABLE ITEMS/RECOMMENDATIONS: None. Leobardo Andres MD IM MRI ORDERABLES * Protein Electrophoresis Path Review (09/06/2022 10:49 AM CDT) SPE Path Interp The follow-up serum protein electrophoretic pattern does not show definite evidence of an M-protein peak. If a paraproteinemia is suspected clinically, however, serum free light chain studies, serum protein REJI studies, serum immunoglobulin quantitation and urine Bence-Lee protein studies are recommended. [facility] Comment: ALDO REEVES MD - [id number] Dictated by: MD Homer JEFFERSON [id number] Dictated Date/Time: 09.11.2022 23:13 PM CDT Transcribed Date/Time: 09.11.2022 23:13 PM CDT Electronically Signed By: MD Homer [id number] on 09.11.2022 23:13 PM Blood 09/06/2022 10:4 9 AM CDT 09/07/2022 11:21 AM CDT Ivory oTdd APRN LAB BLOOD ORDER [facility] Unless otherwise noted, all lab tests performed by: Division of Pathology and Laboratory Medicine [address] [place] [id number] * REJI Path Review (09/06/2022 10:49 AM CDT) REJI Path Int The serum protein immunofixation electrophoretic patterns obtained with the use of antisera against IgG, IgA, IgM, bound kappa and bound lambda light chain proteins do not show definite evidence of a monoclonal gammopathy, although the possibility of an oligoclonal gammopathy cannot be excluded. [facility] Comment: MD Homer JEFFERSON [id number] Dictated by: MD Homer [id number] Dictated Date/Time: 09.11.2022 23:13 PM CDT Transcribed Date/Time: 09.11.2022 23:13 PM CDT Electronically Signed By: MD Homer [id number] on 09.11.2022 23:13 PM Blood 09/06/2022 10:4 9 AM CDT 09/07/2022 11:21 AM CDT Ivory Todd APRN LAB BLOOD ORDER [facility] Unless otherwise noted, all lab tests performed by: Division of Pathology and Laboratory Medicine [address] [place] [id number] * Dr. Benz Prot Electrophoresis Path Review (07/13/2022 9:38 AM CDT) Only the most recent of2 resultswithin the time period is included. Pathologist [facility] SPE Path Interp The follow-up serum protein electrophoretic pattern shows no definitive evidence of an M-protein peak. If a paraproteinemia is suspected clinically, serum light chain studies, serum protein immunofixation, serum immunoglobulin quantification, and urine Bence-Lee protein studies are recommended. [facility] Comment: MD Homer MCARTHUR [id number] Dictated by: MD Homer MCARTHUR Dictated Date/Time: 07.14.2022 20:09 PM CDT Transcribed Date/Time: 07.14.2022 20:09 PM CDT Electronically Signed By: MD Homer MCARTHUR on 07.14.2022 20:09 PM Blood 07/13/2022 9:38 AM CDT 07/13/2022 1:02 PM CDT JED Warner LAB BLOOD ORDERABLES Performing Organization Address [facility] Co de Phone Number [facility] Unless otherwise noted, all lab tests performed by: Division of Pathology and Laboratory Medicine [address] [place] [phone] * Dr. Benz RJEI Path Review (07/13/2022 9:38 AM CDT) Only the most recent of2 resultswithin the time period is included. [facility] REJI Path Int The follow-up serum protein immunofixation electrophoretic patterns obtained with the use of antisera against IgG, IgA, IgM, bound kappa and bound lambda light chains can not completely rule out a residual IgG kappa M-protein. Correlation with the clinical findings is recommended. [facility] Comment: MD Homer MCARTHUR [id number] Dictated by: MD Homer MCARTHUR Dictated Date/Time: 07.14.2022 20:09 PM CDT Transcribed Date/Time: 07.14.2022 20:09 PM CDT Electronically Signed By: MD Homer MCARTHUR on 07.14.2022 20:09 PM Blood 07/13/2022 9:38 AM CDT 07/13/2022 1:02 PM CDT JED Warner LAB BLOOD ORDERABLES [facility] Unless otherwise noted, all lab tests performed by: Division of Pathology and Laboratory Medicine [address] [place] [address] [id number] * Urine REJI Path Review (07/13/2022 5:00 AM CDT) UIFE Path Int The follow-up urine protein immunofixation electrophoretic patterns obtained with the use of antisera against IgG, IgA, IgM, bound kappa and bound lambda light chains, free kappa and free lambda light chains do not show definitive evidence of a Bence-Lee proteinuria. [facility] Comment: MD Homer [id number] Dictated by: MD Homer OLIVEIRA Dictated Date/Time: 07.22.2022 10:17 AM CDT Transcribed Date/Time: 07.22.2022 10:17 AM CDT Electronically Signed By: MD Homer OLIVEIRA on 07.22.2022 10:17 AM Urine 24 Hr 07/13/2022 5:00 AM CDT 07/14/2022 11:46 AM CDT JED Warner URINE ORDERABLES Performing Organization Address [facility] Co de Phone Number [facility] Unless otherwise noted, all lab tests performed by: Division of Pathology and Laboratory Medicine [address] [place] [address] [id number] * Urine Prot Electrophoresis Path Review (07/13/2022 5:00 AM CDT) Pathologist Mariam U ProE Path Int The follow-up urine protein electrophoretic pattern does not show definitive evidence of a Bence-Lee protein peak. [facility] Comment: MD Homer OLIVEIRA [id number] Dictated by: MD Homer OLIVEIRA [id number] Dictated Date/Time: 07.22.2022 10:17 AM CDT Transcribed Date/Time: 07.22.2022 10:17 AM CDT Electronically Signed By: MD Homer OLIVEIRA [id number] on 07.22.2022 10:17 AM Urine 24 Hr 07/13/2022 5:00 AM CDT 07/14/2022 11:46 AM CDT JED Warner URINE ORDERABLES Performing Organization Address [facility] de Phone Number [facility] Unless otherwise noted, all lab tests performed by: Division of Pathology and Laboratory Medicine [address] [place] [phone] * ABORh Manual (05/13/2022 9:26 AM CDT) Pathologist [facility] ABORh Manual B POS [place] MD Bentley [facility] Blood 05/13/2022 9:26 AM CDT 05/13/2022 10:09 AM CDT JED Warner BLOOD BANK TEST ORDE RABLES Performing Organization Address City/State/[facility] Co de Phone Number [facility] [place] Unless otherwise noted, all lab tests performed by: Division of Pathology and Laboratory Medicine [address] [place] [address] [phone] after 04/26/2022 Advance Directives Latest Code Status on File Code Status Date Activated Date Inactivated Comments Full Code 10/03/2022 10:30 PM 10/10/2022 7:12 PM Code Status History Code Status Date Activated Date Inactivated Comments Full Code 11/06/2021 2:50 PM 12/06/2021 5:58 PM Full Code 10/13/2021 4:13 PM 2021 7:46 PM Full Code 09/24/2021 5:31 AM 09/27/2021 7:19 PM Care Teams Clothes Ironer Relationship Specialty Start Date End Date Sumaya Cheng PCP - External Referring Hematology and Oncology 03/19/21 Cecil Nowak MD [address] [place] [address] [id number] PCP - General Stem Cell Transplant 11/08/21 10/04/22 Clay Murphy MD [address] [place] [address] [id number] PCP - General Lymphoma and Myeloma 10/05/22 Yesenia Anna MD [address] [place] [address] [id number] Consulting Physician Physical Medicine and Rehabilitation 03/28/22 Bruce Kim MD [address] [place] [address] [phone] Consulting Physician Dermatology 07/12/22 Dimitrios Quiñonez MD [address] [place] [address] [phone] Consulting Physician Gastroenterology, Hepatology and Nutrition 10/28/22
[2023-04-26 10:13] LABS: Absolute Eosinophils 0.1 K/uL (0-0.5); Absolute Lymphocytes (CBC) 0.9 K/uL (0.7-4.9); Absolute Monocytes 0.4 K/uL (0.1-1.3); Absolute Neutrophil 3.5 K/uL (1.8-8.0); Basophils % 0.3 % (0-1.3); Eosinophils % 2.9 % (0-4.4); Hematocrit 39.1 % (36.0-45.0); Hemoglobin 12.9 g/dL (12.0-15.0); Lymphocytes % 18.9 % (15.3-44.8); MCH 31.1 pg (27.0-35.0); MCHC 32.9 g/dL (32.0-36.0); MCV 94.4 fL (80-100); MPV 9.3 fL (7.6-11.3); Monocytes % 8.3 % (3.3-12.3); Neutrophils % 69.6 % (41.7-73.7); Nucleated Red Blood Cells % 0.2 % (0-0); Platelets 169 thou/uL (152-406); RBC Red Blood Cell Count 4.14 M/uL (3.86-4.86); Red Cell Distribution Width 15.5 % (12.1-15.2)
[2023-04-26 10:34] LABS: Albumin 3.4 g/dL (3.4-5.0); Albumin/Globulin Ratio 0.8 (1.1-1.8); Anion Gap 8.5 mEq/L (5.0-15.0); Bilirubin Total 0.5 mg/dL (0.2-1.0); Globulin 4.1 g/dL (2.3-3.5); Potassium 3.5 mEq/L (3.5-5.1); Protein, Total 7.5 g/dL (6.4-8.2)
--- NOTE | 2023-04-26 11:07 | RAD REPORT ---
EXAM DESCRIPTION: CTAbdomen Pelvis W Contrast - 04/26/2023 10:46 am CLINICAL HISTORY: Abdominal pain. ABD PAIN COMPARISON: Abdomen Pelvis W Contrast dated 11/01/2016 TECHNIQUE: Biphasic CT imaging of the abdomen and pelvis was performed with 100 ml non-ionic IV cont rast. All CT scans are performed using dose optimization technique as appropriate and may include automated exposure control or mA/KV adjustment according to patient size. FINDINGS: The lung bases are clear. The liver, spleen, pancreas, adrenal glands and kidneys are within normal limits. No bowel obstruction, free air, free fluid or abscess. Moderately thickened small bowel loops are see n in the left abdomen and left lower quadrant of the abdomen suggesting nonspecific ileitis. There is prominent stool retention throughout the colon. The appendix is normal. No evidence of significant lymphadenopathy. No suspicious bony findings. IMPRESSION: Moderate small bowel thickening, predominately distal small bowel noted. The findings li eliza indicate a nonspecific ileitis. This could be infectious or related to underlying inflammatory b owel disease. Moderate stool retention throughout the colon.
--- NOTE | 2023-04-26 11:17 | EDPHYS ---
Physician Documentation [facility] Name: Rebecca Marie Age: 62 yrs Sex: Female : 1960 Arrival Date: 04/26/2023 Time: 09:33 Bed 16 Private MD: [facility] ED Physician Camron Welch HPI: 04/25 09:44 This 62 yrs old Black Female presents to ER via Ambulatory with complaints of Abdominal ec2 Cramping, Nausea. 09:44 Patient with history of hypertension, hyperlipidemia, diabetes, multiple myeloma, ec2 arrives today for for evaluation of upper abdominal pain. Patient reports decreased p.o. intake with associated nausea and vomiting. Denies urinary complaints, denies cough or cold symptoms, denies previous abdominal surgeries.. Historical: - Allergies: 09:40 senna; iw - PMHx: 09:40 Hypertension; High Cholesterol; Diabetes - NIDDM; Rheumatoid Arthritis; iw 09:41 multiple myeloma; iw - PSHx: 09:43 tubal; iw - Immunization history:: Adult Immunizations up to date. - Social history:: Smoking status: Patient denies any tobacco usage or history of. ROS: 09:44 Constitutional: as per hpi ec2 Exam: 09:44 Constitutional: GEN: NAD Head: atraumatic Eyes: EOMI Ears: External ears are ec2 normal. CV: regular rate LUNGS: no respiratory distress ABD: non-distended, slight abdominal TTP in the epigastrium, no guarding, not rigid SKIN: no evidence of rashes MSK: no evidence of trauma NEURO: moves all extremities equally Vital Signs: 09:39 BP 133 / 83; Pulse 78; Resp 16; Temp 98.1; Pulse Ox 100% on R/A; Weight 78.47 kg; iw Height 5 ft. 6 in. ; Pain 4/10; 11:01 BP 137 / 69; Pulse 72; Resp 14; Pulse Ox 98% on R/A; ko1 11:19 BP 134 / 66; Pulse 78; Resp 15; Pulse Ox 99% ; ko1 11:38 BP 126 / 86; Pulse 83; Resp 16; Temp 98.1; Pulse Ox 100% on R/A; iw 09:39 Body Mass Index 27.92 (78.47 kg, 167.64 cm) iw 09:39 Pain Scale: Adult iw MDM: 09:39 Patient medically screened. ec2 09:44 Data reviewed: vital signs. ED course: Patient arrives today for upper abdominal pain. ec2 Examination remarkable for well-appearing nontoxic dividual is otherwise in no acute distress. Obtain lab work, CT imaging, treat the patient symptoms and reassess. Currently bowel prep such as pancreatitis, infectious process, urinary process.. 10:53 ED course: Metabolic profile reassuring, lipase within normal ranges. . ec2 11:11 ED course: CT scan w/ Nonspecific bowel thickening noted, constipation also noted. Will ec2 discharge home. Return precautions given.. 04/25 09:44 Order name: CBC with Diff; Complete Time: 10:18 ec2 04/25 09:44 Order name: CMP; Complete Time: 10:52 ec2 04/25 09:44 Order name: Lipase; Complete Time: 10:52 ec2 04/25 09:44 Order name: CT Abd/Pelvis - IV Contrast Only; Complete Time: 11:11 ec2 04/25 09:44 Order name: IV Saline Lock; Complete Time: 10:10 ec2 04/25 09:44 Order name: Labs collected and sent; Complete Time: 10:10 ec2 Administered Medications: 10:10 Drug: NS 0.9% IV 1000 ml IV at 1 bolus Per protocol; 1000 mL bolus Route: IV; Rate: 1 ko1 bolus; Site: left antecubital; 11:23 Follow up: Response: No adverse reaction; IV Status: Completed infusion; IV Intake: ko1 1000ml 10:10 Drug: Ondansetron IVP 4 mg IVP once; over 2 minutes Route: IVP; Site: left antecubital; ko1 11:23 Follow up: Response: No adverse reaction; Nausea is decreased ko1 10:10 Drug: morphine IVP or IV 4 mg IVP once over 4 mins Route: IVP; Infused Over: 4 mins; ko1 Site: left antecubital; 11:24 Follow up: Response: No adverse reaction; Pain is decreased ko1 Disposition Summary: 04/26/23 11:16 Discharge Ordered Notes: Location: Home ec2 Condition: Stable ec2 Diagnosis - Constipation ec2 - Abdominal pain, unspecified ec2 Followup: ec2 - With: Private Physician - When: - Reason: Re-evaluation by your physician Discharge Instructions: - Discharge Summary Sheet ec2 - Constipation, Adult, [id number] ec2 Forms: - Medication Reconciliation Form ec2 - Thank You Letter ec2 - Antibiotic Education ec2 - Prescription Opioid Use ec2 - Patient Portal Instructions ec2 - Leadership Thank You Letter ec2 Signatures: Dispatcher [employer] Tati Washington RN RN iw Oliver, Kathy, RN RN ko1 Camron Welch MD MD ec2
--- NOTE | 2023-04-26 11:17 | ER ---
Nurse's Notes [facility] Name: Rebecca Marie Age: 62 yrs Sex: Female : 1960 Arrival Date: 04/26/2023 Time: 09:33 Bed 16 Private MD: Rogerio Rodriguez Diagnosis: Constipation;Abdominal pain, unspecified Presentation: 04/25 09:39 Chief complaint: Patient states: stomach cramps and nausea X 1 week, intermittent. iw Coronavirus screen: At this time, the client does not indicate any symptoms associated with coronavirus-19. Ebola Screen: Patient negative for fever greater than or equal to 101.5 degrees Fahrenheit, and additional compatible Ebola Virus Disease symptoms Patient denies exposure to infectious person. Patient denies travel to an Ebola-affected area in the 21 days before illness onset. No symptoms or risks identified at this time. Initial Sepsis Screen: Does the patient meet any 2 criteria? No. Patient's initial sepsis screen is negative. Does the patient have a suspected source of infection? No. Patient's initial sepsis screen is negative. Risk Assessment: Do you want to hurt yourself or someone else? Patient reports no desire to harm self or others. Onset of symptoms was April 19, 2023. 09:39 Method Of Arrival: Ambulatory iw 09:39 Acuity: PALMA 3 iw Triage Assessment: 09:43 General: Appears in no apparent distress. Behavior is calm. Pain: Complains of pain in iw abdomen. GI: Reports nausea. Historical: - Allergies: 09:40 senna; iw - PMHx: 09:40 Hypertension; High Cholesterol; Diabetes - NIDDM; Rheumatoid Arthritis; iw 09:41 multiple myeloma; iw - PSHx: 09:43 tubal; iw - Immunization history:: Adult Immunizations up to date. - Social history:: Smoking status: Patient denies any tobacco usage or history of. Screenin:00 [facility] ED Fall Risk Assessment (Adult) History of falling in the last 3 months, ko1 including since admission No falls in past 3 months (0 pts) Confusion or Disorientation No (0 pts) Intoxicated or Sedated No (0 pts) Impaired Gait No (0 pts) Mobility Assist Device Used No (0 pt) Altered Elimination No (0 pt) Score/Fall Risk Level 0 - 2 = Low Risk Oriented to surroundings, Maintained a safe environment, Educated pt \T\ family on fall prevention, incl call for assistance when getting out of bed, Assessed \T\ reinforced patient's understanding of fall precautions, Provided non-skid footwear, Hourly rounding (assess needs \T\ fall precautionary measures) done, Used ambulatory aids as needed (educated on \T\ assisted with), Used gait belt as appropriate. Abuse screen: Denies threats or abuse. Denies injuries from another. Nutritional screening: No deficits noted. Tuberculosis screening: No symptoms or risk factors identified. Assessment: 10:00 General: Appears distressed, uncomfortable, Behavior is cooperative, appropriate for ko1 age. Pain: Complains of pain in abdomen. Neuro: No deficits noted. Cardiovascular: No deficits noted. Respiratory: No deficits noted. GI: Bowel sounds present X 4 quads. Abd is soft X 4 quads Reports lower abdominal pain, upper abdominal pain, bloating, cramping, nausea. : No deficits noted. EENT: No deficits noted. Derm: No deficits noted. Musculoskeletal: No deficits noted. Vital Signs: 09:39 BP 133 / 83; Pulse 78; Resp 16; Temp 98.1; Pulse Ox 100% on R/A; Weight 78.47 kg; iw Height 5 ft. 6 in. ; Pain 4/10; 11:01 BP 137 / 69; Pulse 72; Resp 14; Pulse Ox 98% on R/A; ko1 11:19 BP 134 / 66; Pulse 78; Resp 15; Pulse Ox 99% ; ko1 11:38 BP 126 / 86; Pulse 83; Resp 16; Temp 98.1; Pulse Ox 100% on R/A; iw 09:39 Body Mass Index 27.92 (78.47 kg, 167.64 cm) iw 09:39 Pain Scale: Adult iw ED Course: 09:33 Patient arrived in ED. rg4 09:36 Roegrio Rodriguez DO is Private Physician. rg4 09:37 Camron Welch MD is Attending Physician. ec2 09:40 Triage completed. iw 09:41 Arm band placed on. iw 09:45 Magdalene Dixon, ABELINO is Primary Nurse. ko1 10:00 Patient has correct armband on for positive identification. Allergy band placed. Placed ko1 in gown. Bed in low position. Call light in reach. Side rails up X 1. Provided Education on: na. Pulse ox on. NIBP on. Door closed. Noise minimized. Lights dimmed. Warm blanket given. 10:00 No provider procedures requiring assistance completed. ko1 10:07 Initial lab(s) drawn, by me, sent to lab. Inserted saline lock: 22 gauge in left iw antecubital area, using aseptic technique. Blood collected. 10:10 CBC with Diff Sent. ko1 10:10 CMP Sent. ko1 10:10 Lipase Sent. ko1 10:30 Repositioned patient. ko1 10:45 Warm blanket given. Pillow given. Repositioned patient. ko1 10:48 CT Abd/Pelvis - IV Contrast Only In Process Unspecified. EDMS 11:02 Assisted to bathroom. ko1 11:19 IV discontinued, intact, bleeding controlled, No redness/swelling at site. Pressure ko1 dressing applied. Administered Medications: 10:10 Drug: NS 0.9% IV 1000 ml IV at 1 bolus Per protocol; 1000 mL bolus Route: IV; Rate: 1 ko1 bolus; Site: left antecubital; 11:23 Follow up: Response: No adverse reaction; IV Status: Completed infusion; IV Intake: ko1 1000ml 10:10 Drug: Ondansetron IVP 4 mg IVP once; over 2 minutes Route: IVP; Site: left antecubital; ko1 11:23 Follow up: Response: No adverse reaction; Nausea is decreased ko1 10:10 Drug: morphine IVP or IV 4 mg IVP once over 4 mins Route: IVP; Infused Over: 4 mins; ko1 Site: left antecubital; 11:24 Follow up: Response: No adverse reaction; Pain is decreased ko1 Medication: 10:00 VIS not applicable for this client. ko1 Intake: 11:23 IV: 1000ml; Total: 1000ml. ko1 Outcome: 11:16 Discharge ordered by . ec2 11:38 Discharged to home ambulatory, iw 11:38 Condition: good 11:38 Discharge instructions given to patient, Instructed on discharge instructions, follow up and referral plans. Demonstrated understanding of instructions, follow-up care, 11:38 Patient left the ED. iw Signatures: Dispatcher [employer] Tati Washington RN RN iw Jaky Grullon 4 Magdalene Dixon RN RN ko1 Welch, Camron, MD MD ec2
[2023-04-26 11:50] VITALS: BP 126/86; TEMP 98.1; O2SAT 100
== END ==
LOC: ER 09:33
DX: K59.00 Constipation, unspecified (principal); Z88.8 Allergy status to other drugs, medicaments and biological substances
CPT/HCPCS: 85025; 36415; 83690; 80053; 74177; Q9967; J2405; J7030

== ENCOUNTER 2023-10-17 17:27 | Emergency (ER) | payer BC, OTHER ==
--- OUTSIDE RECORDS SUMMARY | 2023-10-17 17:32 | XMS REPORT | Clinical Summary ---
Author Name Unknown Organization [facility] Address [address] [place] [address] Care Team Providers Care Hat Sprayer Name Role Phone Sumaya Cheng Unavailable [phone] Clay Murphy MD Primary Care Provider [phone] Yesenia Anna MD Unavailable Bruce Kim MD Unavailable [phone] Dimitrios Quiñonez MD Unavailable [email or web address] Allergies Active Allergy Reactions Criticality Noted Date Comments Senna Rash Low 11/06/2021 Medications Medication Sig Dispensed Refills Start Date End Date Status lenalidomide (REVLIMID) capsule 10 mg Take 1 capsule (10 mg) by mouth daily. Active aspirin 81 mg EC tabletIndicatio ns:Multiple myeloma Take 1 tablet (81 mg) by mouth daily. 90 tablet 3 3 Active DULoxetine (Cymbalta) 60 mg capsuleIndicati ons:Paraneoplas tic neuropathy Take 1 capsule (60 mg) by mouth daily. 30 capsule 2 3 Active gabapentin (NEURONTIN) 100 mg capsule Take 1 capsule (100 mg) by mouth at bedtime. Active valACYclovir (VALTREX) 500 mg tablet Take 1 tablet (500 mg) by mouth daily. Active naloxone (Narcan) 4 mg/actuation nasal sprayIndication s:Pain due to neoplastic disease Use 1 dose into one nostril as needed for opioid overdose. Do not prime or test the inhaler prior to adminstration. Give another dose into the other nostril after 2 to 3 minutes if the patient does not respond or responds and then relapses into respiratory depression. 2 each 3 Active atorvastatin (LIPITOR) 40 mg tablet Take 2 tablets (80 mg) by mouth daily. Active tiZANidine (ZANAFLEX) 2 mg tablet Take 1 tablet (2 mg) by mouth every 6 (six) hours as needed. 3 Active HYDROmorphone (DILAUDID) 2 mg tablet Take 1 tablet (2 mg) by mouth every 6 (six) hours as needed for mild pain or moderate pain. Active cholecalciferol , vitamin D3, 1,250 mcg (50,000 unit) capsuleIndicati ons:Vitamin D deficiency, not otherwise specified Take 1 capsule (50,000 Units) by mouth every 7 days. Plz have patient get subsequent refills w PCP 12 capsule 4 Active amitrip-2% Lido-5% in Vanicream (AMB-CMPD)Indic ations:Multiple myeloma,Periphe ral neuropathy Apply topically to affected area(s) 3 (three) times a day. 60 g 3 03/21/19 24 Discontinued zinc sulfate (Zinc-220) 220 mg capsuleIndicati ons:Taste problem Take 1 capsule (220 mg) by mouth twice daily. 28 capsule 3 02/15/19 24 Discontinued(Sto p Taking at Discharge) ondansetron (Zofran) 8 mg tabletIndicatio ns:Multiple myeloma,Nausea and vomiting Take 1 tablet (8 mg) by mouth every 8 (eight) hours as needed for nausea. 45 tablet 3 03/21/19 24 Discontinued lysine 500 mg tab Take 2 tablets (1,000 mg) by mouth daily. 02/15/19 24 Discontinued(Sto p Taking at Discharge) cetirizine (ZyrTEC) 10 mg tabletIndicatio ns:atopic dermatitis Take 1 tablet (10 mg) by mouth at bedtime. 03/21/19 24 Discontinued famotidine (PEPCID) 40 mg tablet Take 1 tablet (40 mg) by mouth daily. 03/21/19 24 Discontinued ammonium lactate (LAC-HYDRIN) 12% lotionIndicatio ns:Acquired keratosis pilaris Apply topically to affected area(s) daily. 400 g 11 3 03/21/19 24 Discontinued cholecalciferol , vitamin D3, 1,250 mcg (50,000 unit) capsuleIndicati ons:Vitamin D deficiency, not otherwise specified TAKE 1 CAPSULE BY MOUTH ONCE A WEEK 12 capsule 3 11/09/19 23 Discontinued HYDROmorphone (DILAUDID) 2 mg tabletIndicatio ns:Pain due to neoplastic disease Take 1 tablet (2 mg) by mouth every 4 (four) hours as needed for moderate pain or severe pain. 60 tablet 3 01/04/20 23 Discontinued(Reo rder) fidaxomicin (DIFICID) 200 mg tabletIndicatio ns:Clostridioid es difficile infection Take 1 tablet (200 mg) by mouth every 12 (twelve) hours for 7 days. Through 10/16/22. 13 tablet 3 10/19/19 23 cholecalciferol , vitamin D3, 1,250 mcg (50,000 unit) capsuleIndicati ons:Vitamin D deficiency, not otherwise specified TAKE 1 CAPSULE BY MOUTH ONE TIME PER WEEK 12 capsule 3 03/17/19 24 Discontinued methocarbamol (Robaxin-750) 750 mg tabletIndicatio ns:Hemopoietic stem cell transplant,Mult iple myeloma,Spasm of back muscles Take 1 tablet (750 mg) by mouth every 12 (twelve) hours as needed for muscle spasms for up to 14 days. 28 tablet 3 11/28/19 23 HYDROmorphone (DILAUDID) 2 mg tabletIndicatio ns:Pain due to neoplastic disease Take 1 tablet (2 mg) by mouth every 6 (six) hours as needed for moderate pain or severe pain. 60 tablet 3 02/15/19 24 Discontinued(Sto p Taking at Discharge) benzonatate (TESSALON) 100 mg capsule Take 1 capsule (100 mg) by mouth every 8 (eight) hours as needed for cough. 03/21/19 24 Discontinued polyethylene glycol-electrol ytes (NULYTELY) 420 g solutionIndicat ions:Colonoscop y planned Mix as directed and drink as directed. 4000 mL 3 02/15/19 24 Discontinued(Sto p Taking at Discharge) Active Problems Problem Noted Date Diagnosed Date Screening for malignant neoplasm of colon 2022 Overview: Added automatically from request for surgery [id number] Clostridioides difficile infection 10/07/2022 Anemia in neoplastic [...] Encounters Date Type Department Care Team Description 10/13/2023 Orders Only [facility] [address] [place] [address], [address]th [place] [address] Ivory Todd APRN 10/12/2023 1:00 PM CDT Telemedicine [facility] [address] [place] [address], 6th [place] [address] Ivory Todd APRN Multiple myeloma (Primary Dx) 10/11/2023 Telephone [facility] [address] [place] [address], 6th [place] [address] Jovita Cheng MA PreScreen 10/10/2023 9:02 AM CDT - 10/10/2023 11:59 PM CDT Hospital Encounter [facility] [address] [place] [address], [place] [address] Ivory Todd APRN Multiple myeloma Discharge Disposition: Home 09/14/2023 1:30 PM CDT Telemedicine [facility] [address] [place] [address] Main Bldg, 6th [place] [address] Ivory Todd APRN Multiple myeloma (Primary Dx) 09/12/2023 8:54 AM CDT - 09/12/2023 11:59 PM CDT Hospital Encounter [facility] Main [facility], [place] [address] Ivory Todd, RUPERTO Multiple myeloma Discharge Disposition: Home 08/23/2023 11:00 AM CDT Follow-Up [facility] Main Bldg, 8th [place] [address] Cecil Nowak MD Hemopoietic stem cell transplant (Primary Dx) 08/23/2023 Travel 08/15/2023 2:00 PM CDT Telemedicine [facility] Main Bldg, 6th [place] [address] Clay Murphy MD Cuellar, Elizabeth L, APRN Multiple myeloma (Primary Dx) 08/14/2023 9:23 AM CDT - 08/14/2023 11:59 PM CDT Hospital Encounter [facility] Main [facility], [place] [address] Ivory Todd, RUPERTO Multiple myeloma Discharge Disposition: Home 07/20/2023 10:00 AM CDT Telephone [facility] Main Bldg, 6th [place] [address] Ivory Todd APRN 07/19/2023 Telephone [facility] Main Bldg, 6th [place] [address] Oscar Jones 07/18/2023 8:47 AM CDT - 07/18/2023 11:59 PM CDT Hospital Encounter [facility] [address] [place] [address] Main [facility], [place] [address] Ivory Todd APRN Multiple myeloma Discharge Disposition: Home 07/17/2023 Orders Only [facility] [address] Main Bldg, 6th [place] [address] Ivory Todd APRN Multiple myeloma (Primary Dx) 06/13/2023 8:15 AM CDT Follow-Up [facility] Main Bldg, 6th [place] [address] Clay Murphy MD Multiple myeloma (Primary Dx) 06/13/2023 Travel 06/09/2023 9:15 AM CDT - 06/09/2023 11:59 PM CDT Hospital Encounter [facility] [address] [place] [address] Main [facility], [place] [address] Ivory Todd APRN Multiple myeloma Discharge Disposition: Home 06/09/2023 9:15 AM CDT - 06/09/2023 11:59 PM CDT Hospital Encounter [facility] [address] [place] [address] Main [facility], [place] [address] Ivory Todd APRN Multiple myeloma Discharge Disposition: Home 05/18/2023 9:00 AM CDT Telemedicine MD [facility] [address] [place] [address] Ivory Todd APRN Multiple myeloma (Primary Dx) 05/18/2023 Orders Only [facility] [address] [facility] Main Bldg, 6th [place] [address] Ivory Todd APRN Multiple myeloma (Primary Dx) 05/17/2023 Refill [facility] [address] [facility] Main Bldg, 8th [place] [address] Merlyn Whtifield PA Vitamin D deficiency, not otherwise specified 05/16/2023 10:35 AM CDT - 05/16/2023 11:59 PM CDT Hospital Encounter [facility] [address] [place] [address] Main [facility], [place] [address] Ivory Todd APRN Multiple myeloma Discharge Disposition: Home 05/15/2023 Orders Only [facility] [address] [facility] Main Bldg, 6th [place] [address] Cheri Sanford APRN 04/20/2023 9:00 AM MARINE UNDERWRITER Telemedicine MD [facility] - [facility] [address]rd [place] [address] Ivory Todd APRN Multiple myeloma (Primary Dx) 04/20/2023 Orders Only [facility] Main Bldg, 6th [place] [address] Ivory Todd APRN Multiple myeloma (Primary Dx) 04/18/2023 8:57 AM MARINE UNDERWRITER - 04/18/2023 11:59 PM MARINE UNDERWRITER Hospital Encounter [facility] [address] [place] [address] Main [facility], [place] [address] Ivory Todd APRN Multiple myeloma Discharge Disposition: Home 03/21/2023 8:45 AM MARINE UNDERWRITER Follow-Up [facility] [address] [place] [address] Main Bldg, 6th [place] [address] Clay Murphy MD Multiple myeloma (Primary Dx) 03/21/2023 Travel 03/17/2023 3:30 PM MARINE UNDERWRITER - 03/17/2023 11:59 PM MARINE UNDERWRITER Hospital Encounter [facility] Treatment [facility] - Main Building [address] [place] [address] Main [facility], 2nd Floor, [place] [address] Ivory Todd APRN Tomakin, Christina A, RN Multiple myeloma (Primary Dx) Discharge Disposition: Home 03/17/2023 12:15 PM MARINE UNDERWRITER Ancillary Procedure Radiology Outpatient Center [facility] [place] [address] Ivory Todd APRN Multiple myeloma 03/17/2023 10:27 AM MARINE UNDERWRITER - 03/17/2023 3:29 PM MARINE UNDERWRITER Hospital Encounter [facility] [address] [place] [address] Main [facility], [place] [address] Ivory Todd APRN Multiple myeloma Discharge Disposition: Home 03/17/2023 10:26 AM MARINE UNDERWRITER Hospital Encounter [facility] [address] [facility] Main [facility], [place] [address] Ivory Todd APRN Multiple myeloma; Hemopoietic stem cell transplant Discharge Disposition: Home 03/17/2023 Travel 03/15/2023 Orders Only [facility] Main dg, 8th [place] [address] Merlyn Whitfield PA Hemopoietic stem cell transplant (Primary Dx) 03/14/2023 Refill [facility] Main dg, 8th [place] [address] Merlyn Whitfield PA Vitamin D deficiency, not otherwise specified 02/28/2023 8:30 AM MARINE UNDERWRITER Telemedicine [facility] [address] [place] [address] east of the [facility] entrance, [address] [place] [address] Yesenia Anna MD Tennison, Jegy, MD Peripheral neuropathy (Primary Dx); Chronic neck pain 02/16/2023 10:30 AM MARINE UNDERWRITER Telemedicine [facility], 6th [place] [address] Ivory Todd APRN Multiple myeloma (Primary Dx) 02/15/2023 9:15 AM MARINE UNDERWRITER Anesthesia Event [facility] [address] [facility], Floor 7 [place] [address] Chato Banks MD 02/15/2023 9:10 AM MARINE UNDERWRITER - 02/15/2023 10:10 AM MARINE UNDERWRITER Surgery [facility] [address] [facility], Floor 7 [place] [address] Domingo Valdes MD DIAGNOSTIC FLEXIBLE COLONOSCOPY PROXIMAL TO SPLENIC FLEXURE 02/15/2023 7:45 AM MARINE UNDERWRITER - 02/15/2023 11:00 AM MARINE UNDERWRITER Hospital Encounter [facility] [address] [facility], Floor 7 [place] [address] Domingo Valdes MD Discharge Disposition: Home 02/15/2023 Telephone [facility] [address] [place] [address], 6th [place] [address] Nuris Whitten RN 02/15/2023 Telephone [facility] [address] [place] [address] Main [facility], 6th [place] [address] Kalee Morejon RN 02/15/2023 Travel 02/14/2023 11:59 PM MARINE UNDERWRITER Anesthesia Event [facility] [address] [place] [address], 6th [place] [address] Ladan Bellamy RN 02/14/2023 4:30 PM MARINE UNDERWRITER POEM Appointments [facility] [address] [place] [address], 6th [place] [address] Clay Murphy MD 02/14/2023 9:23 AM MARINE UNDERWRITER - 02/14/2023 11:59 PM MARINE UNDERWRITER Hospital Encounter [facility] [address] [place] [address], [place] [address] Ivory Todd APRN Multiple myeloma Discharge Disposition: Home 02/02/2023 Refill [facility] [address] [place] [address], 8th [place] [address] Merlyn Whitfield PA Vitamin D deficiency, not otherwise specified 02/01/2023 Refill [facility]enterology[facility] Hepatology & Nutrition [address] [place] [address], 7th [place] [address] Teri Lott MA Colonoscopy planned (Primary Dx) 01/13/2023 8:45 AM MARINE UNDERWRITER Follow-Up [facility] [address] [place] [address] Main [facility], 6th [place] [address] Clay Murphy MD Multiple myeloma (Primary Dx) 01/13/2023 Refill [facility] [address] [place] [address], 6th [place] [address] Juan Oliveirakenton Mccoy 01/13/2023 Travel 01/12/2023 9:48 AM MARINE UNDERWRITER - 01/12/2023 11:59 PM MARINE UNDERWRITER Hospital Encounter [facility] [address] [place] [address], [place] [address] Ivory Todd, ONLINE BANKING SPECIALIST Multiple myeloma Discharge Disposition: Home 01/12/2023 9:46 AM MARINE UNDERWRITER - 01/12/2023 9:47 AM MARINE UNDERWRITER Hospital Encounter [facility] [address] [place] [address], [facility] [place] [address] Ivory Todd, ONLINE BANKING SPECIALIST Multiple myeloma Discharge Disposition: Home 12/15/2022 9:30 AM CDT Telemedicine [facility] [address] [place] [address], [facility] [place] [address] Ivory Todd APRN Multiple myeloma (Primary Dx) 12/14/2022 Telephone [facility] [address] [place] [address], [facility] [place] [address] Stuart Hood, RN 12/14/2022 Refill [facility] [address] [place] [address] Elizabeth Ambrocio, RUPERTO 12/13/2022 10:45 AM CDT Infusion [facility] [address] [place] [address] [facility], Floor 6 [place] [address] Clay Murphy MD Gellang, Abigail P, RN Multiple myeloma (Primary Dx) 12/13/2022 Travel 11/30/2022 Refill [facility] [address] [place] [address] Elizabeth Ambrocio, RUPERTO 11/17/2022 8:30 AM CDT Telemedicine [facility] [address] [place] [address], 6th [place] [address] Ivory Todd APRN Multiple myeloma (Primary Dx) 11/16/2022 Telephone [facility] [address] [place] [address] Main [facility], 6th [place] [address] Will Elena MA 11/11/2022 1:30 PM CDT Follow-Up [facility] [address] [place] [address] Main [facility], 8th [place] [address] Cecil Nowak MD Spasm of back muscles (Primary Dx); Hemopoietic stem cell transplant; Multiple myeloma 11/11/2022 11:12 AM CDT - 11/11/2022 11:59 PM CDT Hospital Encounter [facility] [address] [place] [address], [place] [address] Merlyn Whitfield PA Hemopoietic stem cell transplant; Multiple myeloma Discharge Disposition: Home 11/11/2022 11:12 AM CDT - 11/11/2022 11:59 PM CDT Hospital Encounter [facility] [address] [place] [address], [place] [address] Merlyn Whitfield PA Hemopoietic stem cell transplant; Multiple myeloma Discharge Disposition: Home 11/11/2022 Travel 11/02/2022 Refill [facility] [address] [place] [address], 8th [place] [address] Merlyn Whitfield PA Vitamin D deficiency, not otherwise specified 10/28/2022 8:30 AM CDT Consult [facility] - [facility]astroenterology, Hepatology & Nutrition [address] [place] [address], 7th [place] [address] Dimitrios Quiñonez MD Multiple myeloma 10/28/2022 Prep for Surgery [facility]enterology[facility] Hepatology & Nutrition [address] [place] [address], 7th [place] [address] Promise Pina, PA-C Screening for malignant neoplasm of colon (Primary Dx) 10/28/2022 Travel 10/21/2022 1:45 PM CDT Follow-Up [facility] [address] [place] [address], 6th Floor [address] [place] [id number] Clay Murphy MD Multiple myeloma (Primary Dx) 10/21/2022 11:23 AM CDT - 10/21/2022 11:59 PM CDT Hospital Encounter [facility] [address] [place] [address] [place] [address] Ivory Todd, RUPERTO Multiple myeloma Discharge Disposition: Home 10/21/2022 11:22 AM CDT Hospital Encounter [facility] [address] [place] [address] [place] [address] Gaurang Perkins, RUPERTO Multiple myeloma Discharge Disposition: Home 10/21/2022 Travel after 10/17/2022 Immunizations Name Administration Dates Next Due DTaP / IPV 11/11/2022,07/13/2022,05/13/2022 Hepatitis A 11/11/2022,05/13/2022 Hepatitis B 11/11/2022,07/13/2022,05/13/2022 Hib (PRP-OMP) 11/11/2022,07/13/2022,05/13/2022 Influenza Quadrivalent High Dose 11/11/2022 Influenza, injectable, quadr ivalent, preservative free 11/26/2019 Pneumococcal Conjugate 15-valent 11/11/2022,06/15,05/13/2022 Pneumococcal Conjugate 20-valent 08/23/2023 Zoster Recombinant 07/13/2022,05/13/2022 Surgical History Surgery Date Site/Laterality Comments WA COLONOSCOPY FLX DX W/COLLJ SPEC WHEN PFRMD 02/15/2023 N/A Procedure: DIAGNOSTIC FLEXIBLE COLONOSCOPY PROXIMAL TO SPLENIC FLEXURE; Surgeon: Domingo Valdes MD; Location: [facility]; Service: GASTROENTEROLOGY Medical History Medical History Date Comments Hypertension 2017 Hyperlipidemia 2017 Irregular heart beat 1960 Menopause 1992 Rheumatoid arthritis 2017 Arthritis 2017 Diabetes mellitus 2017 Family History Medical History Relation Name Comments Prostate cancer Father Able mayelaford Breast cancer Maternal Aunt 1 Margrett valladares Throat cancer Maternal Aunt 2 Nata Relation Name Status Comments Father Able [place] Maternal Aunt 1 Margrett valladares Maternal Aunt 2 Nata Social History [...] Sign Reading Time Taken Comments Blood Pressure 136/76 08/23/2023 11:44 AM CDT Pulse 61 08/23/2023 11:44 AM CDT Temperature 36.8 C (98.2 F) 08/23/2023 11:44 AM C DT Respiratory Rate 16 08/23/2023 11:44 AM CDT Oxygen Saturation 99% 08/23/2023 11:44 AM CDT Inhaled Oxygen Concentration - - Weight 78.7 kg (173 lb 8 oz) 08/23/2023 11:44 AM CDT Height - - Body Mass Index 28.91 10/06/2022 8:43 PM CDT Plan of Treatment Upcoming Encounters Date Type Department Care Team (Late st Contact Info) Description 11/07/2023 9:00 AM CDT Appointment [facility] [address] [place] [address], [place] [address] Ivoyr Todd, RUPERTO [address] [place] [email or web address] 11/10/2023 10:00 AM CDT Telemedicine [facility] [address] [place] [address], 6th [place] [address] Clay Murphy MD [facility] [place] [address] [email or web address] Health Maintenance Due Date Last Done Comments COVID-19 Vaccine (3 - Modern a risk series) 06/07/2020 05/10/2020, 04/12/2020 Retired Influenza Vaccine 10/15/20232022, 11/26/2019, 03/22/2018 Pneumococcal Vaccine: Pediat rics (0 to 5 Years) and At-Risk Patients (6 to 64 Years) Completed 08/23/2023, 11/11/2022, 07/13/2022, Additional history exists Procedures Procedure Name Priority Date/Time Associated Diagnosis Comments FREE KAPPA/FREE LAMBDA RATIO Routine 10/10/2023 9:23 AM CDT Multiple myeloma IMMUNOFIXATION ELECTROPHORESIS Routine 10/10/2023 9:23 AM CDT Multiple myeloma PROTEIN ELECTROPHORESIS Routine 10/10/19 9:23 AM CDT Multiple myeloma .CBC Routine 10/10/2023 9:23 AM CDT Multiple myeloma LACTATE DEHYDROGENASE Routine 10/10/2023 9:23 AM CDT Multiple myeloma BETA 2 MICROGLOBULIN Routine 10/10/2023 9:23 AM CDT Multiple myeloma SERUM PROTEIN ELECTROPHORESIS WITH REJI Routine 10/10/2023 9:23 AM CDT Multiple myeloma FREE LAMBDA LIGHT CHAIN Routine 10/10/19 9:23 AM CDT Multiple myeloma FREE KAPPA LIGHT CHAIN Routine 9:23 AM CDT Multiple myeloma IMMUNOGLOBULIN M Routine 10/10/2023 9:23 AM CDT Multiple myeloma IMMUNOGLOBULIN G Routine 10/10/2023 9:23 AM CDT Multiple myeloma IMMUNOGLOBULIN A Routine 10/10/2023 9:23 AM CDT Multiple myeloma FRACTIONATED BILIRUBIN Routine 9:23 AM CDT Multiple myeloma URIC ACID Routine 10/10/2023 9:23 AM CDT Multiple myeloma PHOSPHORUS LEVEL Routine 10/10/2023 9:23 AM CDT Multiple myeloma MAGNESIUM LEVEL Routine 10/10/2023 9:23 AM CDT Multiple myeloma COMPREHENSIVE METABOLIC PANEL Routine 10/10/2023 9:23 AM CDT Multiple myeloma COMPLETE BLOOD COUNT W/ DIFFERENTIAL Routine 10/10/2023 9:23 AM CDT Multiple myeloma DIFFERENTIAL Routine 09/12/2023 9:10 AM CDT Multiple myeloma FREE KAPPA/FREE LAMBDA RATIO Routine 09/12/2023 9:10 AM CDT Multiple myeloma IMMUNOFIXATION ELECTROPHORESIS Routine 09/12/2023 9:10 AM CDT Multiple myeloma PROTEIN ELECTROPHORESIS Routine 09/12/19 9:10 AM CDT Multiple myeloma .CBC Routine 09/12/2023 9:10 AM CDT Multiple myeloma LACTATE DEHYDROGENASE Routine 09/12/2023 9:10 AM CDT Multiple myeloma BETA 2 MICROGLOBULIN Routine 09/12/2023 9:10 AM CDT Multiple myeloma SERUM PROTEIN ELECTROPHORESIS WITH REJI Routine 09/12/2023 9:10 AM CDT Multiple myeloma FREE LAMBDA LIGHT CHAIN Routine 09/12/19 9:10 AM CDT Multiple myeloma FREE KAPPA LIGHT CHAIN Routine 9:10 AM CDT Multiple myeloma IMMUNOGLOBULIN M Routine 09/12/2023 9:10 AM CDT Multiple myeloma IMMUNOGLOBULIN G Routine 09/12/2023 9:10 AM CDT Multiple myeloma IMMUNOGLOBULIN A Routine 09/12/2023 9:10 AM CDT Multiple myeloma FRACTIONATED BILIRUBIN Routine 9:10 AM CDT Multiple myeloma URIC ACID Routine 09/12/2023 9:10 AM CDT Multiple myeloma PHOSPHORUS LEVEL Routine 09/12/2023 9:10 AM CDT Multiple myeloma MAGNESIUM LEVEL Routine 09/12/2023 9:10 AM CDT Multiple myeloma COMPREHENSIVE METABOLIC PANEL Routine 09/12/2023 9:10 AM CDT Multiple myeloma COMPLETE BLOOD COUNT W/ DIFFERENTIAL Routine 09/12/2023 9:10 AM CDT Multiple myeloma FREE KAPPA/FREE LAMBDA RATIO Routine 08/14/2023 10:04 AM CDT Multiple myeloma IMMUNOFIXATION ELECTROPHORESIS Routine 08/14/2023 10:04 AM CDT Multiple myeloma PROTEIN ELECTROPHORESIS Routine 08/14/19 10:04 AM CDT Multiple myeloma .CBC Routine 08/14/2023 10:04 AM CDT Multiple myeloma LACTATE DEHYDROGENASE Routine 08/14/2023 10:04 AM CDT Multiple myeloma BETA 2 MICROGLOBULIN Routine 08/14/2023 10:04 AM CDT Multiple myeloma SERUM PROTEIN ELECTROPHORESIS WITH REJI Routine 08/14/2023 10:04 AM CDT Multiple myeloma FREE LAMBDA LIGHT CHAIN Routine 08/14/19 10:04 AM CDT Multiple myeloma FREE KAPPA LIGHT CHAIN Routine 10:04 AM CDT Multiple myeloma IMMUNOGLOBULIN M Routine 08/14/2023 10:0 4 AM CDT Multiple myeloma IMMUNOGLOBULIN G Routine 08/14/2023 10:0 4 AM CDT Multiple myeloma IMMUNOGLOBULIN A Routine 08/14/2023 10:0 4 AM CDT Multiple myeloma FRACTIONATED BILIRUBIN Routine 10:04 AM CDT Multiple myeloma URIC ACID Routine 08/14/2023 10:04 AM CDT Multiple myeloma PHOSPHORUS LEVEL Routine 08/14/2023 10:0 4 AM CDT Multiple myeloma MAGNESIUM LEVEL Routine 08/14/2023 10:04 AM CDT Multiple myeloma COMPREHENSIVE METABOLIC PANEL Routine 08/14/2023 10:04 AM CDT Multiple myeloma COMPLETE BLOOD COUNT W/ DIFFERENTIAL Routine 08/14/2023 10:04 AM CDT Multiple myeloma FREE KAPPA/FREE LAMBDA RATIO Routine 07/18/2023 9:11 AM CDT Multiple myeloma IMMUNOFIXATION ELECTROPHORESIS Routine 07/18/2023 9:11 AM CDT Multiple myeloma PROTEIN ELECTROPHORESIS Routine 07/18/19 9:11 AM CDT Multiple myeloma .CBC Routine 07/18/2023 9:11 AM CDT Multiple myeloma THYROID STIMULATING HORMONE Routine 07/18/2023 9:11 AM CDT Multiple myeloma HEMOGLOBIN A1C Routine 07/18/2023 9:11 AM CDT Multiple myeloma VITAMIN B12 LEVEL Routine 07/18/2023 9:1 1 AM CDT Multiple myeloma LACTATE DEHYDROGENASE Routine 07/18/2023 9:11 AM CDT Multiple myeloma BETA 2 MICROGLOBULIN Routine 07/18/2023 9:11 AM CDT Multiple myeloma SERUM PROTEIN ELECTROPHORESIS WITH REJI Routine 07/18/2023 9:11 AM CDT Multiple myeloma FREE LAMBDA LIGHT CHAIN Routine 07/18/19 9:11 AM CDT Multiple myeloma FREE KAPPA LIGHT CHAIN Routine 9:11 AM CDT Multiple myeloma IMMUNOGLOBULIN M Routine 07/18/2023 9:11 AM CDT Multiple myeloma IMMUNOGLOBULIN G Routine 07/18/2023 9:11 AM CDT Multiple myeloma IMMUNOGLOBULIN A Routine 07/18/2023 9:11 AM CDT Multiple myeloma FRACTIONATED BILIRUBIN Routine 9:11 AM CDT Multiple myeloma URIC ACID Routine 07/18/2023 9:11 AM CDT Multiple myeloma PHOSPHORUS LEVEL Routine 07/18/2023 9:11 AM CDT Multiple myeloma MAGNESIUM LEVEL Routine 07/18/2023 9:11 AM CDT Multiple myeloma COMPREHENSIVE METABOLIC PANEL Routine 07/18/2023 9:11 AM CDT Multiple myeloma COMPLETE BLOOD COUNT W/ DIFFERENTIAL Routine 07/18/2023 9:11 AM CDT Multiple myeloma FREE KAPPA/FREE LAMBDA RATIO Routine 06/09/2023 9:27 AM CDT Multiple myeloma IMMUNOFIXATION ELECTROPHORESIS Routine 06/09/2023 9:27 AM CDT Multiple myeloma PROTEIN ELECTROPHORESIS Routine 06/09/19 9:27 AM CDT Multiple myeloma .CBC Routine 06/09/2023 9:27 AM CDT Multiple myeloma LACTATE DEHYDROGENASE Routine 06/09/2023 9:27 AM CDT Multiple myeloma BETA 2 MICROGLOBULIN Routine 06/09/2023 9:27 AM CDT Multiple myeloma SERUM PROTEIN ELECTROPHORESIS WITH REJI Routine 06/09/2023 9:27 AM CDT Multiple myeloma FREE LAMBDA LIGHT CHAIN Routine 06/09/19 9:27 AM CDT Multiple myeloma FREE KAPPA LIGHT CHAIN Routine 9:27 AM CDT Multiple myeloma IMMUNOGLOBULIN M Routine 06/09/2023 9:27 AM CDT Multiple myeloma IMMUNOGLOBULIN G Routine 06/09/2023 9:27 AM CDT Multiple myeloma IMMUNOGLOBULIN A Routine 06/09/2023 9:27 AM CDT Multiple myeloma FRACTIONATED BILIRUBIN Routine 9:27 AM CDT Multiple myeloma URIC ACID Routine 06/09/2023 9:27 AM CDT Multiple myeloma PHOSPHORUS LEVEL Routine 06/09/2023 9:27 AM CDT Multiple myeloma MAGNESIUM LEVEL Routine 06/09/2023 9:27 AM CDT Multiple myeloma COMPREHENSIVE METABOLIC PANEL Routine 06/09/2023 9:27 AM CDT Multiple myeloma COMPLETE BLOOD COUNT W/ DIFFERENTIAL Routine 06/09/2023 9:27 AM CDT Multiple myeloma URINE TOTAL PROTEIN 24 HOUR Routine 06/09/2023 9:24 AM CDT Multiple myeloma IMMUNOFIXATION ELECTROPHORESIS URINE Routine 06/09/2023 9:24 AM CDT Multiple myeloma PROTEIN ELECTROPHORESIS URINE Routine 06/09/2023 9:24 AM CDT Multiple myeloma PROTEIN ELECTROPHORESIS URINE WITH REJI Routine 06/09/2023 9:24 AM CDT Multiple myeloma FREE KAPPA/FREE LAMBDA RATIO Routine 05/16/2023 11:01 AM CDT Multiple myeloma IMMUNOFIXATION ELECTROPHORESIS Routine 05/16/2023 11:01 AM CDT Multiple myeloma PROTEIN ELECTROPHORESIS Routine 05/16/19 24 11:01 AM CDT Multiple myeloma .CBC Routine 05/16/2023 11:01 AM CDT Multiple myeloma LACTATE DEHYDROGENASE Routine 05/16/2023 11:01 AM CDT Multiple myeloma BETA 2 MICROGLOBULIN Routine 05/16/2023 11:01 AM CDT Multiple myeloma SERUM PROTEIN ELECTROPHORESIS WITH REJI Routine 05/16/2023 11:01 AM CDT Multiple myeloma FREE LAMBDA LIGHT CHAIN Routine 05/16/19 11:01 AM CDT Multiple myeloma FREE KAPPA LIGHT CHAIN Routine 11:01 AM CDT Multiple myeloma IMMUNOGLOBULIN M Routine 05/16/2023 11:0 1 AM CDT Multiple myeloma IMMUNOGLOBULIN G Routine 05/16/2023 11:0 1 AM CDT Multiple myeloma IMMUNOGLOBULIN A Routine 05/16/2023 11:0 1 AM CDT Multiple myeloma FRACTIONATED BILIRUBIN Routine 11:01 AM CDT Multiple myeloma URIC ACID Routine 05/16/2023 11:01 AM CDT Multiple myeloma PHOSPHORUS LEVEL Routine 05/16/2023 11:0 1 AM CDT Multiple myeloma MAGNESIUM LEVEL Routine 05/16/2023 11:01 AM CDT Multiple myeloma COMPREHENSIVE METABOLIC PANEL Routine 05/16/2023 11:01 AM CDT Multiple myeloma COMPLETE BLOOD COUNT W/ DIFFERENTIAL Routine 05/16/2023 11:01 AM CDT Multiple myeloma FREE KAPPA/FREE LAMBDA RATIO Routine 04/18/2023 9:30 AM MARINE UNDERWRITER Multiple myeloma IMMUNOFIXATION ELECTROPHORESIS Routine 04/18/2023 9:30 AM MARINE UNDERWRITER Multiple myeloma PROTEIN ELECTROPHORESIS Routine 04/18/19 9:30 AM MARINE UNDERWRITER Multiple myeloma .CBC Routine 04/18/2023 9:30 AM MARINE UNDERWRITER Multiple myeloma LACTATE DEHYDROGENASE Routine 04/18/2023 9:30 AM MARINE UNDERWRITER Multiple myeloma BETA 2 MICROGLOBULIN Routine 04/18/2023 9:30 AM MARINE UNDERWRITER Multiple myeloma SERUM PROTEIN ELECTROPHORESIS WITH REJI Routine 04/18/2023 9:30 AM MARINE UNDERWRITER Multiple myeloma FREE LAMBDA LIGHT CHAIN Routine 04/18/19 9:30 AM MARINE UNDERWRITER Multiple myeloma FREE KAPPA LIGHT CHAIN Routine 9:30 AM MARINE UNDERWRITER Multiple myeloma IMMUNOGLOBULIN M Routine 04/18/2023 9:30 AM MARINE UNDERWRITER Multiple myeloma IMMUNOGLOBULIN G Routine 04/18/2023 9:30 AM MARINE UNDERWRITER Multiple myeloma IMMUNOGLOBULIN A Routine 04/18/2023 9:30 AM MARINE UNDERWRITER Multiple myeloma URIC ACID Routine 04/18/2023 9:30 AM MARINE UNDERWRITER Multiple myeloma PHOSPHORUS LEVEL Routine 04/18/2023 9:30 AM MARINE UNDERWRITER Multiple myeloma MAGNESIUM LEVEL Routine 04/18/2023 9:30 AM MARINE UNDERWRITER Multiple myeloma COMPREHENSIVE METABOLIC PANEL Routine 04/18/2023 9:30 AM MARINE UNDERWRITER Multiple myeloma COMPLETE BLOOD COUNT W/ DIFFERENTIAL Routine 04/18/2023 9:30 AM MARINE UNDERWRITER Multiple myeloma MRI WHOLE BODY - BONE MARROW Routine 03/17/2023 2:41 PM MARINE UNDERWRITER Multiple myeloma URINE TOTAL PROTEIN 24 HOUR Routine 03/17/2023 10:43 AM MARINE UNDERWRITER Multiple myeloma IMMUNOFIXATION ELECTROPHORESIS URINE Routine 03/17/2023 10:43 AM MARINE UNDERWRITER Multiple myeloma PROTEIN ELECTROPHORESIS URINE Routine 03/17/2023 10:43 AM MARINE UNDERWRITER Multiple myeloma PROTEIN ELECTROPHORESIS URINE WITH REJI Routine 03/17/2023 10:43 AM MARINE UNDERWRITER Multiple myeloma FREE KAPPA/FREE LAMBDA RATIO Routine 03/17/2023 10:42 AM MARINE UNDERWRITER Multiple myeloma IMMUNOFIXATION ELECTROPHORESIS Routine 03/17/2023 10:42 AM MARINE UNDERWRITER Multiple myeloma PROTEIN ELECTROPHORESIS Routine 03/17/19 24 10:42 AM MARINE UNDERWRITER Multiple myeloma .CBC Routine 03/17/2023 10:42 AM MARINE UNDERWRITER Multiple myeloma VITAMIN D 25 HYDROXY LEVEL Routine 03/17/2023 10:42 AM MARINE UNDERWRITER Hemopoietic stem cell transplant LACTATE DEHYDROGENASE Routine 03/17/2023 10:42 AM MARINE UNDERWRITER Multiple myeloma BETA 2 MICROGLOBULIN Routine 03/17/2023 10:42 AM MARINE UNDERWRITER Multiple myeloma SERUM PROTEIN ELECTROPHORESIS WITH REJI Routine 03/17/2023 10:42 AM MARINE UNDERWRITER Multiple myeloma FREE LAMBDA LIGHT CHAIN Routine 03/17/19 24 10:42 AM MARINE UNDERWRITER Multiple myeloma FREE KAPPA LIGHT CHAIN Routine 10:42 AM MARINE UNDERWRITER Multiple myeloma IMMUNOGLOBULIN M Routine 03/17/2023 10:4 2 AM MARINE UNDERWRITER Multiple myeloma IMMUNOGLOBULIN G Routine 03/17/2023 10:4 2 AM MARINE UNDERWRITER Multiple myeloma IMMUNOGLOBULIN A Routine 03/17/2023 10:4 2 AM MARINE UNDERWRITER Multiple myeloma URIC ACID Routine 03/17/2023 10:42 AM MARINE UNDERWRITER Multiple myeloma PHOSPHORUS LEVEL Routine 03/17/2023 10:4 2 AM MARINE UNDERWRITER Multiple myeloma MAGNESIUM LEVEL Routine 03/17/2023 10:42 AM MARINE UNDERWRITER Multiple myeloma COMPREHENSIVE METABOLIC PANEL Routine 03/17/2023 10:42 AM MARINE UNDERWRITER Multiple myeloma COMPLETE BLOOD COUNT W/ DIFFERENTIAL Routine 03/17/2023 10:42 AM MARINE UNDERWRITER Multiple myeloma WA COLONOSCOPY FLX DX W/COLLJ SPEC WHEN PFRMD 02/15/2023 9:06 AM MARINE UNDERWRITER Screening for malignant neoplasm of colon FREE KAPPA/FREE LAMBDA RATIO Routine 02/14/2023 9:43 AM MARINE UNDERWRITER Multiple myeloma IMMUNOFIXATION ELECTROPHORESIS Routine 02/14/2023 9:43 AM MARINE UNDERWRITER Multiple myeloma PROTEIN ELECTROPHORESIS Routine 02/14/19 9:43 AM MARINE UNDERWRITER Multiple myeloma .CBC Routine 02/14/2023 9:43 AM MARINE UNDERWRITER Multiple myeloma LACTATE DEHYDROGENASE Routine 02/14/2023 9:43 AM MARINE UNDERWRITER Multiple myeloma BETA 2 MICROGLOBULIN Routine 02/14/2023 9:43 AM MARINE UNDERWRITER Multiple myeloma SERUM PROTEIN ELECTROPHORESIS WITH REJI Routine 02/14/2023 9:43 AM MARINE UNDERWRITER Multiple myeloma FREE LAMBDA LIGHT CHAIN Routine 01/02/20 24 9:43 AM MARINE UNDERWRITER Multiple myeloma FREE KAPPA LIGHT CHAIN Routine 9:43 AM MARINE UNDERWRITER Multiple myeloma IMMUNOGLOBULIN M Routine 02/14/2023 9:43 AM MARINE UNDERWRITER Multiple myeloma IMMUNOGLOBULIN G Routine 02/14/2023 9:43 AM MARINE UNDERWRITER Multiple myeloma IMMUNOGLOBULIN A Routine 02/14/2023 9:43 AM MARINE UNDERWRITER Multiple myeloma URIC ACID Routine 02/14/2023 9:43 AM MARINE UNDERWRITER Multiple myeloma PHOSPHORUS LEVEL Routine 02/14/2023 9:43 AM MARINE UNDERWRITER Multiple myeloma MAGNESIUM LEVEL Routine 02/14/2023 9:43 AM MARINE UNDERWRITER Multiple myeloma COMPREHENSIVE METABOLIC PANEL Routine 02/14/2023 9:43 AM MARINE UNDERWRITER Multiple myeloma COMPLETE BLOOD COUNT W/ DIFFERENTIAL Routine 02/14/2023 9:43 AM MARINE UNDERWRITER Multiple myeloma DIFFERENTIAL Routine 01/12/2023 10:05 AM MARINE UNDERWRITER Multiple myeloma FREE KAPPA/FREE LAMBDA RATIO Routine 01/12/2023 10:05 AM MARINE UNDERWRITER Multiple myeloma IMMUNOFIXATION ELECTROPHORESIS Routine 01/12/2023 10:05 AM MARINE UNDERWRITER Multiple myeloma PROTEIN ELECTROPHORESIS Routine 01/13/20 10:05 AM MARINE UNDERWRITER Multiple myeloma .CBC Routine 01/12/2023 10:05 AM MARINE UNDERWRITER Multiple myeloma URINE TOTAL PROTEIN 24 HOUR Routine 01/12/2023 10:05 AM MARINE UNDERWRITER Multiple myeloma IMMUNOFIXATION ELECTROPHORESIS URINE Routine 01/12/2023 10:05 AM MARINE UNDERWRITER Multiple myeloma PROTEIN ELECTROPHORESIS URINE Routine 01/12/2023 10:05 AM MARINE UNDERWRITER Multiple myeloma LACTATE DEHYDROGENASE Routine 01/12/2023 10:05 AM MARINE UNDERWRITER Multiple myeloma BETA 2 MICROGLOBULIN Routine 01/12/2023 10:05 AM MARINE UNDERWRITER Multiple myeloma SERUM PROTEIN ELECTROPHORESIS WITH REJI Routine 01/12/2023 10:05 AM MARINE UNDERWRITER Multiple myeloma FREE LAMBDA LIGHT CHAIN Routine 01/13/20 10:05 AM MARINE UNDERWRITER Multiple myeloma FREE KAPPA LIGHT CHAIN Routine 10:05 AM MARINE UNDERWRITER Multiple myeloma IMMUNOGLOBULIN M Routine 01/12/2023 10:0 5 AM MARINE UNDERWRITER Multiple myeloma IMMUNOGLOBULIN G Routine 01/12/2023 10:0 5 AM MARINE UNDERWRITER Multiple myeloma IMMUNOGLOBULIN A Routine 01/12/2023 10:0 5 AM MARINE UNDERWRITER Multiple myeloma URIC ACID Routine 01/12/2023 10:05 AM MARINE UNDERWRITER Multiple myeloma PHOSPHORUS LEVEL Routine 01/12/2023 10:0 5 AM MARINE UNDERWRITER Multiple myeloma MAGNESIUM LEVEL Routine 01/12/2023 10:05 AM MARINE UNDERWRITER Multiple myeloma COMPREHENSIVE METABOLIC PANEL Routine 01/12/2023 10:05 AM MARINE UNDERWRITER Multiple myeloma COMPLETE BLOOD COUNT W/ DIFFERENTIAL Routine 01/12/2023 10:05 AM MARINE UNDERWRITER Multiple myeloma PROTEIN ELECTROPHORESIS URINE WITH REJI Routine 01/12/2023 10:05 AM MARINE UNDERWRITER Multiple myeloma FREE KAPPA/FREE LAMBDA RATIO Routine [...] cell transplant Multiple myeloma ALANINE AMINOTRANSFERASE Routine 11:32 AM CDT Hemopoietic stem cell [...] myeloma DR. BUSH REJI PATH REVIEW Routine 11:39 AM CDT PROT ELEC PATH REVIEW [...] 11:39 AM CDT Multiple myeloma .[facility] RO[facility]AL [facility] PATH REVIEW Routine 10/21/2022 10:[address] ROYAL U PROT ELEC PATH REVIEW Routine 10/21/2022 10:00 AM CDT .TOTAL VOLUME Routine 10/21/2022 10:00 AM CDT URINE TOTAL PROTEIN 24 HOUR Routine 10/21/2022 10:00 AM CDT PROTEIN ELECTROPHORESIS URINE WITH REJI Routine 10/21/2022 10:00 AM CDT Multiple myeloma PROTEIN ELECTROPHORESIS URINE Routine 10/21/2022 10:00 AM CDT Multiple myeloma after 10/17/2022 Results * REJI (10/10/2023 9:23 AM CDT) Only the most recent of11 resultswithin the time period is included. Pathologist [facility] Interpretation Results Below 10/12/2023 7:32 PM CDT [facility]) Comment: Normal pattern. No monoclonal proteins detected. [facility] [address] [address],[address] [place] [address] Romelia Mayers MD, PhD Blood Peripheral blood specimen / Unknown Venipuncture / Unknown 10/10/2023 9:23 AM CDT 10/10/2023 9:29 AM CDT Narrative [facility] - 10/12/2023 7:32 PM CDT Performing Organization Information: [facility] [address] [address], [address] [place] [phone] Romelia Mayers MD,PhD Ivory Todd ONLINE BANKING SPECIALIST LAB BLOOD ORDER [facility] * (ABNORMAL) Serum Protein Electrophoresis (10/10/2023 9:23 AM CDT) Only the most recent of11 resultswithin the time period is included. Pathologist [facility] Protein 7.1 6.1 - 8.1 g/dL 10/12/2023 7:42 PM CDT [facility]) Albumin 3.7(L) 3.8 - 4.8 g/dL 10/12/2023 7:42 PM CDT [facility]) Alpha 1 globulin 0.3 0.2 - 0.3 g/dL 10/12/2023 7:42 PM CDT [facility]) Alpha 2 globulin 0.8 0.5 - 0.9 g/dL 10/12/2023 7:42 PM CDT [facility]) Beta 1 globulin 0.4 0.4 - 0.6 g/dL 10/12/2023 7:42 PM CDT [facility]) Beta 2 globulin 0.5 0.2 - 0.5 g/dL 10/12/2023 7:42 PM CDT [facility]) Gamma globulin 1.4 0.8 - 1.7 g/dL 10/12/2023 7:42 PM CDT [facility]) Protein.monoclonal band 1 DNR None Detected g/dL 10/12/2023 7:42 PM CDT [facility]) Protein.monoclonal band 2 DNR None Detected g/dL 10/12/2023 7:42 PM CDT [facility]) Protein.monoclonal band 3 DNR None Detected g/dL 10/12/2023 7:42 PM CDT [facility]) Protein pattern Results Below 10/12/2023 7:42 PM CDT [facility]) Comment: Abnormal appearing beta 2 globulin peak, possibly monoclonal. If clinically indicated, recommend immunotyping by capillary electrophoresis (Test Code: [id number]) for [facility] med fusion [address] [place] [address],[address] [place] [id number] Romelia Mayers MD, PhD Blood Peripheral blood specimen / Unknown Venipuncture / Unknown 10/10/2023 9:23 AM CDT 10/10/2023 9:29 AM CDT Narrative [facility] - 10/12/2023 7:42 PM CDT Performing Organization Information: [facility] [address] [place] [address], [address] [place] [phone] Romelia Mayers MD,PhD Ivory Todd ONLINE BANKING SPECIALIST LAB BLOOD ORDER [facility]UR[facility]) * (ABNORMAL) .CBC (10/10/2023 9:23 AM CDT) Only the most recent of13 resultswithin the time period is included. White Blood Cell 6.3 4.1 - 10.5 K/uL 10/10/2023 9:[address] [facility] Red Blood Cell 3.74(L) 3.99 - 5.46 M/uL 10/10/2023 9:[address] [facility] Hemoglobin 11.7(L) 12.2 - 15.3 g/dL 10/10/2023 9:[address] [facility] Hematocrit 35.5(L) 36.4 - 46.8 % 10/10/2023 9:[address] [facility] Mean Cell Volume 95 82 - 99 fL 10/10/2023 9:[address] [facility] Mean Cell Hemoglobin 31.3 26.6 - 33.2 pg 10/10/2023 9:[address] [facility] Mean Cell Hemoglobin Concentration 33.0 31.1 - 35.2 g/dL 10/10/2023 9:[address] [facility] RDW-SD 49.3 37.5 - 49.7 fL 10/10/2023 9:[address] [facility] Red Cell Diameter Width 14.1 11.6 - 15.5 % 10/10/2023 9:[address] [facility] Platelet 160 160 - 397 K/uL 10/10/2023 9:[address] [facility] Mean Platelet Volume 11.6 9.1 - 12.6 fL 10/10/2023 9:[address] [facility] INRBC 0.0 0.0 - 0.1 /100 WBC 10/10/2023 9:[address] [facility] Comment: The INRBC (instrument NRBC) value reflects the enumeration of nucleated red blood cells contained in a 200uL sample of whole blood analyzed by the instrument. This value may differ from the NRBC value reported in a manual differential, which is based on a 100 cell differential. Neutrophil % 59.1 43.2 - 72.7 % 10/10/2023 9:[address] [facility] Lymphocyte % 25.7 16.8 - 46.2 % 10/10/2023 9:[address] [facility] Monocyte % 10.2 5.1 - 12.5 % 10/10/2023 9:[address] [facility] Eosinophil % 4.1 0.4 - 6.3 % 10/10/2023 9:[address] [facility] Basophil % 0.6 0.2 - 1.4 % 10/10/2023 9:[address] [facility] IGRE % 0.3 0.1 - 1.5 % 10/10/2023 9:[address] [facility] Comment:The IGRE% includes M etamyelocytes, Myelocytes and Promyelocytes. Neutrophil Abs 3.72 1.95 - 7.25 K/uL 10/10/2023 9:[address] [facility] Lymphocyte Abs 1.62 1.01 - 3.24 K/uL 10/10/2023 9:[address] [facility] Monocyte Abs 0.64 0.24 - 0.85 K/uL 10/10/2023 9:[address] [facility] Eosinophil Abs 0.26 0.02 - 0.50 K/uL 10/10/2023 9:[address] [facility] Basophil Abs 0.04 0.02 - 0.09 K/uL 10/10/2023 9:[address] [facility] IG Abs 0.02 0.01 - 0.12 K/uL 10/10/2023 9:[address] [facility] Blood Peripheral blood specimen / Unknown Venipuncture / Unknown 10/10/2023 9:23 AM CDT 10/10/2023 9:29 AM CDT Ivory Todd APRN LAB BLOOD ORDER [facility]URA [facility] Unless otherwise noted, all lab tests performed by: Division of Pathology and Laboratory Medicine [address] [place] [id number] * Free Pierson/Free Lambda Ratio (10/10/2023 9:23 AM CDT) Only the most recent of13 resultswithin the time period is included. [facility] Free Pierson/ Free Lambda Ratio 1.34 0.26 - 1.65 10/10/2023 3:20 PM CDT [facility] Blood Peripheral blood specimen / Unknown Venipuncture / Unknown 10/10/2023 9:23 AM CDT 10/10/2023 9:29 AM CDT Ivory Todd APRN LAB BLOOD ORDER [facility]UR[facility] Unless otherwise noted, all lab tests performed by: Division of Pathology and Laboratory Medicine [address] [place] [id number] * Fractionated Bilirubin (10/10/2023 9:23 AM CDT) Only the most recent of8 resultswithin the time period is included. [facility] Bilirubin Direct <0.2 0.0 - 0.3 mg/dL 10/10/2023 10:[address] [facility] Comment:Indocyanine Green (I CG) may cause falsely elevated bilirubin results. Total and direct bilirubin must not be measured from samples containing indocyanine green. Bilirubin Indirect 2023 10:[address] [facility] Comment:Unable to calculate Indirect Bilirubin result due to some parameters are outside reportable range Bilirubin Total 0.3 0.0 - 1.2 mg/dL 10/10/2023 10:[address] [facility] Comment: Indocyanine Green (ICG) may cause falsely elevated bilirubin results. Total and direct bilirubin must not be measured from samples containing indocyanine green. False elevation of total bilirubin can be seen in patients with IgG concentrations above 28 g/L. Indocyanine Green (ICG) may cause falsely elevated bilirubin results. Total and direct bilirubin must not be measured from samples containing indocyanine green. False elevation of total bilirubin can be seen in patients with IgG concentrations above 28 g/L. Blood Peripheral blood specimen / Unknown Venipuncture / Unknown 10/10/2023 9:23 AM CDT 10/10/2023 9:29 AM CDT Ivory Todd RUPERTO LAB BLOOD ORDER [facility]UR[facility] Unless otherwise noted, all lab tests performed by: Division of Pathology and Laboratory Medicine [address] [place] [id number] * Comprehensive Metabolic Panel (10/10/2023 9:23 AM CDT) Only the most recent of11 resultswithin the time period is included. Bilirubin Total 0.3 0.0 - 1.2 mg/dL 10/10/2023 10:[address] [facility] Comment:Indocyanine Green (I CG) may cause falsely elevated bilirubin results. Total and direct bilirubin must not be measured from samples containing indocyanine green. False elevation of total bilirubin can be seen in patients with IgG concentrations above 28 g/L. eGFR 67 >=60 mL/min/1. 73 sq. m 10/10/2023 10:[address] [facility] Comment: The eGFRcr is calculated with the [...] G2 fulfill criteria for CKD. Tot Protein 7.6 6.4 - 8.3 gm/dL 10/10/2023 10:19 AM [facility] Calcium Level Total 9.3 8.2 - 10.2 mg/dL 10/10/2023 10:19 AM [facility] Alkaline Phosphatase 91 35 - 104 U/L 10/10/2023 10:19 AM [facility] Albumin Level 4.0 3.5 - 5.2 gm/dL 10/10/2023 10:19 AM [facility] AST 24 <=32 U/L 10/10/2023 10:19 AM [facility] ALT 24 <=33 U/L 10/10/2023 10:19 AM [facility] Sodium Level 142 136 - 145 mmol/L 10/10/2023 10:19 AM [facility] Potassium Level 4.1 3.4 - 4.5 mmol/L 10/10/2023 10:19 AM [facility] Chloride 106 98 - 107 mmol/L 10/10/2023 10:19 AM [facility] CO2 29 22 - 29 mmol/L 10/10/2023 10:19 AM [facility] Anion Gap 7 4 - 14 mmol/L 10/10/2023 10:19 AM [facility] Creatinine 0.95 0.51 - 0.95 mg/dL 10/10/2023 10:19 AM [facility] BUN 10 6 - 23 mg/dL 10/10/2023 10:19 AM [facility] Glucose Level 94 70 - 99 mg/dL 10/10/2023 10:19 AM [facility] Comment: Effective 09/09/15, the glucose reference intervals have been updated based on [employer] guidelines (Standards of Medical Care in Diabetes 2016. Diabetes Care 2016; 39: S13-S22). Fasting blood glucose: Normal: 70-99 mg/dL Impaired fasting glucose (increased risk for diabetes or pre-diabetes): 100-125 mg/dL Diabetes mellitus: >/=126 mg/dL Random blood glucose: Normal: 70-199 mg/dL Note: Random glucose >100 mg/dL is associated with increased risk for diabetes. Blood Peripheral blood specimen / Unknown Venipuncture / Unknown 10/10/2023 9:23 AM CDT 10/10/2023 9:29 AM CDT Ivory Todd APRN LAB BLOOD ORDER [facility] Unless otherwise noted, all lab tests performed by: Division of Pathology and Laboratory Medicine [address] [place] [phone] * (ABNORMAL) Free Lambda Light Chain (10/10/2023 9:23 AM CDT) Only the most recent of13 resultswithin the time period is included. Free Lambda Light chain 35.10(H) 5.71 - 26.30 mg/L 10/10/2023 3:20 PM CDT [facility] Blood Peripheral blood specimen / Unknown Venipuncture / Unknown 10/10/2023 9:23 AM CDT 10/10/2023 9:29 AM CDT Ivory Todd APRN LAB BLOOD ORDER [facility] Performing Organization Address City/[facility] Co de Phone Number [facility] Unless otherwise noted, all lab tests performed by: Division of Pathology and Laboratory Medicine [address] [place] [phone] * (ABNORMAL) Free [place] Light Chain (10/10/2023 9:23 AM CDT) Only the most recent of13 resultswithin the time period is included. Free [place] 46.86(H) 3.30 - 19.40 mg/L 10/10/2023 3:20 PM CDT [facility] Blood Peripheral blood specimen / Unknown Venipuncture / Unknown 10/10/2023 9:23 AM CDT 10/10/2023 9:29 AM CDT Ivory Todd APRN LAB BLOOD ORDER LAURA [facility] Unless otherwise noted, all lab tests performed by: Division of Pathology and Laboratory Medicine [address] [place] [address] [phone] * Uric Acid (10/10/2023 9:23 AM CDT) Only the most recent of13 resultswithin the time period is included. Uric Acid 3.8 2.4 - 5.7 mg/dL 10/10/2023 10:[address] [facility] Blood Peripheral blood specimen / Unknown Venipuncture / Unknown 10/10/2023 9:23 AM CDT 10/10/2023 9:29 AM CDT Ivory Todd APRN LAB BLOOD ORDER LAURA Performing Organization Address City/[facility] Co de Phone Number [facility] Unless otherwise noted, all lab tests performed by: Division of Pathology and Laboratory Medicine [address] [place] [address] [phone] * Phosphorus Level (10/10/2023 9:23 AM CDT) Only the most recent of13 resultswithin the time period is included. Phosphorus Level 3.1 2.5 - 4.5 mg/dL 10/10/2023 10:[address] [facility] Blood Peripheral blood specimen / Unknown Venipuncture / Unknown 10/10/2023 9:23 AM CDT 10/10/2023 9:29 AM CDT Ivory Todd APRN LAB BLOOD ORDER LAURA Performing Organization Address City/[facility]/ZIP Co de Phone Number [facility] Unless otherwise noted, all lab tests performed by: Division of Pathology and Laboratory Medicine [address] [place] [address] [id number] * Magnesium Level (10/10/2023 9:23 AM CDT) Only the most recent of13 resultswithin the time period is included. Magnesium Level 1.8 1.6 - 2.6 mg/dL 10/10/2023 10:[address] [facility] Blood Peripheral blood specimen / Unknown Venipuncture / Unknown 10/10/2023 9:23 AM CDT 10/10/2023 9:29 AM CDT Ivory Todd APRN LAB BLOOD ORDER LAURA Performing Organization Address City/[facility] Co de Phone Number [facility] Unless otherwise noted, all lab tests performed by: Division of Pathology and Laboratory Medicine [address] [place] [address] [phone] * LDH (10/10/2023 9:23 AM CDT) Only the most recent of13 resultswithin the time period is included. LDH 198 135 - 214 U/L 10/10/2023 10:[address] [facility] Blood Peripheral blood specimen / Unknown Venipuncture / Unknown 10/10/2023 9:23 AM CDT 10/10/2023 9:[address] [facility] - 10/10/2023 10:19 AM CDT Results greater than 1651 U/L may not be reliable due to matrix effect with extended dilution as it exceeds the roller inspector's recommended limit. Caution should be exercised when interpreting such values and done in conjunction with clinical context. Authorizing Provider Result Edil Todd APRN LAB BLOOD ORDER LAURA Performing Organization Address [facility] de Phone Number [facility] Unless otherwise noted, all lab tests performed by: Division of Pathology and Laboratory Medicine [address] [place] [address] [phone] * IgA (10/10/2023 9:23 AM CDT) Only the most recent of13 resultswithin the time period is included. IgA 279 85 - 499 mg/dL 10/10/2023 3:20 PM CDT [facility] Blood Peripheral blood specimen / Unknown Venipuncture / Unknown 10/10/2023 9:23 AM CDT 10/10/2023 9:29 AM CDT Ivory Todd APRN LAB BLOOD ORDER LAURA [facility] Unless otherwise noted, all lab tests performed by: Division of Pathology and Laboratory Medicine [address] [place] [address] 08457 * IgM (10/10/2023 9:23 AM CDT) Only the most recent of13 resultswithin the time period is included. Pathologist [facility] IgM 128 35 - 242 mg/dL 10/10/2023 3:20 PM CDT [facility] Blood Peripheral blood specimen / Unknown Venipuncture / Unknown 10/10/2023 9:23 AM CDT 10/10/2023 9:29 AM CDT Ivory Todd APRN LAB BLOOD ORDER LAURA Performing Organization Address [facility] Co de Phone Number [facility] Unless otherwise noted, all lab tests performed by: Division of Pathology and Laboratory Medicine [address] [place] [address] [phone] * IgG (10/10/2023 9:23 AM CDT) Only the most recent of13 resultswithin the time period is included. [facility] IgG 1,452 610 - 1,616 mg/dL 10/10/2023 3:20 PM CDT [facility] Blood Peripheral blood specimen / Unknown Venipuncture / Unknown 10/10/2023 9:23 AM CDT 10/10/2023 9:29 AM CDT Ivory Todd APRN LAB BLOOD ORDER LAURA [facility] Unless otherwise noted, all lab tests performed by: Division of Pathology and Laboratory Medicine [address] [place] [address] [phone] * (ABNORMAL) Beta 2 Microglobulin (10/10/2023 9:23 AM CDT) Only the most recent of13 resultswithin the time period is included. [facility] Beta 2 Microglobulin 2.40(H) 0.80 - 2.30 mg/L 10/10/2023 3:20 PM CDT [facility] Blood Peripheral blood specimen / Unknown Venipuncture / Unknown 10/10/2023 9:23 AM CDT 10/10/2023 9:29 AM CDT Narrative [facility] - 10/10/2023 3:20 PM CDT This test is measured by turbidimetric methodology on The Binding Site Optilite analyzer. Results obtained in different methods are not interchangeable. Ivory Todd APRN LAB BLOOD ORDER LAURA [facility] Unless otherwise noted, all lab tests performed by: Division of Pathology and Laboratory Medicine [facility] [place] [address] * (ABNORMAL) Differential (09/12/2023 9:10 AM CDT) Only the most recent of4 resultswithin the time period is included. Total Cells 100 09/12/2023 12:[address] [facility] Manual Neutrophil % 35.0(L) 43.2 - 72.7 % 09/12/2023 12:[address] [facility] Comment:The Neutrophil count includes Bands. Manual Lymphocyte % 57.0(H) 16.8 - 46.2 % 09/12/2023 12:[address] [facility] Manual Monocyte % 5.0(L) 5.1 - 12.5 % 09/12/2023 12:[address] [facility] Manual Eosinophil % 3.0 0.4 - 6.3 % 09/12/2023 12:[address] [facility] Metamyelocyte % 12:[address] [facility] Comment:The Metamyelocyte co unt includes Myelocytes. Manual Neutrophil Abs 1.16(L) 1.95 - 7.25 K/uL 09/12/2023 12:[address] [facility] Manual Lymphocyte Abs 1.88 1.01 - 3.24 K/uL 09/12/2023 12:[address] [facility] Manual Monocyte Abs 0.17(L) 0.24 - 0.85 K/uL 09/12/2023 12:[address] [facility] Manual Eosinophil Abs 0.10 0.02 - 0.50 K/uL 09/12/2023 12:[address] [facility] RBC Morphology PRESENT 09/12/2023 12:[address] [facility] Ovalocyte Present(A) (none) 09/12/2023 12:[address] [facility] Conor Cells Present(A) (none) 09/12/2023 12:[address] [facility] Smudge Cells Present(A) (none) 09/12/2023 12:[address] [facility] Blood Peripheral blood specimen / Unknown Venipuncture / Unknown 09/12/2023 9:10 AM CDT 09/12/2023 9:15 AM CDT Ivory Todd APRN LAB BLOOD ORDER LAURA Performing Organization Address City/[facility]/ZIP Co de Phone Number [facility] Unless otherwise noted, all lab tests performed by: Division of Pathology and Laboratory Medicine [address] [place] [address] [phone] * TSH (07/18/2023 9:11 AM CDT) Pathologist [facility] Thyroid Stimulating Hormone 1.29 0.27 - 4.20 mcunit/mL 07/18/2023 10:[address] [facility] Blood Peripheral blood specimen / Unknown Venipuncture / Unknown 07/18/2023 9:11 AM CDT 07/18/2023 9:19 AM CDT Erica Rush APRN,MELT ROOM OPERATOR LAB BLOOD ORDERABLE S [facility] Unless otherwise noted, all lab tests performed by: Division of Pathology and Laboratory Medicine [address] [place] [address] [phone] * Hemoglobin A1c (07/18/2023 9:11 AM CDT) Hemoglobin A1c 5.6 4.3 - 5.6 % 07/18/2023 9:43 AM CDT [facility] Blood Peripheral blood specimen / Unknown Venipuncture / Unknown 07/18/2023 9:11 AM CDT 07/18/2023 9:19 AM CDT Narrative [facility] - 07/18/2023 9:43 AM CDT HbA1c values >=6.5% are diagnostic of diabetes mellitus. Diagnosis should be confirmed by repeat testing. Therapeutic Action suggested: >8.0% HbA1c; Goal of therapy: <7.0% HbA1c TARA Guevara APRN LAB BLOOD ORDERABLE S [facility] Unless otherwise noted, all lab tests performed by: Division of Pathology and Laboratory Medicine [address] [place] [address] [phone] * Vitamin B12 Level (07/18/2023 9:11 AM CDT) [facility] Vitamin B12 Level 325 232 - 1,245 pg/mL 07/18/2023 9:57 AM CDT [facility] Comment:Reference range esta blished based on adult population Is patient fasting? Yes 07/18/2023 9:[address] [facility] Blood Peripheral blood specimen / Unknown Venipuncture / Unknown 07/18/2023 9:11 AM CDT 07/18/2023 9:14 AM CDT TARA Guevara APRN LAB BLOOD ORDERABLE S [facility] Unless otherwise noted, all lab tests performed by: Division of Pathology and Laboratory Medicine [address] [place] [id number] [place] [address] Unless otherwise noted, all lab tests performed by: Division of Pathology and Laboratory Medicine [address] [place] [address] [phone] * REJI Urine (06/09/2023 9:24 AM CDT) Only the most recent of3 resultswithin the time period is included. [facility] Urine Immunofixation See Comment 09/28/2023 10:19 AM CDT [facility] UIFE Path Interp The follow-up urine protein immunofixation electrophoretic patterns obtained with the use of antisera against IgG, IgA, IgM, bound kappa and bound lambda light chains, free kappa and free lambda light chains do not show definitive evidence of a Bence-Lee proteinuria. 09/28/2023 10:19 AM CDT [facility] Pathologist Signature . 09/28/2023 10:19 AM CDT [facility] Urine 24 Hr Voided urine specimen / Unknown Non-blood Collection / Unknown 06/09/2023 9:24 AM CDT 06/09/2023 10:47 AM CDT Ivory Todd APRN URINE ORDERABLE S [facility] Unless otherwise noted, all lab tests performed by: Division of Pathology and Laboratory Medicine [address] [place] [address] [phone] * Protein Electrophoresis Urine (06/09/2023 9:24 AM CDT) Only the most recent of3 resultswithin the time period is included. Urine Albumin % 36.1 % 09/28/2023 10:18 AM CDT [facility] U Globulin % 63.9 % 09/28/2023 10:18 AM CDT [facility] U ProE Path Interp The follow-up urine protein electrophoretic pattern does not show definitive evidence of a Bence-Lee protein peak. 09/28/2023 10:18 AM CDT [facility] Pathologist Signature . 09/28/2023 10:18 AM CDT [facility] Urine 24 Hr Voided urine specimen / Unknown Non-blood Collection / Unknown 06/09/2023 9:24 AM CDT 06/09/2023 10:47 AM CDT Ivory Todd APRN URINE ORDERABLE S Performing Organization Address City/[facility]/ZIP Co de Phone Number [facility] Unless otherwise noted, all lab tests performed by: Division of Pathology and Laboratory Medicine [address] [place] [address] [phone] * 24hr Urine Total Protein (06/09/2023 9:24 AM CDT) Only the most recent of5 resultswithin the time period is included. Urine Total Protein 6 mg/dL 06/09/2023 11:51 AM CDT [facility] Comment:Caution is advised w hen interpreting values greater than 555 mg/dL. Results requiring extended dilution beyond the roller inspector's recommended limit may not dilute linearly due to potential matrix effect. Correlation with clinical context is recommended. Urine Total Pro per Total volume 96 <=149 mg/24hr 06/09/2023 11:51 AM CDT [facility] Total Volume 1,600 mL/24hr 06/09/2023 11:51 AM CDT [facility] Hours Collected 24 hr 11:51 AM CDT [facility] Start Date 06/08/2023 06/09/2023 11:51 AM CDT [facility] Start Time 9:00 AM 06/09/2023 11:51 AM CDT [facility] End Date 06/09/2023 06/09/2023 11:51 AM CDT [facility] End Time 9:00 AM 06/09/2023 11:51 AM CDT [facility] How many jugs collected? 1 06/09/2023 11:51 AM CDT [facility] Urine 24 Hr Voided urine specimen / Unknown Non-blood Collection / Unknown 06/09/2023 9:24 AM CDT 06/09/2023 10:47 AM CDT Ivory Todd APRN URINE ORDERABLE S [facility] Unless otherwise noted, all lab tests performed by: Division of Pathology and Laboratory Medicine [address] [place] [address] [phone] * MRI WB Bone Marrow (03/17/2023 2:41 PM MARINE UNDERWRITER) Anatomical Region Laterality Modality Whole Body Magnetic Resonan ce 03/20/2023 8:52 AM MARINE UNDERWRITER Impressions 03/20/2023 9:24 AM MARINE UNDERWRITER No evidence of active myeloma. ACTIONABLE ITEMS/RECOMMENDATIONS*: None. Narrative 03/20/2023 9:24 AM MARINE UNDERWRITER FULL RESULT: Examination: MRI WHOLE BODY - [...] myeloma. ACTIONABLE ITEMS/RECOMMENDATIONS*: None. Ivory Todd APRN [facility] MRI ORDERAB LES * Vitamin D 25OH (03/17/2023 10:42 AM MARINE UNDERWRITER) Only the most recent of2 resultswithin the time period is included. Pathologist [facility] Vitamin D 25 OH 53 30 - 100 ng/mL 03/17/2023 11:49 AM MARINE UNDERWRITER [facility] Blood Peripheral blood specimen / Unknown Venipuncture / Unknown 03/17/2023 10:42 AM MARINE UNDERWRITER 03/17/2023 10:45 AM MARINE UNDERWRITER Narrative [facility] - 03/17/2023 11:49 AM MARINE UNDERWRITER Reference Range: Deficiency: <=20 ng/mL Insufficiency: 21-29 ng/mL Sufficiency: 30-100 ng/mL Potential toxicity: >100 ng/mL JED Warner LAB BLOOD ORDERABLES [facility] Unless otherwise noted, all lab tests performed by: Division of Pathology and Laboratory Medicine [address] [place] [address] * .Serum Creatinine (11/11/2022 11:32 AM CDT) Only the most recent of2 resultswithin the time period is included. [facility] Creatinine 0.82 0.51 - 0.95 mg/dL [facility] Blood 11/11/2022 11:3 2 AM CDT 11/11/2022 11:40 AM CDT JED Warner LAB BLOOD ORDERABLES Performing Organization Address City/[facility] Co de Phone Number [facility] Unless otherwise noted, all lab tests performed by: Division of Pathology and Laboratory Medicine [address] [place] [address] [phone] * Protein Electrophoresis Path Review (11/11/2022 11:32 AM CDT) [facility] SPE Path Interp The follow-up serum protein electrophoretic pattern does not show definitive evidence of an M-protein peak. [facility] Comment: MD Homer OLIVEIRA [id number] Dictated by: MD Homer [id number] Dictated Date/Time: 11.22.2022 17:43 PM CDT Transcribed Date/Time: 11.22.2022 17:43 PM CDT Electronically Signed By: MD Homer [id number] on 11.22.2022 17:43 PM Blood 11/11/2022 11:3 2 AM CDT 11/11/2022 2:34 PM CDT JED Warner LAB BLOOD ORDERABLES Performing Organization Address City/[facility] Co de Phone Number [facility] Unless otherwise noted, all lab tests performed by: Division of Pathology and Laboratory Medicine [address] [place] [address] [phone] * REJI Path Review (11/11/2022 11:32 AM CDT) REJI Path Int The follow-up serum protein immunofixation electrophoretic patterns obtained with the use of antisera against IgG, IgA, IgM, bound kappa and bound lambda light chains can not completely rule out the presence of a residual IgG kappa M-protein. Correlation with the clinical findings, consequently, is recommended. [facility] Comment: MD Homer OLIVEIRA [id number] Dictated by: MD Homer [id number] Dictated Date/Time: 11.22.2022 17:43 PM CDT Transcribed Date/Time: 11.22.2022 17:43 PM CDT Electronically Signed By: MD Homer OLIVEIRA on 11.22.2022 17:43 PM Blood 11/11/2022 11:3 2 AM CDT 11/11/2022 2:34 PM CDT JED Warner LAB BLOOD ORDERABLES Performing Organization Address City/[facility]/ZIP Co de Phone Number [facility] Unless otherwise noted, all lab tests performed by: Division of Pathology and Laboratory Medicine [address] [place] [address] [phone] * Clot Expiration Date (11/11/2022 11:32 AM CDT) Only the most recent of2 resultswithin the time period is included. T & S Expiration 11/14/2022 [facility] Blood 11/11/2022 11:3 2 AM CDT 11/11/2022 1:41 PM CDT JED Warner BLOOD BANK TEST ORDE RABMANE [facility] Unless otherwise noted, all lab tests performed by: Division of Pathology and Laboratory Medicine [address] [place] [address] * Glomerular Filtration Rate (11/11/2022 11:32 AM CDT) Only the most recent of2 resultswithin the time period is included. eGFR 80 >=60 mL/min/1.7 3 sq. m [facility] Comment: The eGFRcr is calculated with [...] Warner LAB BLOOD ORDERABLES Performing Organization Address City/[facility] Co de Phone Number [facility] Unless otherwise noted, all lab tests performed by: Division of Pathology and Laboratory Medicine [address] [place] [address] [phone] * TMP Interpretation Antibody Screen Negative (11/11/2022 11:32 AM CDT) Only the most recent of2 resultswithin the time period is included. Pathologist [facility] TMP Auto Neg ABSC Interp At the present time, patient plasma shows no evidence of RBC alloantibodi es. [facility] Comment: MD Homer SHERIDAN [id number] Dictated by: MD Homer SHERIDAN Dictated Date/Time: 11.11.2022 17:07 PM CDT Transcribed Date/Time: 11.11.2022 17:07 PM CDT Electronically Signed By: MD Homer SHERIDAN on 11.11.2022 17:07 PM Blood 11/11/2022 11:3 2 AM CDT 11/11/2022 1:41 PM CDT JED Warner BLOOD BANK TEST RAY BASILIO Performing Organization Address [facility] Co de Phone Number [facility] Unless otherwise noted, all lab tests performed by: Division of Pathology and Laboratory Medicine [address] [place] [address] [phone] * ABORh (11/11/2022 11:32 AM CDT) Only the most recent of2 resultswithin the time period is included. Pathologist [facility] ABORh. B POS RI MD CRAIG [facility] Blood 11/11/2022 11:3 2 AM CDT 11/11/2022 1:41 PM CDT JED Warner BLOOD BANK TEST ORDE PRAFUL Performing Organization Address City/[facility] Co de Phone Number [facility] Unless otherwise noted, all lab tests performed by: Division of Pathology and Laboratory Medicine [address] [place] [address] [phone] * Antibody Screen (11/11/2022 11:32 AM CDT) Only the most recent of2 resultswithin the time period is included. ABSC. Negative ABSC [facility] Blood 11/11/2022 11:3 2 AM CDT 11/11/2022 1:41 PM CDT JED Warner BLOOD BANK TEST ORDE RABLES Performing Organization Address [facility] Co de Phone Number [facility] Unless otherwise noted, all lab tests performed by: Division of Pathology and Laboratory Medicine [address] [place] [address] [phone] * Immunofixation electrophoresis (11/11/2022 11:32 AM CDT) Only the most recent of2 resultswithin the time period is included. Pathologist [facility] REJI See Comment [facility] Blood 11/11/2022 11:3 2 AM CDT 11/11/2022 12:09 PM CDT JED Warner LAB BLOOD ORDERABLES Performing Organization Address [facility] Co de Phone Number [facility] Unless otherwise noted, all lab tests performed by: Division of Pathology and Laboratory Medicine [address] [place] [address] [phone] * BUN (11/11/2022 11:32 AM CDT) Only the most recent of2 resultswithin the time period is included. [facility] BUN 14 6 - 23 mg/dL [facility] Blood 11/11/2022 11:3 2 AM CDT 11/11/2022 11:40 AM CDT JED Warner LAB BLOOD ORDERABLES [facility] Unless otherwise noted, all lab tests performed by: Division of Pathology and Laboratory Medicine [address] [place] [address] [phone] * (ABNORMAL) ALT (11/11/2022 11:32 AM CDT) Only the most recent of2 resultswithin the time period is included. ALT 55(H) <=33 U/L [facility] Blood 11/11/2022 11:3 2 AM CDT 11/11/2022 11:40 AM CDT JED Warner LAB BLOOD ORDERABLES Performing Organization Address City/[facility] Co de Phone Number [facility] Unless otherwise noted, all lab tests performed by: Division of Pathology and Laboratory Medicine [address] [place] [address] [phone] * (ABNORMAL) Aspartate Aminotransferase (11/11/2022 11:32 AM CDT) Only the most recent of2 resultswithin the time period is included. Pathologist [facility] AST 33(H) <=32 U/L RI KIARA [facility] Blood 11/11/2022 11:3 2 AM CDT 11/11/2022 11:40 AM CDT JED Warner LAB BLOOD ORDERABLES Performing Organization Address City/[facility]/ZIP Co de Phone Number [facility] Unless otherwise noted, all lab tests performed by: Division of Pathology and Laboratory Medicine [address] [place] [address] [phone] * Protein Electrophoresis (SPEP) (11/11/2022 11:32 AM CDT) Only the most recent of2 resultswithin the time period is included. TOT PROTEIN 7.7 6.4 - 8.3 gm/dL [facility] Albumin 4.2 3.6 - 5.4 gm/dL [facility] Alpha 1 Globulin 0.3 0.2 - 0.4 gm/dL [facility] Alpha 2 Globulin 0.8 0.5 - 1.0 gm/dL [facility] Beta Globulin 0.8 0.5 - 1.1 gm/dL [facility] Gamma Globulin 1.6 0.7 - 1.6 gm/dL [facility] Paraprotein1 0.0 0.0 - 0.0 gm/dL [facility] Blood 11/11/2022 11:3 2 AM CDT 11/11/2022 12:09 PM CDT JED Warner LAB BLOOD ORDERABLES [facility] Unless otherwise noted, all lab tests performed by: Division of Pathology and Laboratory Medicine [address] [place] [address] * Total Protein (11/11/2022 11:32 AM CDT) Only the most recent of2 resultswithin the time period is included. Total Protein 7.7 6.4 - 8.3 g/dL [facility] Blood 11/11/2022 11:3 2 AM CDT 11/11/2022 11:40 AM CDT JED Warner LAB BLOOD ORDERABLES Performing Organization Address [facility] Co de Phone Number [facility] Unless otherwise noted, all lab tests performed by: Division of Pathology and Laboratory Medicine [address] [place] [address] [phone] * Alkaline Phosphatase (11/11/2022 11:32 AM CDT) Only the most recent of2 resultswithin the time period is included. Alk Phos 86 35 - 104 U/L [facility] Blood 11/11/2022 11:3 2 AM CDT 11/11/2022 11:40 AM CDT JED Warner LAB BLOOD ORDERABLES Performing Organization Address City/[facility]/ZIP Co de Phone Number [facility] Unless otherwise noted, all lab tests performed by: Division of Pathology and Laboratory Medicine [address] [place] [address] [place] [address] * Glucose Level (11/11/2022 11:32 AM CDT) Glucose Level 73 70 - 99 mg/dL [facility] Comment: Effective 09/09/15, the glucose reference intervals have been updated based on [employer] guidelines (Standards of Medical Care [...] Warner LAB BLOOD ORDERABLES Performing Organization Address City/[facility]/ZIP Co de Phone Number [facility] Unless otherwise noted, all lab tests performed by: Division of Pathology and Laboratory Medicine [address] [place] [address] * Calcium Level (11/11/2022 11:32 AM CDT) Only the most recent of2 resultswithin the time period is included. Calcium Lvl 9.6 8.4 - 10.2 mg/dL [facility] Blood 11/11/2022 11:3 2 AM CDT 11/11/2022 11:40 AM CDT JED Warner LAB BLOOD ORDERABLES [facility] Unless otherwise noted, all lab tests performed by: Division of Pathology and Laboratory Medicine [address] [place] [address] [id number] * Albumin Level (11/11/2022 11:32 AM CDT) Only the most recent of2 resultswithin the time period is included. Albumin Lvl 4.3 3.5 - 5.2 gm/dL [facility] Blood 11/11/2022 11:3 2 AM CDT 11/11/2022 11:40 AM CDT JED Warner LAB BLOOD ORDERABLES Performing Organization Address [facility] de Phone Number [facility] Unless otherwise noted, all lab tests performed by: Division of Pathology and Laboratory Medicine [address] [place] [id number] * Electrolyte Panel (11/11/2022 11:32 AM CDT) Only the most recent of2 resultswithin the time period is included. Sodium Lvl 142 136 - 145 mEq/L [facility] Potassium Lvl 3.9 3.5 - 5.1 mEq/L [facility] Chloride 106 98 - 107 mEq/L [facility] CO2 29 22 - 29 mEq/L [facility] Anion Gap 7 4 - 14 mEq/L [facility] Blood 11/11/2022 11:3 2 AM CDT 11/11/2022 11:40 AM CDT JED Warner LAB BLOOD ORDERABLES Performing Organization Address [facility] de Phone Number [facility] Unless otherwise noted, all lab tests performed by: Division of Pathology and Laboratory Medicine [address] [place] [id number] * Urine REJI Path Review (11/11/2022 9:00 AM CDT) Only the most recent of2 resultswithin the time period is included. UIFE Path Int The follow-up urine protein immunofixation electrophoretic patterns obtained with the use of antisera against IgG, IgA, IgM, bound kappa and bound lambda light chains, free kappa and free lambda light chains do not show definitive evidence of a Bence-Lee proteinuria. [facility] Comment: MD Homer JEFFERSON [id number] Dictated by: MD Homer JEFFERSON [id number] Dictated Date/Time: 11.14.2022 19:26 PM CDT Transcribed Date/Time: 11.14.2022 19:26 PM CDT Electronically Signed By: MD Homer JEFFERSON [id number] on 11.14.2022 19:26 PM Urine 24 Hr 11/11/2022 9:00 AM CDT 11/14/2022 10:47 AM CDT JED Warner URINE ORDERABLES [facility] Unless otherwise noted, all lab tests performed by: Division of Pathology and Laboratory Medicine [address] [place] [address] [id number] * Urine Prot Electrophoresis Path Review (11/11/2022 9:00 AM CDT) Only the most recent of2 resultswithin the time period is included. U ProE Path Int The follow-up urine protein electrophoretic pattern shows faint indistinct linear densities in the gamma region. If a Bence-Lee proteinuria is suspected clinically, serum free light chain and urine REJI studies are recommended. [facility] Comment: MD Homer JEFFERSON [id number] Dictated by: MD Homer JEFFERSON [id number] Dictated Date/Time: 11.14.2022 19:26 PM CDT Transcribed Date/Time: 11.14.2022 19:26 PM CDT Electronically Signed By: MD Homer JEFFERSON [id number] on 11.14.2022 19:26 PM Urine 24 Hr 11/11/2022 9:00 AM CDT 11/14/2022 10:47 AM CDT JED Warner URINE ORDERABLES Performing Organization Address City/[facility] Co de Phone Number [facility] Unless otherwise noted, all lab tests performed by: Division of Pathology and Laboratory Medicine [address] [place] [address] [id number] * Total Volume (11/11/2022 9:00 AM CDT) Only the most recent of2 resultswithin the time period is included. [facility] Total Volume 1,425 1,200 - 1,500 mL/24 h [facility] Hrs Collected 24 [facility] Start Date 11/10/2022 [facility] End Date 11/11/2022 [facility] U24 Comment [id number] [facility] Urine 24 Hr 11/11/2022 9:00 AM CDT 11/11/2022 1:59 PM CDT JED Warner URINE ORDERABLES Performing Organization Address [facility] Co de Phone Number [facility] Unless otherwise noted, all lab tests performed by: Division of Pathology and Laboratory Medicine [address] [place] [address] [id number] * Protein Electrophoresis Urine (11/11/2022 9:00 AM CDT) Only the most recent of2 resultswithin the time period is included. [facility] U Albumin % 20.2 % [facility] U Globulin% 79.8 % [facility] Urine 24 Hr 11/11/2022 9:00 AM CDT 11/11/2022 2:21 PM CDT JED Warner URINE ORDERABLES Performing Organization Address City/[facility] Co de Phone Number [facility] Unless otherwise noted, all lab tests performed by: Division of Pathology and Laboratory Medicine [address] [place] [id number] * REJI Urine (11/11/2022 9:00 AM CDT) Only the most recent of2 resultswithin the time period is included. Pathologist [facility] UIFE No BJP Seen RI MD [facility] Urine 24 Hr 11/11/2022 9:00 AM CDT 11/11/2022 2:21 PM CDT JED Warner URINE ORDERABLES Performing Organization Address [facility] Co de Phone Number [facility] Unless otherwise noted, all lab tests performed by: Division of Pathology and Laboratory Medicine [address] [place] [address] [id number] * Immunoelectrophoresis Path Review (10/21/2022 11:39 AM CDT) Pathologist [facility] REJI Path Int The follow up serum [...] correlation and close follow-up studies are recommended. [facility] Comment: MD Homer MARTINO [id number] Dictated by: MD Homer MARTINO Dictated Date/Time: 10.24.2022 16:05 PM CDT Transcribed Date/Time: 10.24.2022 16:05 PM CDT Electronically Signed By: MD Homer MARTINO on 10.24.2022 16:05 PM Blood 10/21/2022 11:3 9 AM CDT 10/23/2022 3:29 PM CDT Ivory Todd APRN LAB BLOOD ORDER [facility] Unless otherwise noted, all lab tests performed by: Division of Pathology and Laboratory Medicine [address] [place] [address] [phone] * Protein Electrophoresis Path Review (10/21/2022 11:39 AM CDT) SPE Path Interp The follow-up serum protein electrophoretic pattern does not show definite evidence of an M-protein peak. [facility] Comment: MD Homer [id number] Dictated by: MD Homer MARTINO Dictated Date/Time: 10.24.2022 16:05 PM CDT Transcribed Date/Time: 10.24.2022 16:05 PM CDT Electronically Signed By: MD Homer MARTINO on 10.24.2022 16:05 PM Blood 10/21/2022 11:3 9 AM CDT 10/23/2022 3:29 PM CDT Ivory Todd APRN LAB BLOOD ORDER LAUR[facility] Unless otherwise noted, all lab tests performed by: Division of Pathology and Laboratory Medicine [address] [place] [address] * Glucose, Random (10/21/2022 11:39 AM CDT) Pathologist [facility] Glucose Random 109 70 - 199 mg/dL [facility] Comment: Effective 09/09/15, the glucose reference intervals have been updated based on [employer] guidelines (Standards of Medical Care [...] AM CDT 10/21/2022 11:50 AM CDT Gaurang B Ayinde ONLINE BANKING SPECIALIST LAB BLOOD ORDERABLE S [facility] Unless otherwise noted, all lab tests performed by: Division of Pathology and Laboratory Medicine [address] [place] [id number] * aPTT (10/21/2022 11:39 AM CDT) aPTT 28.5 24.1 - 35.5 second(s) [facility] Blood 10/21/2022 11:3 9 AM CDT 10/21/2022 11:46 AM CDT Narrative [facility] - 10/21/2022 12:14 PM CDT This lab cannot be scheduled at the following locations due to collection/proccessing restrictions: [facility] and [facility]. Gaurang Andreas Perkins ONLINE BANKING SPECIALIST LAB BLOOD ORDERABLE S Performing Organization Address [facility]/ZIP Co de Phone Number [facility] Unless otherwise noted, all lab tests performed by: Division of Pathology and Laboratory Medicine [address] [place] [address] [phone] * Prothrombin Time (10/21/2022 11:39 AM CDT) PT 12.8 11.9 - 14.5 second(s) [facility] INR 0.97 0.87 - 1.12 [facility] Blood 10/21/2022 11:3 9 AM CDT 10/21/2022 11:46 AM CDT Narrative [facility] - 10/21/2022 12:14 PM CDT This lab cannot be scheduled at the following locations due to collection/proccessing restrictions: [facility] and [facility]. Gaurang Andreas Perkins ONLINE BANKING SPECIALIST LAB BLOOD ORDERABLE S [facility] Unless otherwise noted, all lab tests performed by: Division of Pathology and Laboratory Medicine [address] [place] [address] [id number] after 10/17/2022 Advance Directives * Full Code (Latest Code Status on File) Date Activated Date Inactivated Comments 10/03/2022 10:30 PM 10/10/2022 7:12 PM * Full Code Date Activated Date Inactivated Comments 11/06/2021 2:50 PM 12/06/2021 5:58 PM * Full Code Date Activated Date Inactivated Comments 10/13/2021 4:13 PM 2021 7:46 PM * Full Code Date Activated Date Inactivated Comments 09/24/2021 5:31 AM 09/27/2021 7:19 PM Care Teams Hat Sprayer Relationship Specialty Start Date End Date Sumaya Cheng [email or web address] PCP - External Referring Hematology and Oncology 03/19/21 Clay Murphy MD [address] [place] [address] [phone] [email or web address] PCP - General Lymphoma and Myeloma 10/05/22 Yesenia Anna MD [address] [place] [address] [phone] [email or web address] Consulting Physician Physical Medicine and Rehabilitation 03/28/22 Bruce Kim MD [address] [place] [phone] [email or web address] Consulting Physician Dermatology 07/12/22 Dimitrios Quiñonez MD [address] [place] [address] [phone] [email or web address] Consulting Physician Gastroenterology, Hepatology and Nutrition 10/28/22
[2023-10-17] MEDS ORDERED: ONDANSETRON 4 MG (ODT) TAB ONE (17:40)
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
[2023-10-17 18:55] VITALS: TEMP 98.1; O2SAT 100
[2023-10-17 18:56] VITALS: BP 139/79
== END 2023-10-17 18:49 | disposition home or self-care (01) ==
LOC: ER 17:27
DX: M54.2 Cervicalgia (principal); V49.40XA Driver injured in collision with unspecified motor vehicles in traffic accident, initial encounter; R11.0 Nausea; E11.9 Type 2 diabetes mellitus without complications; I10 Essential (primary) hypertension
CPT/HCPCS: 72125; 99284; Q0162

== ENCOUNTER 2023-12-02 01:01 | Emergency (ER) | payer BC ==
--- OUTSIDE RECORDS SUMMARY | 2023-12-02 01:10 | XMS REPORT | Clinical Summary ---
Author Name Unknown Organization [facility] Address [address] [place] [address] Care Team Providers Care Service Counter Cashier Name Role Phone Sumaya Cheng Unavailable [phone] Clay Murphy MD Primary Care Provider [phone] Yesenia Anna MD Unavailable Bruce Kim MD Unavailable Dimitrios Quiñonez MD Unavailable [email or web address] Allergies Active Allergy Reactions Criticality Noted Date [...] into respiratory depression. 2 each 3 Active Additional Information Patient not taking.Reason: No longer taking, Reported on 11/09/2023 atorvastatin (LIPITOR) 40 mg tablet Take 2 [...] 400 g 11 3 03/21/19 24 Discontinued HYDROmorphone (DILAUDID) 2 mg tabletIndicatio ns:Pain due to neoplastic disease Take 1 tablet (2 mg) by mouth every 4 (four) hours as needed for moderate pain or severe pain. 60 tablet 3 01/04/20 23 Discontinued(Reo rder) cholecalciferol , vitamin D3, 1,250 mcg (50,000 unit) capsuleIndicati ons:Vitamin D deficiency, not otherwise specified TAKE 1 CAPSULE BY MOUTH ONE TIME PER WEEK 12 capsule 3 03/17/19 24 Discontinued HYDROmorphone (DILAUDID) 2 mg tabletIndicatio ns:Pain [...] Overview: Added automatically from request for surgery [id number] Clostridioides difficile infection 10/07/2022 Anemia in neoplastic [...] Encounters Date Type Department Care Team Description 11/14/2023 9:00 AM CDT Telemedicine [facility] [address] [place] [address] Main [facility], 6th [place] [address] Clay Murphy MD Cuellar, Elizabeth L, RUPERTO Multiple myeloma 11/10/2023 10:00 AM CDT Telemedicine [facility] [address] [place] [address], 6th [place] [address] Clay Murphy MD Cuellar, Elizabeth L, APRN Multiple myeloma (Primary Dx) 11/10/2023 Telephone [facility] [address] [place] [address], 6th [place] [address] Yudelka Dennis RN 11/07/2023 9:00 AM CDT - 11/07/2023 11:59 PM CDT Hospital Encounter [facility] [address] [place] [address], [place] [address] Ivory Todd, RUPERTO Multiple myeloma Discharge Disposition: Home 10/19/2023 Orders Only [facility] [address] [place] [address], 6th [place] [address] Ivory Todd APRN Multiple myeloma (Primary Dx) 10/13/2023 Orders Only [facility] [address] [place] [address], 6th [place] [address] Ivory Todd APRN 10/12/2023 1:00 PM CDT Telemedicine [facility] [address] [place] [address] Main [facility], 6th [place] [address] Ivory Todd APRN Multiple myeloma (Primary Dx) 10/11/2023 Telephone [facility] [address] Bldg, 6th [place] [address] Jovita Cheng MA PreScreen 10/10/2023 9:02 AM CDT - 10/10/2023 11:59 PM CDT Hospital Encounter [facility] Main [facility], [place] [address] Ivory Todd APRN Multiple myeloma Discharge Disposition: Home 09/14/2023 1:30 PM CDT Telemedicine [facility], 6th [place] [address] Ivory Todd APRN Multiple myeloma (Primary Dx) 09/12/2023 8:54 AM CDT - 09/12/2023 11:59 PM CDT Hospital Encounter [facility] [address] [place], [place] [address]vd Main [facility], [place] [address] Ivory Todd APRN Multiple myeloma Discharge Disposition: Home 08/23/2023 11:00 AM CDT Follow-Up Stem Cell Transplantation Center [facility] Main Bldg, 8th [place] [address] Cecil Nowak MD Hemopoietic stem cell transplant (Primary Dx) 08/23/2023 Travel 08/15/2023 2:00 PM CDT Telemedicine [facility] Main Bldg, 6th [place] [address] Clay Murphy MD Cuellar, Elizabeth L, APRN Multiple myeloma (Primary Dx) 08/14/2023 9:23 AM CDT - 08/14/2023 11:59 PM CDT Hospital Encounter [facility] [address] [place], [place] [address]vd Main [facility], [place] [address] Ivory Todd APRN Multiple myeloma Discharge Disposition: Home 07/20/2023 10:00 AM CDT Telephone [facility] Main Bldg, 6th [place] [address] Ivory oTdd APRN 07/19/2023 Telephone [facility] [address], 6th [place] [address] Oscar Jones 07/18/2023 8:47 AM CDT - 07/18/2023 11:59 PM CDT Hospital Encounter [facility] [address] [place] [address] Main [facility], [place] [address] Ivory Todd APRN Multiple myeloma Discharge Disposition: Home 07/17/2023 Orders Only [facility] Main dg, 6th [place] [address] Ivory Todd APRN Multiple myeloma (Primary Dx) 06/13/2023 8:15 AM CDT Follow-Up [facility] [address] [place] [address] Main [facility], 6th [place] [address] Clay Murphy MD Multiple myeloma (Primary Dx) 06/13/2023 Travel 06/09/2023 9:15 AM CDT - 06/09/2023 11:59 PM CDT Hospital Encounter [facility] [address] [place] [address] Main [facility], [place] [address] Ivory Todd APRN Multiple myeloma Discharge Disposition: Home 06/09/2023 9:15 AM CDT - 06/09/2023 11:59 PM CDT Hospital Encounter [facility] [address] [place] [address] Main [facility], [place] [address] Ivory Todd APRN Multiple myeloma Discharge Disposition: Home 05/18/2023 9:00 AM CDT Telemedicine MD [facility] - [facility] [address] [place] [address] Ivory Todd APRN Multiple myeloma (Primary Dx) 05/18/2023 Orders Only [facility] Main Bldg, 6th [place] [address] Ivory Todd APRN Multiple myeloma (Primary Dx) 05/17/2023 Refill [facility] [address], 8th [place] [address] Merlyn Whitfield PA Vitamin D deficiency, not otherwise specified 05/16/2023 10:35 AM CDT - 05/16/2023 11:59 PM CDT Hospital Encounter [facility] [address] [place] [address] Main Bldg, [place] [address] Ivory Todd APRN Multiple myeloma Discharge Disposition: Home 05/15/2023 Orders Only [facility] [address], 6th [place] [address] Cheri Sanford APRN 04/20/2023 9:00 AM SALES HOST Telemedicine MD [facility] - [place] [address] [place] [address] Ivory Todd APRN Multiple myeloma (Primary Dx) 04/20/2023 Orders Only [facility] [address] [place] [address] Main Bldg, 6th [place] [address] Ivory Todd APRN Multiple myeloma (Primary Dx) 04/18/2023 8:57 AM SALES HOST - 04/18/2023 11:59 PM SALES HOST Hospital Encounter [facility] [address] [place] [address] Main [facility], [place] [address] Ivory Todd APRN Multiple myeloma Discharge Disposition: Home 03/21/2023 8:45 AM SALES HOST Follow-Up [facility] [address] [facility] Main Bldg, 6th [place] [address] Clay Murphy MD Multiple myeloma (Primary Dx) 03/21/2023 Travel 03/17/2023 3:30 PM SALES HOST - 03/17/2023 11:59 PM SALES HOST Hospital Encounter Ambulatory Treatment Center - Main Building [address], 2nd Floor, [place] [address] Todd, IvoryRUPERTO Alfaro Christina A, RN Multiple myeloma (Primary Dx) Discharge Disposition: Home 03/17/2023 12:15 PM SALES HOST Ancillary Procedure [facility] [address] [place] [address] Ivory Todd APRN Multiple myeloma 03/17/2023 10:27 AM SALES HOST - 03/17/2023 3:29 PM SALES HOST Hospital Encounter [facility] [address] [place] [address], [place] [address] Ivory Todd APRN Multiple myeloma Discharge Disposition: Home 03/17/2023 10:26 AM SALES HOST Hospital Encounter [facility] [address] [place] [address], [place] [address] Ivory Todd APRN Multiple myeloma; Hemopoietic stem cell transplant Discharge Disposition: Home 03/17/2023 Travel 03/15/2023 Orders Only [facility] [address] [place] [address], 8th [place] [address] Merlyn Whitfield PA Hemopoietic stem cell transplant (Primary Dx) 03/14/2023 Refill [facility] [address] [place] [address], 8th [place] [address] Merlyn Whitfield PA Vitamin D deficiency, not otherwise specified 02/28/2023 8:30 AM SALES HOST Telemedicine Physical Medicine and Rehabilitation [address] [place] [address] east of the [facility] entrance, [address] [place] [address] Yesenia Anna MD Tennison, Jegy, MD Peripheral neuropathy (Primary Dx); Chronic neck pain 02/16/2023 10:30 AM SALES HOST Telemedicine [facility] [address] [place] [address], 6th [place] [address] Ivory Todd APRN Multiple myeloma (Primary Dx) 02/15/2023 9:15 AM SALES HOST Anesthesia Event [facility] [address] [facility], Floor 7 [place] [address] Chato Banks MD 02/15/2023 9:10 AM SALES HOST - 02/15/2023 10:10 AM SALES HOST Surgery [facility] [address] [facility], Floor [address] [place] [address] Domingo Valdes MD DIAGNOSTIC FLEXIBLE COLONOSCOPY PROXIMAL TO SPLENIC FLEXURE 02/15/2023 7:45 AM SALES HOST - 02/15/2023 11:00 AM SALES HOST Hospital Encounter [facility] [address] [facility] [place], Floor 7 [place] [address] Domingo Valdes MD Discharge Disposition: Home 02/15/2023 Telephone [facility] [address] [place] [address], 6th [place] [address] Nuris Whitten RN 02/15/2023 Telephone [facility] [address] [place] [address], 6th Floor [address] [place] [id number] Kalee Morejon RN 02/15/2023 Travel 02/14/2023 11:59 PM SALES HOST Anesthesia Event [facility] [address] [place] [address], 6th Floor [address] [place] [phone] Ladan Bellamy, ABELINO 02/14/2023 4:30 PM SALES HOST POEM Appointments [facility] [address] [place] [address], 6th Floor [address] [place] [phone] Clay Murphy MD 02/14/2023 9:23 AM SALES HOST - 02/14/2023 11:59 PM SALES HOST Hospital Encounter [facility] [address] [place] [address], [place] [address] Ivory Todd APRN Multiple myeloma Discharge Disposition: Home 02/02/2023 Refill [facility] [address] [place] [address], 8th [place] [address] Merlyn Whitfield PA Vitamin D deficiency, not otherwise specified 02/01/2023 Refill [facility] - Gastroenterology, Hepatology & Nutrition [address] [place] [address] Main [facility], 7th [place] [address] Teri Lott MA Colonoscopy planned (Primary Dx) 01/13/2023 8:45 AM SALES HOST Follow-Up [facility] [address] [place] [address] Main [facility], 6th [place] [address] Clay Murphy MD Multiple myeloma (Primary Dx) 01/13/2023 Refill [facility] [address] [place] [address], 6th [place] [address] Shiloh Oliveira 01/13/2023 Travel 01/12/2023 9:48 AM SALES HOST - 01/12/2023 11:59 PM SALES HOST Hospital Encounter [facility] [address] [place] [address], [place] [address] Ivory Todd APRN Multiple myeloma Discharge Disposition: Home 01/12/2023 9:46 AM SALES HOST - 01/12/2023 9:47 AM SALES HOST Hospital Encounter [facility] [address] [place] [address], [place] [address] Ivory Todd APRN Multiple myeloma Discharge Disposition: Home 12/15/2022 9:30 AM CDT Telemedicine [facility] [address] [place] [address], 6th [place] [address] Ivory Todd APRN Multiple myeloma (Primary Dx) 12/14/2022 Telephone [facility] [address] [place] [address], 6th [place] [address] Stuart Hood, RN 12/14/2022 Refill [facility] [address] [place] [address] Elizabeth Ambrocio, AIRLINE PILOT 12/13/2022 10:45 AM CDT Infusion [facility] [address] [facility] [place] [place], Floor 6 [place] [address] JeffreyClay MD Gellang, Abigail P, RN Multiple myeloma (Primary Dx) 12/13/2022 Travel after 12/02/2022 Immunizations Name Administration Dates Next Due DTaP / IPV 11/11/2022,07/13/2022,05/13/2022 Hepatitis A 11/11/2022,05/13/2022 Hepatitis B 11/11/2022,07/13/2022,05/13/2022 Hib (PRP-OMP) 11/11/2022,07/13/2022,05/13/2022 Influenza Quadrivalent High Dose 11/11/2022 Influenza, injectable, quadr ivalent, preservative free 11/26/2019 Pneumococcal Conjugate 15-valent 11/11/2022,06/15,05/13/2022 Pneumococcal Conjugate 20-valent 08/23/2023 Zoster Recombinant 07/13/2022,05/13/2022 Surgical History Surgery Date Site/Laterality Comments ID COLONOSCOPY FLX DX W/COLLJ SPEC WHEN PFRMD 02/15/2023 N/A Procedure: DIAGNOSTIC FLEXIBLE COLONOSCOPY PROXIMAL TO SPLENIC FLEXURE; Surgeon: Domingo Valdes MD; Location: [facility]; Service: GASTROENTEROLOGY Medical History Medical History Date Comments Hypertension 2017 Hyperlipidemia 2017 Irregular heart beat 1960 Menopause 1992 Rheumatoid arthritis 2017 Arthritis 2017 Diabetes mellitus 2017 Family History Medical History Relation Name Comments Prostate cancer Father Able josh Breast cancer Maternal Aunt 1 Margrett valladares [...] Care Team (Late st Contact Info) Description 12/08/2023 9:15 AM CDT Appointment [facility] [address] [place] [address], [place] [address] Ivory Todd APRN [address] [place] [address] [email or web address] 12/08/2023 9:30 AM CDT Appointment [facility] [address] [place] [address], [place] [address] Ivory Todd APRN [facility] [place] [address] [email or web address] 12/12/2023 11:00 AM CDT Follow-Up [facility] [address] [place] [address], 6th [place] [address] Clay Murphy MD [address] [place] [id number] [email or web address] Health Maintenance Due Date Last Done Comments COVID-19 Vaccine (3 - Modern a risk series) 06/07/2020 05/10/2020, 04/12/2020 Influenza Vaccine (#1) 2023 , 11/26/2019, 03/22/2018 Pneumococcal Vaccine: Pediat rics (0 to 5 Years) and At-Risk Patients (6 to 64 Years) Completed 08/23/2023, 11/11/2022, 07/13/2022, Additional history exists Procedures Procedure Name Priority Date/Time Associated Diagnosis Comments FREE KAPPA/FREE LAMBDA RATIO Routine 11/07/2023 9:39 AM CDT Multiple myeloma IMMUNOFIXATION ELECTROPHORESIS Routine 11/07/2023 9:39 AM CDT Multiple myeloma PROTEIN ELECTROPHORESIS Routine 11/07/19 9:39 AM CDT Multiple myeloma .CBC Routine 11/07/2023 9:39 AM CDT Multiple myeloma LACTATE DEHYDROGENASE Routine 11/07/2023 9:39 AM CDT Multiple myeloma BETA 2 MICROGLOBULIN Routine 11/07/2023 9:39 AM CDT Multiple myeloma SERUM PROTEIN ELECTROPHORESIS WITH REJI Routine 11/07/2023 9:39 AM CDT Multiple myeloma FREE LAMBDA LIGHT CHAIN Routine 11/07/19 9:39 AM CDT Multiple myeloma FREE KAPPA LIGHT CHAIN Routine 9:39 AM CDT Multiple myeloma IMMUNOGLOBULIN M Routine 11/07/2023 9:39 AM CDT Multiple myeloma IMMUNOGLOBULIN G Routine 11/07/2023 9:39 AM CDT Multiple myeloma IMMUNOGLOBULIN A Routine 11/07/2023 9:39 AM CDT Multiple myeloma FRACTIONATED BILIRUBIN Routine 9:39 AM CDT Multiple myeloma URIC ACID Routine 11/07/2023 9:39 AM CDT Multiple myeloma PHOSPHORUS LEVEL Routine 11/07/2023 9:39 AM CDT Multiple myeloma MAGNESIUM LEVEL Routine 11/07/2023 9:39 AM CDT Multiple myeloma COMPREHENSIVE METABOLIC PANEL Routine 11/07/2023 9:39 AM CDT Multiple myeloma COMPLETE BLOOD COUNT W/ DIFFERENTIAL Routine 11/07/2023 9:39 AM CDT Multiple myeloma FREE KAPPA/FREE LAMBDA RATIO Routine 10/10/2023 9:23 [...] CDT Multiple myeloma PROTEIN ELECTROPHORESIS Routine 05/16/19 11:01 AM CDT Multiple myeloma .CBC Routine [...] KAPPA/FREE LAMBDA RATIO Routine 04/18/2023 9:30 AM SALES HOST Multiple myeloma IMMUNOFIXATION ELECTROPHORESIS Routine 04/18/2023 9:30 AM SALES HOST Multiple myeloma PROTEIN ELECTROPHORESIS Routine 04/18/19 9:30 AM SALES HOST Multiple myeloma .CBC Routine 04/18/2023 9:30 AM SALES HOST Multiple myeloma LACTATE DEHYDROGENASE Routine 04/18/2023 9:30 AM SALES HOST Multiple myeloma BETA 2 MICROGLOBULIN Routine 04/18/2023 9:30 AM SALES HOST Multiple myeloma SERUM PROTEIN ELECTROPHORESIS WITH REJI Routine 04/18/2023 9:30 AM SALES HOST Multiple myeloma FREE LAMBDA LIGHT CHAIN Routine 04/18/19 9:30 AM SALES HOST Multiple myeloma FREE KAPPA LIGHT CHAIN Routine 9:30 AM SALES HOST Multiple myeloma IMMUNOGLOBULIN M Routine 04/18/2023 9:30 AM SALES HOST Multiple myeloma IMMUNOGLOBULIN G Routine 04/18/2023 9:30 AM SALES HOST Multiple myeloma IMMUNOGLOBULIN A Routine 04/18/2023 9:30 AM SALES HOST Multiple myeloma URIC ACID Routine 04/18/2023 9:30 AM SALES HOST Multiple myeloma PHOSPHORUS LEVEL Routine 04/18/2023 9:30 AM SALES HOST Multiple myeloma MAGNESIUM LEVEL Routine 04/18/2023 9:30 AM SALES HOST Multiple myeloma COMPREHENSIVE METABOLIC PANEL Routine 04/18/2023 9:30 AM SALES HOST Multiple myeloma COMPLETE BLOOD COUNT W/ DIFFERENTIAL Routine 04/18/2023 9:30 AM SALES HOST Multiple myeloma MRI WHOLE BODY - BONE MARROW Routine 03/17/2023 2:41 PM SALES HOST Multiple myeloma URINE TOTAL PROTEIN 24 HOUR Routine 03/17/2023 10:43 AM SALES HOST Multiple myeloma IMMUNOFIXATION ELECTROPHORESIS URINE Routine 03/17/2023 10:43 AM SALES HOST Multiple myeloma PROTEIN ELECTROPHORESIS URINE Routine 03/17/2023 10:43 AM SALES HOST Multiple myeloma PROTEIN ELECTROPHORESIS URINE WITH REJI Routine 03/17/2023 10:43 AM SALES HOST Multiple myeloma FREE KAPPA/FREE LAMBDA RATIO Routine 03/17/2023 10:42 AM SALES HOST Multiple myeloma IMMUNOFIXATION ELECTROPHORESIS Routine 03/17/2023 10:42 AM SALES HOST Multiple myeloma PROTEIN ELECTROPHORESIS Routine 03/17/19 24 10:42 AM SALES HOST Multiple myeloma .CBC Routine 03/17/2023 10:42 AM SALES HOST Multiple myeloma VITAMIN D 25 HYDROXY LEVEL Routine 03/17/2023 10:42 AM SALES HOST Hemopoietic stem cell transplant LACTATE DEHYDROGENASE Routine 03/17/2023 10:42 AM SALES HOST Multiple myeloma BETA 2 MICROGLOBULIN Routine 03/17/2023 10:42 AM SALES HOST Multiple myeloma SERUM PROTEIN ELECTROPHORESIS WITH REJI Routine 03/17/2023 10:42 AM SALES HOST Multiple myeloma FREE LAMBDA LIGHT CHAIN Routine 03/17/19 24 10:42 AM SALES HOST Multiple myeloma FREE KAPPA LIGHT CHAIN Routine 10:42 AM SALES HOST Multiple myeloma IMMUNOGLOBULIN M Routine 03/17/2023 10:4 2 AM SALES HOST Multiple myeloma IMMUNOGLOBULIN G Routine 03/17/2023 10:4 2 AM SALES HOST Multiple myeloma IMMUNOGLOBULIN A Routine 03/17/2023 10:4 2 AM SALES HOST Multiple myeloma URIC ACID Routine 03/17/2023 10:42 AM SALES HOST Multiple myeloma PHOSPHORUS LEVEL Routine 03/17/2023 10:4 2 AM SALES HOST Multiple myeloma MAGNESIUM LEVEL Routine 03/17/2023 10:42 AM SALES HOST Multiple myeloma COMPREHENSIVE METABOLIC PANEL Routine 03/17/2023 10:42 AM SALES HOST Multiple myeloma COMPLETE BLOOD COUNT W/ DIFFERENTIAL Routine 03/17/2023 10:42 AM SALES HOST Multiple myeloma ID COLONOSCOPY FLX DX W/COLLJ SPEC WHEN PFRMD 02/15/2023 9:06 AM SALES HOST Screening for malignant neoplasm of colon FREE KAPPA/FREE LAMBDA RATIO Routine 02/14/2023 9:43 AM SALES HOST Multiple myeloma IMMUNOFIXATION ELECTROPHORESIS Routine 02/14/2023 9:43 AM SALES HOST Multiple myeloma PROTEIN ELECTROPHORESIS Routine 02/14/19 9:43 AM SALES HOST Multiple myeloma .CBC Routine 02/14/2023 9:43 AM SALES HOST Multiple myeloma LACTATE DEHYDROGENASE Routine 02/14/2023 9:43 AM SALES HOST Multiple myeloma BETA 2 MICROGLOBULIN Routine 02/14/2023 9:43 AM SALES HOST Multiple myeloma SERUM PROTEIN ELECTROPHORESIS WITH REJI Routine 02/14/2023 9:43 AM SALES HOST Multiple myeloma FREE LAMBDA LIGHT CHAIN Routine 02/14/19 24 9:43 AM SALES HOST Multiple myeloma FREE KAPPA LIGHT CHAIN Routine 9:43 AM SALES HOST Multiple myeloma IMMUNOGLOBULIN M Routine 02/14/2023 9:43 AM SALES HOST Multiple myeloma IMMUNOGLOBULIN G Routine 02/14/2023 9:43 AM SALES HOST Multiple myeloma IMMUNOGLOBULIN A Routine 02/14/2023 9:43 AM SALES HOST Multiple myeloma URIC ACID Routine 02/14/2023 9:43 AM SALES HOST Multiple myeloma PHOSPHORUS LEVEL Routine 02/14/2023 9:43 AM SALES HOST Multiple myeloma MAGNESIUM LEVEL Routine 02/14/2023 9:43 AM SALES HOST Multiple myeloma COMPREHENSIVE METABOLIC PANEL Routine 02/14/2023 9:43 AM SALES HOST Multiple myeloma COMPLETE BLOOD COUNT W/ DIFFERENTIAL Routine 02/14/2023 9:43 AM SALES HOST Multiple myeloma DIFFERENTIAL Routine 01/12/2023 10:05 AM SALES HOST Multiple myeloma FREE KAPPA/FREE LAMBDA RATIO Routine 01/12/2023 10:05 AM SALES HOST Multiple myeloma IMMUNOFIXATION ELECTROPHORESIS Routine 01/12/2023 10:05 AM SALES HOST Multiple myeloma PROTEIN ELECTROPHORESIS Routine 01/13/20 10:05 AM SALES HOST Multiple myeloma .CBC Routine 01/12/2023 10:05 AM SALES HOST Multiple myeloma URINE TOTAL PROTEIN 24 HOUR Routine 01/12/2023 10:05 AM SALES HOST Multiple myeloma IMMUNOFIXATION ELECTROPHORESIS URINE Routine 01/12/2023 10:05 AM SALES HOST Multiple myeloma PROTEIN ELECTROPHORESIS URINE Routine 01/12/2023 10:05 AM SALES HOST Multiple myeloma LACTATE DEHYDROGENASE Routine 01/12/2023 10:05 AM SALES HOST Multiple myeloma BETA 2 MICROGLOBULIN Routine 01/12/2023 10:05 AM SALES HOST Multiple myeloma SERUM PROTEIN ELECTROPHORESIS WITH REJI Routine 01/12/2023 10:05 AM SALES HOST Multiple myeloma FREE LAMBDA LIGHT CHAIN Routine 01/13/20 10:05 AM SALES HOST Multiple myeloma FREE KAPPA LIGHT CHAIN Routine 10:05 AM SALES HOST Multiple myeloma IMMUNOGLOBULIN M Routine 01/12/2023 10:0 5 AM SALES HOST Multiple myeloma IMMUNOGLOBULIN G Routine 01/12/2023 10:0 5 AM SALES HOST Multiple myeloma IMMUNOGLOBULIN A Routine 01/12/2023 10:0 5 AM SALES HOST Multiple myeloma URIC ACID Routine 01/12/2023 10:05 AM SALES HOST Multiple myeloma PHOSPHORUS LEVEL Routine 01/12/2023 10:0 5 AM SALES HOST Multiple myeloma MAGNESIUM LEVEL Routine 01/12/2023 10:05 AM SALES HOST Multiple myeloma COMPREHENSIVE METABOLIC PANEL Routine 01/12/2023 10:05 AM SALES HOST Multiple myeloma COMPLETE BLOOD COUNT W/ DIFFERENTIAL Routine 01/12/2023 10:05 AM SALES HOST Multiple myeloma PROTEIN ELECTROPHORESIS URINE WITH REJI Routine 01/12/2023 10:05 AM SALES HOST Multiple myeloma FREE KAPPA/FREE LAMBDA RATIO Routine [...] Routine 12/13/2022 9:53 AM CDT Multiple myeloma after 12/02/2022 Results * REJI (11/07/2023 9:39 AM CDT) Only the most recent of12 resultswithin the time period is included. Serum Immunofixation See Comment 11/07/2023 3:[address] [facility] REJI Path Interp The serum immunofixation electrophoretic patterns obtained with the use of antisera against IgG, IgA, IgM, bound kappa and bound lambda light chains do not show definitive evidence of a monoclonal gammopathy. 11/07/2023 3:[address] [facility] Pathologist Signature . 11/07/2023 3:[address] [facility] Blood Peripheral blood specimen / Unknown Venipuncture / Unknown 11/07/2023 9:39 AM CDT 11/07/2023 9:44 AM CDT Ivory Todd APRN LAB BLOOD ORDER LAURA [facility] Unless otherwise noted, all lab tests performed by: Division of Pathology and Laboratory Medicine [address] [place] [address] [phone] * Serum Protein Electrophoresis (11/07/2023 9:39 AM CDT) Only the most recent of12 resultswithin the time period is included. Albumin 4.0 3.6 - 5.4 gm/dL 11/07/2023 3:[address] [facility] Alpha 1 Globulin 0.3 0.2 - 0.4 gm/dL 11/07/2023 3:[address] [facility] Alpha 2 Globulin 0.8 0.5 - 1.0 gm/dL 11/07/2023 3:[address] [facility] Beta Globulin 0.9 0.5 - 1.1 gm/dL 11/07/2023 3:[address] [facility] Gamma Globulin 1.6 0.7 - 1.6 gm/dL 11/07/2023 3:[address] [facility] SPE Path Interp The serum protein electrophoretic pattern shows no abnormal patterns indicative of a pathological process. If a paraproteinemia is suspected clinically, however, serum protein REJI studies, serum immunoglobulin quantitation and urine Bence-Lee protein studies are recommended. 11/07/2023 3:[address] [facility] Pathologist Signature . 11/07/2023 3:[address] [facility] Total Protein 7.7 6.4 - 8.3 gm/dL 11/07/2023 3:[address] [facility] Blood Peripheral blood specimen / Unknown Venipuncture / Unknown 11/07/2023 9:39 AM CDT 11/07/2023 9:44 AM CDT Ivory Todd APRN LAB BLOOD ORDER LAURA [facility] Unless otherwise noted, all lab tests performed by: Division of Pathology and Laboratory Medicine [address] [place] [address] [phone] * (ABNORMAL) .CBC (11/07/2023 9:39 AM CDT) Only the most recent of12 resultswithin the time period is included. White Blood Cell 4.5 4.1 - 10.5 K/uL 11/07/2023 9:48 AM CDT [facility] Red Blood Cell 3.87(L) 3.99 - 5.46 M/uL 11/07/2023 9:48 AM CDT [facility] Hemoglobin 12.3 12.2 - 15.3 g/dL 11/07/2023 9:48 AM CDT [facility] Hematocrit 36.2(L) 36.4 - 46.8 % 11/07/2023 9:48 AM CDT [facility] Mean Cell Volume 94 82 - 99 fL 11/07/2023 9:48 AM CDT [facility] Mean Cell Hemoglobin 31.8 26.6 - 33.2 pg 11/07/2023 9:48 AM CDT [facility] Mean Cell Hemoglobin Concentration 34.0 31.1 - 35.2 g/dL 11/07/2023 9:48 AM T [facility] RDW-SD 53.0(H) 37.5 - 49.7 fL 11/07/2023 9:48 AM [facility] Red Cell Diameter Width 15.3 11.6 - 15.5 % 11/07/2023 9:48 AM T [facility] Platelet 162 160 - 397 K/uL 11/07/2023 9:48 AM T [facility] Mean Platelet Volume 11.2 9.1 - 12.6 fL 11/07/2023 9:48 AM T [facility] INRBC 0.0 0.0 - 0.1 /100 WBC 11/07/2023 9:48 AM [facility] Comment: The INRBC (instrument NRBC) value reflects the enumeration of nucleated red blood cells contained in a 200uL sample of whole blood analyzed by the instrument. This value may differ from the NRBC value reported in a manual differential, which is based on a 100 cell differential. Neutrophil % 41.1(L) 43.2 - 72.7 % 11/07/2023 9:48 AM T [facility] Lymphocyte % 41.6 16.8 - 46.2 % 11/07/2023 9:48 AM [facility] Monocyte % 13.3(H) 5.1 - 12.5 % 11/07/2023 9:48 AM [facility] Eosinophil % 2.9 0.4 - 6.3 % 11/07/2023 9:48 AM T [facility] Basophil % 0.9 0.2 - 1.4 % 11/07/2023 9:48 AM T [facility] IGRE % 0.2 0.1 - 1.5 % 11/07/2023 9:48 AM [facility] Comment:The IGRE% includes M etamyelocytes, Myelocytes and Promyelocytes. Neutrophil Abs 1.86(L) 1.95 - 7.25 K/uL 11/07/2023 9:48 AM CDT [facility] Lymphocyte Abs 1.88 1.01 - 3.24 K/uL 11/07/2023 9:48 AM CDT [facility] Monocyte Abs 0.60 0.24 - 0.85 K/uL 11/07/2023 9:48 AM CDT [facility] Eosinophil Abs 0.13 0.02 - 0.50 K/uL 11/07/2023 9:48 AM CDT [facility] Basophil Abs 0.04 0.02 - 0.09 K/uL 11/07/2023 9:48 AM CDT [facility] IG Abs 0.01 0.01 - 0.12 K/uL 11/07/2023 9:48 AM CDT [facility] Blood Peripheral blood specimen / Unknown Venipuncture / Unknown 11/07/2023 9:39 AM CDT 11/07/2023 9:44 AM CDT Ivory Todd APRN LAB BLOOD ORDER LAURA Performing Organization Address City/[facility] de Phone Number [facility] Unless otherwise noted, all lab tests performed by: Division of Pathology and Laboratory Medicine [address] [place] [address] [phone] * (ABNORMAL) Free Frontier/Free Lambda Ratio (11/07/2023 9:39 AM CDT) Only the most recent of12 resultswithin the time period is included. Free Frontier/ Free Lambda Ratio 1.74(H) 0.26 - 1.65 11/07/2023 12:[address] [facility] Blood Peripheral blood specimen / Unknown Venipuncture / Unknown 11/07/2023 9:39 AM CDT 11/07/2023 9:44 AM CDT Ivory Todd APRN LAB BLOOD ORDER LAURA Performing Organization Address City/[facility]/ZIP Co de Phone Number [facility] Unless otherwise noted, all lab tests performed by: Division of Pathology and Laboratory Medicine [address] [place] [address] [phone] * Fractionated Bilirubin (11/07/2023 9:39 AM CDT) Only the most recent of7 resultswithin the time period is included. Bilirubin Direct 0.2 0.0 - 0.3 mg/dL 11/07/2023 10:22 AM CDT [facility] Comment:Indocyanine Green (I CG) may cause falsely elevated bilirubin results. Total and direct bilirubin must not be measured from samples containing indocyanine green. Bilirubin Indirect 0.4 0.0 - 0.9 mg/dL 11/07/2023 10:22 AM CDT [facility] Bilirubin Total 0.6 0.0 - 1.2 mg/dL 11/07/2023 10:22 AM CDT [facility] Comment: Indocyanine Green (ICG) may cause [...] blood specimen / Unknown Venipuncture / Unknown 11/07/2023 9:39 AM CDT 11/07/2023 9:44 AM CDT Ivory Todd APRN LAB BLOOD ORDER LAURA [facility] Unless otherwise noted, all lab tests performed by: Division of Pathology and Laboratory Medicine [address] [place] [address] [phone] * (ABNORMAL) Comprehensive Metabolic Panel (11/07/2023 9:39 AM CDT) Only the most recent of12 resultswithin the time period is included. Bilirubin Total 0.6 0.0 - 1.2 mg/dL 11/07/2023 10:22 AM CDT [facility] Comment:Indocyanine Green (I CG) may cause falsely elevated bilirubin results. Total and direct bilirubin must not be measured from samples containing indocyanine green. False elevation of total bilirubin can be seen in patients with IgG concentrations above 28 g/L. eGFR 69 >=60 mL/min/1. 73 sq. m 11/07/2023 10:22 AM [facility] Comment: The eGFRcr is calculated with the [...] G2 fulfill criteria for CKD. Tot Protein 7.7 6.4 - 8.3 gm/dL 11/07/2023 10:22 AM T [facility] Calcium Level Total 9.1 8.2 - 10.2 mg/dL 11/07/2023 10:22 AM [facility] Alkaline Phosphatase 80 35 - 104 U/L 11/07/2023 10:22 AM [facility] Albumin Level 4.3 3.5 - 5.2 gm/dL 11/07/2023 10:22 AM T [facility] AST 22 <=32 U/L 11/07/2023 10:22 AM [facility] ALT 20 <=33 U/L 11/07/2023 10:22 AM [facility] Sodium Level 139 136 - 145 mmol/L 11/07/2023 10:22 AM [facility] Potassium Level 3.7 3.4 - 4.5 mmol/L 11/07/2023 10:22 AM [facility] Chloride 107 98 - 107 mmol/L 11/07/2023 10:22 AM [facility] CO2 23 22 - 29 mmol/L 11/07/2023 10:22 AM CDT [facility] Anion Gap 9 4 - 14 mmol/L 11/07/2023 10:22 AM CDT [facility] Creatinine 0.93 0.51 - 0.95 mg/dL 11/07/2023 10:22 AM CDT [facility] BUN 7 6 - 23 mg/dL 11/07/2023 10:22 AM CDT [facility] Glucose Level 114(H) 70 - 99 mg/dL 11/07/2023 10:22 AM CDT [facility] Comment: Effective 09/09/15, the glucose reference intervals have been updated based on [place] [employer] guidelines (Standards of Medical Care in Diabetes 2016. Diabetes Care 2016; 39: S13-S22). Fasting blood glucose: Normal: 70-99 mg/dL Impaired fasting glucose (increased risk for diabetes or pre-diabetes): 100-125 mg/dL Diabetes mellitus: >/=126 mg/dL Random blood glucose: Normal: 70-199 mg/dL Note: Random glucose >100 mg/dL is associated with increased risk for diabetes. Blood Peripheral blood specimen / Unknown Venipuncture / Unknown 11/07/2023 9:39 AM CDT 11/07/2023 9:44 AM CDT Ivory Todd APRN LAB BLOOD ORDER LAURA [facility] Unless otherwise noted, all lab tests performed by: Division of Pathology and Laboratory Medicine [address] [place] [address] [phone] * (ABNORMAL) Free Lambda Light Chain (11/07/2023 9:39 AM CDT) Only the most recent of12 resultswithin the time period is included. Free Lambda Light chain 30.40(H) 5.71 - 26.30 mg/L 11/07/2023 12:[address] [facility] Blood Peripheral blood specimen / Unknown Venipuncture / Unknown 11/07/2023 9:39 AM CDT 11/07/2023 9:44 AM CDT Ivory Todd APRN LAB BLOOD ORDER LAURA [facility] Unless otherwise noted, all lab tests performed by: Division of Pathology and Laboratory Medicine [address] [place] [address] [phone] * (ABNORMAL) Free Frontier Light Chain (11/07/2023 9:39 AM CDT) Only the most recent of12 resultswithin the time period is included. Free Frontier Light 53.04(H) 3.30 - 19.40 mg/L 11/07/2023 12:[address] [facility] Blood Peripheral blood specimen / Unknown Venipuncture / Unknown 11/07/2023 9:39 AM CDT 11/07/2023 9:44 AM CDT Ivory Todd APRN LAB BLOOD ORDER LAURA Performing Organization Address City/[facility]/ZIP Co de Phone Number [facility] Unless otherwise noted, all lab tests performed by: Division of Pathology and Laboratory Medicine [address] [place] [address] [phone] * Uric Acid (11/07/2023 9:39 AM CDT) Only the most recent of12 resultswithin the time period is included. Uric Acid 4.4 2.4 - 5.7 mg/dL 11/07/2023 10:22 AM CDT [facility] Blood Peripheral blood specimen / Unknown Venipuncture / Unknown 11/07/2023 9:39 AM CDT 11/07/2023 9:44 AM CDT Ivory Todd APRN LAB BLOOD ORDER LAURA [facility] Unless otherwise noted, all lab tests performed by: Division of Pathology and Laboratory Medicine [address] [place] [address] [id number] * Phosphorus Level (11/07/2023 9:39 AM CDT) Only the most recent of12 resultswithin the time period is included. Phosphorus Level 2.7 2.5 - 4.5 mg/dL 11/07/2023 10:22 AM CDT [facility] Blood Peripheral blood specimen / Unknown Venipuncture / Unknown 11/07/2023 9:39 AM CDT 11/07/2023 9:44 AM CDT Ivorymicaela Sandovalkristal HICKEY LAB BLOOD ORDER LAURA Performing Organization Address City/[facility] Co de Phone Number [facility] Unless otherwise noted, all lab tests performed by: Division of Pathology and Laboratory Medicine [address] [place] [address] [phone] * Magnesium Level (11/07/2023 9:39 AM CDT) Only the most recent of12 resultswithin the time period is included. Magnesium Level 1.8 1.6 - 2.6 mg/dL 11/07/2023 10:22 AM CDT [facility] Blood Peripheral blood specimen / Unknown Venipuncture / Unknown 11/07/2023 9:39 AM CDT 11/07/2023 9:44 AM CDT Ivory Todd APRN LAB BLOOD ORDER LAURA Performing Organization Address [facility] de Phone Number [facility] Unless otherwise noted, all lab tests performed by: Division of Pathology and Laboratory Medicine [address] [place] [address] [phone] * LDH (11/07/2023 9:39 AM CDT) Only the most recent of12 resultswithin the time period is included. LDH 192 135 - 214 U/L 11/07/2023 10:22 AM CDT [facility] Blood Peripheral blood specimen / Unknown Venipuncture / Unknown 11/07/2023 9:39 AM CDT 11/07/2023 9:44 AM CDT Narrative [facility] - 11/07/2023 10:22 AM CDT Results greater than 1651 U/L may not be reliable due to matrix effect with extended dilution as it exceeds the filling station equipment mechanic's recommended limit. Caution should be exercised when interpreting such values and done in conjunction with clinical context. Ivory Todd APRN LAB BLOOD ORDER LAURA Performing Organization Address City/[facility] Co de Phone Number [facility] Unless otherwise noted, all lab tests performed by: Division of Pathology and Laboratory Medicine [address] [place] [address] [phone] * IgA (11/07/2023 9:39 AM CDT) Only the most recent of12 resultswithin the time period is included. IgA 290 85 - 499 mg/dL 11/07/2023 12:[address] [facility] Blood Peripheral blood specimen / Unknown Venipuncture / Unknown 11/07/2023 9:39 AM CDT 11/07/2023 9:44 AM CDT Ivory Todd APRN LAB BLOOD ORDER LAURA Performing Organization Address City/[facility] Co de Phone Number [facility] Unless otherwise noted, all lab tests performed by: Division of Pathology and Laboratory Medicine [address] [place] [address] [phone] * IgM (11/07/2023 9:39 AM CDT) Only the most recent of12 resultswithin the time period is included. IgM 130 35 - 242 mg/dL 11/07/2023 12:[address] [facility] Blood Peripheral blood specimen / Unknown Venipuncture / Unknown 11/07/2023 9:39 AM CDT 11/07/2023 9:44 AM CDT Ivory Todd APRN LAB BLOOD ORDER LAURA Performing Organization Address City/[facility] Co de Phone Number [facility] Unless otherwise noted, all lab tests performed by: Division of Pathology and Laboratory Medicine [address] [place] [address] [phone] * IgG (11/07/2023 9:39 AM CDT) Only the most recent of12 resultswithin the time period is included. [facility] IgG 1,500 610 - 1,616 mg/dL 11/07/2023 12:[address] [facility] Blood Peripheral blood specimen / Unknown Venipuncture / Unknown 11/07/2023 9:39 AM CDT 11/07/2023 9:44 AM CDT Ivory Todd APRN LAB BLOOD ORDER [facility]URA [facility] Unless otherwise noted, all lab tests performed by: Division of Pathology and Laboratory Medicine [address] [place] [address] [phone] * (ABNORMAL) Beta 2 Microglobulin (11/07/2023 9:39 AM CDT) Only the most recent of12 resultswithin the time period is included. [facility] Beta 2 Microglobulin 2.70(H) 0.80 - 2.30 mg/L 11/07/2023 12:[address] [facility] Blood Peripheral blood specimen / Unknown Venipuncture / Unknown 11/07/2023 9:39 AM CDT 11/07/2023 9:[address] [facility] - 11/07/2023 12:48 PM CDT This test is measured by turbidimetric methodology on The Binding Site Optilite analyzer. Results obtained in different methods are not interchangeable. Ivory Todd APRN LAB BLOOD ORDER [facility]URA [facility] Unless otherwise noted, all lab tests performed by: Division of Pathology and Laboratory Medicine [address] [place] [address] [phone] * (ABNORMAL) Differential (09/12/2023 9:10 AM CDT) Only the most recent of2 resultswithin the time period is included. [facility] Total Cells 100 09/12/2023 12:46 PM CDT [facility] Manual Neutrophil % 35.0(L) 43.2 - 72.7 % 09/12/2023 12:46 PM CDT [facility] Comment:The Neutrophil count includes Bands. Manual Lymphocyte % 57.0(H) 16.8 - 46.2 % 09/12/2023 12:46 PM CDT [facility] Manual Monocyte % 5.0(L) 5.1 - 12.5 % 09/12/2023 12:46 PM CDT [facility] Manual Eosinophil % 3.0 0.4 - 6.3 % 09/12/2023 12:46 PM CDT [facility] Metamyelocyte % 12:46 PM CDT [facility] Comment:The Metamyelocyte co unt includes Myelocytes. Manual Neutrophil Abs 1.16(L) 1.95 - 7.25 K/uL 09/12/2023 12:46 PM CDT [facility] Manual Lymphocyte Abs 1.88 1.01 - 3.24 K/uL 09/12/2023 12:46 PM CDT [facility] Manual Monocyte Abs 0.17(L) 0.24 - 0.85 K/uL 09/12/2023 12:46 PM CDT [facility] Manual Eosinophil Abs 0.10 0.02 - 0.50 K/uL 09/12/2023 12:46 PM CDT [facility] RBC Morphology PRESENT 09/12/2023 12:46 PM CDT [facility] Ovalocyte Present(A) (none) 09/12/2023 12:46 PM CDT [facility] Florala Cells Present(A) (none) 09/12/2023 12:46 PM CDT [facility] Smudge Cells Present(A) (none) 09/12/2023 12:46 PM CDT [facility] Blood Peripheral blood specimen / Unknown Venipuncture / Unknown 09/12/2023 9:10 AM CDT 09/12/2023 9:15 AM CDT Ivory Todd APRN LAB BLOOD ORDER LAURA [facility] Unless otherwise noted, all lab tests performed by: Division of Pathology and Laboratory Medicine [address] [place] [address] [phone] * TSH (07/18/2023 9:11 AM CDT) Thyroid Stimulating Hormone 1.29 0.27 - 4.20 mcunit/mL 07/18/2023 10:06 AM CDT [facility] Blood Peripheral blood specimen / Unknown Venipuncture / Unknown 07/18/2023 9:11 AM CDT 07/18/2023 9:19 AM CDT TARA Guevara APRN LAB BLOOD ORDERABLE S [facility] Unless otherwise noted, all lab tests performed by: Division of Pathology and Laboratory Medicine [address] [place] [address] [phone] * Hemoglobin A1c (07/18/2023 9:11 AM CDT) Pathologist [facility] Hemoglobin A1c 5.6 4.3 - 5.6 % 07/18/2023 9:[address] [facility] Blood Peripheral blood specimen / Unknown Venipuncture / Unknown 07/18/2023 9:11 AM CDT 07/18/2023 9:[address] [facility] - 07/18/2023 9:43 AM CDT HbA1c values >=6.5% are diagnostic of diabetes mellitus. Diagnosis should be confirmed by repeat testing. Therapeutic Action suggested: >8.0% HbA1c; Goal of therapy: <7.0% HbA1c TARA Guevara APRN LAB BLOOD ORDERABLE S [facility] Unless otherwise noted, all lab tests performed by: Division of Pathology and Laboratory Medicine [address] [place] [address] [id number] * Vitamin B12 Level (07/18/2023 9:11 AM CDT) Vitamin B12 Level 325 232 - 1,245 pg/mL 07/18/2023 9:[address] [facility] Comment:Reference range esta blished based on adult population Is patient fasting? Yes 07/18/2023 9:57 AM CDT [facility] Blood Peripheral blood specimen / Unknown Venipuncture / Unknown 07/18/2023 9:11 AM CDT 07/18/2023 9:14 AM CDT Erica Rush [employer],MENTAL HEALTH COUNSELOR LAB BLOOD ORDERABLE S [facility] Unless otherwise noted, all lab tests performed by: Division of Pathology and Laboratory Medicine [address] [place] [address] [phone] [facility] Unless otherwise noted, all lab tests performed by: Division of Pathology and Laboratory Medicine [address] [place] [address] [phone] * REJI Urine (06/09/2023 9:24 AM CDT) Only the most recent of3 resultswithin the time period is included. Urine Immunofixation See Comment 09/28/2023 10:[address] [facility] UIFE Path Interp The follow-up urine protein immunofixation electrophoretic patterns obtained with the use of antisera against IgG, IgA, IgM, bound kappa and bound lambda light chains, free kappa and free lambda light chains do not show definitive evidence of a Bence-Lee proteinuria. 09/28/2023 10:[address] [facility] Pathologist Signature . 09/28/2023 10:[address] [facility] Urine 24 Hr Voided urine specimen / Unknown Non-blood Collection / Unknown 06/09/2023 9:24 AM CDT 06/09/2023 10:47 AM CDT Ivory Todd [employer] P[employer] URINE ORDERABLE S [facility] Unless otherwise noted, all lab tests performed by: Division of Pathology and Laboratory Medicine [address] [place] [address] [phone] * Protein Electrophoresis Urine (06/09/2023 9:24 AM CDT) Only the most recent of3 resultswithin the time period is included. Urine Albumin % 36.1 % 09/28/2023 10:[address] [facility] U Globulin % 63.9 % 09/28/2023 10:[address] [facility] U ProE Path Interp The follow-up urine protein electrophoretic pattern does not show definitive evidence of a Bence-Lee protein peak. 09/28/2023 10:[address] [facility] Pathologist Signature . 09/28/2023 10:[address] [facility] Urine 24 Hr Voided urine specimen / Unknown Non-blood Collection / Unknown 06/09/2023 9:24 AM CDT 06/09/2023 10:47 AM CDT Ivory Todd APRN URINE ORDERABLE S [facility] Unless otherwise noted, all lab tests performed by: Division of Pathology and Laboratory Medicine [address] [place] [address] [phone] * 24hr Urine Total Protein (06/09/2023 9:24 AM CDT) Only the most recent of3 resultswithin the time period is included. Urine Total Protein 6 mg/dL 06/09/2023 11:[address] [facility] Comment:Caution is advised w hen interpreting values greater than 555 mg/dL. Results requiring extended dilution beyond the filling station equipment mechanic's recommended limit may not dilute linearly due to potential matrix effect. Correlation with clinical context is recommended. Urine Total Pro per Total volume 96 <=149 mg/24hr 06/09/2023 11:[address] [facility] Total Volume 1,600 mL/24hr 06/09/2023 11:[address] [facility] Hours Collected 24 hr 11:[address] [facility] Start Date 06/08/2023 06/09/2023 11:[address] [facility] Start Time 9:00 AM 06/09/2023 11:[address] [facility] End Date 06/09/2023 06/09/2023 11:[address] [facility] End Time 9:00 AM 06/09/2023 11:[address] [facility] How many jugs collected? 1 06/09/2023 11:[address] [facility] Urine 24 Hr Voided urine specimen / Unknown Non-blood Collection / Unknown 06/09/2023 9:24 AM CDT 06/09/2023 10:47 AM CDT Ivory Todd [employer]LINE PILOT URINE ORDERABLE S [facility] Unless otherwise noted, all lab tests performed by: Division of Pathology and Laboratory Medicine [address] [place] [address] [phone] * MRI WB Bone Marrow (03/17/2023 2:41 PM SALES [employer]) Anatomical Region Laterality Modality Whole Body Magnetic Resonan ce 03/20/2023 8:52 AM [employer]ES [employer] Impressions 03/20/2023 9:24 AM SALES H[employer] No evidence of active myeloma. ACTIONABLE ITEMS/RECOMMENDATIONS*: None. Narrative 03/20/2023 9:24 AM SALES HOST FULL RESULT: Examination: MRI WHOLE BODY - [...] myeloma. ACTIONABLE ITEMS/RECOMMENDATIONS*: None. Ivory Todd APRN IM MRI ORDERAB LES * Vitamin D 25OH (03/17/2023 10:42 AM SALES HOST) Only the most recent of2 resultswithin the time period is included. Vitamin D 25 OH 53 30 - 100 ng/mL 03/17/2023 11:[address] [facility] Blood Peripheral blood specimen / Unknown Venipuncture / Unknown 03/17/2023 10:42 AM SALES HOST 03/17/2023 10:45 AM SALES HOST [address] [facility] - 03/17/2023 11:49 AM SALES HOST Reference Range: Deficiency: <=20 ng/mL Insufficiency: 21-29 ng/mL Sufficiency: 30-100 ng/mL Potential toxicity: >100 ng/mL JED Warner LAB BLOOD ORDERABLES [facility] Unless otherwise noted, all lab tests performed by: Division of Pathology and Laboratory Medicine [facility] [place] [address] after 12/02/2022 Advance Directives * Full Code (Latest Code [...] 5:31 AM 09/27/2021 7:19 PM Care Teams Service Counter Cashier Relationship Specialty Start Date End Date Sumaya [email or web address] PCP - External Referring Hematology and Oncology 03/19/21 Clay Murphy MD [address] [place] [address] [phone] [email or web address] PCP - General Lymphoma and Myeloma 10/05/22 Yesenia Anna MD [address] [place] [phone] [email or web address] Consulting Physician Physical Medicine and Rehabilitation 03/28/22 Bruce Kim MD [address] [place] [phone] [email or web address] Consulting Physician Dermatology 07/12/22 Dimitrios Quiñonez MD [address] [place] [address] [email or web address] Consulting Physician Gastroenterology, Hepatology and Nutrition 10/28/22
[2023-12-02] MEDS ORDERED: DICYCLOMINE HCL 10 MG CAP ONE (02:12)
[2023-12-02] MEDS ORDERED: ONDANSETRON 4 MG/2 ML VIAL ONE (02:12)
[2023-12-02] MEDS ORDERED: DIPHENOX/ATROP SULF 1 TAB PO ONE (02:13)
[2023-12-02] MEDS ORDERED: NA CHLORIDE 0.9% 1,000 ML ONE (02:13)
[2023-12-02 03:04] LABS: Specific Gravity 1.023 (1.005-1.030); Sqamous Epithelial <5 /HPF (None Seen); Urine Bacteria None Seen /HPF (<20); Urine Bilirubin NEGATIVE (Negative); Urine Blood 1+ (Negative); Urine Clarity Turbid (Clear); Urine Color Light-Yellow (Yellow); Urine Culture Reflex Order NOT NEEDED; Urine Glucose NEGATIVE (Negative); Urine Ketones NEGATIVE (Negative); Urine Microscopic Reflex YN ORDER UMIC; Urine Mucus Slight /HPF (None Seen); Urine Nitrite NEGATIVE (Negative); Urine Protein TRACE (Negative); Urine Urobilinogen Normal (Normal); Urine WBC <5 /HPF (<5); Urine pH 5.5 (5.0-7.0)
[2023-12-02 03:04] LABS: Absolute Eosinophils 0.3 K/uL (0-0.5); Absolute Lymphocytes (CBC) 1.7 K/uL (0.7-4.9); Absolute Monocytes 0.4 K/uL (0.1-1.3); Absolute Neutrophil 1.6 K/uL (1.8-8.0); Basophils % 0.9 % (0-1.3); Eosinophils % 7.6 % (0-4.4); Hematocrit 33.8 % (36.0-45.0); Hemoglobin 10.9 g/dL (12.0-15.0); Lymphocytes % 41.5 % (15.3-44.8); MCH 31.5 pg (27.0-35.0); MCHC 32.3 g/dL (32.0-36.0); MCV 97.5 fL (80-100); MPV 10.4 fL (7.6-11.3); Monocytes % 10.8 % (3.3-12.3); Neutrophils % 39.2 % (41.7-73.7); Platelets 150 thou/uL (152-406); RBC Red Blood Cell Count 3.47 M/uL (3.86-4.86)
[2023-12-02 03:15] LABS: Albumin 3.1 g/dL (3.4-5.0); Albumin/Globulin Ratio 0.8 (1.1-1.8); Anion Gap 7.4 mEq/L (5.0-15.0); Bilirubin Total 0.4 mg/dL (0.2-1.0); Potassium 3.4 mEq/L (3.5-5.1); Protein, Total 7.1 g/dL (6.4-8.2)
--- NOTE | 2023-12-02 06:13 | ER ---
Nurse's Notes [facility] Name: Rebecca Marie Age: 63 yrs Sex: Female : 1960 Arrival Date: 12/02/2023 Time: 01:01 Bed 19 Private MD: Diagnosis: Acute gastroenteritis, Diarrhea, Pelvic pressure Presentation: 12/01 01:15 Chief complaint: Patient states: diarrhea and pelvic pressure for two days. Coronavirus kj2 screen: At this time, the client does not indicate any symptoms associated with coronavirus-19. Ebola Screen: No symptoms or risks identified at this time. Initial Sepsis Screen: Does the patient meet any 2 criteria? No. Patient's initial sepsis screen is negative. Does the patient have a suspected source of infection? No. Patient's initial sepsis screen is negative. Risk Assessment: Do you want to hurt yourself or someone else? Patient reports no desire to harm self or others. Onset of symptoms was November 30, 2023. 01:15 Method Of Arrival: Ambulatory kj2 01:15 Acuity: PALMA 3 kj2 01:29 Chief complaint:. ha1 Triage Assessment: 01:15 General: Appears in no apparent distress. uncomfortable, Behavior is calm, cooperative. kj2 Pain: Complains of pain in pelvic Pain currently is 7 out of 10 on a pain scale. Neuro: Level of Consciousness is awake, Oriented to person, place, time, situation. Cardiovascular: Patient's skin is warm and dry. Respiratory: Airway is patent Respiratory effort is even, unlabored. GI: Stools are reported to be diarrhea. : No signs and/or symptoms were reported regarding the genitourinary system. 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 - Infectious Disease History:: Denies. - Social history:: Smoking status: Patient denies any tobacco usage or history of. - Family history:: not pertinent. Screenin:05 [facility] ED Fall Risk Assessment (Adult) History of falling in the last 3 months, kj2 including since admission No falls in past 3 months (0 pts) Confusion or Disorientation No (0 pts) Intoxicated or Sedated No (0 pts) Impaired Gait No (0 pts) Mobility Assist Device Used No (0 pt) Altered Elimination No (0 pt) Score/Fall Risk Level 0 - 2 = Low Risk Maintained a safe environment, Hourly rounding (assess needs \T\ fall precautionary measures) done. Abuse screen: Denies threats or abuse. Denies injuries from another. Nutritional screening: No deficits noted. Tuberculosis screening: No symptoms or risk factors identified. Assessment: 01:20 General: see triage assessment. kj2 02:30 Reassessment: Patient appears in no apparent distress at this time. Patient and/or kj2 family updated on plan of care and expected duration. Pain level reassessed. Patient is alert, oriented x 3, equal unlabored respirations, skin warm/dry/pink. 03:30 Reassessment: Patient appears in no apparent distress at this time. Patient and/or kj2 family updated on plan of care and expected duration. Pain level reassessed. Patient is alert, oriented x 3, equal unlabored respirations, skin warm/dry/pink. 04:30 Reassessment: Patient appears in no apparent distress at this time. Patient and/or kj2 family updated on plan of care and expected duration. Pain level reassessed. Patient is alert, oriented x 3, equal unlabored respirations, skin warm/dry/pink. Vital Signs: 01:15 BP 142 / 77; Pulse 64; Resp 18; Temp 98.2; Pulse Ox 99% on R/A; Weight 79.38 kg; Height kj2 5 ft. 6 in. ; 02:30 BP 146 / 72; Pulse 70; Resp 18; Pulse Ox 98% on R/A; kj2 04:31 BP 145 / 74; Pulse 72; Resp 18; Pulse Ox 100% on R/A; kj2 05:23 BP 129 / 63; Pulse 54; Resp 18; Pulse Ox 98% on R/A; kj2 06:48 BP 128 / 68; Pulse 60; Resp 18; Temp 97.9; Pulse Ox 100% on R/A; kj2 01:15 Body Mass Index 28.25 (79.38 kg, 167.64 cm) kj2 Judy Coma Score: 23:12 Eye Response: spontaneous(4). Motor Response: obeys commands(6). Verbal Response: sp4 oriented(5). Total: 15. ED Course: 01:05 Patient arrived in ED. jj6 01:15 Patient has correct armband on for positive identification. Placed in gown. Bed in low kj2 position. Call light in reach. Side rails up X 1. Provided Education on: call light, fall prevention. 01:24 Adrián Ventura MD is Attending Physician. sp4 01:51 Romi Granados, ABELINO is Primary Nurse. kj2 01:56 Triage completed. kj2 01:59 Missed attempt(s): 20 gauge in right antecubital area. kj2 02:02 CBC with Diff Sent. af3 02:02 CMP Sent. af3 02:02 Lipase Sent. af3 02:02 Inserted saline lock: 22 gauge in left antecubital area, using aseptic technique. Blood af3 collected. Flushed with 10 mL NS. 02:06 Arm band placed on Patient placed in an exam room. kj2 04:20 CT Abd/Pelvis - IV Contrast Only In Process Unspecified. EDMS 04:33 No provider procedures requiring assistance completed. kj2 05:23 Assisted to bathroom. kj2 06:49 IV discontinued, intact, bleeding controlled, No redness/swelling at site. Pressure kj2 dressing applied. Administered Medications: 02:25 Drug: Dicyclomine PO 20 mg PO once Route: PO; kj2 05:21 Follow up: Response: No adverse reaction kj2 02:26 Drug: Ondansetron IVP 4 mg IVP once; over 2 minutes Route: IVP; Site: left antecubital; kj2 05:21 Follow up: Response: No adverse reaction kj2 02:26 Drug: NS 0.9% IV 1000 ml IV at 1 bolus Per protocol; to be given as a bolus over 60 kj2 minutes Route: IV; Rate: 1 bolus; Site: left antecubital; 03:26 Follow up: Response: No adverse reaction kj2 05:21 Follow up: IV Status: Completed infusion; IV Intake: 1000ml kj2 02:26 Drug: Diphenoxylate-Atropine PO 2 tabs PO once Route: PO; kj2 05:21 Follow up: Response: No adverse reaction kj2 Medication: 02:06 VIS not applicable for this client. kj2 Intake: 05:21 IV: 1000ml; Total: 1000ml. kj2 Outcome: 06:12 Discharge ordered by . dotty 06:49 Discharged to home ambulatory, kj2 06:49 Condition: stable 06:49 Discharge instructions given to patient, Instructed on discharge instructions, follow up and referral plans. medication usage, Demonstrated understanding of instructions, follow-up care, medications, Prescriptions given X 2, 06:50 Patient left the ED. kj2 Signatures: Dispatcher [employer] EDMS Annabelle Terrell jj6 Elizabeth Etienne, RN RN ha1 Adrián Ventura MD MD sp4 Romi Granados RN RN kj2 Cristal Orellana
--- NOTE | 2023-12-02 06:13 | EDPHYS ---
Physician Documentation [facility] Name: Rebecca Marie Age: 63 yrs Sex: Female : 1960 Arrival Date: 12/02/2023 Time: 01:01 Bed 19 Private MD: ED Physician Adrián Ventura HPI: 12/01 01:24 This 63 yrs old Black Female presents to ER via Unassigned with complaints of Diarrhea, sp4 Pelvic Pain. 23:12 63-year-old black female presents with complaint of diarrhea and pelvic discomfort. sp4 Historical: - Allergies: 01:56 Ciprofloxacin; kj2 01:56 senna; kj2 - PMHx: 01:59 Diabetes - NIDDM; High Cholesterol; Hypertension; multiple myeloma; Rheumatoid kj2 Arthritis; - Immunization history:: Adult Immunizations up to date. - Infectious Disease History:: Denies. - Social history:: Smoking status: Patient denies any tobacco usage or history of. - Family history:: not pertinent. ROS: 23:12 Constitutional: Negative for fever, chills, and weight loss, positive for diarrhea and sp4 pelvic discomfort 23:12 All other systems are negative, Exam: 23:12 Constitutional: This is a well developed, well nourished patient who is awake, alert, sp4 and in no acute distress. Head/Face: Normocephalic, atraumatic. Eyes: Pupils equal round and reactive to light, extra-ocular motions intact. Lids and lashes normal. Conjunctiva and sclera are not injected. Cornea within normal limits. Periorbital areas with no swelling, redness, or edema. ENT: Nares patent. No nasal discharge, no septal abnormalities noted. Tympanic membranes are normal and external auditory canals are clear. Oropharynx with no redness, swelling, or masses, exudates, or evidence of obstruction, uvula midline. Mucous membranes moist. Neck: Trachea midline, no thyromegaly or masses palpated, and no cervical lymphadenopathy. Supple, full range of motion without nuchal rigidity, or vertebral point tenderness. Chest/axilla: Normal chest wall appearance and motion. Nontender with no deformity. No lesions are appreciated. Cardiovascular: Regular rate and rhythm with a normal S1 and S2. No gallops, murmurs, or rubs. Normal PMI, no JVD. No pulse deficits. Respiratory: Lungs have equal breath sounds bilaterally, clear to auscultation and percussion. No rales, rhonchi or wheezes noted. No increased work of breathing, no retractions or nasal flaring. Abdomen/GI: Soft, with normal bowel sounds. No distension or tympany. No guarding or rebound. No evidence of tenderness throughout. Back: No spinal tenderness. No costovertebral tenderness. Skin: Warm, dry with normal turgor. Normal color with no rashes, no lesions, and no evidence of cellulitis. MS/ Extremity: Pulses equal, no cyanosis. Neurovascular intact. Full, normal range of motion. Neuro: Awake and alert, GCS 15, oriented to person, place, time, and situation. Cranial nerves II-XII grossly intact. Motor strength 5/5 in all extremities. Sensory grossly intact. Psych: Awake, alert, with orientation to person, place and time. Behavior, mood, and affect are within normal limits Vital Signs: 01:15 BP 142 / 77; Pulse 64; Resp 18; Temp 98.2; Pulse Ox 99% on R/A; Weight 79.38 kg; Height kj2 5 ft. 6 in. ; 02:30 BP 146 / 72; Pulse 70; Resp 18; Pulse Ox 98% on R/A; kj2 04:31 BP 145 / 74; Pulse 72; Resp 18; Pulse Ox 100% on R/A; kj2 05:23 BP 129 / 63; Pulse 54; Resp 18; Pulse Ox 98% on R/A; kj2 06:48 BP 128 / 68; Pulse 60; Resp 18; Temp 97.9; Pulse Ox 100% on R/A; kj2 01:15 Body Mass Index 28.25 (79.38 kg, 167.64 cm) kj2 Judy Coma Score: 23:12 Eye Response: spontaneous(4). Motor Response: obeys commands(6). Verbal Response: sp4 oriented(5). Total: 15. MDM: 01:34 Medical Screening Exam initiated sp4 05:03 ED course: EXAM: CTAbdomen and Pelvis With Intravenous Contrast CLINICAL HISTORY: The sp4 patient is 63 years old and is Female; ABD PAIN TECHNIQUE: Axial computed tomography images of the abdomen and pelvis with intravenous contrast. Sagittal and coronal reformatted images were created and reviewed. This CT exam was performed using one or more of the following dose reduction techniques: automated exposure control, adjustment of the mA and/or kV according to patient size, and/or use of iterative reconstruction technique. COMPARISON: No relevant prior studies available. FINDINGS: Lung bases: Unremarkable. No mass. No consolidation. ABDOMEN: Liver: Unremarkable. No mass. Gallbladder and bile ducts: Unremarkable. No calcified stones. No ductal dilation. Pancreas: Unremarkable. No mass. No ductal dilation. Spleen: Unremarkable. No splenomegaly. Adrenals: Unremarkable. No mass. Kidneys and ureters: Unremarkable. No solid mass. No hydronephrosis. Stomach and bowel: Unremarkable. No obstruction. No mucosal thickening. PELVIS: Appendix: The appendix is normal. Bladder: Unremarkable. Reproductive: Unremarkable as visualized. ABDOMEN and PELVIS: Intraperitoneal space: Unremarkable. No free air. No significant fluid collection. Bones/joints: Vertebral body hemangioma at T9. Round lucent lesion at T11 which may also represent a hemangioma. No acute fracture. No dislocation. Soft tissues: Unremarkable. Vasculature: Unremarkable. No abdominal aortic aneurysm. Lymph nodes: Unremarkable. No enlarged lymph nodes. IMPRESSION: No acute finding in the abdomen/pelvis. Electronically signed by: Edd Son MD 12/02/2023 05:59 AM. 23:12 Differential diagnosis: Nonspecific abd pain, gastritis, pancreatitis, viral sp4 gastroenteritis, gastroenteritis. Data reviewed: vital signs, nurses notes, old medical records, lab test result(s), radiologic studies, CT scan. Consideration of Admission/Observation Escalation of care including admission/observation considered. ED course: Patient has improved after medications, stable for discharge home.. 12/01 00: Order name: CBC with Diff; Complete Time: 05:03 sp4 12/01 00: Order name: CMP; Complete Time: 05:03 sp4 12/01 00:31 Order name: Lipase; Complete Time: 05:03 sp4 12/01 00:31 Order name: Urinalysis w/ reflexes; Complete Time: 05:03 sp4 12/01 00: Order name: CT Abd/Pelvis - IV Contrast Only sp4 12/01 00:31 Order name: IV Saline Lock; Complete Time: 02:02 sp4 12/01 01:31 Order name: Labs collected and sent; Complete Time: 02:02 sp4 Administered Medications: 02:25 Drug: Dicyclomine PO 20 mg PO once Route: PO; kj2 05:21 Follow up: Response: No adverse reaction kj2 02:26 Drug: Ondansetron IVP 4 mg IVP once; over 2 minutes Route: IVP; Site: left antecubital; kj2 05:21 Follow up: Response: No adverse reaction kj2 02:26 Drug: NS 0.9% IV 1000 ml IV at 1 bolus Per protocol; to be given as a bolus over 60 kj2 minutes Route: IV; Rate: 1 bolus; Site: left antecubital; 03:26 Follow up: Response: No adverse reaction kj2 05:21 Follow up: IV Status: Completed infusion; IV Intake: 1000ml kj2 02:26 Drug: Diphenoxylate-Atropine PO 2 tabs PO once Route: PO; kj2 05:21 Follow up: Response: No adverse reaction kj2 Disposition Summary: 12/02/23 06:12 Discharge Ordered Notes: Location: Home sp4 Problem: new sp4 Symptoms: have improved sp4 Condition: Stable sp4 Diagnosis - Acute gastroenteritis, Diarrhea, Pelvic pressure sp4 Followup: sp4 - With: Private Physician - When: 7 - 10 days - Reason: Recheck today's complaints Discharge Instructions: - Discharge Summary Sheet sp4 - Diarrhea, Adult, [id number] sp4 Forms: - Patient Portal Instructions sp4 Prescriptions: - Lomotil 2.5-0.025 mg Oral tablet - take 1 tablet ORAL route every 6 hours As needed PRN diarrhea; 30 tablet; sp4 Refills: 0, Product Selection Permitted - dicyclomine 20 mg Oral tablet - take 1 tablet ORAL route every 6 hours PRN stomach aches; 30 tablet; Refills: sp4 0, Product Selection Permitted Signatures: Dispatcher [employer] EDMS Adrián Ventura MD MD sp4 Romi Granados RN RN kj2 Corrections: (The following items were deleted from the chart) 01: 01:31 CBC+H.LAB.BRZ ordered. EDMS EDMS :31 01:31 COMPREHENSIVE METABOLIC PANEL+C.LAB.BRZ ordered. EDMS EDMS 01:31 01:31 LIPASE+C.LAB.BRZ ordered. EDMS EDMS 01:31 01:31 Urinalysis+U.LAB.BRZ ordered. EDMS EDMS 01:31 01:31 Abdomen Pelvis W Con+CT.RAD.BRZ ordered. EDDC EDMS 06:02 05:03 ED course: EXAM DESCRIPTION: CTABDOMEN AND PELVIS WITHOUT CONTRAST CLINICAL sp4 HISTORY: ABD PAIN COMPARISON: None Available. TECHNIQUE: CT of the abdomen and pelvis without IV contrast. Evaluation of the solid organs and vasculature is suboptimal due to lack of IV contrast. This exam was performed according to our departmental dose-optimization program, which includes automated exposure control, adjustment of the mA and/or kV according to patient size and/or use of iterative reconstruction technique. FINDINGS: Lung Bases: The visualized lung bases are clear. Bones: No acute osseous abnormality identified. Abdomen: Liver: The liver has normal size and decreased density. Gallbladder: No calcified gallstones. Spleen, Pancreas, and Adrenal Glands: The spleen, pancreas, and adrenal glands are unremarkable. Kidneys: There is a 0.4 cm obstructing calculus in the distal left ureter producing moderate left hydroureter and hydronephrosis. Mild left perinephric fat stranding. Right renal cysts. No follow-up imaging for the structures. Vasculature: The aorta and IVC have normal caliber and position. Stomach: The stomach and duodenum have normal course. Other: No free intraperitoneal air. No free fluid or lymphadenopathy. Pelvis: Bladder: Urinary bladder is unremarkable. Bowel: No dilated loops of large or small bowel. Scattered diverticula of colon. Appendix: Normal appendix. Pelvis:Prostate is not enlarged. IMPRESSION: 1. There is a 0.4 cm obstructing calculus in the distal left ureter producing moderate left hydroureter and hydronephrosis. 2. Hepatic steatosis. 3. Diverticulosis without evidence of acute diverticulitis.. sp4
--- NOTE | 2023-12-02 06:29 | RAD REPORT ---
EXAM: CT Abdomen and Pelvis With Intravenous Contrast CLINICAL HISTORY: The patient is 63 years old and is Female; ABD PAIN TECHNIQUE: Axial computed tomography images of the abdomen and pelvis with intravenous contrast. Sagittal and coronal reformatted images were created and reviewed. This CT exam was performed using one or more of the following dose reduction techniques: automated exposure control, adjustmen t of the mA and/or kV according to patient size, and/or use of iterative reconstruction technique. COMPARISON: No relevant prior studies available. FINDINGS: Lung bases: Unremarkable. No mass. No consolidation. ABDOMEN: Liver: Unremarkable. No mass. Gallbladder and bile ducts: Unremarkable. No calcified stones. No ductal dilation. Pancreas: Unremarkable. No mass. No ductal dilation. Spleen: Unremarkable. No splenomegaly. Adrenals: Unremarkable. No mass. Kidneys and ureters: Unremarkable. No solid mass. No hydronephrosis. Stomach and bowel: Unremarkable. No obstruction. No mucosal thickening. PELVIS: Appendix: The appendix is normal. Bladder: Unremarkable. Reproductive: Unremarkable as visualized. ABDOMEN and PELVIS: Intraperitoneal space: Unremarkable. No free air. No significant fluid collection. Bones/joints: Vertebral body hemangioma at T9. Round lucent lesion at T11 which may also represen t a hemangioma. No acute fracture. No dislocation. Soft tissues: Unremarkable. Vasculature: Unremarkable. No abdominal aortic aneurysm. Lymph nodes: Unremarkable. No enlarged lymph nodes. IMPRESSION: No acute finding in the abdomen/pelvis. Electronically signed by: Edd Son MD 12/02/2023 05:59 AM CDT 8 Due to temporary technical issues with the PACS/[employer] reporting system, reports are being james d by the in-house radiologist without review as a courtesy to ensure prompt reporting the interpreting radiologist is fully responsible for the content of the report. Transcribed Date/Time: 12/02/2023 6:29 AM
[2023-12-02 12:24] VITALS: BP 128/68; TEMP 97.9; O2SAT 100
== END 2023-12-02 06:50 | disposition home or self-care (01) ==
LOC: ER 01:01
DX: K52.9 Noninfective gastroenteritis and colitis, unspecified (principal); R10.2 Pelvic and perineal pain; E11.9 Type 2 diabetes mellitus without complications; I10 Essential (primary) hypertension
CPT/HCPCS: 36415; 74177; 80053; 81001; 83690; 85025; 96361; 96374; 99284; J2405; J7030

== ENCOUNTER 2024-03-21 11:57 | Emergency (ER) | payer MEDICAID ==
--- OUTSIDE RECORDS SUMMARY | 2024-03-21 12:01 | XMS REPORT | Clinical Summary ---
Author Name Unknown Organization [facility] Address [address] [place] [address] Care Team Providers Care Yarder Puncher Name Role Phone Sumaya Cheng Unavailable Clay Murphy MD Primary Care Provider [phone] Yesenia Vance MD Unavailable [phone] Bruce Kim MD Unavailable [phone] Dimitrios Quiñonez MD Unavailable [email or web address] Allergies Active Allergy Reactions Criticality Noted Date Comments Senna Rash Low 11/06/2021 Medications * This document contains information received from the source organization and may not represent a complete record from that organization. lenalidomide (REVLIMID) capsule 10 mg Take 1 capsule (10 mg) by mouth daily. Active aspirin 81 mg EC tabletIndicatio ns:Multiple myeloma Take 1 tablet (81 mg) by mouth daily. 90 tablet 3 3 Active DULoxetine (Cymbalta) 60 mg capsuleIndicati ons:Paraneoplas tic neuropathy Take 1 capsule (60 mg) by mouth daily. 30 capsule 2 3 Active gabapentin (NEURONTIN) 100 mg capsule Take 3 capsules (300 mg) by mouth at bedtime. Active valACYclovir [...] then relapses into respiratory depression. 2 each 10/10/2022 3:55 PM CDT 3 Active atorvastatin (LIPITOR) 40 mg tablet Take 2 tablets (80 mg) by mouth daily. In the morning Active tiZANidine (ZANAFLEX) 2 mg tablet Take [...] refills w PCP 12 capsule 4 Active Additional Information Patient taking differently:50,000 Units oralDaily, Plz have patient get subsequent refills w PCP, Reason: Per patient request, Reported on 01/19/2024 dicyclomine (BENTYL) 20 mg tablet Take 1 tablet (20 mg) by mouth every 6 (six) hours. Active diphenoxylate-a tropine (LOMOTIL) 2.5 mg-0.025 mg per tablet Take 1 tablet by mouth daily as needed for diarrhea. Not to exceed 8 tablets per day Active guaiFENesin (MUCINEX) 600 mg 12 hr tablet Take 1 tablet (600 mg) by mouth as needed. Active cholestyramine (Questran) 4 g packetIndicatio ns:Multiple myeloma Take 1 packet by mouth daily. Mix powder in 4 ounces of juice. 60 each 4 Active Additional Information Patient not taking.Reason: No longer taking, Reported on 01/19/2024 benzonatate (Tessalon Perles) 100 mg capsuleIndicati ons:Multiple myeloma Take 1 capsule (100 mg) by mouth every 8 (eight) hours as needed for cough. 30 capsule 4 Active Additional Information Patient not taking.Reason: No longer taking, Reported on 01/19/2024 cephalexin (KEFLEX) 500 mg capsule Take 1 capsule (500 mg) by mouth twice daily. 4 Active cefPODoxime (VANTIN) 100 mg tablet Take 1 tablet (100 mg) by mouth twice daily. 4 Active ibuprofen (ADVIL,MOTRIN) 800 mg tablet Take 1 tablet (800 mg) by mouth every 8 (eight) hours as needed. Active ketoconazole (NIZORAL) 2% cream Apply topically to affected area(s) daily. Active lenalidomide (REVLIMID) capsule 5 mgIndications:M ultiple myeloma Take 1 capsule (5 mg) by mouth daily for 21 days, then take 7 days off in 28 day cycle. 21 capsule 4 02/09/20 24 Active Problems Problem Noted Date Diagnosed Date Screening for malignant neoplasm of colon 2022 Overview (10/28/2022): Added automatically from request for surgery [id number] Clostridioides difficile infection 10/07/2022 Anemia in neoplastic [...] diabetes mellitus 09/24/2021 Multiple myeloma 05/09/2021 Encounters * This document contains information received from the source organization and may not represent a complete record from that organization. Date Type Department Care Team Description 02/28/2024 Telephone [facility] [address] [place] [address], 6th [place] [address] Stacy Mcclain RN 02/24/2024 Refill [facility] [address] [place] [address], 6th [place] [address] Ivory Todd, TRUCK SERVICE MANAGER Multiple myeloma 02/22/2024 1:15 PM TELEVISION WRITER Telemedicine [facility] [address] [place] [address], 6th [place] [address] Ivory Todd, TRUCK SERVICE MANAGER Multiple myeloma (Primary Dx) 02/20/2024 8:54 AM TELEVISION WRITER - 02/20/2024 11:59 PM TELEVISION WRITER Hospital [facility] [address] [place] [address], [place] [address] Ivory Todd, TRUCK SERVICE MANAGER Multiple myeloma Discharge Disposition: Home 01/24/2024 Orders Only [facility] [address] [place] [address] Ivory Todd, TRUCK SERVICE MANAGER 01/22/2024 Orders Only [facility] [address] [place] [address], [facility] Floor [facility] [place] [address] Ivory Todd, TRUCK SERVICE MANAGER 01/21/2024 Specialty Pharmacy [facility] RX SPEC [facility] [address] [place] [address] Leonela Fuentes, PharmD Set up Initial Fill for Multiple Myeloma, Benefits Investigation for Multiple Myeloma 01/19/2024 1:30 PM TELEVISION WRITER Telemedicine [facility] [address] [place] [address], [facility] Floor [facility] [place] [address] Clay Murphy MD Cuellar, Elizabeth L, TRUCK SERVICE MANAGER Multiple myeloma (Primary Dx) 01/19/2024 Orders Only [facility] [address] [place] [address], [facility] [place] [address] Rosalva Galvan MD Multiple myeloma (Primary Dx) 01/19/2024 Telephone [facility] [address] [place] [address], 6th [place] [address] Boogie Guerra, MA Follow-up (Telephone Visit) 01/16/2024 9:12 AM TELEVISION WRITER - 01/16/2024 11:59 PM TELEVISION WRITER Hospital Encounter [facility] Main [facility], [place] [address] Ivory Todd, RUPERTO Multiple myeloma Discharge Disposition: Home 12/13/2023 Orders Only [facility] [facility] Main Bldg, 6th [place] [address] Ivory Todd, RUPERTO Multiple myeloma (Primary Dx) 12/12/2023 2:45 PM CDT Follow-Up [facility] [address] [place] [address] Main Bldg, 6th [place] [address] Clay Murphy MD Multiple myeloma (Primary Dx) 12/12/2023 Travel 12/08/2023 9:30 AM CDT - 12/08/2023 11:59 PM CDT Hospital [facility] [address] [place] [address] Main [facility], [place] [address] Ivory Todd, RUPERTO Multiple myeloma Discharge Disposition: Home 12/08/2023 9:00 AM CDT - 12/08/2023 9:29 AM CDT Hospital [facility] [address] [place] [address] Main [facility], [place] [address] Ivory Todd, RUPERTO Multiple myeloma Discharge Disposition: Home 11/14/2023 9:00 AM CDT Telemedicine [facility] [address] [place] [address] Main Bldg, 6th [place] [address] Clay Murphy MD Cuellar, Elizabeth L, RUPERTO Multiple myeloma 11/10/2023 10:00 AM CDT Telemedicine [facility] [address] [place] [address] Main Bldg, 6th [place] [address] Clay Murphy MD Cuellar, Elizabeth L, RUPERTO Multiple myeloma (Primary Dx) 11/10/2023 Telephone [facility] [address] [place] [address] Main Bldg, 6th [place] [address] Yudelka Dennis, RN 11/07/2023 9:00 AM CDT - 11/07/2023 11:59 PM CDT Hospital Encounter [facility] Main Bldg, [place] [address] Ivory Todd APRN Multiple myeloma Discharge Disposition: Home 10/19/2023 Orders Only [facility] [address] Main Bldg, 6th [place] [address] Ivory Todd, RUPERTO Multiple myeloma (Primary Dx) 10/13/2023 Orders Only [facility] [address] Main Bldg, 6th [place] [address] Ivory Todd APRN 10/12/2023 1:00 PM CDT Telemedicine [facility] Main Bldg, 6th [place] [address] Ivory Todd APRN Multiple myeloma (Primary Dx) 10/11/2023 Telephone [facility], 6th [place] [address] Jovita Cheng MA PreScreen 10/10/2023 9:02 AM CDT - 10/10/2023 11:59 PM CDT Hospital Encounter [facility] Main Bldg, [place] [address] Ivory Todd APRN Multiple myeloma Discharge Disposition: Home 09/14/2023 1:30 PM CDT Telemedicine [facility] Main Bldg, 6th [place] [address] Ivory Todd APRN Multiple myeloma (Primary Dx) 09/12/2023 8:54 AM CDT - 09/12/2023 11:59 PM CDT Hospital Encounter [facility] Bldg, [place] [address] Ivory Todd APRN Multiple myeloma Discharge Disposition: Home 08/23/2023 11:00 AM CDT Follow-Up [facility] [address], 8th [place] [address] Cecil Nowak MD Hemopoietic stem cell transplant (Primary Dx) 08/23/2023 Travel 08/15/2023 2:00 PM CDT Telemedicine [facility] [address], 6th [place] [address] Clay Murphy MD Cuellar, Elizabeth L, RUPERTO Multiple myeloma (Primary Dx) 08/14/2023 9:23 AM CDT - 08/14/2023 11:59 PM CDT Hospital Encounter [facility], [place] [address] Ivory Todd, RUPERTO Multiple myeloma Discharge Disposition: Home 07/20/2023 10:00 AM CDT Telephone [facility]ld[address], 6th [place] [address] Ivory Todd APRN 07/19/2023 Telephone [facility] [address] [facility] [address] [facility] Main dg, 6th [place] [address] Oscar Jones 07/18/2023 8:47 AM CDT - 07/18/2023 11:59 PM CDT Hospital En[facility] [address] [place], [place] [address]vd Main dg, [place] [address] Ivory Todd, RUPERTO Multiple myeloma Discharge Disposition: Home 07/17/2023 Orders Only [facility] Main Bldg, 6th [place] [address] Ivory Todd APRN Multiple myeloma (Primary Dx) 06/13/2023 8:15 AM CDT Follow-Up [facility] Main Bldg, 6th [place] [address] Clay Murphy MD Multiple myeloma (Primary Dx) 06/13/2023 Travel 06/09/2023 9:15 AM CDT - 06/09/2023 11:59 PM CDT Hospital Encounter [facility], [place] [address] Ivory Todd, RUPERTO Multiple myeloma Discharge Disposition: Home 06/09/2023 9:15 AM CDT - 06/09/2023 11:59 PM CDT Hospital Encounter [facility], [place] [address] Ivory Todd, TRUCK SERVICE MANAGER Multiple myeloma Discharge Disposition: Home 05/18/2023 9:00 AM CDT Telemedicine [facility] [address] [place] [address] Ivory Todd APRN Multiple myeloma (Primary Dx) 05/18/2023 Orders Only [facility] Main dg, 6th [place] [address] Ivory Todd APRN Multiple myeloma (Primary Dx) 05/17/2023 Refill [facility] [address] [facility] Main Bldg, 8th [place] [address] Merlyn Whitfield PA Vitamin D deficiency, not otherwise specified 05/16/2023 10:35 AM CDT - 05/16/2023 11:59 PM CDT Hospital Encounter [facility], [place] [address] Ivory Todd APRN Multiple myeloma Discharge Disposition: Home 05/15/2023 Orders Only [facility] [address] [facility] [facility] Main Bldg, 6th [place] [address] Cheri Sanford APRN 04/20/2023 9:00 AM TELEVISION WRITER Telemedicine [facility] [address]rd [place] [address] Ivory Todd APRN Multiple myeloma (Primary Dx) 04/20/2023 Orders Only [facility] Main Bldg, 6th [place] [address] Ivory Todd APRN Multiple myeloma (Primary Dx) 04/18/2023 8:57 AM TELEVISION WRITER - 04/18/2023 11:59 PM TELEVISION WRITER Hospital Encounter [facility] Main dg, [place] [address] Ivory Todd APRN Multiple myeloma Discharge Disposition: Home after 03/22/2023 Immunizations Name Administration Dates Next Due DTaP / IPV 11/11/2022,07/13/2022,05/13/2022 Hepatitis A 11/11/2022,05/13/2022 Hepatitis B 11/11/2022,07/13/2022,05/13/2022 Hib (PRP-OMP) 11/11/2022,07/13/2022,05/13/2022 Influenza Quadrivalent High Dose 11/11/2022 Influenza, injectable, quadr ivalent, preservative free 11/26/2019 Pneumococcal Conjugate 15-valent 11/11/2022,06/15,05/13/2022 Pneumococcal Conjugate 20-valent 08/23/2023 Zoster Recombinant 07/13/2022,05/13/2022 Surgical History Surgery Date Site/Laterality Comments MI COLONOSCOPY FLX DX W/COLLJ SPEC WHEN PFRMD 02/15/2023 N/A Procedure: DIAGNOSTIC FLEXIBLE COLONOSCOPY PROXIMAL TO SPLENIC FLEXURE; Surgeon: Domingo Valdes MD; Location: [facility]; Service: GASTROENTEROLOGY Medical History Medical History Date Comments Hypertension 2017 Hyperlipidemia 2017 Irregular heart beat 1960 Menopause 1992 Rheumatoid arthritis 2017 Arthritis 2017 Diabetes mellitus 2017 Family History Medical History Relation Name Comments Prostate cancer Father Able josh Breast cancer Maternal Aunt 1 Margrett valladares Throat cancer Maternal Aunt 2 Nata Relation Name Status Comments Father Able mayelaford Maternal Aunt 1 Margrett valladares Maternal Aunt 2 Nata Social History Tobacco Use Types Packs/Day Years Used Date Smoking Tobacco: Never Smokeless Tobacco: Never Alcohol Use Standard Drinks/Week Comments Never 0 (1 standard drink = 0.6 oz pur e alcohol) Comments No Sex and Gender Information Value Date Recorded Sex Assigned at Not on file Legal Sex Female 7:00 PM TELEVISION WRITER Gender Identity Not on file Sexual Orientation Not on file 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 Not on file Not on file Not on f ile Obstetrics History Last Filed Vital Signs Vital Sign Reading Time Taken Comments Blood Pressure 114/86 12/12/2023 1:49 PM CDT Pulse 59 12/12/2023 1:49 PM CDT Temperature 37 C (98.6 F) 12/12/2023 1:49 PM CDT Respiratory Rate 16 12/12/2023 1:49 PM CDT Oxygen Saturation 98% 12/12/2023 1:49 PM CDT Inhaled Oxygen Concentration - - Weight 81.1 kg (178 lb 12.7 oz) 12/12/2023 1:49 PM CDT Height 165.5 cm (5' 5.16") 12/12/2023 1:49 PM CD T Body Mass Index 29.61 12/12/2023 1:49 PM CDT Plan of Treatment Upcoming Encounters Date Type Department Care Team (Late st Contact Info) Description 03/27/2024 6:30 PM TELEVISION WRITER [facility]ointment [facility] [address] [place] [address] Ivory Todd APRN [address] [place] [address] [email or web address] 03/27/2024 6:45 PM TELEVISION WRITER Appointment [facility] [address] [place] [address] Ivory Todd TRUCK SERVICE MANAGER [address] [place] [address] [email or web address] 03/27/2024 8:15 PM TELEVISION WRITER Ancillary Procedure [facility] [address] [place] [address] Ivory Todd APRN [address] [place] [address] [email or web address] 03/29/2024 1:45 PM TELEVISION WRITER Follow-Up [facility] [address] [place] [address], 6th [place] [address] Clay Murphy MD [address] [place] [phone] [email or web address] 04/23/2024 9:00 AM CDT Appointment [facility] [address] [place] [address], [place] [address] Ivory Todd APRN [address] [place] [address] [email or web address] 04/25/2024 8:30 AM CDT Telemedicine [facility] [address] [place] [address], 6th Floor [facility] [place] [address] Tali Reynoso PA-C [address] [place] [phone] [email or web address] Health Maintenance Due Date Last Done Comments COVID-19 Vaccine (3 - Modern a risk series) 06/07/2020 05/10/2020, 04/12/2020 Influenza Vaccine (#1) 2023 , 11/26/2019, 03/22/2018 Pneumococcal Vaccine: 50+ Years Completed 08/23/2023, 11/11/2022, 07/13/2022, Additional history exists Procedures Procedure Name Priority Date/Time Associated Diagnosis Comments TOTAL PROTEIN Routine 02/20/2024 9:16 AM TELEVISION WRITER Multiple myeloma FREE KAPPA/FREE LAMBDA RATIO Routine 02/20/2024 9:16 AM TELEVISION WRITER Multiple myeloma IMMUNOFIXATION ELECTROPHORESIS Routine 02/20/2024 9:16 AM TELEVISION WRITER Multiple myeloma PROTEIN ELECTROPHORESIS Routine 02/19/19 9:16 AM TELEVISION WRITER Multiple myeloma .CBC Routine 02/20/2024 9:16 AM TELEVISION WRITER Multiple myeloma LACTATE DEHYDROGENASE Routine 02/20/2024 9:16 AM TELEVISION WRITER Multiple myeloma BETA 2 MICROGLOBULIN Routine 02/20/2024 9:16 AM TELEVISION WRITER Multiple myeloma SERUM PROTEIN ELECTROPHORESIS WITH REJI Routine 02/20/2024 9:16 AM TELEVISION WRITER Multiple myeloma FREE LAMBDA LIGHT CHAIN Routine 02/19/19 9:16 AM TELEVISION WRITER Multiple myeloma FREE KAPPA LIGHT CHAIN Routine 9:16 AM TELEVISION WRITER Multiple myeloma IMMUNOGLOBULIN M Routine 02/20/2024 9:16 AM TELEVISION WRITER Multiple myeloma IMMUNOGLOBULIN G Routine 02/20/2024 9:16 AM TELEVISION WRITER Multiple myeloma IMMUNOGLOBULIN A Routine 02/20/2024 9:16 AM TELEVISION WRITER Multiple myeloma FRACTIONATED BILIRUBIN Routine 9:16 AM TELEVISION WRITER Multiple myeloma URIC ACID Routine 02/20/2024 9:16 AM TELEVISION WRITER Multiple myeloma PHOSPHORUS LEVEL Routine 02/20/2024 9:16 AM TELEVISION WRITER Multiple myeloma MAGNESIUM LEVEL Routine 02/20/2024 9:16 AM TELEVISION WRITER Multiple myeloma COMPREHENSIVE METABOLIC PANEL Routine 02/20/2024 9:16 AM TELEVISION WRITER Multiple myeloma COMPLETE BLOOD COUNT W/ DIFFERENTIAL Routine 02/20/2024 9:16 AM TELEVISION WRITER Multiple myeloma TOTAL PROTEIN Routine 01/16/2024 9:27 AM TELEVISION WRITER Multiple myeloma FREE KAPPA/FREE LAMBDA RATIO Routine 01/16/2024 9:27 AM TELEVISION WRITER Multiple myeloma IMMUNOFIXATION ELECTROPHORESIS Routine 01/16/2024 9:27 AM TELEVISION WRITER Multiple myeloma PROTEIN ELECTROPHORESIS Routine 01/16/20 9:27 AM TELEVISION WRITER Multiple myeloma .CBC Routine 01/16/2024 9:27 AM TELEVISION WRITER Multiple myeloma LACTATE DEHYDROGENASE Routine 01/16/2024 9:27 AM TELEVISION WRITER Multiple myeloma BETA 2 MICROGLOBULIN Routine 01/16/2024 9:27 AM TELEVISION WRITER Multiple myeloma SERUM PROTEIN ELECTROPHORESIS WITH REJI Routine 01/16/2024 9:27 AM TELEVISION WRITER Multiple myeloma FREE LAMBDA LIGHT CHAIN Routine 01/16/20 9:27 AM TELEVISION WRITER Multiple myeloma FREE KAPPA LIGHT CHAIN Routine 9:27 AM TELEVISION WRITER Multiple myeloma IMMUNOGLOBULIN M Routine 01/16/2024 9:27 AM TELEVISION WRITER Multiple myeloma IMMUNOGLOBULIN G Routine 01/16/2024 9:27 AM TELEVISION WRITER Multiple myeloma IMMUNOGLOBULIN A Routine 01/16/2024 9:27 AM TELEVISION WRITER Multiple myeloma FRACTIONATED BILIRUBIN Routine 9:27 AM TELEVISION WRITER Multiple myeloma URIC ACID Routine 01/16/2024 9:27 AM TELEVISION WRITER Multiple myeloma PHOSPHORUS LEVEL Routine 01/16/2024 9:27 AM TELEVISION WRITER Multiple myeloma MAGNESIUM LEVEL Routine 01/16/2024 9:27 AM TELEVISION WRITER Multiple myeloma COMPREHENSIVE METABOLIC PANEL Routine 01/16/2024 9:27 AM TELEVISION WRITER Multiple myeloma COMPLETE BLOOD COUNT W/ DIFFERENTIAL Routine 01/16/2024 9:27 AM TELEVISION WRITER Multiple myeloma URINE TOTAL PROTEIN 24 HOUR Routine 12/08/2023 3:04 PM CDT Multiple myeloma IMMUNOFIXATION ELECTROPHORESIS URINE Routine 12/08/2023 3:04 PM CDT Multiple myeloma PROTEIN ELECTROPHORESIS URINE Routine 12/08/2023 3:04 PM CDT Multiple myeloma PROTEIN ELECTROPHORESIS URINE WITH REJI Routine 12/08/2023 3:04 PM CDT Multiple myeloma DIFFERENTIAL Routine 12/08/2023 9:13 AM CDT Multiple myeloma FREE KAPPA/FREE LAMBDA RATIO Routine 12/08/2023 9:13 AM CDT Multiple myeloma IMMUNOFIXATION ELECTROPHORESIS Routine 12/08/2023 9:13 AM CDT Multiple myeloma PROTEIN ELECTROPHORESIS Routine 12/08/19 9:13 AM CDT Multiple myeloma .CBC Routine 12/08/2023 9:13 AM CDT Multiple myeloma LACTATE DEHYDROGENASE Routine 12/08/2023 9:13 AM CDT Multiple myeloma BETA 2 MICROGLOBULIN Routine 12/08/2023 9:13 AM CDT Multiple myeloma SERUM PROTEIN ELECTROPHORESIS WITH REJI Routine 12/08/2023 9:13 AM CDT Multiple myeloma FREE LAMBDA LIGHT CHAIN Routine 12/08/19 9:13 AM CDT Multiple myeloma FREE KAPPA LIGHT CHAIN Routine 9:13 AM CDT Multiple myeloma IMMUNOGLOBULIN M Routine 12/08/2023 9:13 AM CDT Multiple myeloma IMMUNOGLOBULIN G Routine 12/08/2023 9:13 AM CDT Multiple myeloma IMMUNOGLOBULIN A Routine 12/08/2023 9:13 AM CDT Multiple myeloma FRACTIONATED BILIRUBIN Routine 9:13 AM CDT Multiple myeloma URIC ACID Routine 12/08/2023 9:13 AM CDT Multiple myeloma PHOSPHORUS LEVEL Routine 12/08/2023 9:13 AM CDT Multiple myeloma MAGNESIUM LEVEL Routine 12/08/2023 9:13 AM CDT Multiple myeloma COMPREHENSIVE METABOLIC PANEL Routine 12/08/2023 9:13 AM CDT Multiple myeloma COMPLETE BLOOD COUNT W/ DIFFERENTIAL Routine 12/08/2023 9:13 AM CDT Multiple myeloma FREE KAPPA/FREE LAMBDA RATIO Routine 11/07/2023 9:39 [...] myeloma FREE LAMBDA LIGHT CHAIN Routine 09/12/19 24 9:10 AM CDT Multiple myeloma FREE KAPPA [...] AM CDT Multiple myeloma PROTEIN ELECTROPHORESIS Routine 06/04/20 24 9:11 AM CDT Multiple myeloma .CBC Routine [...] myeloma FREE LAMBDA LIGHT CHAIN Routine 05/16/19 24 11:01 AM CDT Multiple myeloma FREE KAPPA [...] KAPPA/FREE LAMBDA RATIO Routine 04/18/2023 9:30 AM TELEVISION WRITER Multiple myeloma IMMUNOFIXATION ELECTROPHORESIS Routine 04/18/2023 9:30 AM TELEVISION WRITER Multiple myeloma PROTEIN ELECTROPHORESIS Routine 04/18/19 9:30 AM TELEVISION WRITER Multiple myeloma .CBC Routine 04/18/2023 9:30 AM TELEVISION WRITER Multiple myeloma LACTATE DEHYDROGENASE Routine 04/18/2023 9:30 AM TELEVISION WRITER Multiple myeloma BETA 2 MICROGLOBULIN Routine 04/18/2023 9:30 AM TELEVISION WRITER Multiple myeloma SERUM PROTEIN ELECTROPHORESIS WITH REJI Routine 04/18/2023 9:30 AM TELEVISION WRITER Multiple myeloma FREE LAMBDA LIGHT CHAIN Routine 03/05/20 24 9:30 AM TELEVISION WRITER Multiple myeloma FREE KAPPA LIGHT CHAIN Routine 9:30 AM TELEVISION WRITER Multiple myeloma IMMUNOGLOBULIN M Routine 04/18/2023 9:30 AM TELEVISION WRITER Multiple myeloma IMMUNOGLOBULIN G Routine 04/18/2023 9:30 AM TELEVISION WRITER Multiple myeloma IMMUNOGLOBULIN A Routine 04/18/2023 9:30 AM TELEVISION WRITER Multiple myeloma URIC ACID Routine 04/18/2023 9:30 AM TELEVISION WRITER Multiple myeloma PHOSPHORUS LEVEL Routine 04/18/2023 9:30 AM TELEVISION WRITER Multiple myeloma MAGNESIUM LEVEL Routine 04/18/2023 9:30 AM TELEVISION WRITER Multiple myeloma COMPREHENSIVE METABOLIC PANEL Routine 04/18/2023 9:30 AM TELEVISION WRITER Multiple myeloma COMPLETE BLOOD COUNT W/ DIFFERENTIAL Routine 04/18/2023 9:30 AM TELEVISION WRITER Multiple myeloma after 03/22/2023 Results * REJI (02/20/2024 9:16 AM TELEVISION WRITER) Only the most recent of11 resultswithin the time period is included. Serum Immunofixation No M-protein 02/21/2024 4:08 PM [facility] REJI Path Interp The serum immunofixation electrophoretic patterns obtained with the use of antisera against IgG, IgA, IgM, bound kappa and bound lambda light chains do not show definitive evidence of a monoclonal gammopathy. 02/21/2024 4:08 PM [facility] Pathologist Signature . 02/21/2024 4:08 PM [facility] [facility] Blood Peripheral blood specimen / Unknown Venipuncture / Unknown 02/20/2024 9:16 AM TELEVISION WRITER 02/20/2024 9:19 AM TELEVISION WRITER Ivory Todd APRN LAB BLOOD ORDERABLES Fi nal Result [facility] Unless otherwise noted, all lab tests performed by: Division of Pathology and Laboratory Medicine [address] [place] [address] [phone] * Serum Protein Electrophoresis (02/20/2024 9:16 AM TELEVISION WRITER) Only the most recent of11 resultswithin the time period is included. Albumin 3.8 3.6 - 5.4 gm/dL 02/21/2024 4:08 PM [facility] Alpha 1 Globulin 0.3 0.2 - 0.4 gm/dL 02/21/2024 4:08 PM [facility] Alpha 2 Globulin 0.8 0.5 - 1.0 gm/dL 02/21/2024 4:08 PM [facility] Beta Globulin 0.9 0.5 - 1.1 gm/dL 02/21/2024 4:08 PM [facility] Gamma Globulin 1.5 0.7 - 1.6 gm/dL 02/21/2024 4:08 PM [facility] SPE Path Interp The serum electrophoretic pattern does not show definitive evidence of an M-protein peak. If a paraproteinemia is suspected clinically, however, serum REJI studies are suggested. 02/21/2024 4:08 PM [facility] Pathologist Signature . 02/21/2024 4:08 PM [facility] SPEP Total Protein 7.3 6.4 - 8.3 gm/dL 02/21/2024 4:08 PM [facility] Blood Peripheral blood specimen / Unknown Venipuncture / Unknown 02/20/2024 9:16 AM TELEVISION WRITER 02/20/2024 9:19 AM TELEVISION WRITER Ivory Todd APRN LAB BLOOD ORDERABLES Fi nal Result [facility] Unless otherwise noted, all lab tests performed by: Division of Pathology and Laboratory Medicine [address] [place] [address] [phone] * (ABNORMAL) .CBC (02/20/2024 9:16 AM [facility]) Only the most recent of11 resultswithin the time period is included. White Blood Cell 4.5 4.1 - 10.5 K/uL 02/20/2024 9:28 AM [facility] Red Blood Cell 4.01 3.99 - 5.46 M/uL 02/20/2024 9:28 AM [facility] Hemoglobin 12.5 12.2 - 15.3 g/dL 02/20/2024 9:28 AM [facility] Hematocrit 38.0 36.4 - 46.8 % 02/20/2024 9:28 AM [facility] Mean Cell Volume 95 82 - 99 fL 02/20/2024 9:28 AM [facility] Mean Cell Hemoglobin 31.2 26.6 - 33.2 pg 02/20/2024 9:28 AM [facility] Mean Cell Hemoglobin Concentration 32.9 31.1 - 35.2 g/dL 02/20/2024 9:28 AM [facility] RDW-SD 51.0(H) 37.5 - 49.7 fL 02/20/2024 9:28 AM [facility] Red Cell Diameter Width 14.6 11.6 - 15.5 % 02/20/2024 9:28 AM [facility] Platelet 189 160 - 397 K/uL 02/20/2024 9:28 AM [facility] Mean Platelet Volume 11.7 9.1 - 12.6 fL 02/20/2024 9:28 AM [facility] INRBC 0.0 0.0 - 0.1 /100 WBC 02/20/2024 9:28 AM [facility] Comment: The INRBC (instrument NRBC) value reflects the enumeration of nucleated red blood cells contained in a 200uL sample of whole blood analyzed by the instrument. This value may differ from the NRBC value reported in a manual differential, which is based on a 100 cell differential. Neutrophil % 39.2(L) 43.2 - 72.7 % 02/20/2024 9:28 AM [facility] Lymphocyte % 42.6 16.8 - 46.2 % 02/20/2024 9:28 AM [facility] Monocyte % 15.5(H) 5.1 - 12.5 % 02/20/2024 9:28 AM [facility] Eosinophil % 1.8 0.4 - 6.3 % 02/20/2024 9:28 AM [facility] Basophil % 0.9 0.2 - 1.4 % 02/20/2024 9:28 AM [facility] IGRE % 0.0(L) 0.1 - 1.5 % 02/20/2024 9:28 AM [facility] Comment:The IGRE% includes M etamyelocytes, Myelocytes and Promyelocytes. Neutrophil Abs 1.78(L) 1.95 - 7.25 K/uL 02/20/2024 9:28 AM [facility] Lymphocyte Abs 1.93 1.01 - 3.24 K/uL 02/20/2024 9:28 AM [facility] Monocyte Abs 0.70 0.24 - 0.85 K/uL 02/20/2024 9:28 AM [facility] Eosinophil Abs 0.08 0.02 - 0.50 K/uL 02/20/2024 9:28 AM [facility] Basophil Abs 0.04 0.02 - 0.09 K/uL 02/20/2024 9:28 AM [facility] IG Abs 0.00(L) 0.01 - 0.12 K/uL 02/20/2024 9:28 AM [facility] Blood Peripheral blood specimen / Unknown Venipuncture / Unknown 02/20/2024 9:16 AM [facility] 02/20/2024 9:19 AM [facility] Ivory Todd TRUCK SERVICE MANAGER LAB BLOOD ORDERABLES Fi nal Result [facility] Unless otherwise noted, all lab tests performed by: Division of Pathology and Laboratory Medicine [address] [place] [address], [place] [id number] * Free Rex/Free Lambda Ratio (02/20/2024 9:16 AM TELEVISION WRITER) Only the most recent of11 resultswithin the time period is included. Pathologist [facility] Free Rex/ Free Lambda Ratio 1.39 0.26 - 1.65 02/20/2024 12:40 PM TELEVISION WRITER [facility] Blood Peripheral blood specimen / Unknown Venipuncture / Unknown 02/20/2024 9:16 AM TELEVISION WRITER 02/20/2024 9:19 AM TELEVISION WRITER Ivory Todd APRN LAB BLOOD ORDERABLES Fi nal Result [facility] Unless otherwise noted, all lab tests performed by: Division of Pathology and Laboratory Medicine [address] [place] [address] [phone] * Fractionated Bilirubin (02/20/2024 9:16 AM TELEVISION WRITER) Only the most recent of10 resultswithin the time period is included. Pathologist [facility] Bilirubin Direct 0.2 0.0 - 0.2 mg/dL 02/20/2024 10:20 AM [facility] Comment:Indocyanine Green (I CG) may cause falsely elevated bilirubin results. Total and direct bilirubin must not be measured from samples containing indocyanine green. Bilirubin Indirect 0.3 0.0 - 1.0 mg/dL 02/20/2024 10:20 AM [facility] Bilirubin Total 0.5 0.0 - 1.2 mg/dL 02/20/2024 10:20 AM [facility] Comment: Indocyanine Green (ICG) may cause falsely [...] blood specimen / Unknown Venipuncture / Unknown 02/20/2024 9:16 AM TELEVISION WRITER 02/20/2024 9:19 AM TELEVISION WRITER Ivory Nadine Todd APRN LAB BLOOD ORDERABLES Fi nal Result [facility] Unless otherwise noted, all lab tests performed by: Division of Pathology and Laboratory Medicine [address] [place] [address] [phone] * Comprehensive Metabolic Panel (02/20/2024 9:16 AM [facility]) Only the most recent of11 resultswithin the time period is included. Pathologist [facility] Bilirubin Total 0.5 0.0 - 1.2 mg/dL 02/20/2024 10:20 AM [facility] Comment:Indocyanine Green (I CG) may cause falsely elevated bilirubin results. Total and direct bilirubin must not be measured from samples containing indocyanine green. False elevation of total bilirubin can be seen in patients with IgG concentrations above 28 g/L. eGFR 70 >=60 mL/min/1. 73 sq. m 02/20/2024 10:20 AM [facility] Comment: The eGFRcr is calculated with [...] G2 fulfill criteria for CKD. Tot Protein 8.0 6.4 - 8.3 gm/dL 02/20/2024 10:20 AM [facility] Calcium Level Total 9.7 8.2 - 10.2 mg/dL 02/20/2024 10:20 AM [facility] Alkaline Phosphatase 93 35 - 104 U/L 02/20/2024 10:20 AM [facility] Albumin Level 4.2 3.5 - 5.2 gm/dL 02/20/2024 10:20 AM [facility] AST 23 <=32 U/L 02/20/2024 10:20 AM [facility] ALT 20 <=33 U/L 02/20/2024 10:20 AM [facility] Sodium Level 141 136 - 145 mmol/L 02/20/2024 10:20 AM [facility] Potassium Level 3.9 3.4 - 4.5 mmol/L 02/20/2024 10:20 AM [facility] Chloride 106 98 - 107 mmol/L 02/20/2024 10:20 AM [facility] CO2 29 22 - 29 mmol/L 02/20/2024 10:20 AM [facility] Anion Gap 6 4 - 14 mmol/L 02/20/2024 10:20 AM [facility] Creatinine 0.91 0.51 - 0.95 mg/dL 02/20/2024 10:20 AM [facility] BUN 10 6 - 23 mg/dL 02/20/2024 10:20 AM [facility] Glucose Level 92 70 - 99 mg/dL 02/20/2024 10:20 AM [facility] Comment: Effective 09/09/15, the glucose reference intervals have been updated based on [place] [employer] guidelines (Standards of Medical Care in Diabetes 2016. Diabetes Care 2016; 39: S13-S22). Fasting blood glucose: Normal: 70-99 mg/dL Impaired fasting glucose (increased risk for diabetes or pre-diabetes): 100-125 mg/dL Diabetes mellitus: >/=126 mg/dL Random blood glucose: Normal: 70-199 mg/dL Note: Random glucose >100 mg/dL is associated with increased risk for diabetes. Blood Peripheral blood specimen / Unknown Venipuncture / Unknown 02/20/2024 9:16 AM [facility] 02/20/2024 9:19 AM TELEVISION WRITER Ivorymarisol Garciaar TRUCK SERVICE MANAGER LAB BLOOD ORDERABLES Fi nal Result Performing Organization Address City/[facility] Co de Phone Number [facility] Unless otherwise noted, all lab tests performed by: Division of Pathology and Laboratory Medicine [address] [place] [address] [phone] * (ABNORMAL) Free Lambda Light Chain (02/20/2024 9:16 AM TELEVISION WRITER) Only the most recent of11 resultswithin the time period is included. Free Lambda Light chain 26.92(H) 5.71 - 26.30 mg/L 02/20/2024 12:40 PM TELEVISION WRITER [facility] Blood Peripheral blood specimen / Unknown Venipuncture / Unknown 02/20/2024 9:16 AM TELEVISION WRITER 02/20/2024 9:19 AM TELEVISION WRITER Ivory L Todd TRUCK SERVICE MANAGER LAB BLOOD ORDERABLES Fi nal Result Performing Organization Address [facility] Co de Phone Number [facility] Unless otherwise noted, all lab tests performed by: Division of Pathology and Laboratory Medicine [address] [place] [address] [phone] * (ABNORMAL) Free Rex Light Chain (02/20/2024 9:16 AM TELEVISION WRITER) Only the most recent of11 resultswithin the time period is included. Free Rex Light 37.37(H) 3.30 - 19.40 mg/L 02/20/2024 12:40 PM TELEVISION WRITER [facility] Blood Peripheral blood specimen / Unknown Venipuncture / Unknown 02/20/2024 9:16 AM TELEVISION WRITER 02/20/2024 9:19 AM TELEVISION WRITER Ivory L Todd TRUCK SERVICE MANAGER LAB BLOOD ORDERABLES Fi nal Result [facility] Unless otherwise noted, all lab tests performed by: Division of Pathology and Laboratory Medicine [address] [place] [address] [phone] * Uric Acid (02/20/2024 9:16 AM TELEVISION WRITER) Only the most recent of11 resultswithin the time period is included. Uric Acid 4.4 2.4 - 5.7 mg/dL 02/20/2024 10:20 AM TELEVISION WRITER [facility] Blood Peripheral blood specimen / Unknown Venipuncture / Unknown 02/20/2024 9:16 AM TELEVISION WRITER 02/20/2024 9:19 AM TELEVISION WRITER [facility] LAB BLOOD ORDERABLES Fi nal Result Performing Organization Address City/[facility] de Phone Number [facility] Unless otherwise noted, all lab tests performed by: Division of Pathology and Laboratory Medicine [address] [place] [address] [phone] * Total Protein (02/20/2024 9:16 AM TELEVISION WRITER) Only the most recent of2 resultswithin the time period is included. Pathologist [facility] Tot Protein 7.3 6.4 - 8.3 gm/dL 02/20/2024 12:52 PM TELEVISION WRITER [facility] Blood Peripheral blood specimen / Unknown Venipuncture / Unknown 02/20/2024 9:16 AM TELEVISION WRITER 02/20/2024 9:19 AM TELEVISION WRITER Narrative [facility] - 02/20/2024 12:52 PM TELEVISION WRITER Reference range established based on adult population Ivory L ToddAsc[facility] LAB BLOOD ORDERABLES Fi nal Result Performing Organization Address City/[facility] Co de Phone Number [facility] Unless otherwise noted, all lab tests performed by: Division of Pathology and Laboratory Medicine [address] [place] [address] [phone] * Phosphorus Level (02/20/2024 9:16 AM TELEVISION WRITER) Only the most recent of11 resultswithin the time period is included. Pathologist [facility] Phosphorus Level 3.4 2.5 - 4.5 mg/dL 02/20/2024 10:20 AM TELEVISION WRITER [facility] Blood Peripheral blood specimen / Unknown Venipuncture / Unknown 02/20/2024 9:16 AM TELEVISION WRITER 02/20/2024 9:19 AM TELEVISION WRITER [facility] LAB BLOOD ORDERABLES Fi nal Result Performing Organization Address City/[facility] Co de Phone Number [facility] Unless otherwise noted, all lab tests performed by: Division of Pathology and Laboratory Medicine [address] [place] [address] [phone] * Magnesium Level (02/20/2024 9:16 AM TELEVISION WRITER) Only the most recent of11 resultswithin the time period is included. Magnesium Level 1.8 1.6 - 2.6 mg/dL 02/20/2024 10:20 AM TELEVISION WRITER [facility] Blood Peripheral blood specimen / Unknown Venipuncture / Unknown 02/20/2024 9:16 AM TELEVISION WRITER 02/20/2024 9:19 AM TELEVISION WRITER Ivory [facility]DeskToddAsc[facility] LAB BLOOD ORDERABLES Fi nal Result Performing Organization Address [facility] de Phone Number [facility] Unless otherwise noted, all lab tests performed by: Division of Pathology and Laboratory Medicine [address] [place] [address] [phone] * (ABNORMAL) LDH (02/20/2024 9:16 AM TELEVISION WRITER) Only the most recent of11 resultswithin the time period is included. LDH 244(H) 135 - 214 U/L 02/20/2024 10:20 AM TELEVISION WRITER [facility] Blood Peripheral blood specimen / Unknown Venipuncture / Unknown 02/20/2024 9:16 AM TELEVISION WRITER 02/20/2024 9:19 AM TELEVISION WRITER Narrative [facility] - 02/20/2024 10:20 AM TELEVISION WRITER Results greater than 1651 U/L may not be reliable due to matrix effect with extended dilution as it exceeds the interactive multimedia designer's recommended limit. Caution should be exercised when interpreting such values and done in conjunction with clinical context. hopscoutllar [facility] LAB BLOOD ORDERABLES Fi nal Result Performing Organization Address City/[facility]/ZIP Co de Phone Number [facility] Unless otherwise noted, all lab tests performed by: Division of Pathology and Laboratory Medicine [address] [place] [address] [phone] * IgA (02/20/2024 9:16 AM TELEVISION WRITER) Only the most recent of11 resultswithin the time period is included. [facility] IgA 269 85 - 499 mg/dL 02/20/2024 12:40 PM TELEVISION WRITER [facility] Blood Peripheral blood specimen / Unknown Venipuncture / Unknown 02/20/2024 9:16 AM TELEVISION WRITER 02/20/2024 9:19 AM TELEVISION WRITER Ivory Todd APRN LAB BLOOD ORDERABLES Fi nal Result Performing Organization Address City/[facility] de Phone Number [facility] Unless otherwise noted, all lab tests performed by: Division of Pathology and Laboratory Medicine [address] [place] [address] [phone] * IgM (02/20/2024 9:16 AM TELEVISION WRITER) Only the most recent of11 resultswithin the time period is included. [facility] IgM 105 35 - 242 mg/dL 02/20/2024 12:40 PM TELEVISION WRITER [facility] Blood Peripheral blood specimen / Unknown Venipuncture / Unknown 02/20/2024 9:16 AM TELEVISION WRITER 02/20/2024 9:19 AM TELEVISION WRITER Ivory Todd APRN LAB BLOOD ORDERABLES Fi nal Result Performing Organization Address City/[facility] Co de Phone Number [facility] Unless otherwise noted, all lab tests performed by: Division of Pathology and Laboratory Medicine [address] [place] [address] [phone] * IgG (02/20/2024 9:16 AM TELEVISION WRITER) Only the most recent of11 resultswithin the time period is included. [facility] IgG 1,444 610 - 1,616 mg/dL 02/20/2024 12:40 PM TELEVISION WRITER [facility] Blood Peripheral blood specimen / Unknown Venipuncture / Unknown 02/20/2024 9:16 AM TELEVISION WRITER 02/20/2024 9:19 AM TELEVISION WRITER Ivory Todd APRN LAB BLOOD ORDERABLES Fi nal Result Performing Organization Address [facility] de Phone Number [facility] Unless otherwise noted, all lab tests performed by: Division of Pathology and Laboratory Medicine [address] [place] [address] [phone] * Beta 2 Microglobulin (02/20/2024 9:16 AM TELEVISION WRITER) Only the most recent of11 resultswithin the time period is included. Beta 2 Microglobulin 2.20 0.80 - 2.30 mg/L 02/20/2024 12:40 PM TELEVISION WRITER [facility] Blood Peripheral blood specimen / Unknown Venipuncture / Unknown 02/20/2024 9:16 AM TELEVISION WRITER 02/20/2024 9:19 AM TELEVISION WRITER Narrative [facility] - 02/20/2024 12:40 PM TELEVISION WRITER This test is measured by turbidimetric methodology on The Binding Site Optilite analyzer. Results obtained in different methods are not interchangeable. Ivory Todd APRN LAB BLOOD ORDERABLES Fi nal Result Performing Organization Address [facility] de Phone Number [facility] Unless otherwise noted, all lab tests performed by: Division of Pathology and Laboratory Medicine [address] [place] [address] [phone] * REJI Urine (12/08/2023 3:04 PM CDT) Only the most recent of2 resultswithin the time period is included. Urine Immunofixation See Comment 12/11/2023 3:50 PM CDT [facility] UIFE Path Interp The urine immunofixation electrophoretic patterns do not show definitive evidence of a Bence-Lee proteinuria. 12/11/2023 3:50 PM CDT [facility] Pathologist Signature . 12/11/2023 3:50 PM CDT [facility] Urine 24 Hr Voided urine specimen / Unknown Non-blood Collection / Unknown 12/08/2023 3:04 PM CDT 12/08/2023 4:47 PM CDT Ivory Todd TRUCK SERVICE MANAGER URINE ORDERABLES Final Result Performing Organization Address City/[facility]/ZIP Co de Phone Number [facility] Unless otherwise noted, all lab tests performed by: Division of Pathology and Laboratory Medicine [address] [place] [address] [phone] * Protein Electrophoresis Urine (12/08/2023 3:04 PM CDT) Only the most recent of2 resultswithin the time period is included. Urine Albumin % 42.0 % 12/11/2023 3:50 PM CDT [facility] U Globulin % 58.0 % 12/11/2023 3:50 PM CDT [facility] U ProE Path Interp The urine protein electrophoretic pattern shows no evidence of a Bence-Lee protein peak or other abnormalities. If a Bence-Lee proteinuria is suspected clinically, however, urine REJI studies are recommended. 12/11/2023 3:50 PM CDT [facility] Pathologist Signature . 12/11/2023 3:50 PM CDT [facility] Urine 24 Hr Voided urine specimen / Unknown Non-blood Collection / Unknown 12/08/2023 3:04 PM CDT 12/08/2023 4:47 PM CDT Ivory Todd TRUCK SERVICE MANAGER URINE ORDERABLES Final Result [facility] Unless otherwise noted, all lab tests performed by: Division of Pathology and Laboratory Medicine [address] [place] [address] [phone] * 24hr Urine Total Protein (12/08/2023 3:04 PM CDT) Only the most recent of2 resultswithin the time period is included. Urine Total Protein 7 mg/dL 12/08/2023 5:37 PM CDT [facility] Comment:Caution is advised w hen interpreting values greater than 555 mg/dL. Results requiring extended dilution beyond the interactive multimedia designer's recommended limit may not dilute linearly due to potential matrix effect. Correlation with clinical context is recommended. Urine Total Pro per Total volume 110 <=149 mg/24hr 12/08/2023 5:37 PM CDT [facility] Total Volume 1,575 mL/24hr 12/08/2023 5:37 PM CDT [facility] Hours Collected 24 hr 5:37 PM CDT [facility] Start Date 4 12/08/2023 5:37 PM CDT [facility] Start Time 3:00 PM 12/08/2023 5:37 PM CDT [facility] End Date 4 12/08/2023 5:37 PM CDT [facility] End Time 3:00 PM 12/08/2023 5:37 PM CDT [facility] How many jugs collected? 1 12/08/2023 5:37 PM CDT [facility] Urine 24 Hr Voided urine specimen / Unknown Non-blood Collection / Unknown 12/08/2023 3:04 PM CDT 12/08/2023 4:47 PM CDT Ivory Todd TRUCK SERVICE MANAGER URINE ORDERABLES Final Result [facility] Unless otherwise noted, all lab tests performed by: Division of Pathology and Laboratory Medicine [address] [place] [address] [phone] * (ABNORMAL) Differential (12/08/2023 9:13 AM CDT) Only the most recent of2 resultswithin the time period is included. Pathologist [facility] Total Cells 100 12/08/2023 10:20 AM CDT [facility] Manual Neutrophil % 54.0 43.2 - 72.7 % 12/08/2023 10:20 AM CDT [facility] Comment:The Neutrophil count includes Bands. Manual Lymphocyte % 31.0 16.8 - 46.2 % 12/08/2023 10:20 AM CDT [facility] Manual Monocyte % 10.0 5.1 - 12.5 % 12/08/2023 10:20 AM CDT [facility] Manual Eosinophil % 3.0 0.4 - 6.3 % 12/08/2023 10:20 AM CDT [facility] Manual Basophil % 2.0(H) 0.2 - 1.4 % 12/08/2023 10:20 AM CDT [facility] Metamyelocyte % 10:20 AM CDT [facility] Comment:The Metamyelocyte co unt includes Myelocytes. Manual Neutrophil Abs 2.27 1.95 - 7.25 K/uL 12/08/2023 10:20 AM CDT [facility] Manual Lymphocyte Abs 1.30 1.01 - 3.24 K/uL 12/08/2023 10:20 AM CDT [facility] Manual Monocyte Abs 0.42 0.24 - 0.85 K/uL 12/08/2023 10:20 AM CDT [facility] Manual Eosinophil Abs 0.13 0.02 - 0.50 K/uL 12/08/2023 10:20 AM CDT [facility] Manual Basophil Abs 0.08 0.02 - 0.09 K/uL 12/08/2023 10:20 AM CDT [facility] RBC Morphology PRESENT 12/08/2023 10:20 AM CDT [facility] PLT Morph Normal Normal 12/08/2023 10:20 AM CDT [facility] Ovalocyte Present(A) (none) 12/08/2023 10:20 AM CDT [facility] Conor Cells Present(A) (none) 12/08/2023 10:20 AM T [facility] Blood Peripheral blood specimen / Unknown Venipuncture / Unknown 12/08/2023 9:13 AM CDT 12/08/2023 9:20 AM CDT us Ivory L Todd TRUCK SERVICE MANAGER LAB BLOOD ORDERABLES Fi nal Result [facility] Unless otherwise noted, all lab tests performed by: Division of Pathology and Laboratory Medicine [address] [place] [address] [phone] * TSH (07/18/2023 9:11 AM CDT) Thyroid Stimulating Hormone 1.29 0.27 - 4.20 mcunit/mL 07/18/2023 10:06 AM CDT [facility] Blood Peripheral blood specimen / Unknown Venipuncture / Unknown 07/18/2023 9:11 AM CDT 07/18/2023 9:19 AM CDT TARA Guevara APRN LAB BLOOD ORDERABLES Final Result Performing Organization Address City/[facility]/ZIP Co de Phone Number [facility] Unless otherwise noted, all lab tests performed by: Division of Pathology and Laboratory Medicine [address] [place] [id number] * Hemoglobin A1c (07/18/2023 9:11 AM CDT) Hemoglobin A1c 5.6 4.3 - 5.6 % 07/18/2023 9:43 AM CDT [facility] Blood Peripheral blood specimen / Unknown Venipuncture / Unknown 07/18/2023 9:11 AM CDT 07/18/2023 9:19 AM CDT Narrative [facility] - 07/18/2023 9:43 AM CDT HbA1c values >=6.5% are diagnostic of diabetes mellitus. Diagnosis should be confirmed by repeat testing. Therapeutic Action suggested: >8.0% HbA1c; Goal of therapy: <7.0% HbA1c TARA Guevara APRN LAB BLOOD ORDERABLES Final Result [facility] Unless otherwise noted, all lab tests performed by: Division of Pathology and Laboratory Medicine [address] [place] [id number] * Vitamin B12 Level (07/18/2023 9:11 AM CDT) Vitamin B12 Level 325 232 - 1,245 pg/mL 07/18/2023 9:57 AM CDT [facility] Comment:Reference range esta blished based on adult population Is patient fasting? Yes 07/18/2023 9:57 AM CDT [facility] Blood Peripheral blood specimen / Unknown Venipuncture / Unknown 07/18/2023 9:11 AM CDT 07/18/2023 9:14 AM CDT TARA Guevara APRN LAB BLOOD ORDERABLES Final Result [facility] Unless otherwise noted, all lab tests performed by: Division of Pathology and Laboratory Medicine [address] [place] [address] Unless otherwise noted, all lab tests performed by: Division of Pathology and Laboratory Medicine [address] [place] [id number] after 03/22/2023 Insurance [employer] Advance Directives * Full Code (Latest Code [...] 5:31 AM 09/27/2021 7:19 PM Care Teams Yarder Puncher Relationship Specialty Start Date End Date Sumaya Cheng [email or web address] PCP - External Referring Hematology and Oncology 03/19/21 02/20/24 Clay Murphy MD [address] [place] [phone] [email or web address] PCP - General Lymphoma and Myeloma 10/05/22 Yesenia Vance MD [address] [place] [address] [phone] [email or web address] Consulting Physician Physical Medicine and Rehabilitation 03/28/22 Bruce Kim MD [address] [place] [address] [phone] [email or web address] Consulting Physician Dermatology 07/12/22 Dimitrios Quiñonez MD [address] [place] [address], [place] [address] [email or web address] Consulting Physician Gastroenterology, Hepatology and Nutrition 10/28/22
[2024-03-21] MEDS ORDERED: ACETAMINOPHEN 500 MG TAB ONE (12:16)
[2024-03-21 12:49] LABS: SARS-CoV-2 Antigen CONTROL BLUE LINE VIS/BG OK; SARS-CoV-2 Antigen Rapid Res Negative (Negative)
--- NOTE | 2024-03-21 13:59 | RAD REPORT ---
EXAMINATION: TWO VIEW CHEST XR CLINICAL INDICATION: Female, 63 years old. [facility] MAIN COUGH Bed Name: [facility] TECHNIQUE: 2 view radiographs of the chest were performed. COMPARISON: 04/26/2021 FINDINGS: The lungs are well inflated and clear. No pneumothorax or sizable effusion. The heart is normal in si ze. Mediastinal contours are unremarkable. IMPRESSION: No acute or significant abnormalities.
--- NOTE | 2024-03-21 14:14 | EDPHYS ---
Physician Documentation [facility] Name: Rebecca Marie Age: 63 yrs Sex: Female : 1960 Arrival Date: 03/21/2024 Time: 11:57 Bed IW1 Private MD: ED Physician Oneil Gayle HPI: 03/21 12:34 This 63 yrs old Black Female presents to ER via Ambulatory with complaints of Flu ms3 Symptoms. 12:34 63-year-old female with past medical history of diabetes, hyperlipidemia, hypertension, ms3 multiple myeloma, rheumatoid arthritis presents to the emergency department for cough, body aches, runny nose that have been ongoing for 3 days. Patient states she is in 7/10 discomfort. Patient has taken lemon water with honey, benzoate, cough drops without relief. Patient states her Tmax was 99.1. Historical: - Allergies: 12:14 senna; me1 12:14 Ciprofloxacin; me1 - PMHx: 12:14 Diabetes - NIDDM; High Cholesterol; Hypertension; multiple myeloma; Rheumatoid me1 Arthritis; - PSHx: 12:14 tubal; me1 - Immunization history:: Adult Immunizations up to date. - Infectious Disease History:: Denies. - Social history:: Smoking status: Patient denies any tobacco usage or history of. ROS: 12:34 Constitutional: Negative for fever, and chills. Cardiovascular: Negative for chest ms3 pain, and palpitations. Respiratory: Negative for shortness of breath, cough, wheezing, and pleuritic chest pain, Abdomen/GI: Negative for abdominal pain, nausea, vomiting, diarrhea, and constipation, MS/Extremity: Negative for injury and deformity, Skin: Negative for injury, rash, and discoloration, Exam: 12:34 Constitutional: This is a well developed, well nourished patient who is awake, alert, ms3 and in no acute distress. Cardiovascular: Regular rate and rhythm with a normal S1 and S2. No gallops, murmurs, or rubs. Normal PMI, no JVD. No pulse deficits. Respiratory: Lungs have equal breath sounds bilaterally, clear to auscultation and percussion. No rales, rhonchi or wheezes noted. No increased work of breathing, no retractions or nasal flaring. Abdomen/GI: Soft, non-tender, with normal bowel sounds. No distension or tympany. No guarding or rebound. No evidence of tenderness throughout. Skin: Warm, dry with normal turgor. Normal color with no rashes, no lesions, and no evidence of cellulitis. MS/ Extremity: Pulses equal, no cyanosis. Neurovascular intact. Full, normal range of motion. Vital Signs: 12:14 BP 135 / 82; Pulse 93; Resp 16; Temp 98.5; Pulse Ox 99% ; Weight 79.38 kg; Height 5 ft. me1 6 in. ; Pain 7/10; 14:54 BP 128 / 81; Pulse 90; Resp 17; Temp 98.6; Pulse Ox 99% ; me1 12:14 Body Mass Index 28.25 (79.38 kg, 167.64 cm) me1 12:14 Pain Scale: Adult me1 MDM: 12:30 Medical Screening Exam initiated ms3 12:34 Differential diagnosis: flu, URI, COVID versus pneumonia. ms3 14:14 Data reviewed: vital signs, nurses notes, lab test result(s), radiologic studies, and ms3 as a result, I will discharge patient. I considered the following discharge prescriptions or medication management in the emergency department Medications were administered in the Emergency Department. See MAR. Counseling: I had a detailed discussion with the patient and/or guardian regarding the historical points, exam findings, and any diagnostic results supporting the discharge/admit diagnosis, lab results, radiology results, the need for outpatient follow up, to return to the emergency department if symptoms worsen or persist or if there are any questions or concerns that arise at home. Special discussion: I discussed with the patient/guardian in detail that at this point there is no indication for admission to the hospital. It is understood, however, that if the symptoms persist or worsen the patient needs to return immediately for re-evaluation. ED course: Discussed negative flu, negative COVID, normal chest x-ray with the patient. Patient to follow-up with primary care physician in 2 to 3 days. Patient understands and agrees with plan. All questions were answered. Return precautions discussed include worsening symptoms, shortness of breath, or any other concerns. On reevaluation patient is alert and orient x 4, no apparent distress, nontoxic-appearing, speaking full sentences, ambulatory in the emergency department.. 03/21 12:11 Order name: Flu; Complete Time: 13:08 ms3 03/21 12:11 Order name: SARS RAPID; Complete Time: 13:08 ms3 03/21 12:22 Order name: Chest Pa And Lat (2 Views) XRAY; Complete Time: 14:08 me1 Administered Medications: 12:22 Drug: Acetaminophen PO 1000 mg PO once Route: PO; me1 14:52 Follow up: Response: No adverse reaction me1 Disposition Summary: 03/21/24 14:14 Discharge Ordered Notes: Location: Home ms3 Condition: Stable ms3 Diagnosis - Myalgia ms3 Followup: ms3 - With: Private Physician - When: 2 - 3 days - Reason: Recheck today's complaints Discharge Instructions: - Discharge Summary Sheet ms3 - Influenza, Adult, [id number] ms3 - Viral Illness, Adult ms3 Forms: - Medication Reconciliation Form ms3 - Antibiotic Education ms3 - Prescription Opioid Use ms3 - Patient Portal Instructions ms3 - Leadership Thank You Letter ms3 Signatures: Dispatcher [employer] Oneil Murphy DO DO ms3 Sola Pacheco, RN RN me1
--- NOTE | 2024-03-21 14:14 | ER ---
Nurse's Notes [facility] Name: Rebecca Marie Age: 63 yrs Sex: Female : 1960 Arrival Date: 03/21/2024 Time: 11:57 Bed IW1 Private MD: Diagnosis: Myalgia Presentation: 03/21 12:14 Chief complaint: Patient states: c/o cough, congestion, aches, chills, decreased me1 appetite x 3 days. Coronavirus screen: Vaccine status: Patient reports receiving the 2nd dose of the covid vaccine. Ebola Screen: No symptoms or risks identified at this time. Initial Sepsis Screen: Does the patient meet any 2 criteria? No. Patient's initial sepsis screen is negative. Does the patient have a suspected source of infection?. Risk Assessment: Do you want to hurt yourself or someone else? Patient reports no desire to harm self or others. Onset of symptoms was March 18, 2024. 12:14 Method Of Arrival: Ambulatory or1 12:14 Acuity: PALMA 4 me1 Historical: - Allergies: 12:14 senna; me1 12:14 Ciprofloxacin; me1 - PMHx: 12:14 Diabetes - NIDDM; High Cholesterol; Hypertension; multiple myeloma; Rheumatoid me1 Arthritis; - PSHx: 12:14 tubal; me1 - Immunization history:: Adult Immunizations up to date. - Infectious Disease History:: Denies. - Social history:: Smoking status: Patient denies any tobacco usage or history of. Screenin:14 [facility] ED Fall Risk Assessment (Adult) History of falling in the last 3 months, me1 including since admission No falls in past 3 months (0 pts) Confusion or Disorientation No (0 pts) Intoxicated or Sedated No (0 pts) Impaired Gait No (0 pts) Mobility Assist Device Used No (0 pt) Altered Elimination No (0 pt) Score/Fall Risk Level 0 - 2 = Low Risk Maintained a safe environment, Provided non-skid footwear, Hourly rounding (assess needs \T\ fall precautionary measures) done. Abuse screen: Denies threats or abuse. Nutritional screening: No deficits noted. Tuberculosis screening: No symptoms or risk factors identified. Assessment: 12:14 General: Appears uncomfortable, ill, well groomed, well developed, well nourished, me1 Behavior is calm, cooperative, appropriate for age. Pain: Complains of pain in generalized Pain does not radiate. Pain currently is 7 out of 10 on a pain scale. Quality of pain is described as aching, Pain began suddenly, Is continuous. Neuro: Level of Consciousness is awake, alert, obeys commands, Oriented to person, place, time, situation, Appropriate for age. Cardiovascular: Patient's skin is warm and dry. Respiratory: Reports cough that is persistent Airway is patent Respiratory effort is even, unlabored, Respiratory pattern is regular, symmetrical. GI: No signs and/or symptoms were reported involving the gastrointestinal system. : No signs and/or symptoms were reported regarding the genitourinary system. EENT: Reports nasal congestion. Derm: Skin is intact, is healthy with good turgor, Skin is pink, warm \T\ dry. Musculoskeletal: No signs and/or symptoms reported regarding the musculoskeletal system. Vital Signs: 12:14 BP 135 / 82; Pulse 93; Resp 16; Temp 98.5; Pulse Ox 99% ; Weight 79.38 kg; Height 5 ft. me1 6 in. ; Pain 7/10; 14:54 BP 128 / 81; Pulse 90; Resp 17; Temp 98.6; Pulse Ox 99% ; me1 12:14 Body Mass Index 28.25 (79.38 kg, 167.64 cm) me1 12:14 Pain Scale: Adult me1 ED Course: 11:59 Patient arrived in ED. im 12:10 Oneil Gayle DO is Attending Physician. ms3 12:14 Arm band placed on Patient placed in waiting room. me1 12:14 Patient has correct armband on for positive identification. Bed in low position. Call me1 light in reach. Side rails up X2. Provided Education on: POC. Verbalized understanding.. 12:14 No provider procedures requiring assistance completed. Patient did not have IV access me1 during this emergency room visit. 12:17 Triage completed. me1 12:19 SARS RAPID Sent. me1 12:19 Flu Sent. me1 13:35 Chest Pa And Lat (2 Views) XRAY In Process Unspecified. EDMS 14:52 Sola Pacheco, RN is Primary Nurse. me1 Administered Medications: 12:22 Drug: Acetaminophen PO 1000 mg PO once Route: PO; me1 14:52 Follow up: Response: No adverse reaction me1 Medication: 12:14 VIS not applicable for this client. me1 Outcome: 14:14 Discharge ordered by . ms3 14:57 Discharged to home ambulatory, me1 14:57 Condition: stable 14:57 Discharge instructions given to patient, Instructed on discharge instructions, follow up and referral plans. Demonstrated understanding of instructions, follow-up care, 14:57 Patient left the ED. me1 Signatures: Dispatcher [employer] EDOneil Becker DO DO ms3 Estella Grimaldo Michelle, RN RN me1
[2024-03-21 15:01] VITALS: O2SAT 99
[2024-03-21 15:02] VITALS: BP 128/81; TEMP 98.6
== END 2024-03-21 14:57 | disposition home or self-care (01) ==
LOC: ER 11:57
DX: M79.10 Myalgia, unspecified site (principal); R05.9 Cough, unspecified; J34.89 Other specified disorders of nose and nasal sinuses; Z11.52 Encounter for screening for COVID-19
CPT/HCPCS: 36415; 71046; 87804; 87811; 99283